=== PATIENT | male | born 1985 | race Caucasian/White ===

== ENCOUNTER 2016-09-13 12:17 | Inpatient (IN) | payer SELFPAY ==
[~2016-09-13] VITALS: Ht 180.3 cm; Wt 179.2 kg
[2016-09-13 05:25] VITALS: BP 148/86
[2016-09-13] MEDS ORDERED: IV NORMAL SALINE 1000ML BAG 1,000 ML IV SCH (14:06)
[2016-09-13] MEDS ORDERED: ONDANSETRON PF 4 MG/2 ML VIAL. IV ONE (14:15)
[2016-09-13] MEDS ORDERED: FENTANYL PF 100 MCG/2 ML VIAL. IV ONE ×2 (14:15→16:30)
[2016-09-13 14:25] LABS: GLUCOSE,URINE NEGATIVE (NEG); PH,URINE 5.5; PROTEIN,URINE 30 mg/dL (NEG-TRACE)
[2016-09-13 14:33] LABS: BASO % 0 % (0-3); EOS % 0 % (0-3); HEMATOCRIT 48.8 % (39.0-53.0); HEMOGLOBIN 16.8 g/dL (13.0-17.5); LYMPH # 1.2 x10^3/uL (1.0-4.8); LYMPH % 5 % (24-48); MEAN CORPUSCULAR HEMOGLOBIN 30 pg (25-35); MEAN CORPUSCULAR HGB CONC 34 g/dL (31-37); MEAN CORPUSCULAR VOLUME 86 fL (79-100); MONO % 4 % (0-9); NEUT % 91 % (31-73); PLATELET COUNT 286 x10^3/uL (140-400); RED BLOOD COUNT 5.68 x10^6/uL (4.30-5.70); RED CELL DISTRIBUTION WIDTH 13.4 % (11.5-14.5); WHITE BLOOD COUNT 23.3 x10^3/uL (4.0-11.0)
[2016-09-13 14:47] LABS: CALCIUM 9.4 mg/dL (8.5-10.1); CREATININE 0.9 mg/dL (0.7-1.3); GFR 97.2; POTASSIUM 3.7 mmol/L (3.5-5.1)
[2016-09-13 14:50] LABS: NITRITE,URINE NEGATIVE (NEG)
[2016-09-13 14:51] LABS: BILIRUBIN,URINE NEGATIVE (NEG); UROBILINOGEN,URINE 0.2 mg/dL (0.2 mg/dL)
[2016-09-13 14:52] LABS: BACTERIA,URINE 0 /HPF (0-FEW); RBC,URINE 0 /HPF (0-2); SQUAMOUS EPITHELIAL CELL,UR OCC /LPF; WBC,URINE 0 /HPF (0-4)
[2016-09-13 14:53] LABS: ALBUMIN 3.6 g/dL (3.4-5.0); ALBUMIN/GLOBULIN RATIO 0.9 (1.0-1.7); TOTAL PROTEIN 7.8 g/dL (6.4-8.2)
--- NOTE | 2016-09-13 14:57 | EKG ---
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 RI6.01 Unconfirmed report No previous ECG available for comparison Electronically Signed On 09-22-2016 10:15:01 LAUNCH MANAGER by Tomasz West
[2016-09-13] MEDS ORDERED: IOHEXOL 300 MG/ML 75 ML VIAL IV ONE (15:00)
[2016-09-13] MEDS ORDERED: CONTRAST GIVEN MC PRN (15:15)
--- NOTE | 2016-09-13 15:35 | PHYS DOC ---
Past Medical History Past Medical History: GERD Past Surgical History: No Surgical History Alcohol Use: Rarely Drug Use: None Adult General Chief Complaint Chief Complaint: ABDOMINAL PAIN HPI HPI This is a 31-year-old male who has had bowel movements for the last 3-4 days and has significant epigastric pain that has worsened over the last several days. He is nauseated but is not vomiting. He was seen at a clinic earlier today and sent here for further evaluation and treatment. He denies any significant health problems. He is morbidly obese. He denies any history of abdominal surgery. Review of Systems Review of Systems Constitutional: Denies fever or chills [] Eyes: Denies change in visual acuity, redness, or eye pain [] HENT: Denies nasal congestion or sore throat [] Respiratory: Denies cough or shortness of breath [] Cardiovascular: No additional information not addressed in HPI [] GI: Has abdominal pain, has nausea, denies vomiting, denies bloody stools or diarrhea [] : Denies dysuria or hematuria [] Musculoskeletal: Denies back pain or joint pain [] Integument: Denies rash or skin lesions [] Neurologic: Denies headache, focal weakness or sensory changes [] Endocrine: Denies polyuria or polydipsia [] Current Medications Current Medications Current Medications Medications (Trade) Dose Ordered Sig/Aleyda Start Time Stop Time Status Last Admin Dose Admin Fentanyl Citrate (Fentanyl 2ml Vial) 50 mcg 1X ONCE 09/13/16 14:15 09/13/16 14:16 DC 09/13/16 14:32 50 MCG Info (Do NOT chart on this entry -- for MONITORING) 1 each PRN DAILY PRN 09/13/16 15:15 09/15/16 15:14 Iohexol (Omnipaque 300 Mg/ml) 75 ml 1X ONCE 09/13/16 15:00 09/13/16 15:01 09/13/16 15:27 75 ML Ondansetron HCl (Zofran) 4 mg 1X ONCE 09/13/16 14:15 09/13/16 14:16 DC 09/13/16 14:32 4 MG Sodium Chloride (Iv Sodium Chloride 0.9% 1000ml Bag) 1,000 ml @ 1,000 mls/hr Q1H 09/13/16 14:06 09/13/16 15:05 09/13/16 14:23 1,000 MLS/HR Allergies Allergies Allergies Coded Allergies Type Severity Reaction Last Updated Verified No Known Drug Allergies 09/13/16 No Physical Exam Physical Exam Constitutional: Well developed, well nourished, no acute distress, non-toxic appearance. [] HENT: Normocephalic, atraumatic, bilateral external ears normal, oropharynx moist, no oral exudates, nose normal. [] Eyes: PERRLA, EOMI, conjunctiva normal, no discharge. [] Neck: Normal range of motion, no tenderness, supple, no stridor. [] Cardiovascular:Heart rate regular rhythm, no murmur [] Lungs & Thorax: Bilateral breath sounds clear to auscultation [] Abdomen: Bowel sounds hypoactive, obese, soft, moderate epigastric and LUQ tenderness, no masses, no pulsatile masses. [] Skin: Warm, dry, no erythema, no rash. [] Back: No tenderness, no CVA tenderness. [] Extremities: No tenderness, no cyanosis, no clubbing, ROM intact, no edema. [] Neurologic: Alert and oriented X 3, normal motor function, normal sensory function, no focal deficits noted. [] Psychologic: Affect normal, judgement normal, mood normal. [] Current Patient Data Vital Signs Vital Signs Date Time Temp Pulse Resp B/P Pulse Ox O2 Delivery O2 Flow Rate FiO2 09/13/16 14:32 16 09/13/16 13:21 99.2 83 152/89 96 Room Air 99.2 Lab Values Laboratory Tests Test 09/13/16 12:50 09/13/16 14:20 Urine Collection Type Void Urine Color [place] Urine Clarity Turbid Urine pH 5.5 Urine Specific [place] 1.025 Urine Protein 30mg/dL (NEG-TRACE) Urine Glucose (UA) Negativemg/dL (NEG) Urine Ketones (Stick) >=80mg/dL (NEG) Urine Blood Negative (NEG) Urine Nitrite Negative (NEG) Urine Bilirubin Negative (NEG) Urine Urobilinogen Dipstick 0.2mg/dL (0.2 mg/dL) Urine Leukocyte Esterase Negative (NEG) Urine RBC 0/HPF (0-2) Urine WBC 0/HPF (0-4) Urine Squamous Epithelial Cells Occ/LPF Urine Amorphous Sediment Present/HPF Urine Bacteria 0/HPF (0-FEW) Urine Mucus Slight/LPF White Blood Count 23.3x10^3/uL (4.0-11.0) H Red Blood Count 5.68x10^6/uL (4.30-5.70) Hemoglobin 16.8g/dL (13.0-17.5) Hematocrit 48.8% (39.0-53.0) Mean Corpuscular Volume 86fL (79-100) Mean Corpuscular Hemoglobin 30pg (25-35) Mean Corpuscular Hemoglobin Concent 34g/dL (31-37) Red Cell Distribution Width 13.4% (11.5-14.5) Platelet Count 286x10^3/uL (140-400) Neutrophils (%) (Auto) 91% (31-73) H Lymphocytes (%) (Auto) 5% (24-48) L Monocytes (%) (Auto) 4% (0-9) Eosinophils (%) (Auto) 0% (0-3) Basophils (%) (Auto) 0% (0-3) Neutrophils # (Auto) 21.2x10^3uL (1.8-7.7) H Lymphocytes # (Auto) 1.2x10^3/uL (1.0-4.8) Monocytes # (Auto) 0.8x10^3/uL (0.0-1.1) Eosinophils # (Auto) 0.0x10^3/uL (0.0-0.7) Basophils # (Auto) 0.0x10^3/uL (0.0-0.2) Segmented Neutrophils % 89% (35-66) H Band Neutrophils % 4% (0-9) Lymphocytes % 6% (24-48) L Monocytes % 1% (0-10) Toxic Granulation Mod Platelet Estimate Adequate (ADEQUATE) Sodium Level 139mmol/L (136-145) Potassium Level 3.7mmol/L (3.5-5.1) Chloride Level 101mmol/L (98-107) Carbon Dioxide Level 25mmol/L (21-32) Anion Gap 13 (6-14) Blood Urea Nitrogen 9mg/dL (8-26) Creatinine 0.9mg/dL (0.7-1.3) Estimated GFR (Cockcroft-Gault) 97.2 BUN/Creatinine Ratio 10 (6-20) Glucose Level 107mg/dL (70-99) H Calcium Level 9.4mg/dL (8.5-10.1) Total Bilirubin 3.0mg/dL (0.2-1.0) H Aspartate Amino Transferase (AST) 60U/L (15-37) H Alanine Aminotransferase (ALT) 261U/L (16-63) H Alkaline Phosphatase 117U/L (46-116) H Total Protein 7.8g/dL (6.4-8.2) Albumin 3.6g/dL (3.4-5.0) Albumin/Globulin Ratio 0.9 (1.0-1.7) L Lipase 1334U/L (73-393) H Laboratory Tests 09/13/16 14:20 Laboratory Tests 09/13/16 14:20 EKG EKG [] Radiology/Procedures Radiology/Procedures CT of the abdomen/pelvis with IV contrast demonstrates the following: Multidetector CT imaging was performed following an IV bolus injection of iodinated contrast material. The liver is unremarkable. There are low density areas in the gallbladder probably related to gallstones. The gallbladder is not dilated. No pericholecystic edema is seen. There is moderate streaky increased density in the peripancreatic fat best seen at the level of the pancreatic body and tail. The appearance suggests inflammation due to pancreatitis. The pancreas does enhance. No pancreatic mass is seen. The inflammatory changes extend into the anterior pararenal spaces bilaterally and the left paracolic gutter. The spleen is of normal size. The kidneys show no evidence of obstruction. There is a 4 cm mass arising from the medial aspect of the upper pole of the right kidney. It demonstrates an internal CT number of 16 Hounsfield units suggesting a solid mass versus a complicated cyst. No abdominal or pelvic adenopathy is seen. The aorta is of normal caliber. The bowel loops are not dilated. A portion of the appendix is visualized and it is unremarkable. No free air is evident in the abdomen or pelvis. There is dilatation of the left inguinal ring. It contains the spermatic cord and fat. No bowel herniation is evident. Course & Med Decision Making Course & Med Decision Making Pertinent Labs and Imaging studies reviewed. (See chart for details) 31-year-old male who has a ongoing episode of pancreatitis as demonstrated on CT scan as well as blood work with a very elevated lipase. His liver functions are also abnormal and his bilirubin is elevated. This is consistent with a gallstone pancreatitis. The need for admission was discussed with the hospitalist, Dr. Gilbert, who agreed with this plan for admission as well as a GI consult. Patient will likely be needing a ERCP study and ultrasound to further delineate the extent of his disease. He will be kept NPO and given fluids and pain control as needed. Dragon Disclaimer Dragon Disclaimer This electronic medical record was generated, in whole or in part, using a voice recognition dictation system. Departure Departure Impression: Primary Impression: Acute pancreatitis Disposition: 09 ADMITTED INPATIENT Admitting Physician: Asif Gilbert Condition: STABLE Referrals: NO PCP (PCP) XIOMARA CASTILLO DO Sep 13, 2016 15:35
[2016-09-13 15:53] LABS: PLT ESTIMATE ADEQUATE (ADEQUATE)
[2016-09-13 15:55] LABS: TOXIC GRANULATION MOD
--- NOTE | 2016-09-13 15:57 | RAD ---
CT of the abdomen and pelvis with contrast, 09/13/2016: History: Abdominal pain and vomiting Multidetector CT imaging was performed following an IV bolus injection of iodinated contrast material. The liver is unremarkable. There are low density areas in the gallbladder probably related to gallstones. The gallbladder is not dilated. No pericholecystic edema is seen. There is moderate streaky increased density in the peripancreatic fat best seen at the level of the pancreatic body and tail. The appearance suggests inflammation due to pancreatitis. The pancreas does enhance. No pancreatic mass is seen. The inflammatory changes extend into the anterior pararenal spaces bilaterally and the left paracolic gutter. The spleen is of normal size. The kidneys show no evidence of obstruction. There is a 4 cm mass arising from the medial aspect of the upper pole of the right kidney. It demonstrates an internal CT number of 16 Hounsfield units suggesting a solid mass versus a complicated cyst. No abdominal or pelvic adenopathy is seen. The aorta is of normal caliber. The bowel loops are not dilated. A portion of the appendix is visualized and it is unremarkable. No free air is evident in the abdomen or pelvis. There is dilatation of the left inguinal ring. It contains the spermatic cord and fat. No bowel herniation is evident. IMPRESSION: 1. Moderate peripancreatic inflammation compatible with acute pancreatitis. 2. Medium density right renal mass suggesting neoplasm versus complicated cyst. Sonographic evaluation is suggested. 3. Cholelithiasis. 4. Left inguinal hernia containing only fat.
--- NOTE | 2016-09-13 16:12 | ACF ---
Admission Forms Criteria PANCREATITIS Clinical Indications for Admission to Inpatient Care (Place 'X' for any and all applicable criteria): Admission is indicated for ANY ONE of the following (1)(2)(3)(4): [X]I. Acute pancreatitis[A] as indicated by 2 or more of the following: [X]a) Abdominal pain (eg, epigastric, left upper quadrant) [X]b) Serum amylase or serum lipase greater than 3 times the upper limit of normal [X]c) Characteristic findings from abdominal imaging (eg, pancreatic inflammation, pancreatic necrosis, peripancreatic fluid collection)[B] [ ]II. Pancreatitis (acute or chronic ) requiring inpatient care as indicated by 1 or more of the following : [ ]a) Inability to maintain oral hydration Hypoxemia [ ]b) Evidence of infection (eg, fever, peripancreatic abscess) [ ]c) Severe pain requiring acute inpatient management [ ]d) Hemodynamic instability [ ]e) Hypoxemia [ ]f) Acute renal failure [ ]g) Severe electrolyte abnormalities Extended stay beyond goal length of stay may be needed for (1)(11) [ ]a) Severe acute pancreatitis (10)(19) [ ]b) Persistent symptoms, ascites, or pleural effusion [ ]c) Abdominal compartment syndrome (10) [ ]d) Late complications [ ]e) Acute renal failure (27) [ ]f) Gallstones in gallbladder The original [employer] content created by [employer] has been revised. The portions of the content which have been revised are identified through the use of italic text or in bold,and [facility] has neither reviewed nor approved the modified material.All other unmodified content is copyright [employer]. Please see references footnoted in the original [employer] edition 2016 Admission Criteria Met?: Yes AARON SIMS Sep 13, 2016 16:12
[2016-09-13] MEDS ORDERED: IV NORMAL SALINE 1000ML BAG 1,000 ML IV ONE (16:30)
[2016-09-13 17:25] VITALS: BP 148/86
[2016-09-13 19:00] VITALS: BP 121/82
[2016-09-13] MEDS ORDERED: IBUP100T8 PO (19:24)
[2016-09-13] MEDS ORDERED: CALC200T3 PO (19:24)
[2016-09-13] MEDS: FENTANYL PF 100 MCG/2 ML VIAL. IV PRN ×2 (19:59→22:00)
[2016-09-13] MEDS ORDERED: FENTANYL PF 100 MCG/2 ML VIAL. IV PRN (20:00)
[2016-09-13] MEDS: DIPHENHYDRAMINE 50 MG/ML VIAL IVP PRN (20:31)
[2016-09-13] MEDS: FAMOTIDINE 20 MG/2 ML VIAL IVP SCH (20:31)
[2016-09-13] MEDS ORDERED: IBUPROFEN 200 MG TABLET PO PRN (21:00)
--- NOTE | 2016-09-13 21:28 | HP ---
ADMIT DATE: 09/13/2016 CHIEF COMPLAINT: Abdominal pain. HISTORY OF PRESENT ILLNESS: The patient is a pleasant middle-aged relatively healthy gentleman, although is quite overweight. Basically presents with abdominal pain, we did imaging, he has got gallstones. He also has pancreatitis. I discussed the case with the ER physician. We are going to admit the patient and consult GI and General Surgery, give him IV narcotics and fluids and p.r.n. antiemetics. PAST MEDICAL HISTORY: Obesity. ALLERGIES: None. FAMILY HISTORY: Diabetes. SOCIAL HISTORY: Does not drink, smoke or take drugs. MEDICATIONS: Reviewed, please refer to the MRAD. REVIEW OF SYSTEMS: GENERAL: No history of weight change, weakness or fevers. SKIN: No bruising, hair changes or rashes. EYES: No blurred, double or loss of vision. NOSE AND THROAT: No history of nosebleeds, hoarseness or sore throat. HEART: No history of palpitations, chest pain or shortness of breath on exertion. LUNGS: Denies cough, hemoptysis, wheezing or shortness of breath. GASTROINTESTINAL: Complaints of abdominal pain. GENITOURINARY: No history of frequency, urgency, hesitancy or nocturia. NEUROLOGIC: Denies history of numbness, tingling, tremor or weakness. PSYCHIATRIC: No history of panic, anxiety or depression. ENDOCRINE: No history of heat or cold intolerance, polyuria or polydipsia. EXTREMITIES: Denies muscle weakness, joint pain, pain on walking or stiffness. PHYSICAL EXAMINATION: VITAL SIGNS: Stable. Temperature is afebrile, pulse 74, respirations 18. GENERAL: He is alert, cooperative. He ____. HEART: Normal S1, S2. LUNGS: Clear. ABDOMEN: Soft, obese. Decreased bowel sounds and tender. EXTREMITIES: 1+ edema. SKIN: No rashes. PSYCHIATRIC: He is a little anxious. VASCULAR: Good capillary refill. ENDOCRINE: No thyromegaly. LYMPHATICS: No cervical nodes. HEMATOPOIETIC: No bruising. LABORATORY DATA: White count 23, hemoglobin 17, platelets 286. Electrolytes are normal. AST and ALT are high at 60 and 261 respectively. Alkaline phosphatase is also high at 117, lipase 1334. ASSESSMENT AND PLAN: Symptomatic gallstones. The patient ____ with pancreatitis. The patient has been admitted. We will start IV fluids, p.r.n. antiemetics, p.r.n. IV fentanyl, consult GI, consult General Surgery. SAMUEL RAND DO DR: DIOR/ángel JOB#: [id number] / [id number]
[2016-09-13] MEDS: CALCIUM CARBONATE 500 MG TAB.CHEW PO PRN (21:50)
[2016-09-13 23:00] VITALS: BP 155/91
[2016-09-14] MEDS: FENTANYL PF 100 MCG/2 ML VIAL. IV PRN ×3 (00:01→09:28)
[2016-09-14] MEDS: IBUPROFEN 400 MG TABLET. PO PRN ×3 (02:00→21:27)
[2016-09-14] MEDS: PIPERACILLIN/TAZOBACTAM 3.375 GM in IV NORMAL SALINE 50ML 50 ML IV SCH ×5 (02:01→23:15)
[2016-09-14 02:17] VITALS: BP 131/81
[2016-09-14 07:00] VITALS: BP_SYST 120; BP_SYST 154; BP_DIAS 81; BP_DIAS 96
[2016-09-14 08:04] LABS: BASO # 0.1 x10^3/uL (0.0-0.2); BASO % 0 % (0-3); EOS % 0 % (0-3); HEMATOCRIT 50.1 % (39.0-53.0); HEMOGLOBIN 16.3 g/dL (13.0-17.5); LYMPH # 1.4 x10^3/uL (1.0-4.8); LYMPH % 5 % (24-48); MEAN CORPUSCULAR HEMOGLOBIN 29 pg (25-35); MEAN CORPUSCULAR HGB CONC 33 g/dL (31-37); MEAN CORPUSCULAR VOLUME 90 fL (79-100); MONO % 6 % (0-9); NEUT % 89 % (31-73); PLATELET COUNT 233 x10^3/uL (140-400); RED BLOOD COUNT 5.56 x10^6/uL (4.30-5.70); RED CELL DISTRIBUTION WIDTH 13.9 % (11.5-14.5)
[2016-09-14 08:30] LABS: ALBUMIN 2.9 g/dL (3.4-5.0); ALBUMIN/GLOBULIN RATIO 0.7 (1.0-1.7); CALCIUM 8.8 mg/dL (8.5-10.1); CREATININE 1.3 mg/dL (0.7-1.3); GFR 63.6; POTASSIUM 3.9 mmol/L (3.5-5.1); TOTAL BILIRUBIN 2.8 mg/dL (0.2-1.0); TOTAL PROTEIN 7.2 g/dL (6.4-8.2)
--- NOTE | 2016-09-14 08:34 | PDOC2 ---
CHRISTINACAROLYN L PHARMACY ACCOUNT DIRECTOR 09/14/16 0834: CONSULT Date of Consult Date of Consult DATE: 09/14/16 TIME: 08:29 Reason for Consult Reason for Consult: pancreatitis Referring Physician Referring Physician: ER Identification/Chief Complaint Chief Complaint abdominal pain Source Source: Chart review, Patient History of Present Illness Reason for Visit: Epigastric pain and lower abdominal cramping since Thursday. Thursday associated nausea and emesis. + constipation. Low appetite. No similar process in past Past Medical History GI: GERD Past Surgical History Past Surgical History: No pertinent history Family History Family History: Coronary Artery Disease, Diabetes Social History No ALCOHOL: rare Drugs: None Lives: with Family Current Problem List Problem List Problems Medical Problems: (1) Acute pancreatitis Status: Acute Current Medications Current Medications Current Medications Sodium Chloride (Iv Sodium Chloride 0.9% 1000ml Bag) 1,000 ml @ 1,000 mls/hr Q1H IV Last administered on 09/13/16 14:23; Start 09/13/16 at 14:06; Stop at 17:10; Status DC Fentanyl Citrate (Fentanyl 2ml Vial) 50 mcg 1X ONCE IV Last administered on 14:32; Start 09/13/16 at 14:15; Stop 09/13/16 at 14:16; Status DC Ondansetron HCl (Zofran) 4 mg 1X ONCE IV Last administered on 09/13/16 14:32 ; Start 09/13/16 at 14:15; Stop 09/13/16 at 14:16; Status DC Iohexol (Omnipaque 300 Mg/ml) 75 ml 1X ONCE IV Last administered on 09/13/16 15:27; Start 09/13/16 at 15:00; Stop 09/13/16 at 17:10; Status DC Info 1 each 1 each PRN DAILY PRN MC SEE COMMENTS; Start 09/13/16 at 15:15; Stop 09/15/16 at 15:14 Sodium Chloride (Iv Sodium Chloride 0.9% 1000ml Bag) 1,000 ml @ 125 mls/hr 1X ONCE IV Last administered on 09/13/16 19:59; Start 09/13/16 at 16:30; Stop at 00:29; Status DC Fentanyl Citrate (Fentanyl 2ml Vial) 50 mcg 1X ONCE IV Last administered on 17:06; Start 09/13/16 at 16:30; Stop 09/13/16 at 17:10; Status DC Fentanyl Citrate (Fentanyl 2ml Vial) 50 mcg PRN Q2HR PRN IV PAIN Last administered on 09/14/16 02:00; Start 09/13/16 at 16:30 Fentanyl Citrate (Fentanyl 2ml Vial) 75 mcg PRN Q2HR PRN IV PAIN Last administered on 09/14/16 00:01; Start 09/13/16 at 20:00 Fentanyl Citrate (Fentanyl 2ml Vial) 100 mcg PRN Q2HR PRN IV PAIN Last administered on 09/14/16 06:27; Start 09/13/16 at 20:00 Famotidine (Pepcid) 20 mg BID IVP Last administered on 09/13/16 20:31; Start 09/13/16 at 21:00 Diphenhydramine HCl (Benadryl) 50 mg PRN Q6HRS PRN IVP ITCHING Last administered on 09/13/16 20:31; Start 09/13/16 at 20:15 Calcium Carbonate/ Glycine (Tums) 200 mg PRN Q4HRS PRN PO INDIGESTION Last administered on 09/13/16 21:50; Start 09/13/16 at 20:30 Ibuprofen 200 mg 200 mg PRN Q6HRS PRN PO PAIN; Start 09/13/16 at 21:00; Stop at 00:17; Status DC Piperacillin Sod/ Tazobactam Sod/ Sodium Chloride (Zosyn/Iv Sodium Chloride 0.9 % 50ml) 50 ml @ 100 mls/hr Q6HRS IV Last administered on 09/14/16 05:35; Start 09/14/16 at 00:30 Ibuprofen (Motrin) 400 mg PRN Q6HRS PRN PO MILD PAIN / TEMP Last administered on 09/14/16 02:00; Start 09/14/16 at 00:30 Active Scripts Active Reported Ibuprofen 100 Mg Tablet 100 Mg PO PRN Q6HRS PRN Tums (Calcium Carbonate) 200 Mg Tab.chew 200 Mg PO PRN Q4HRS PRN Allergies Allergies: Coded Allergies: No Known Drug Allergies (Unverified , 09/13/16) ROS General: YES: Other (fevers), No: Chills PSYCHOLOGICAL ROS: No: Anxiety, Depression Eyes: No Blurry vision, No Double vision HEENT: No: Heacaches, Sore Throat Hematological and Lymphatic: No: Bleeding Problems, Blood Clots Respiratory: No: Cough, Shortness of breath Cardiovascular: No Chest Pain, No Palpitations Gastrointestinal: Yes Other (see hpu) Genitourinary: YES Dysuria, No Hematuria Musculoskeletal: No Joint Pain, No Muscle Pain Neurological: No Impaired Coord/balance, No Numbness/Tingling Skin: No Pruritus, No Rash Physical Exam General: Alert, Oriented X3, Cooperative, No acute distress HEENT: PERRLA, Mucous membr. moist/pink Lungs: Clear to auscultation, Normal air movement Heart: Normal S1, Normal S2, No murmurs, Other (tachy) Abdomen: Soft, Other (tender epigastric, obese abdomen) Extremities: No clubbing, No cyanosis Skin: No rashes, No breakdown Neuro: Normal speech, Sensation intact Psych/Mental Status: Mental status NL, Mood NL MUSCULOSKELETAL: No deformity, No swelling Vitals VITALS Vital Signs Date Time Temp Pulse Resp B/P Pulse Ox O2 Delivery O2 Flow Rate FiO2 09/14/16 06:27 20 93 Room Air 09/14/16 03:00 98.8 98.8 09/14/16 02:17 113 131/81 Labs Labs Laboratory Tests Test 09/13/16 12:50 09/13/16 14:20 09/14/16 06:58 Urine Collection Type Void Urine Color [place] Urine Clarity Turbid Urine pH 5.5 Urine Specific [place] 1.025 Urine Protein 30mg/dL (NEG-TRACE) Urine Glucose (UA) Negativemg/dL (NEG) Urine Ketones (Stick) >=80mg/dL (NEG) Urine Blood Negative (NEG) Urine Nitrite Negative (NEG) Urine Bilirubin Negative (NEG) Urine Urobilinogen Dipstick 0.2mg/dL (0.2 mg/dL) Urine Leukocyte Esterase Negative (NEG) Urine RBC 0/HPF (0-2) Urine WBC 0/HPF (0-4) Urine Squamous Epithelial Cells Occ/LPF Urine Amorphous Sediment Present/HPF Urine Bacteria 0/HPF (0-FEW) Urine Mucus Slight/LPF White Blood Count 23.3x10^3/uL (4.0-11.0) 27.0x10^3/uL (4.0-11.0) Red Blood Count 5.68x10^6/uL (4.30-5.70) 5.56x10^6/uL (4.30-5.70) Hemoglobin 16.8g/dL (13.0-17.5) 16.3g/dL (13.0-17.5) Hematocrit 48.8% (39.0-53.0) 50.1% (39.0-53.0) Mean Corpuscular Volume 86fL (79-100) 90fL (79-100) Mean Corpuscular Hemoglobin 30pg (25-35) 29pg (25-35) Mean Corpuscular Hemoglobin Concent 34g/dL (31-37) 33g/dL (31-37) Red Cell Distribution Width 13.4% (11.5-14.5) 13.9% (11.5-14.5) Platelet Count 286x10^3/uL (140-400) 233x10^3/uL (140-400) Neutrophils (%) (Auto) 91% (31-73) 89% (31-73) Lymphocytes (%) (Auto) 5% (24-48) 5% (24-48) Monocytes (%) (Auto) 4% (0-9) 6% (0-9) Eosinophils (%) (Auto) 0% (0-3) 0% (0-3) Basophils (%) (Auto) 0% (0-3) 0% (0-3) Neutrophils # (Auto) 21.2x10^3uL (1.8-7.7) 24.0x10^3uL (1.8-7.7) Lymphocytes # (Auto) 1.2x10^3/uL (1.0-4.8) 1.4x10^3/uL (1.0-4.8) Monocytes # (Auto) 0.8x10^3/uL (0.0-1.1) 1.5x10^3/uL (0.0-1.1) Eosinophils # (Auto) 0.0x10^3/uL (0.0-0.7) 0.0x10^3/uL (0.0-0.7) Basophils # (Auto) 0.0x10^3/uL (0.0-0.2) 0.1x10^3/uL (0.0-0.2) Segmented Neutrophils % 89% (35-66) Band Neutrophils % 4% (0-9) Lymphocytes % 6% (24-48) Monocytes % 1% (0-10) Toxic Granulation Mod Platelet Estimate Adequate (ADEQUATE) Sodium Level 139mmol/L (136-145) Potassium Level 3.7mmol/L (3.5-5.1) Chloride Level 101mmol/L (98-107) Carbon Dioxide Level 25mmol/L (21-32) Anion Gap 13 (6-14) Blood Urea Nitrogen 9mg/dL (8-26) Creatinine 0.9mg/dL (0.7-1.3) Estimated GFR (Cockcroft-Gault) 97.2 BUN/Creatinine Ratio 10 (6-20) Glucose Level 107mg/dL (70-99) Calcium Level 9.4mg/dL (8.5-10.1) Total Bilirubin 3.0mg/dL (0.2-1.0) Aspartate Amino Transf (AST/SGOT) 60U/L (15-37) Alanine Aminotransferase (ALT/SGPT) 261U/L (16-63) Alkaline Phosphatase 117U/L (46-116) Total Protein 7.8g/dL (6.4-8.2) Albumin 3.6g/dL (3.4-5.0) Albumin/Globulin Ratio 0.9 (1.0-1.7) Lipase 1334U/L (73-393) Laboratory Tests Test 09/13/16 12:50 09/13/16 14:20 09/14/16 06:58 Urine Collection Type Void Urine Color [place] Urine Clarity Turbid Urine pH 5.5 Urine Specific [place] 1.025 Urine Protein 30mg/dL (NEG-TRACE) Urine Glucose (UA) Negativemg/dL (NEG) Urine Ketones (Stick) >=80mg/dL (NEG) Urine Blood Negative (NEG) Urine Nitrite Negative (NEG) Urine Bilirubin Negative (NEG) Urine Urobilinogen Dipstick 0.2mg/dL (0.2 mg/dL) Urine Leukocyte Esterase Negative (NEG) Urine RBC 0/HPF (0-2) Urine WBC 0/HPF (0-4) Urine Squamous Epithelial Cells Occ/LPF Urine Amorphous Sediment Present/HPF Urine Bacteria 0/HPF (0-FEW) Urine Mucus Slight/LPF White Blood Count 23.3x10^3/uL (4.0-11.0) 27.0x10^3/uL (4.0-11.0) Red Blood Count 5.68x10^6/uL (4.30-5.70) 5.56x10^6/uL (4.30-5.70) Hemoglobin 16.8g/dL (13.0-17.5) 16.3g/dL (13.0-17.5) Hematocrit 48.8% (39.0-53.0) 50.1% (39.0-53.0) Mean Corpuscular Volume 86fL (79-100) 90fL (79-100) Mean Corpuscular Hemoglobin 30pg (25-35) 29pg (25-35) Mean Corpuscular Hemoglobin Concent 34g/dL (31-37) 33g/dL (31-37) Red Cell Distribution Width 13.4% (11.5-14.5) 13.9% (11.5-14.5) Platelet Count 286x10^3/uL (140-400) 233x10^3/uL (140-400) Neutrophils (%) (Auto) 91% (31-73) 89% (31-73) Lymphocytes (%) (Auto) 5% (24-48) 5% (24-48) Monocytes (%) (Auto) 4% (0-9) 6% (0-9) Eosinophils (%) (Auto) 0% (0-3) 0% (0-3) Basophils (%) (Auto) 0% (0-3) 0% (0-3) Neutrophils # (Auto) 21.2x10^3uL (1.8-7.7) 24.0x10^3uL (1.8-7.7) Lymphocytes # (Auto) 1.2x10^3/uL (1.0-4.8) 1.4x10^3/uL (1.0-4.8) Monocytes # (Auto) 0.8x10^3/uL (0.0-1.1) 1.5x10^3/uL (0.0-1.1) Eosinophils # (Auto) 0.0x10^3/uL (0.0-0.7) 0.0x10^3/uL (0.0-0.7) Basophils # (Auto) 0.0x10^3/uL (0.0-0.2) 0.1x10^3/uL (0.0-0.2) Segmented Neutrophils % 89% (35-66) Band Neutrophils % 4% (0-9) Lymphocytes % 6% (24-48) Monocytes % 1% (0-10) Toxic Granulation Mod Platelet Estimate Adequate (ADEQUATE) Sodium Level 139mmol/L (136-145) Potassium Level 3.7mmol/L (3.5-5.1) Chloride Level 101mmol/L (98-107) Carbon Dioxide Level 25mmol/L (21-32) Anion Gap 13 (6-14) Blood Urea Nitrogen 9mg/dL (8-26) Creatinine 0.9mg/dL (0.7-1.3) Estimated GFR (Cockcroft-Gault) 97.2 BUN/Creatinine Ratio 10 (6-20) Glucose Level 107mg/dL (70-99) Calcium Level 9.4mg/dL (8.5-10.1) Total Bilirubin 3.0mg/dL (0.2-1.0) Aspartate Amino Transf (AST/SGOT) 60U/L (15-37) Alanine Aminotransferase (ALT/SGPT) 261U/L (16-63) Alkaline Phosphatase 117U/L (46-116) Total Protein 7.8g/dL (6.4-8.2) Albumin 3.6g/dL (3.4-5.0) Albumin/Globulin Ratio 0.9 (1.0-1.7) Lipase 1334U/L (73-393) Assessment/Plan Assessment/Plan gallstone pancreatitis lipase >1300 bili 3 on admission, repeat LFTS pending morbid obesity BMI 55 bowel rest, pain control, hydration lap cary once acute process resolved, however morbid obesity makes greater risks will have dr olea review PHYLLIS OLEA MD 09/14/16 1143: CONSULT Allergies Allergies: Coded Allergies: No Known Drug Allergies (Unverified , 09/13/16) Assessment/Plan Assessment/Plan Pt seen and examined. agree with Ms. Gross's note Pt with multiple mild episodes previously abd TTP epigastric cont supportive care plan lap cary with grams pending improvement pt strongly encouraged on weight loss Thanks for consult! CAROLYN GROSS APRN Sep 14, 2016 08:34 PHYLLIS OLEA MD Sep 14, 2016 11:43
[2016-09-14] MEDS: CALCIUM CARBONATE 500 MG TAB.CHEW PO PRN (09:26)
[2016-09-14] MEDS: FAMOTIDINE 20 MG/2 ML VIAL IVP SCH ×2 (09:27→21:27)
[2016-09-14] MEDS: DIPHENHYDRAMINE 50 MG/ML VIAL IVP PRN (09:27)
[2016-09-14 11:00] VITALS: BP 148/86
[2016-09-14] MEDS: HYDROMORPHONE 2 MG/ML VIAL. IV PRN ×2 (11:43→21:27)
--- NOTE | 2016-09-14 13:30 | PDOC ---
PROGRESS NOTES Chief Complaint Chief Complaint CC: Acute Abdominal Pain 1. Gallstone Pancreatitis 2. Elevated Lipase 3. Morbid Obesity- BMI 55 History of Present Illness History of Present Illness Pt up out of bed this AM. States that abdominal pain still present with the Fentanyl. Standing seems to relieve the abdominal pain but the pain medication wears off quickly. The pt also admits to a decreased appetite with the abdominal pain. DW RN and Pt- Plan to switch pain medications for better pain control; Lap [place] per Surgery once acute process complete Vitals Vitals Vital Signs Date Time Temp Pulse Resp B/P Pulse Ox O2 Delivery O2 Flow Rate FiO2 09/14/16 11:43 Room Air 09/14/16 11:00 99.2 105 16 148/86 89 99.2 Physical Exam General: Alert, Oriented X3, Cooperative, No acute distress Heart: Regular rate, Normal S1, Normal S2, No murmurs Lungs: Clear, Other (no wheezes) Abdomen: Soft, Other (tender epigastrum, obese abdomen) Extremities: No clubbing, No cyanosis Skin: No rashes, No breakdown, No significant lesion Labs LABS Laboratory Tests Test 09/13/16 14:20 09/14/16 06:55 09/14/16 06:58 White Blood Count 23.3x10^3/uL (4.0-11.0) 27.0x10^3/uL (4.0-11.0) Red Blood Count 5.68x10^6/uL (4.30-5.70) 5.56x10^6/uL (4.30-5.70) Hemoglobin 16.8g/dL (13.0-17.5) 16.3g/dL (13.0-17.5) Hematocrit 48.8% (39.0-53.0) 50.1% (39.0-53.0) Mean Corpuscular Volume 86fL (79-100) 90fL (79-100) Mean Corpuscular Hemoglobin 30pg (25-35) 29pg (25-35) Mean Corpuscular Hemoglobin Concent 34g/dL (31-37) 33g/dL (31-37) Red Cell Distribution Width 13.4% (11.5-14.5) 13.9% (11.5-14.5) Platelet Count 286x10^3/uL (140-400) 233x10^3/uL (140-400) Neutrophils (%) (Auto) 91% (31-73) 89% (31-73) Lymphocytes (%) (Auto) 5% (24-48) 5% (24-48) Monocytes (%) (Auto) 4% (0-9) 6% (0-9) Eosinophils (%) (Auto) 0% (0-3) 0% (0-3) Basophils (%) (Auto) 0% (0-3) 0% (0-3) Neutrophils # (Auto) 21.2x10^3uL (1.8-7.7) 24.0x10^3uL (1.8-7.7) Lymphocytes # (Auto) 1.2x10^3/uL (1.0-4.8) 1.4x10^3/uL (1.0-4.8) Monocytes # (Auto) 0.8x10^3/uL (0.0-1.1) 1.5x10^3/uL (0.0-1.1) Eosinophils # (Auto) 0.0x10^3/uL (0.0-0.7) 0.0x10^3/uL (0.0-0.7) Basophils # (Auto) 0.0x10^3/uL (0.0-0.2) 0.1x10^3/uL (0.0-0.2) Segmented Neutrophils % 89% (35-66) Band Neutrophils % 4% (0-9) Lymphocytes % 6% (24-48) Monocytes % 1% (0-10) Toxic Granulation Mod Platelet Estimate Adequate (ADEQUATE) Sodium Level 139mmol/L (136-145) 138mmol/L (136-145) Potassium Level 3.7mmol/L (3.5-5.1) 3.9mmol/L (3.5-5.1) Chloride Level 101mmol/L (98-107) 103mmol/L (98-107) Carbon Dioxide Level 25mmol/L (21-32) 27mmol/L (21-32) Anion Gap 13 (6-14) 8 (6-14) Blood Urea Nitrogen 9mg/dL (8-26) 11mg/dL (8-26) Creatinine 0.9mg/dL (0.7-1.3) 1.3mg/dL (0.7-1.3) Estimated GFR (Cockcroft-Gault) 97.2 63.6 BUN/Creatinine Ratio 10 (6-20) 8 (6-20) Glucose Level 107mg/dL (70-99) 93mg/dL (70-99) Calcium Level 9.4mg/dL (8.5-10.1) 8.8mg/dL (8.5-10.1) Total Bilirubin 3.0mg/dL (0.2-1.0) 2.8mg/dL (0.2-1.0) Aspartate Amino Transf (AST/SGOT) 60U/L (15-37) 34U/L (15-37) Alanine Aminotransferase (ALT/SGPT) 261U/L (16-63) 159U/L (16-63) Alkaline Phosphatase 117U/L (46-116) 102U/L (46-116) Total Protein 7.8g/dL (6.4-8.2) 7.2g/dL (6.4-8.2) Albumin 3.6g/dL (3.4-5.0) 2.9g/dL (3.4-5.0) Albumin/Globulin Ratio 0.9 (1.0-1.7) 0.7 (1.0-1.7) Lipase 1334U/L (73-393) Review of Systems Review of Systems Complaining of decrease appetite Complaining of diffuse abdominal pain all other ROS Negative Assessment and Plan Assessmemt and Plan Problems Medical Problems: (1) Acute pancreatitis Status: Acute 1. Gallstone Pancreatitis 2. Elevated Lipase 3. Morbid Obesity- BMI 55 Plan: - Continue care per regular floor protocol - General Surgery Consulted- appreciate recommendations - NPO at this time for bowel rest - plan for lap cary after improvement of acute process - Continue IVF administration - Fentanyl not working for pain control - Will begin Dilaudid 1 to 2 mg IV Q2H prn for pain - Prn antiemetics in place - Continue Zosyn at this time- WBC to 27 this AM - Repeat Labs including Lipase in AM Problems: Comment Review of Relevant I have reviewed the following items arelis (where applicable) has been applied. Labs Laboratory Tests Test 09/13/16 12:50 09/13/16 14:20 09/14/16 06:55 09/14/16 06:58 Urine Collection Type Void Urine Color [place] Urine Clarity Turbid Urine pH 5.5 Urine Specific [place] 1.025 Urine Protein 30mg/dL (NEG-TRACE) Urine Glucose (UA) Negativemg/dL (NEG) Urine Ketones (Stick) >=80mg/dL (NEG) Urine Blood Negative (NEG) Urine Nitrite Negative (NEG) Urine Bilirubin Negative (NEG) Urine Urobilinogen Dipstick 0.2mg/dL (0.2 mg/dL) Urine Leukocyte Esterase Negative (NEG) Urine RBC 0/HPF (0-2) Urine WBC 0/HPF (0-4) Urine Squamous Epithelial Cells Occ/LPF Urine Amorphous Sediment Present/HPF Urine Bacteria 0/HPF (0-FEW) Urine Mucus Slight/LPF White Blood Count 23.3x10^3/uL (4.0-11.0) 27.0x10^3/uL (4.0-11.0) Red Blood Count 5.68x10^6/uL (4.30-5.70) 5.56x10^6/uL (4.30-5.70) Hemoglobin 16.8g/dL (13.0-17.5) 16.3g/dL (13.0-17.5) Hematocrit 48.8% (39.0-53.0) 50.1% (39.0-53.0) Mean Corpuscular Volume 86fL (79-100) 90fL (79-100) Mean Corpuscular Hemoglobin 30pg (25-35) 29pg (25-35) Mean Corpuscular Hemoglobin Concent 34g/dL (31-37) 33g/dL (31-37) Red Cell Distribution Width 13.4% (11.5-14.5) 13.9% (11.5-14.5) Platelet Count 286x10^3/uL (140-400) 233x10^3/uL (140-400) Neutrophils (%) (Auto) 91% (31-73) 89% (31-73) Lymphocytes (%) (Auto) 5% (24-48) 5% (24-48) Monocytes (%) (Auto) 4% (0-9) 6% (0-9) Eosinophils (%) (Auto) 0% (0-3) 0% (0-3) Basophils (%) (Auto) 0% (0-3) 0% (0-3) Neutrophils # (Auto) 21.2x10^3uL (1.8-7.7) 24.0x10^3uL (1.8-7.7) Lymphocytes # (Auto) 1.2x10^3/uL (1.0-4.8) 1.4x10^3/uL (1.0-4.8) Monocytes # (Auto) 0.8x10^3/uL (0.0-1.1) 1.5x10^3/uL (0.0-1.1) Eosinophils # (Auto) 0.0x10^3/uL (0.0-0.7) 0.0x10^3/uL (0.0-0.7) Basophils # (Auto) 0.0x10^3/uL (0.0-0.2) 0.1x10^3/uL (0.0-0.2) Segmented Neutrophils % 89% (35-66) Band Neutrophils % 4% (0-9) Lymphocytes % 6% (24-48) Monocytes % 1% (0-10) Toxic Granulation Mod Platelet Estimate Adequate (ADEQUATE) Sodium Level 139mmol/L (136-145) 138mmol/L (136-145) Potassium Level 3.7mmol/L (3.5-5.1) 3.9mmol/L (3.5-5.1) Chloride Level 101mmol/L (98-107) 103mmol/L (98-107) Carbon Dioxide Level 25mmol/L (21-32) 27mmol/L (21-32) Anion Gap 13 (6-14) 8 (6-14) Blood Urea Nitrogen 9mg/dL (8-26) 11mg/dL (8-26) Creatinine 0.9mg/dL (0.7-1.3) 1.3mg/dL (0.7-1.3) Estimated GFR (Cockcroft-Gault) 97.2 63.6 BUN/Creatinine Ratio 10 (6-20) 8 (6-20) Glucose Level 107mg/dL (70-99) 93mg/dL (70-99) Calcium Level 9.4mg/dL (8.5-10.1) 8.8mg/dL (8.5-10.1) Total Bilirubin 3.0mg/dL (0.2-1.0) 2.8mg/dL (0.2-1.0) Aspartate Amino Transf (AST/SGOT) 60U/L (15-37) 34U/L (15-37) Alanine Aminotransferase (ALT/SGPT) 261U/L (16-63) 159U/L (16-63) Alkaline Phosphatase 117U/L (46-116) 102U/L (46-116) Total Protein 7.8g/dL (6.4-8.2) 7.2g/dL (6.4-8.2) Albumin 3.6g/dL (3.4-5.0) 2.9g/dL (3.4-5.0) Albumin/Globulin Ratio 0.9 (1.0-1.7) 0.7 (1.0-1.7) Lipase 1334U/L (73-393) Laboratory Tests Test 09/13/16 14:20 09/14/16 06:55 09/14/16 06:58 White Blood Count 23.3x10^3/uL (4.0-11.0) 27.0x10^3/uL (4.0-11.0) Red Blood Count 5.68x10^6/uL (4.30-5.70) 5.56x10^6/uL (4.30-5.70) Hemoglobin 16.8g/dL (13.0-17.5) 16.3g/dL (13.0-17.5) Hematocrit 48.8% (39.0-53.0) 50.1% (39.0-53.0) Mean Corpuscular Volume 86fL (79-100) 90fL (79-100) Mean Corpuscular Hemoglobin 30pg (25-35) 29pg (25-35) Mean Corpuscular Hemoglobin Concent 34g/dL (31-37) 33g/dL (31-37) Red Cell Distribution Width 13.4% (11.5-14.5) 13.9% (11.5-14.5) Platelet Count 286x10^3/uL (140-400) 233x10^3/uL (140-400) Neutrophils (%) (Auto) 91% (31-73) 89% (31-73) Lymphocytes (%) (Auto) 5% (24-48) 5% (24-48) Monocytes (%) (Auto) 4% (0-9) 6% (0-9) Eosinophils (%) (Auto) 0% (0-3) 0% (0-3) Basophils (%) (Auto) 0% (0-3) 0% (0-3) Neutrophils # (Auto) 21.2x10^3uL (1.8-7.7) 24.0x10^3uL (1.8-7.7) Lymphocytes # (Auto) 1.2x10^3/uL (1.0-4.8) 1.4x10^3/uL (1.0-4.8) Monocytes # (Auto) 0.8x10^3/uL (0.0-1.1) 1.5x10^3/uL (0.0-1.1) Eosinophils # (Auto) 0.0x10^3/uL (0.0-0.7) 0.0x10^3/uL (0.0-0.7) Basophils # (Auto) 0.0x10^3/uL (0.0-0.2) 0.1x10^3/uL (0.0-0.2) Segmented Neutrophils % 89% (35-66) Band Neutrophils % 4% (0-9) Lymphocytes % 6% (24-48) Monocytes % 1% (0-10) Toxic Granulation Mod Platelet Estimate Adequate (ADEQUATE) Sodium Level 139mmol/L (136-145) 138mmol/L (136-145) Potassium Level 3.7mmol/L (3.5-5.1) 3.9mmol/L (3.5-5.1) Chloride Level 101mmol/L (98-107) 103mmol/L (98-107) Carbon Dioxide Level 25mmol/L (21-32) 27mmol/L (21-32) Anion Gap 13 (6-14) 8 (6-14) Blood Urea Nitrogen 9mg/dL (8-26) 11mg/dL (8-26) Creatinine 0.9mg/dL (0.7-1.3) 1.3mg/dL (0.7-1.3) Estimated GFR (Cockcroft-Gault) 97.2 63.6 BUN/Creatinine Ratio 10 (6-20) 8 (6-20) Glucose Level 107mg/dL (70-99) 93mg/dL (70-99) Calcium Level 9.4mg/dL (8.5-10.1) 8.8mg/dL (8.5-10.1) Total Bilirubin 3.0mg/dL (0.2-1.0) 2.8mg/dL (0.2-1.0) Aspartate Amino Transf (AST/SGOT) 60U/L (15-37) 34U/L (15-37) Alanine Aminotransferase (ALT/SGPT) 261U/L (16-63) 159U/L (16-63) Alkaline Phosphatase 117U/L (46-116) 102U/L (46-116) Total Protein 7.8g/dL (6.4-8.2) 7.2g/dL (6.4-8.2) Albumin 3.6g/dL (3.4-5.0) 2.9g/dL (3.4-5.0) Albumin/Globulin Ratio 0.9 (1.0-1.7) 0.7 (1.0-1.7) Lipase 1334U/L (73-393) Medications Current Medications Sodium Chloride (Iv Sodium Chloride 0.9% 1000ml Bag) 1,000 ml @ 1,000 mls/hr Q1H IV Last administered on 09/13/16 14:23; Start 09/13/16 at 14:06; Stop at 17:10; Status DC Fentanyl Citrate (Fentanyl 2ml Vial) 50 mcg 1X ONCE IV Last administered on 14:32; Start 09/13/16 at 14:15; Stop 09/14/16 at 11:17; Status DC Ondansetron HCl (Zofran) 4 mg 1X ONCE IV Last administered on 09/13/16 14:32 ; Start 09/13/16 at 14:15; Stop 09/13/16 at 14:16; Status DC Iohexol (Omnipaque 300 Mg/ml) 75 ml 1X ONCE IV Last administered on 09/13/16 15:27; Start 09/13/16 at 15:00; Stop 09/13/16 at 17:10; Status DC Info 1 each 1 each PRN DAILY PRN MC SEE COMMENTS; Start 09/13/16 at 15:15; Stop 09/15/16 at 15:14 Sodium Chloride (Iv Sodium Chloride 0.9% 1000ml Bag) 1,000 ml @ 125 mls/hr 1X ONCE IV Last administered on 09/13/16 19:59; Start 09/13/16 at 16:30; Stop at 00:29; Status DC Fentanyl Citrate (Fentanyl 2ml Vial) 50 mcg 1X ONCE IV Last administered on 17:06; Start 09/13/16 at 16:30; Stop 09/14/16 at 11:17; Status DC Fentanyl Citrate (Fentanyl 2ml Vial) 50 mcg PRN Q2HR PRN IV PAIN Last administered on 09/14/16 09:28; Start 09/13/16 at 16:30; Stop 09/14/16 at 11:17 ; Status DC Fentanyl Citrate (Fentanyl 2ml Vial) 75 mcg PRN Q2HR PRN IV PAIN Last administered on 09/14/16 00:01; Start 09/13/16 at 20:00; Stop 09/14/16 at 11:17 ; Status DC Fentanyl Citrate (Fentanyl 2ml Vial) 100 mcg PRN Q2HR PRN IV PAIN Last administered on 09/14/16 06:27; Start 09/13/16 at 20:00; Stop 09/14/16 at 11:17 ; Status DC Famotidine (Pepcid) 20 mg BID IVP Last administered on 09/14/16 09:27; Start 09/13/16 at 21:00 Diphenhydramine HCl (Benadryl) 50 mg PRN Q6HRS PRN IVP ITCHING Last administered on 09/14/16 09:27; Start 09/13/16 at 20:15 Calcium Carbonate/ Glycine (Tums) 200 mg PRN Q4HRS PRN PO INDIGESTION Last administered on 09/14/16 09:26; Start 09/13/16 at 20:30 Ibuprofen 200 mg 200 mg PRN Q6HRS PRN PO PAIN; Start 09/13/16 at 21:00; Stop at 00:17; Status DC Piperacillin Sod/ Tazobactam Sod/ Sodium Chloride (Zosyn/Iv Sodium Chloride 0.9 % 50ml) 50 ml @ 100 mls/hr Q6HRS IV Last administered on 09/14/16 11:43; Start 09/14/16 at 00:30 Ibuprofen (Motrin) 400 mg PRN Q6HRS PRN PO MILD PAIN / TEMP Last administered on 09/14/16 02:00; Start 09/14/16 at 00:30 Hydromorphone HCl (Dilaudid) 1 mg PRN Q2HR PRN IV PAIN Last administered on 11:43; Start 09/14/16 at 11:15 Hydromorphone HCl (Dilaudid) 2 mg PRN Q2HR PRN IV PAIN; Start 09/14/16 at 11:30 Active Scripts Active Reported Ibuprofen 100 Mg Tablet 100 Mg PO PRN Q6HRS PRN Tums (Calcium Carbonate) 200 Mg Tab.chew 200 Mg PO PRN Q4HRS PRN Vitals/I & O Vital Sign - Last 24 Hours 09/13/16 09/13/16 09/13/16 09/13/16 13:30 14:00 14:30 14:32 Pulse 86 86 72 Resp 16 B/P 161/93 146/99 153/82 Pulse Ox 96 96 92 O2 Delivery Room Air Room Air Room Air 09/13/16 09/13/16 09/13/16 09/13/16 15:00 17:00 17:06 17:25 Temp 100.4 100.4 Pulse 72 89 102 Resp 20 B/P 162/93 165/90 148/86 Pulse Ox 94 94 94 O2 Delivery Room Air Room Air Room Air Room Air 09/13/16 09/13/16 09/13/16 09/13/16 17:25 18:39 19:00 19:51 Temp 100.4 100.7 100.4 100.7 Pulse 102 101 Resp 20 18 B/P 148/86 121/82 Pulse Ox 94 93 O2 Delivery Room Air Room Air Room Air Room Air 09/13/16 09/13/16 09/13/16 09/14/16 19:59 22:00 23:00 00:01 Temp 102.1 102.1 Pulse 118 Resp 20 20 18 20 B/P 155/91 Pulse Ox 94 94 93 94 O2 Delivery Room Air Room Air Room Air Room Air 09/14/16 09/14/16 09/14/16 09/14/16 00:31 02:00 02:17 02:30 Temp 100.2 100.2 Pulse 113 Resp 20 20 20 20 B/P 131/81 Pulse Ox 94 94 93 93 O2 Delivery Room Air Room Air Room Air 09/14/16 09/14/16 09/14/16 09/14/16 03:00 06:27 07:00 08:00 Temp 98.8 99.1 98.8 99.1 Pulse 89 Resp 20 16 B/P 154/96 Pulse Ox 93 94 O2 Delivery Room Air Room Air Room Air 09/14/16 09/14/16 09/14/16 09/14/16 08:55 09:58 11:00 11:43 Temp 99.2 99.2 Pulse 105 Resp 16 B/P 148/86 Pulse Ox 89 O2 Delivery Room Air Room Air Room Air Room Air Intake and Output 09/13/16 09/13/16 09/14/16 15:00 23:00 07:00 Intake Total 1000 ml 1780 ml Balance 1000 ml 1780 ml SAMUEL RAND III DO Sep 14, 2016 13:30
[2016-09-14 15:00] VITALS: BP 145/89
--- NOTE | 2016-09-14 15:05 | PDOC2 ---
GI CONSULT Date Date/Time DATE: 09/14/16 TIME: 14:59 Providers Attending Physician Asif Gilbert III, DO Referring Physician Consulting Physician Dr. Baugh History of Present Illness HPI Onset of upper abd pain, n/v - similar but much milder episodes in past- thought were "gas"- resolved- has not seen physician in 3 years Denies other chronic Gi complaints History Past Medical History None is reported morbid obesity Past Surgical History none Past Surgical History: No pertinent history Social/Personal History rare alcohol- none recently Review of Systems Gastrointestinal: Yes: RUQ pain, abdominal pain, abnormal stool, anorexia, constipation, diarrhea, epigastric pain, hematemesis, hematochezia, hemorrhoids , melena, nausea, no symptom reported, other, vomiting Allergies Allergies Allergies Coded Allergies Type Severity Reaction Last Updated Verified No Known Drug Allergies 09/13/16 No Medications Medications Current Medications Sodium Chloride (Iv Sodium Chloride 0.9% 1000ml Bag) 1,000 ml @ 1,000 mls/hr Q1H IV Last administered on 09/13/16 14:23; Start 09/13/16 at 14:06; Stop at 17:10; Status DC Fentanyl Citrate (Fentanyl 2ml Vial) 50 mcg 1X ONCE IV Last administered on 14:32; Start 09/13/16 at 14:15; Stop 09/14/16 at 11:17; Status DC Ondansetron HCl (Zofran) 4 mg 1X ONCE IV Last administered on 09/13/16 14:32 ; Start 09/13/16 at 14:15; Stop 09/13/16 at 14:16; Status DC Iohexol (Omnipaque 300 Mg/ml) 75 ml 1X ONCE IV Last administered on 09/13/16 15:27; Start 09/13/16 at 15:00; Stop 09/13/16 at 17:10; Status DC Info 1 each 1 each PRN DAILY PRN MC SEE COMMENTS; Start 09/13/16 at 15:15; Stop 09/15/16 at 15:14 Sodium Chloride (Iv Sodium Chloride 0.9% 1000ml Bag) 1,000 ml @ 125 mls/hr 1X ONCE IV Last administered on 09/13/16 19:59; Start 09/13/16 at 16:30; Stop at 00:29; Status DC Fentanyl Citrate (Fentanyl 2ml Vial) 50 mcg 1X ONCE IV Last administered on 17:06; Start 09/13/16 at 16:30; Stop 09/14/16 at 11:17; Status DC Fentanyl Citrate (Fentanyl 2ml Vial) 50 mcg PRN Q2HR PRN IV PAIN Last administered on 09/14/16 09:28; Start 09/13/16 at 16:30; Stop 09/14/16 at 11:17 ; Status DC Fentanyl Citrate (Fentanyl 2ml Vial) 75 mcg PRN Q2HR PRN IV PAIN Last administered on 09/14/16 00:01; Start 09/13/16 at 20:00; Stop 09/14/16 at 11:17 ; Status DC Fentanyl Citrate (Fentanyl 2ml Vial) 100 mcg PRN Q2HR PRN IV PAIN Last administered on 09/14/16 06:27; Start 09/13/16 at 20:00; Stop 09/14/16 at 11:17 ; Status DC Famotidine (Pepcid) 20 mg BID IVP Last administered on 09/14/16 09:27; Start 09/13/16 at 21:00 Diphenhydramine HCl (Benadryl) 50 mg PRN Q6HRS PRN IVP ITCHING Last administered on 09/14/16 09:27; Start 09/13/16 at 20:15 Calcium Carbonate/ Glycine (Tums) 200 mg PRN Q4HRS PRN PO INDIGESTION Last administered on 09/14/16 09:26; Start 09/13/16 at 20:30 Ibuprofen 200 mg 200 mg PRN Q6HRS PRN PO PAIN; Start 09/13/16 at 21:00; Stop at 00:17; Status DC Piperacillin Sod/ Tazobactam Sod/ Sodium Chloride (Zosyn/Iv Sodium Chloride 0.9 % 50ml) 50 ml @ 100 mls/hr Q6HRS IV Last administered on 09/14/16 11:43; Start 09/14/16 at 00:30 Ibuprofen (Motrin) 400 mg PRN Q6HRS PRN PO MILD PAIN / TEMP Last administered on 09/14/16 02:00; Start 09/14/16 at 00:30 Hydromorphone HCl (Dilaudid) 1 mg PRN Q2HR PRN IV PAIN Last administered on t 11:43; Start 09/14/16 at 11:15 Hydromorphone HCl (Dilaudid) 2 mg PRN Q2HR PRN IV PAIN; Start 09/14/16 at 11:30 Active Scripts Active Reported Ibuprofen 100 Mg Tablet 100 Mg PO PRN Q6HRS PRN Tums (Calcium Carbonate) 200 Mg Tab.chew 200 Mg PO PRN Q4HRS PRN Physical Exam Physical Exam VSS obese mild icterus chest- clear cor- RRR abd- obese bowel sounds normal- only mildly tender upper abd without [place]- but given pain meds Labs Labs Laboratory Tests Test 09/14/16 06:55 09/14/16 06:58 Sodium Level 138mmol/L (136-145) Potassium Level 3.9mmol/L (3.5-5.1) Chloride Level 103mmol/L (98-107) Carbon Dioxide Level 27mmol/L (21-32) Anion Gap 8 (6-14) Blood Urea Nitrogen 11mg/dL (8-26) Creatinine 1.3mg/dL (0.7-1.3) Estimated GFR (Cockcroft-Gault) 63.6 BUN/Creatinine Ratio 8 (6-20) Glucose Level 93mg/dL (70-99) Calcium Level 8.8mg/dL (8.5-10.1) Total Bilirubin 2.8mg/dL (0.2-1.0) Aspartate Amino Transf (AST/SGOT) 34U/L (15-37) Alanine Aminotransferase (ALT/SGPT) 159U/L (16-63) Alkaline Phosphatase 102U/L (46-116) Total Protein 7.2g/dL (6.4-8.2) Albumin 2.9g/dL (3.4-5.0) Albumin/Globulin Ratio 0.7 (1.0-1.7) White Blood Count 27.0x10^3/uL (4.0-11.0) Red Blood Count 5.56x10^6/uL (4.30-5.70) Hemoglobin 16.3g/dL (13.0-17.5) Hematocrit 50.1% (39.0-53.0) Mean Corpuscular Volume 90fL (79-100) Mean Corpuscular Hemoglobin 29pg (25-35) Mean Corpuscular Hemoglobin Concent 33g/dL (31-37) Red Cell Distribution Width 13.9% (11.5-14.5) Platelet Count 233x10^3/uL (140-400) Neutrophils (%) (Auto) 89% (31-73) Lymphocytes (%) (Auto) 5% (24-48) Monocytes (%) (Auto) 6% (0-9) Eosinophils (%) (Auto) 0% (0-3) Basophils (%) (Auto) 0% (0-3) Neutrophils # (Auto) 24.0x10^3uL (1.8-7.7) Lymphocytes # (Auto) 1.4x10^3/uL (1.0-4.8) Monocytes # (Auto) 1.5x10^3/uL (0.0-1.1) Eosinophils # (Auto) 0.0x10^3/uL (0.0-0.7) Basophils # (Auto) 0.1x10^3/uL (0.0-0.2) Assessment Assessment Pancreatitis- likely gallstone related- elevated bili and transamines- slightly improved today- no CBD dilation on CT but + for gallstones Abn LFT- suggestive of CBD stone Problems: Plan Plan AGree with surgical consultation monitor labs consider MRCP if technically feasible with his morbid size- if not, may want to wait until after lap acry and IOC to see if evidence for retained CBD before considering ERCP Thank you for allowing us to participate in the care of your patient. We will continue to follow the patient with you and provide an appropriate recommendation as it becomes available. CÉSAR BAUGH MD Sep 14, 2016 15:05
--- NOTE | 2016-09-14 16:21 | PDOC ---
Infectious Disease Note ROS ROS Vital Sign Vital Signs Vital Signs Date Time Temp Pulse Resp B/P Pulse Ox O2 Delivery O2 Flow Rate FiO2 09/14/16 11:43 Room Air 09/14/16 11:00 99.2 105 16 148/86 89 99.2 Labs Lab Laboratory Tests Test 09/14/16 06:55 09/14/16 06:58 Sodium Level 138mmol/L (136-145) Potassium Level 3.9mmol/L (3.5-5.1) Chloride Level 103mmol/L (98-107) Carbon Dioxide Level 27mmol/L (21-32) Anion Gap 8 (6-14) Blood Urea Nitrogen 11mg/dL (8-26) Creatinine 1.3mg/dL (0.7-1.3) Estimated GFR (Cockcroft-Gault) 63.6 BUN/Creatinine Ratio 8 (6-20) Glucose Level 93mg/dL (70-99) Calcium Level 8.8mg/dL (8.5-10.1) Total Bilirubin 2.8mg/dL (0.2-1.0) Aspartate Amino Transf (AST/SGOT) 34U/L (15-37) Alanine Aminotransferase (ALT/SGPT) 159U/L (16-63) Alkaline Phosphatase 102U/L (46-116) Total Protein 7.2g/dL (6.4-8.2) Albumin 2.9g/dL (3.4-5.0) Albumin/Globulin Ratio 0.7 (1.0-1.7) White Blood Count 27.0x10^3/uL (4.0-11.0) Red Blood Count 5.56x10^6/uL (4.30-5.70) Hemoglobin 16.3g/dL (13.0-17.5) Hematocrit 50.1% (39.0-53.0) Mean Corpuscular Volume 90fL (79-100) Mean Corpuscular Hemoglobin 29pg (25-35) Mean Corpuscular Hemoglobin Concent 33g/dL (31-37) Red Cell Distribution Width 13.9% (11.5-14.5) Platelet Count 233x10^3/uL (140-400) Neutrophils (%) (Auto) 89% (31-73) Lymphocytes (%) (Auto) 5% (24-48) Monocytes (%) (Auto) 6% (0-9) Eosinophils (%) (Auto) 0% (0-3) Basophils (%) (Auto) 0% (0-3) Neutrophils # (Auto) 24.0x10^3uL (1.8-7.7) Lymphocytes # (Auto) 1.4x10^3/uL (1.0-4.8) Monocytes # (Auto) 1.5x10^3/uL (0.0-1.1) Eosinophils # (Auto) 0.0x10^3/uL (0.0-0.7) Basophils # (Auto) 0.1x10^3/uL (0.0-0.2) Objective Assessment Acute gallstone pancreatitis Fever Leukocytosis Morbid obesity w/ BMI 55 Plan Plan of Care abx- Zosyn OK Maintain hydration Bowel rest f/u am labs Thank you [id number] Patient seen and examined. Chart reviewed. Case discussed with WATCH PARTS INSPECTOR. Agree with above plan MACHELLE CARVAJAL APRN Sep 14, 2016 16:21 MONIQUE WATTS MD Sep 14, 2016 17:13
[2016-09-14 19:00] VITALS: BP 161/87
[2016-09-14 23:00] VITALS: BP 113/56
[2016-09-15 03:00] VITALS: BP 131/65
[2016-09-15] MEDS: HYDROMORPHONE 2 MG/ML VIAL. IV PRN ×4 (04:47→23:33)
[2016-09-15] MEDS: PIPERACILLIN/TAZOBACTAM 3.375 GM in IV NORMAL SALINE 50ML 50 ML IV SCH ×4 (04:47→23:34)
[2016-09-15 06:37] LABS: BASO # 0.1 x10^3/uL (0.0-0.2); BASO % 0 % (0-3); EOS % 0 % (0-3); HEMATOCRIT 44.3 % (39.0-53.0); HEMOGLOBIN 14.5 g/dL (13.0-17.5); LYMPH # 1.8 x10^3/uL (1.0-4.8); LYMPH % 7 % (24-48); MEAN CORPUSCULAR HEMOGLOBIN 29 pg (25-35); MEAN CORPUSCULAR HGB CONC 33 g/dL (31-37); MEAN CORPUSCULAR VOLUME 89 fL (79-100); MONO % 7 % (0-9); NEUT % 85 % (31-73); PLATELET COUNT 236 x10^3/uL (140-400); RED BLOOD COUNT 4.96 x10^6/uL (4.30-5.70); RED CELL DISTRIBUTION WIDTH 13.9 % (11.5-14.5); WHITE BLOOD COUNT 23.7 x10^3/uL (4.0-11.0)
[2016-09-15 06:48] LABS: CALCIUM 8.6 mg/dL (8.5-10.1); CREATININE 1.5 mg/dL (0.7-1.3); GFR 53.9
[2016-09-15 07:00] VITALS: BP 134/88
[2016-09-15 08:04] LABS: ALBUMIN 2.7 g/dL (3.4-5.0); DIRECT BILIRUBIN 1.1 mg/dL (0.0-0.2); TOTAL BILIRUBIN 1.7 mg/dL (0.2-1.0); TOTAL PROTEIN 6.1 g/dL (6.4-8.2)
--- NOTE | 2016-09-15 08:53 | PDOC ---
Infectious Disease Note Subjective Subjective Pt sitting in chair. Feeling better. Craving food now. Constipated - lat BM -09/09 ROS ROS GEN: Denies fevers, chills, sweats HEENT: Denies blurred vision, sore throat CV: Denies chest pain RESP: Denies shortness of air, cough GI: Denies n/v/d NEURO: Denies confusion, dizziness MSK: Denies weakness, joint pain/swelling Vital Sign Vital Signs Vital Signs Date Time Temp Pulse Resp B/P Pulse Ox O2 Delivery O2 Flow Rate FiO2 09/15/16 05:17 20 92 Room Air 09/15/16 03:00 101.1 120 131/65 101.1 Physical Exam PHYSICAL EXAM GENERAL: NAD, Alert, obese HEENT: PERRL, OC/OP -clear NECK: Supple, no JVD, no LN LUNGS: Clear HEART: S1S2, no gallop, no murmur ABD: Soft, NT, no organomegaly, no rebound, obese EXT: No edema, no cyanosis PEST CONTROL SUPERVISOR: Alert, oriented x 3, no focal neurologic deficit SKIN: No rash IV: ok Labs Lab Laboratory Tests Test 09/15/16 05:30 White Blood Count 23.7x10^3/uL (4.0-11.0) Red Blood Count 4.96x10^6/uL (4.30-5.70) Hemoglobin 14.5g/dL (13.0-17.5) Hematocrit 44.3% (39.0-53.0) Mean Corpuscular Volume 89fL (79-100) Mean Corpuscular Hemoglobin 29pg (25-35) Mean Corpuscular Hemoglobin Concent 33g/dL (31-37) Red Cell Distribution Width 13.9% (11.5-14.5) Platelet Count 236x10^3/uL (140-400) Neutrophils (%) (Auto) 85% (31-73) Lymphocytes (%) (Auto) 7% (24-48) Monocytes (%) (Auto) 7% (0-9) Eosinophils (%) (Auto) 0% (0-3) Basophils (%) (Auto) 0% (0-3) Neutrophils # (Auto) 20.2x10^3uL (1.8-7.7) Lymphocytes # (Auto) 1.8x10^3/uL (1.0-4.8) Monocytes # (Auto) 1.7x10^3/uL (0.0-1.1) Eosinophils # (Auto) 0.0x10^3/uL (0.0-0.7) Basophils # (Auto) 0.1x10^3/uL (0.0-0.2) Sodium Level 145mmol/L (136-145) Potassium Level 4.0mmol/L (3.5-5.1) Chloride Level 105mmol/L (98-107) Carbon Dioxide Level 26mmol/L (21-32) Anion Gap 14 (6-14) Blood Urea Nitrogen 16mg/dL (8-26) Creatinine 1.5mg/dL (0.7-1.3) Estimated GFR (Cockcroft-Gault) 53.9 Glucose Level 89mg/dL (70-99) Calcium Level 8.6mg/dL (8.5-10.1) Total Bilirubin 1.7mg/dL (0.2-1.0) Direct Bilirubin 1.1mg/dL (0.0-0.2) Aspartate Amino Transf (AST/SGOT) 41U/L (15-37) Alanine Aminotransferase (ALT/SGPT) 113U/L (16-63) Alkaline Phosphatase 90U/L (46-116) Total Protein 6.1g/dL (6.4-8.2) Albumin 2.7g/dL (3.4-5.0) Lipase 259U/L (73-393) Objective Assessment Acute gallstone pancreatitis Fever Leukocytosis - improving Morbid obesity w/ BMI 55 Plan Plan of Care Cont Zosyn Maintain hydration Bowel rest f/u am labs Await surgical decision Needs constipation relieved soon VINCENT VALLECILLO MD Sep 15, 2016 08:53
[2016-09-15] MEDS: FAMOTIDINE 20 MG/2 ML VIAL IVP SCH ×2 (09:15→21:00)
[2016-09-15] MEDS ORDERED: IV NORMAL SALINE 1000ML BAG 1,000 ML IV ONE (09:15)
--- NOTE | 2016-09-15 09:15 | PDOC ---
PROGRESS NOTES Chief Complaint Chief Complaint CC: Acute Abdominal Pain 1. Gallstone Pancreatitis 2. Morbid Obesity- BMI 55 3. Fevers Plan Aggressive IV Hydration IV Zosyn follow cx GS following anticipated surgery once acute process improves monitor lipase Pain control with iv Dilaudid, Avoid co2 narcosis Monitor CMP closely History of Present Illness History of Present Illness epigastric pain no fever no chills. Vitals Vitals Vital Signs Date Time Temp Pulse Resp B/P Pulse Ox O2 Delivery O2 Flow Rate FiO2 09/15/16 05:17 20 92 Room Air 09/15/16 03:00 101.1 120 131/65 101.1 Physical Exam General: Alert, Oriented X3, Cooperative, No acute distress Heart: Regular rate, Normal S1, Normal S2, No murmurs Lungs: Clear, Other (no wheezes) Abdomen: Soft, Other (tender epigastrum, obese abdomen) Extremities: No clubbing, No cyanosis Skin: No rashes, No breakdown, No significant lesion Labs LABS Laboratory Tests Test 09/15/16 05:30 White Blood Count 23.7x10^3/uL (4.0-11.0) Red Blood Count 4.96x10^6/uL (4.30-5.70) Hemoglobin 14.5g/dL (13.0-17.5) Hematocrit 44.3% (39.0-53.0) Mean Corpuscular Volume 89fL (79-100) Mean Corpuscular Hemoglobin 29pg (25-35) Mean Corpuscular Hemoglobin Concent 33g/dL (31-37) Red Cell Distribution Width 13.9% (11.5-14.5) Platelet Count 236x10^3/uL (140-400) Neutrophils (%) (Auto) 85% (31-73) Lymphocytes (%) (Auto) 7% (24-48) Monocytes (%) (Auto) 7% (0-9) Eosinophils (%) (Auto) 0% (0-3) Basophils (%) (Auto) 0% (0-3) Neutrophils # (Auto) 20.2x10^3uL (1.8-7.7) Lymphocytes # (Auto) 1.8x10^3/uL (1.0-4.8) Monocytes # (Auto) 1.7x10^3/uL (0.0-1.1) Eosinophils # (Auto) 0.0x10^3/uL (0.0-0.7) Basophils # (Auto) 0.1x10^3/uL (0.0-0.2) Sodium Level 145mmol/L (136-145) Potassium Level 4.0mmol/L (3.5-5.1) Chloride Level 105mmol/L (98-107) Carbon Dioxide Level 26mmol/L (21-32) Anion Gap 14 (6-14) Blood Urea Nitrogen 16mg/dL (8-26) Creatinine 1.5mg/dL (0.7-1.3) Estimated GFR (Cockcroft-Gault) 53.9 Glucose Level 89mg/dL (70-99) Calcium Level 8.6mg/dL (8.5-10.1) Total Bilirubin 1.7mg/dL (0.2-1.0) Direct Bilirubin 1.1mg/dL (0.0-0.2) Aspartate Amino Transf (AST/SGOT) 41U/L (15-37) Alanine Aminotransferase (ALT/SGPT) 113U/L (16-63) Alkaline Phosphatase 90U/L (46-116) Total Protein 6.1g/dL (6.4-8.2) Albumin 2.7g/dL (3.4-5.0) Lipase 259U/L (73-393) Assessment and Plan Assessmemt and Plan Problems Medical Problems: (1) Acute pancreatitis Status: Acute Problems: Comment Review of Relevant I have reviewed the following items arelis (where applicable) has been applied. Labs Laboratory Tests Test 09/13/16 12:50 09/13/16 14:20 09/14/16 06:55 09/14/16 06:58 Urine Collection Type Void Urine Color [place] Urine Clarity Turbid Urine pH 5.5 Urine Specific [place] 1.025 Urine Protein 30mg/dL (NEG-TRACE) Urine Glucose (UA) Negativemg/dL (NEG) Urine Ketones (Stick) >=80mg/dL (NEG) Urine Blood Negative (NEG) Urine Nitrite Negative (NEG) Urine Bilirubin Negative (NEG) Urine Urobilinogen Dipstick 0.2mg/dL (0.2 mg/dL) Urine Leukocyte Esterase Negative (NEG) Urine RBC 0/HPF (0-2) Urine WBC 0/HPF (0-4) Urine Squamous Epithelial Cells Occ/LPF Urine Amorphous Sediment Present/HPF Urine Bacteria 0/HPF (0-FEW) Urine Mucus Slight/LPF White Blood Count 23.3x10^3/uL (4.0-11.0) 27.0x10^3/uL (4.0-11.0) Red Blood Count 5.68x10^6/uL (4.30-5.70) 5.56x10^6/uL (4.30-5.70) Hemoglobin 16.8g/dL (13.0-17.5) 16.3g/dL (13.0-17.5) Hematocrit 48.8% (39.0-53.0) 50.1% (39.0-53.0) Mean Corpuscular Volume 86fL (79-100) 90fL (79-100) Mean Corpuscular Hemoglobin 30pg (25-35) 29pg (25-35) Mean Corpuscular Hemoglobin Concent 34g/dL (31-37) 33g/dL (31-37) Red Cell Distribution Width 13.4% (11.5-14.5) 13.9% (11.5-14.5) Platelet Count 286x10^3/uL (140-400) 233x10^3/uL (140-400) Neutrophils (%) (Auto) 91% (31-73) 89% (31-73) Lymphocytes (%) (Auto) 5% (24-48) 5% (24-48) Monocytes (%) (Auto) 4% (0-9) 6% (0-9) Eosinophils (%) (Auto) 0% (0-3) 0% (0-3) Basophils (%) (Auto) 0% (0-3) 0% (0-3) Neutrophils # (Auto) 21.2x10^3uL (1.8-7.7) 24.0x10^3uL (1.8-7.7) Lymphocytes # (Auto) 1.2x10^3/uL (1.0-4.8) 1.4x10^3/uL (1.0-4.8) Monocytes # (Auto) 0.8x10^3/uL (0.0-1.1) 1.5x10^3/uL (0.0-1.1) Eosinophils # (Auto) 0.0x10^3/uL (0.0-0.7) 0.0x10^3/uL (0.0-0.7) Basophils # (Auto) 0.0x10^3/uL (0.0-0.2) 0.1x10^3/uL (0.0-0.2) Segmented Neutrophils % 89% (35-66) Band Neutrophils % 4% (0-9) Lymphocytes % 6% (24-48) Monocytes % 1% (0-10) Toxic Granulation Mod Platelet Estimate Adequate (ADEQUATE) Sodium Level 139mmol/L (136-145) 138mmol/L (136-145) Potassium Level 3.7mmol/L (3.5-5.1) 3.9mmol/L (3.5-5.1) Chloride Level 101mmol/L (98-107) 103mmol/L (98-107) Carbon Dioxide Level 25mmol/L (21-32) 27mmol/L (21-32) Anion Gap 13 (6-14) 8 (6-14) Blood Urea Nitrogen 9mg/dL (8-26) 11mg/dL (8-26) Creatinine 0.9mg/dL (0.7-1.3) 1.3mg/dL (0.7-1.3) Estimated GFR (Cockcroft-Gault) 97.2 63.6 BUN/Creatinine Ratio 10 (6-20) 8 (6-20) Glucose Level 107mg/dL (70-99) 93mg/dL (70-99) Calcium Level 9.4mg/dL (8.5-10.1) 8.8mg/dL (8.5-10.1) Total Bilirubin 3.0mg/dL (0.2-1.0) 2.8mg/dL (0.2-1.0) Aspartate Amino Transf (AST/SGOT) 60U/L (15-37) 34U/L (15-37) Alanine Aminotransferase (ALT/SGPT) 261U/L (16-63) 159U/L (16-63) Alkaline Phosphatase 117U/L (46-116) 102U/L (46-116) Total Protein 7.8g/dL (6.4-8.2) 7.2g/dL (6.4-8.2) Albumin 3.6g/dL (3.4-5.0) 2.9g/dL (3.4-5.0) Albumin/Globulin Ratio 0.9 (1.0-1.7) 0.7 (1.0-1.7) Lipase 1334U/L (73-393) Test 09/15/16 05:30 White Blood Count 23.7x10^3/uL (4.0-11.0) Red Blood Count 4.96x10^6/uL (4.30-5.70) Hemoglobin 14.5g/dL (13.0-17.5) Hematocrit 44.3% (39.0-53.0) Mean Corpuscular Volume 89fL (79-100) Mean Corpuscular Hemoglobin 29pg (25-35) Mean Corpuscular Hemoglobin Concent 33g/dL (31-37) Red Cell Distribution Width 13.9% (11.5-14.5) Platelet Count 236x10^3/uL (140-400) Neutrophils (%) (Auto) 85% (31-73) Lymphocytes (%) (Auto) 7% (24-48) Monocytes (%) (Auto) 7% (0-9) Eosinophils (%) (Auto) 0% (0-3) Basophils (%) (Auto) 0% (0-3) Neutrophils # (Auto) 20.2x10^3uL (1.8-7.7) Lymphocytes # (Auto) 1.8x10^3/uL (1.0-4.8) Monocytes # (Auto) 1.7x10^3/uL (0.0-1.1) Eosinophils # (Auto) 0.0x10^3/uL (0.0-0.7) Basophils # (Auto) 0.1x10^3/uL (0.0-0.2) Sodium Level 145mmol/L (136-145) Potassium Level 4.0mmol/L (3.5-5.1) Chloride Level 105mmol/L (98-107) Carbon Dioxide Level 26mmol/L (21-32) Anion Gap 14 (6-14) Blood Urea Nitrogen 16mg/dL (8-26) Creatinine 1.5mg/dL (0.7-1.3) Estimated GFR (Cockcroft-Gault) 53.9 Glucose Level 89mg/dL (70-99) Calcium Level 8.6mg/dL (8.5-10.1) Total Bilirubin 1.7mg/dL (0.2-1.0) Direct Bilirubin 1.1mg/dL (0.0-0.2) Aspartate Amino Transf (AST/SGOT) 41U/L (15-37) Alanine Aminotransferase (ALT/SGPT) 113U/L (16-63) Alkaline Phosphatase 90U/L (46-116) Total Protein 6.1g/dL (6.4-8.2) Albumin 2.7g/dL (3.4-5.0) Lipase 259U/L (73-393) Laboratory Tests Test 09/15/16 05:30 White Blood Count 23.7x10^3/uL (4.0-11.0) Red Blood Count 4.96x10^6/uL (4.30-5.70) Hemoglobin 14.5g/dL (13.0-17.5) Hematocrit 44.3% (39.0-53.0) Mean Corpuscular Volume 89fL (79-100) Mean Corpuscular Hemoglobin 29pg (25-35) Mean Corpuscular Hemoglobin Concent 33g/dL (31-37) Red Cell Distribution Width 13.9% (11.5-14.5) Platelet Count 236x10^3/uL (140-400) Neutrophils (%) (Auto) 85% (31-73) Lymphocytes (%) (Auto) 7% (24-48) Monocytes (%) (Auto) 7% (0-9) Eosinophils (%) (Auto) 0% (0-3) Basophils (%) (Auto) 0% (0-3) Neutrophils # (Auto) 20.2x10^3uL (1.8-7.7) Lymphocytes # (Auto) 1.8x10^3/uL (1.0-4.8) Monocytes # (Auto) 1.7x10^3/uL (0.0-1.1) Eosinophils # (Auto) 0.0x10^3/uL (0.0-0.7) Basophils # (Auto) 0.1x10^3/uL (0.0-0.2) Sodium Level 145mmol/L (136-145) Potassium Level 4.0mmol/L (3.5-5.1) Chloride Level 105mmol/L (98-107) Carbon Dioxide Level 26mmol/L (21-32) Anion Gap 14 (6-14) Blood Urea Nitrogen 16mg/dL (8-26) Creatinine 1.5mg/dL (0.7-1.3) Estimated GFR (Cockcroft-Gault) 53.9 Glucose Level 89mg/dL (70-99) Calcium Level 8.6mg/dL (8.5-10.1) Total Bilirubin 1.7mg/dL (0.2-1.0) Direct Bilirubin 1.1mg/dL (0.0-0.2) Aspartate Amino Transf (AST/SGOT) 41U/L (15-37) Alanine Aminotransferase (ALT/SGPT) 113U/L (16-63) Alkaline Phosphatase 90U/L (46-116) Total Protein 6.1g/dL (6.4-8.2) Albumin 2.7g/dL (3.4-5.0) Lipase 259U/L (73-393) Medications Current Medications Sodium Chloride (Iv Sodium Chloride 0.9% 1000ml Bag) 1,000 ml @ 1,000 mls/hr Q1H IV Last administered on 09/13/16 14:23; Start 09/13/16 at 14:06; Stop at 17:10; Status DC Fentanyl Citrate (Fentanyl 2ml Vial) 50 mcg 1X ONCE IV Last administered on 14:32; Start 09/13/16 at 14:15; Stop 09/14/16 at 11:17; Status DC Ondansetron HCl (Zofran) 4 mg 1X ONCE IV Last administered on 09/13/16 14:32 ; Start 09/13/16 at 14:15; Stop 09/13/16 at 14:16; Status DC Iohexol (Omnipaque 300 Mg/ml) 75 ml 1X ONCE IV Last administered on 09/13/16 15:27; Start 09/13/16 at 15:00; Stop 09/13/16 at 17:10; Status DC Info 1 each 1 each PRN DAILY PRN MC SEE COMMENTS; Start 09/13/16 at 15:15; Stop 09/15/16 at 15:14 Sodium Chloride (Iv Sodium Chloride 0.9% 1000ml Bag) 1,000 ml @ 125 mls/hr 1X ONCE IV Last administered on 09/13/16 19:59; Start 09/13/16 at 16:30; Stop at 00:29; Status DC Fentanyl Citrate (Fentanyl 2ml Vial) 50 mcg 1X ONCE IV Last administered on 17:06; Start 09/13/16 at 16:30; Stop 09/14/16 at 11:17; Status DC Fentanyl Citrate (Fentanyl 2ml Vial) 50 mcg PRN Q2HR PRN IV PAIN Last administered on 09/14/16 09:28; Start 09/13/16 at 16:30; Stop 09/14/16 at 11:17 ; Status DC Fentanyl Citrate (Fentanyl 2ml Vial) 75 mcg PRN Q2HR PRN IV PAIN Last administered on 09/14/16 00:01; Start 09/13/16 at 20:00; Stop 09/14/16 at 11:17 ; Status DC Fentanyl Citrate (Fentanyl 2ml Vial) 100 mcg PRN Q2HR PRN IV PAIN Last administered on 09/14/16 06:27; Start 09/13/16 at 20:00; Stop 09/14/16 at 11:17 ; Status DC Famotidine (Pepcid) 20 mg BID IVP Last administered on 09/14/16 21:27; Start 09/13/16 at 21:00 Diphenhydramine HCl (Benadryl) 50 mg PRN Q6HRS PRN IVP ITCHING Last administered on 09/14/16 09:27; Start 09/13/16 at 20:15 Calcium Carbonate/ Glycine (Tums) 200 mg PRN Q4HRS PRN PO INDIGESTION Last administered on 09/14/16 09:26; Start 09/13/16 at 20:30 Ibuprofen 200 mg 200 mg PRN Q6HRS PRN PO PAIN; Start 09/13/16 at 21:00; Stop at 00:17; Status DC Piperacillin Sod/ Tazobactam Sod/ Sodium Chloride (Zosyn/Iv Sodium Chloride 0.9 % 50ml) 50 ml @ 100 mls/hr Q6HRS IV Last administered on 09/15/16 04:47; Start 09/14/16 at 00:30 Ibuprofen (Motrin) 400 mg PRN Q6HRS PRN PO MILD PAIN / TEMP Last administered on 09/14/16 15:04; Start 09/14/16 at 00:30; Stop 09/14/16 at 20:33; Status DC Hydromorphone HCl (Dilaudid) 1 mg PRN Q2HR PRN IV PAIN Last administered on 04:47; Start 09/14/16 at 11:15 Hydromorphone HCl (Dilaudid) 2 mg PRN Q2HR PRN IV PAIN; Start 09/14/16 at 11:30 Ibuprofen (Motrin) 400 mg PRN Q4HRS PRN PO MILD PAIN / TEMP; Start 09/14/16 at 20:30 Active Scripts Active Reported Ibuprofen 100 Mg Tablet 100 Mg PO PRN Q6HRS PRN Tums (Calcium Carbonate) 200 Mg Tab.chew 200 Mg PO PRN Q4HRS PRN Vitals/I & O Vital Sign - Last 24 Hours 09/14/16 09/14/16 09/14/16 09/14/16 09:58 11:00 11:43 15:00 Temp 99.2 99.7 99.2 99.7 Pulse 105 109 Resp 16 16 B/P 148/86 145/89 Pulse Ox 89 90 O2 Delivery Room Air Room Air Room Air Room Air 09/14/16 09/14/16 09/14/16 09/14/16 19:00 20:00 21:27 23:00 Temp 99.8 101.8 99.8 101.8 Pulse 94 120 Resp 18 20 18 B/P 161/87 113/56 Pulse Ox 94 92 O2 Delivery Room Air Room Air Room Air Room Air 09/15/16 09/15/16 09/15/16 03:00 04:47 05:17 Temp 101.1 101.1 Pulse 120 Resp 18 20 20 B/P 131/65 Pulse Ox 92 92 92 O2 Delivery Room Air Room Air Room Air Intake and Output 09/14/16 09/14/16 09/15/16 15:00 23:00 07:00 Intake Total 0 ml Output Total 300 ml 480 ml Balance -300 ml -480 ml CAMERON GIBBS MD Sep 15, 2016 09:15
--- NOTE | 2016-09-15 09:20 | PDOC ---
CAROLYN VASQUEZ TRAY DRIER OPERATOR 09/15/16 0920: SURGICAL PROGRESS NOTE Subjective pain improved, meal grinder tender to epigastric area, fullness to lower abdomen no nausea or emesis Vital Signs Vital Signs Date Time Temp Pulse Resp B/P Pulse Ox O2 Delivery O2 Flow Rate FiO2 09/15/16 05:17 20 92 Room Air 09/15/16 03:00 101.1 120 131/65 101.1 I&O Intake and Output 09/15/16 07:00 Intake Total 0 ml Output Total 780 ml Balance -780 ml Intake Oral 0 ml Output Urine Total 780 ml # Voids 1 General: Alert, Oriented X3, Cooperative, No acute distress Abdomen: Soft, Other (mild epigastric ttp) Labs Laboratory Tests Test 09/13/16 12:50 09/13/16 14:20 09/14/16 06:55 09/14/16 06:58 Urine Collection Type Void Urine Color [place] Urine Clarity Turbid Urine pH 5.5 Urine Specific [place] 1.025 Urine Protein 30mg/dL (NEG-TRACE) Urine Glucose (UA) Negativemg/dL (NEG) Urine Ketones (Stick) >=80mg/dL (NEG) Urine Blood Negative (NEG) Urine Nitrite Negative (NEG) Urine Bilirubin Negative (NEG) Urine Urobilinogen Dipstick 0.2mg/dL (0.2 mg/dL) Urine Leukocyte Esterase Negative (NEG) Urine RBC 0/HPF (0-2) Urine WBC 0/HPF (0-4) Urine Squamous Epithelial Cells Occ/LPF Urine Amorphous Sediment Present/HPF Urine Bacteria 0/HPF (0-FEW) Urine Mucus Slight/LPF White Blood Count 23.3x10^3/uL (4.0-11.0) 27.0x10^3/uL (4.0-11.0) Red Blood Count 5.68x10^6/uL (4.30-5.70) 5.56x10^6/uL (4.30-5.70) Hemoglobin 16.8g/dL (13.0-17.5) 16.3g/dL (13.0-17.5) Hematocrit 48.8% (39.0-53.0) 50.1% (39.0-53.0) Mean Corpuscular Volume 86fL (79-100) 90fL (79-100) Mean Corpuscular Hemoglobin 30pg (25-35) 29pg (25-35) Mean Corpuscular Hemoglobin Concent 34g/dL (31-37) 33g/dL (31-37) Red Cell Distribution Width 13.4% (11.5-14.5) 13.9% (11.5-14.5) Platelet Count 286x10^3/uL (140-400) 233x10^3/uL (140-400) Neutrophils (%) (Auto) 91% (31-73) 89% (31-73) Lymphocytes (%) (Auto) 5% (24-48) 5% (24-48) Monocytes (%) (Auto) 4% (0-9) 6% (0-9) Eosinophils (%) (Auto) 0% (0-3) 0% (0-3) Basophils (%) (Auto) 0% (0-3) 0% (0-3) Neutrophils # (Auto) 21.2x10^3uL (1.8-7.7) 24.0x10^3uL (1.8-7.7) Lymphocytes # (Auto) 1.2x10^3/uL (1.0-4.8) 1.4x10^3/uL (1.0-4.8) Monocytes # (Auto) 0.8x10^3/uL (0.0-1.1) 1.5x10^3/uL (0.0-1.1) Eosinophils # (Auto) 0.0x10^3/uL (0.0-0.7) 0.0x10^3/uL (0.0-0.7) Basophils # (Auto) 0.0x10^3/uL (0.0-0.2) 0.1x10^3/uL (0.0-0.2) Segmented Neutrophils % 89% (35-66) Band Neutrophils % 4% (0-9) Lymphocytes % 6% (24-48) Monocytes % 1% (0-10) Toxic Granulation Mod Platelet Estimate Adequate (ADEQUATE) Sodium Level 139mmol/L (136-145) 138mmol/L (136-145) Potassium Level 3.7mmol/L (3.5-5.1) 3.9mmol/L (3.5-5.1) Chloride Level 101mmol/L (98-107) 103mmol/L (98-107) Carbon Dioxide Level 25mmol/L (21-32) 27mmol/L (21-32) Anion Gap 13 (6-14) 8 (6-14) Blood Urea Nitrogen 9mg/dL (8-26) 11mg/dL (8-26) Creatinine 0.9mg/dL (0.7-1.3) 1.3mg/dL (0.7-1.3) Estimated GFR (Cockcroft-Gault) 97.2 63.6 BUN/Creatinine Ratio 10 (6-20) 8 (6-20) Glucose Level 107mg/dL (70-99) 93mg/dL (70-99) Calcium Level 9.4mg/dL (8.5-10.1) 8.8mg/dL (8.5-10.1) Total Bilirubin 3.0mg/dL (0.2-1.0) 2.8mg/dL (0.2-1.0) Aspartate Amino Transf (AST/SGOT) 60U/L (15-37) 34U/L (15-37) Alanine Aminotransferase (ALT/SGPT) 261U/L (16-63) 159U/L (16-63) Alkaline Phosphatase 117U/L (46-116) 102U/L (46-116) Total Protein 7.8g/dL (6.4-8.2) 7.2g/dL (6.4-8.2) Albumin 3.6g/dL (3.4-5.0) 2.9g/dL (3.4-5.0) Albumin/Globulin Ratio 0.9 (1.0-1.7) 0.7 (1.0-1.7) Lipase 1334U/L (73-393) Test 09/15/16 05:30 White Blood Count 23.7x10^3/uL (4.0-11.0) Red Blood Count 4.96x10^6/uL (4.30-5.70) Hemoglobin 14.5g/dL (13.0-17.5) Hematocrit 44.3% (39.0-53.0) Mean Corpuscular Volume 89fL (79-100) Mean Corpuscular Hemoglobin 29pg (25-35) Mean Corpuscular Hemoglobin Concent 33g/dL (31-37) Red Cell Distribution Width 13.9% (11.5-14.5) Platelet Count 236x10^3/uL (140-400) Neutrophils (%) (Auto) 85% (31-73) Lymphocytes (%) (Auto) 7% (24-48) Monocytes (%) (Auto) 7% (0-9) Eosinophils (%) (Auto) 0% (0-3) Basophils (%) (Auto) 0% (0-3) Neutrophils # (Auto) 20.2x10^3uL (1.8-7.7) Lymphocytes # (Auto) 1.8x10^3/uL (1.0-4.8) Monocytes # (Auto) 1.7x10^3/uL (0.0-1.1) Eosinophils # (Auto) 0.0x10^3/uL (0.0-0.7) Basophils # (Auto) 0.1x10^3/uL (0.0-0.2) Sodium Level 145mmol/L (136-145) Potassium Level 4.0mmol/L (3.5-5.1) Chloride Level 105mmol/L (98-107) Carbon Dioxide Level 26mmol/L (21-32) Anion Gap 14 (6-14) Blood Urea Nitrogen 16mg/dL (8-26) Creatinine 1.5mg/dL (0.7-1.3) Estimated GFR (Cockcroft-Gault) 53.9 Glucose Level 89mg/dL (70-99) Calcium Level 8.6mg/dL (8.5-10.1) Total Bilirubin 1.7mg/dL (0.2-1.0) Direct Bilirubin 1.1mg/dL (0.0-0.2) Aspartate Amino Transf (AST/SGOT) 41U/L (15-37) Alanine Aminotransferase (ALT/SGPT) 113U/L (16-63) Alkaline Phosphatase 90U/L (46-116) Total Protein 6.1g/dL (6.4-8.2) Albumin 2.7g/dL (3.4-5.0) Lipase 259U/L (73-393) Laboratory Tests Test 09/15/16 05:30 White Blood Count 23.7x10^3/uL (4.0-11.0) Red Blood Count 4.96x10^6/uL (4.30-5.70) Hemoglobin 14.5g/dL (13.0-17.5) Hematocrit 44.3% (39.0-53.0) Mean Corpuscular Volume 89fL (79-100) Mean Corpuscular Hemoglobin 29pg (25-35) Mean Corpuscular Hemoglobin Concent 33g/dL (31-37) Red Cell Distribution Width 13.9% (11.5-14.5) Platelet Count 236x10^3/uL (140-400) Neutrophils (%) (Auto) 85% (31-73) Lymphocytes (%) (Auto) 7% (24-48) Monocytes (%) (Auto) 7% (0-9) Eosinophils (%) (Auto) 0% (0-3) Basophils (%) (Auto) 0% (0-3) Neutrophils # (Auto) 20.2x10^3uL (1.8-7.7) Lymphocytes # (Auto) 1.8x10^3/uL (1.0-4.8) Monocytes # (Auto) 1.7x10^3/uL (0.0-1.1) Eosinophils # (Auto) 0.0x10^3/uL (0.0-0.7) Basophils # (Auto) 0.1x10^3/uL (0.0-0.2) Sodium Level 145mmol/L (136-145) Potassium Level 4.0mmol/L (3.5-5.1) Chloride Level 105mmol/L (98-107) Carbon Dioxide Level 26mmol/L (21-32) Anion Gap 14 (6-14) Blood Urea Nitrogen 16mg/dL (8-26) Creatinine 1.5mg/dL (0.7-1.3) Estimated GFR (Cockcroft-Gault) 53.9 Glucose Level 89mg/dL (70-99) Calcium Level 8.6mg/dL (8.5-10.1) Total Bilirubin 1.7mg/dL (0.2-1.0) Direct Bilirubin 1.1mg/dL (0.0-0.2) Aspartate Amino Transf (AST/SGOT) 41U/L (15-37) Alanine Aminotransferase (ALT/SGPT) 113U/L (16-63) Alkaline Phosphatase 90U/L (46-116) Total Protein 6.1g/dL (6.4-8.2) Albumin 2.7g/dL (3.4-5.0) Lipase 259U/L (73-393) Problem List Problems Medical Problems: (1) Acute pancreatitis Status: Acute Assessment/Plan fevers 101.8 belinda, cr 1.5, noted fluid bolus lfts improved, bili down continue supportive care for pancreatitis lap cary once acute process resolved morbid obesity, rec weight loss Problems: PHYLLIS BRUMFIELD MD 09/15/16 1409: SURGICAL PROGRESS NOTE Assessment/Plan Pt seen and examined. Agree with Ms. Vasquez's note Pt with persistent epigastric pain abd TTP epigastric cont supportive care plan elective lap cary with grams Problems: CAROLYN VASQUEZ APRN Sep 15, 2016 09:20 PHYLLIS BRUMFIELD MD Sep 15, 2016 14:09
[2016-09-15] MEDS: IV NORMAL SALINE 1000ML BAG 1,000 ML IV SCH ×3 (10:48→23:36)
[2016-09-15 11:00] VITALS: BP 154/101
--- NOTE | 2016-09-15 12:03 | PDOC ---
Subjective: Subjective: Epigastric discomfort and lower abd "heaviness" improved w/ Dilaudid. Says cleared for "sips and chips" earlier by primary. No n/v. Last BM 09/09, last ate 09/10. Objective: Objective: Tmax 101.8 Vital Signs: Vital Signs Date Time Temp Pulse Resp B/P Pulse Ox O2 Delivery O2 Flow Rate FiO2 09/15/16 10:00 92 Room Air 09/15/16 07:00 99.1 103 16 134/88 99.1 Labs: Laboratory Tests Test 09/15/16 05:30 White Blood Count 23.7x10^3/uL Red Blood Count 4.96x10^6/uL Hemoglobin 14.5g/dL Hematocrit 44.3% Mean Corpuscular Volume 89fL Mean Corpuscular Hemoglobin 29pg Mean Corpuscular Hemoglobin Concent 33g/dL Red Cell Distribution Width 13.9% Platelet Count 236x10^3/uL Neutrophils (%) (Auto) 85% Lymphocytes (%) (Auto) 7% Monocytes (%) (Auto) 7% Eosinophils (%) (Auto) 0% Basophils (%) (Auto) 0% Neutrophils # (Auto) 20.2x10^3uL Lymphocytes # (Auto) 1.8x10^3/uL Monocytes # (Auto) 1.7x10^3/uL Eosinophils # (Auto) 0.0x10^3/uL Basophils # (Auto) 0.1x10^3/uL Sodium Level 145mmol/L Potassium Level 4.0mmol/L Chloride Level 105mmol/L Carbon Dioxide Level 26mmol/L Anion Gap 14 Blood Urea Nitrogen 16mg/dL Creatinine 1.5mg/dL Estimated GFR (Cockcroft-Gault) 53.9 Glucose Level 89mg/dL Calcium Level 8.6mg/dL Total Bilirubin 1.7mg/dL Direct Bilirubin 1.1mg/dL Aspartate Amino Transf (AST/SGOT) 41U/L Alanine Aminotransferase (ALT/SGPT) 113U/L Alkaline Phosphatase 90U/L Total Protein 6.1g/dL Albumin 2.7g/dL Lipase 259U/L PE: GEN: NAD LUNGS: CTAB HEART: RRR ABD: epigastric tenderness, obese NEURO/PSYCH: A & O 3 A/P: Pancreatitis -lipase now WNL, LFTs improving (bili 1.7) -CT w/ moderate peripancreatic inflammation compatible with acute pancreatitis, cholelithiasis -surgery following, cholecystectomy recommended eventually Constipation -relates h/o loose stools normally but has felt constipated since last week ( last BM 09/09) Leukocytosis, fever -ID following, on atbx -- Will review w/ Dr. Buckner. Basically NPO except for sips of water - seems should wait to advance to clears w/ ongoing pain, fever, elevated WBC. Will add suppository for constipation - consider enema or Relistor if needed. FATOU PALACIOS Sep 15, 2016 12:03
[2016-09-15] MEDS ORDERED: BISACODYL 10 MG SUPP.RECT PR PRN (12:15)
[2016-09-15 15:00] VITALS: BP 141/96
--- NOTE | 2016-09-15 16:32 | CONS ---
DATE OF CONSULTATION: 09/14/2016 REFERRING PHYSICIAN: Dr. Gilbert. REASON FOR CONSULTATION: Fever, leukocytosis, and pancreatitis. HISTORY OF PRESENT ILLNESS: This patient is a 31-year-old morbidly obese male with a BMI of 55 with no significant past medical history, who a few days ago developed a gradual onset of epigastric pain described as cramping that progressively worsened and started to radiate downward associated with nausea and vomiting. He had similar symptoms in the past for which he attributes to gas, which were self limiting. On arrival to the ER, he had elevated white blood cell count of 23,300 with a lipase greater than 1300. Abdominal/pelvic CT with contrast revealed cholelithiasis and moderate peripancreatic inflammation compatible with acute pancreatitis. He had elevated liver function tests. He was evaluated by general surgery who is considering a laparoscopic cholecystectomy once symptoms improve. He was also evaluated by a library specialist with possible MRCP versus ERCP. The patient is now on bowel rest, pain control and hydration. Since admission, he has been running fevers between 100.2 and 102.1 with persistent leukocytosis. He was started on Zosyn per primary. ID has been asked to consult for further evaluation and antibiotic management. PAST MEDICAL HISTORY: Morbid obesity with a BMI of 55. Gastroesophageal reflux disease. PAST SURGICAL HISTORY: No significant past surgical history. FAMILY HISTORY: His mother had myocardial infarction around the age of 60. ALLERGIES: No known drug allergies. MEDICATIONS: Zosyn. Other medications are available and they have been reviewed on the MAR. SOCIAL HISTORY: The patient is single. He lives at home. 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 He is a nonsmoker. REVIEW OF SYSTEMS: The patient is feeling better since the medication was changed to Dilaudid. He was having back pain earlier, that is much better. Denies headache, nasal/sinus congestion or sore throat. Denies cough, shortness of air or wheezing. Denies chest pain, palpitations or swelling. Denies dysuria, frequency or urgency. Denies muscle aches or joint pains. Denies chills or sweats. PHYSICAL EXAMINATION: GENERAL: Overweight male, propped up in bed, in no apparent distress. VITAL SIGNS: Temperature is 99.2, T-max 102.1. Weight is 395 pounds. HEENT: Pupils equally round, reactive. Normal conjunctivae. Oral mucosa is pink and moist. NECK: Supple. LUNGS: Clear to auscultation. HEART: Normal S1, S2. ABDOMEN: Obese, bowel sounds are present, soft, mildly tender in the epigastric area. No rebound. EXTREMITIES: No gross edema or cyanosis. SKIN: Without rash. Warm to touch. NEUROLOGIC: Alert and oriented x 3. Moves all extremities. LABORATORY DATA: Today's WBC 27,000 from 23,300 on admission, hemoglobin 16.3, platelet count 233,000, segs. 89%, bands 4%. Electrolytes unremarkable. Creatinine 1.3, BUN of 11. Total bilirubin 2.8, AST 34, ALT 159, albumin 2.9. Lipase is 1334. Urinalysis unremarkable for infection. Abdomen/pelvis CT with contrast per HPI. Of note, a medium density right renal mass suggesting neoplasm versus complicated cyst was also noted along with left inguinal hernia containing only fat. IMPRESSION: 1. Acute gallstone pancreatitis. 2. Fever. 3. Leukocytosis. 4. Morbid obesity with a body mass index of 55. PLAN: Continue the antibiotics. We will follow up on laboratory values in the morning. We will maintain hydration. Bowel rest. Thank you, Dr. Gilbert for asking me to participate in this patient's care. Should you have further questions or concerns, please call. MONIQUE WATTS MD DR: MELINDA/ángel JOB#: [id number] / [id number]
[2016-09-15 19:15] VITALS: BP 145/81
[2016-09-15 23:00] VITALS: BP 148/85
[2016-09-15] MEDS: IBUPROFEN 400 MG TABLET. PO PRN (23:32)
[2016-09-15] MEDS: CALCIUM CARBONATE 500 MG TAB.CHEW PO PRN (23:34)
[2016-09-15] MEDS ORDERED: ONDANSETRON PF 4 MG/2 ML VIAL. IV PRN (23:45)
[2016-09-16 03:08] VITALS: BP 143/106
[2016-09-16 05:10] LABS: BASO % 0 % (0-3); EOS % 0 % (0-3); HEMATOCRIT 40.3 % (39.0-53.0); HEMOGLOBIN 13.1 g/dL (13.0-17.5); LYMPH % 11 % (24-48); MEAN CORPUSCULAR HEMOGLOBIN 29 pg (25-35); MEAN CORPUSCULAR HGB CONC 32 g/dL (31-37); MEAN CORPUSCULAR VOLUME 90 fL (79-100); MONO % 7 % (0-9); NEUT % 82 % (31-73); PLATELET COUNT 257 x10^3/uL (140-400); RED BLOOD COUNT 4.46 x10^6/uL (4.30-5.70); RED CELL DISTRIBUTION WIDTH 13.8 % (11.5-14.5); WHITE BLOOD COUNT 18.9 x10^3/uL (4.0-11.0)
[2016-09-16 05:43] LABS: CALCIUM 8.9 mg/dL (8.5-10.1); CREATININE 1.2 mg/dL (0.7-1.3); GFR 69.7; POTASSIUM 3.6 mmol/L (3.5-5.1)
[2016-09-16] MEDS: PIPERACILLIN/TAZOBACTAM 3.375 GM in IV NORMAL SALINE 50ML 50 ML IV SCH ×4 (06:13→23:57)
[2016-09-16] MEDS: IV NORMAL SALINE 1000ML BAG 1,000 ML IV SCH ×2 (06:13→15:04)
[2016-09-16 07:00] VITALS: BP 151/93
--- NOTE | 2016-09-16 08:53 | PDOC ---
Infectious Disease Note Subjective Subjective No acute distress this morning. Tmax at 101.9 last night, resolved with ibuprofen. Otherwise feeling better with increasing appetite. Reports gassy abd pain. Small BM last night and this morning. 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: Alert, oriented x 3, no focal neurologic deficit SKIN: No rash IV: ok Labs Lab Laboratory Tests Test 09/16/16 04:25 White Blood Count 18.9x10^3/uL (4.0-11.0) Red Blood Count 4.46x10^6/uL (4.30-5.70) Hemoglobin 13.1g/dL (13.0-17.5) Hematocrit 40.3% (39.0-53.0) Mean Corpuscular Volume 90fL (79-100) Mean Corpuscular Hemoglobin 29pg (25-35) Mean Corpuscular Hemoglobin Concent 32g/dL (31-37) Red Cell Distribution Width 13.8% (11.5-14.5) Platelet Count 257x10^3/uL (140-400) Neutrophils (%) (Auto) 82% (31-73) Lymphocytes (%) (Auto) 11% (24-48) Monocytes (%) (Auto) 7% (0-9) Eosinophils (%) (Auto) 0% (0-3) Basophils (%) (Auto) 0% (0-3) Neutrophils # (Auto) 15.5x10^3uL (1.8-7.7) Lymphocytes # (Auto) 2.0x10^3/uL (1.0-4.8) Monocytes # (Auto) 1.3x10^3/uL (0.0-1.1) Eosinophils # (Auto) 0.0x10^3/uL (0.0-0.7) Basophils # (Auto) 0.0x10^3/uL (0.0-0.2) Sodium Level 144mmol/L (136-145) Potassium Level 3.6mmol/L (3.5-5.1) Chloride Level 106mmol/L (98-107) Carbon Dioxide Level 25mmol/L (21-32) Anion Gap 13 (6-14) Blood Urea Nitrogen 14mg/dL (8-26) Creatinine 1.2mg/dL (0.7-1.3) Estimated GFR (Cockcroft-Gault) 69.7 Glucose Level 91mg/dL (70-99) Calcium Level 8.9mg/dL (8.5-10.1) Objective Assessment Acute gallstone pancreatitis Fever Leukocytosis - improving Morbid obesity w/ BMI 55 Plan Plan of Care Cont Zosyn Maintain hydration Bowel rest f/u am labs Await surgical decision Needs constipation relieved soon - improving VINCENT VALLECILLO MD Sep 16, 2016 08:53
--- NOTE | 2016-09-16 08:59 | PDOC ---
CAROLYN VASQUEZ LANGUAGE AND LITERATURE DIVISION CHAIR 09/16/16 0859: SURGICAL PROGRESS NOTE Subjective feeling better not much epigastric pain now + gas pains and flatus Vital Signs Vital Signs Date Time Temp Pulse Resp B/P Pulse Ox O2 Delivery O2 Flow Rate FiO2 09/16/16 07:00 98.1 81 18 151/93 96 Room Air 98.1 I&O Intake and Output 09/16/16 07:00 Intake Total 2740 ml Output Total 850 ml Balance 1890 ml Intake Oral 240 ml IV Total 2500 ml Output Urine Total 850 ml # Voids 1 General: Alert, Oriented X3, Cooperative, No acute distress Abdomen: Soft, No tenderness Labs Laboratory Tests Test 09/15/16 05:30 09/16/16 04:25 White Blood Count 23.7x10^3/uL (4.0-11.0) 18.9x10^3/uL (4.0-11.0) Red Blood Count 4.96x10^6/uL (4.30-5.70) 4.46x10^6/uL (4.30-5.70) Hemoglobin 14.5g/dL (13.0-17.5) 13.1g/dL (13.0-17.5) Hematocrit 44.3% (39.0-53.0) 40.3% (39.0-53.0) Mean Corpuscular Volume 89fL (79-100) 90fL (79-100) Mean Corpuscular Hemoglobin 29pg (25-35) 29pg (25-35) Mean Corpuscular Hemoglobin Concent 33g/dL (31-37) 32g/dL (31-37) Red Cell Distribution Width 13.9% (11.5-14.5) 13.8% (11.5-14.5) Platelet Count 236x10^3/uL (140-400) 257x10^3/uL (140-400) Neutrophils (%) (Auto) 85% (31-73) 82% (31-73) Lymphocytes (%) (Auto) 7% (24-48) 11% (24-48) Monocytes (%) (Auto) 7% (0-9) 7% (0-9) Eosinophils (%) (Auto) 0% (0-3) 0% (0-3) Basophils (%) (Auto) 0% (0-3) 0% (0-3) Neutrophils # (Auto) 20.2x10^3uL (1.8-7.7) 15.5x10^3uL (1.8-7.7) Lymphocytes # (Auto) 1.8x10^3/uL (1.0-4.8) 2.0x10^3/uL (1.0-4.8) Monocytes # (Auto) 1.7x10^3/uL (0.0-1.1) 1.3x10^3/uL (0.0-1.1) Eosinophils # (Auto) 0.0x10^3/uL (0.0-0.7) 0.0x10^3/uL (0.0-0.7) Basophils # (Auto) 0.1x10^3/uL (0.0-0.2) 0.0x10^3/uL (0.0-0.2) Sodium Level 145mmol/L (136-145) 144mmol/L (136-145) Potassium Level 4.0mmol/L (3.5-5.1) 3.6mmol/L (3.5-5.1) Chloride Level 105mmol/L (98-107) 106mmol/L (98-107) Carbon Dioxide Level 26mmol/L (21-32) 25mmol/L (21-32) Anion Gap 14 (6-14) 13 (6-14) Blood Urea Nitrogen 16mg/dL (8-26) 14mg/dL (8-26) Creatinine 1.5mg/dL (0.7-1.3) 1.2mg/dL (0.7-1.3) Estimated GFR (Cockcroft-Gault) 53.9 69.7 Glucose Level 89mg/dL (70-99) 91mg/dL (70-99) Calcium Level 8.6mg/dL (8.5-10.1) 8.9mg/dL (8.5-10.1) Total Bilirubin 1.7mg/dL (0.2-1.0) Direct Bilirubin 1.1mg/dL (0.0-0.2) Aspartate Amino Transf (AST/SGOT) 41U/L (15-37) Alanine Aminotransferase (ALT/SGPT) 113U/L (16-63) Alkaline Phosphatase 90U/L (46-116) Total Protein 6.1g/dL (6.4-8.2) Albumin 2.7g/dL (3.4-5.0) Lipase 259U/L (73-393) Laboratory Tests Test 09/16/16 04:25 White Blood Count 18.9x10^3/uL (4.0-11.0) Red Blood Count 4.46x10^6/uL (4.30-5.70) Hemoglobin 13.1g/dL (13.0-17.5) Hematocrit 40.3% (39.0-53.0) Mean Corpuscular Volume 90fL (79-100) Mean Corpuscular Hemoglobin 29pg (25-35) Mean Corpuscular Hemoglobin Concent 32g/dL (31-37) Red Cell Distribution Width 13.8% (11.5-14.5) Platelet Count 257x10^3/uL (140-400) Neutrophils (%) (Auto) 82% (31-73) Lymphocytes (%) (Auto) 11% (24-48) Monocytes (%) (Auto) 7% (0-9) Eosinophils (%) (Auto) 0% (0-3) Basophils (%) (Auto) 0% (0-3) Neutrophils # (Auto) 15.5x10^3uL (1.8-7.7) Lymphocytes # (Auto) 2.0x10^3/uL (1.0-4.8) Monocytes # (Auto) 1.3x10^3/uL (0.0-1.1) Eosinophils # (Auto) 0.0x10^3/uL (0.0-0.7) Basophils # (Auto) 0.0x10^3/uL (0.0-0.2) Sodium Level 144mmol/L (136-145) Potassium Level 3.6mmol/L (3.5-5.1) Chloride Level 106mmol/L (98-107) Carbon Dioxide Level 25mmol/L (21-32) Anion Gap 13 (6-14) Blood Urea Nitrogen 14mg/dL (8-26) Creatinine 1.2mg/dL (0.7-1.3) Estimated GFR (Cockcroft-Gault) 69.7 Glucose Level 91mg/dL (70-99) Calcium Level 8.9mg/dL (8.5-10.1) Problem List Problems Medical Problems: (1) Acute pancreatitis Status: Acute Assessment/Plan tmax 101.9 supportive care for pancreatitis--bowel rest, hydration ID managing abx lap cary once acute process resolved Problems: PHYLLIS BRUMFIELD MD 09/16/16 1353: SURGICAL PROGRESS NOTE Assessment/Plan Pt seen and examined. Agree with Ms. Vasquez's note Pt with persistent pain, somewhat better mild ttp cont supportive care Problems: CAROLYN VASQUEZ APRN Sep 16, 2016 08:59 PHYLLIS BRUMFIELD MD Sep 16, 2016 13:53
[2016-09-16] MEDS: FAMOTIDINE 20 MG/2 ML VIAL IVP SCH ×2 (09:03→21:10)
[2016-09-16] MEDS: IBUPROFEN 400 MG TABLET. PO PRN ×2 (09:03→15:04)
--- NOTE | 2016-09-16 09:07 | PDOC ---
SUBJECTIVE Subjective pt. with right renal lesion on CT OBJECTIVE Objective no prior urologic history Vital Signs Vital Signs Date Time Temp Pulse Resp B/P Pulse Ox O2 Delivery O2 Flow Rate FiO2 09/16/16 07:00 98.1 81 18 151/93 96 Room Air 98.1 09/16/16 03:08 98.5 92 18 143/106 94 Room Air 98.5 09/16/16 00:03 Room Air 09/15/16 23:33 Room Air 09/15/16 23:00 101.9 102 18 148/85 95 Room Air 101.9 09/15/16 20:00 Room Air 09/15/16 19:15 99.6 92 18 145/81 96 Room Air 99.6 09/15/16 15:58 92 09/15/16 15:13 92 Room Air 09/15/16 15:00 99.4 111 16 141/96 94 Room Air 99.4 09/15/16 11:00 99.1 107 16 154/101 92 Room Air 99.1 09/15/16 09:24 92 Room Air I & O Intake and Output 09/16/16 07:00 Intake Total 2740 ml Output Total 850 ml Balance 1890 ml Intake Oral 240 ml IV Total 2500 ml Output Urine Total 850 ml # Voids 1 PHYSICAL EXAM Physical Exam 4 cm right renal lesion on CT ASSESSMENT/PLAN Assessment/Plan renal sono to further characterize right renal lesion Problems: COMMENT Lab Laboratory Tests Test 09/16/16 04:25 White Blood Count 18.9x10^3/uL (4.0-11.0) Red Blood Count 4.46x10^6/uL (4.30-5.70) Hemoglobin 13.1g/dL (13.0-17.5) Hematocrit 40.3% (39.0-53.0) Mean Corpuscular Volume 90fL (79-100) Mean Corpuscular Hemoglobin 29pg (25-35) Mean Corpuscular Hemoglobin Concent 32g/dL (31-37) Red Cell Distribution Width 13.8% (11.5-14.5) Platelet Count 257x10^3/uL (140-400) Neutrophils (%) (Auto) 82% (31-73) Lymphocytes (%) (Auto) 11% (24-48) Monocytes (%) (Auto) 7% (0-9) Eosinophils (%) (Auto) 0% (0-3) Basophils (%) (Auto) 0% (0-3) Neutrophils # (Auto) 15.5x10^3uL (1.8-7.7) Lymphocytes # (Auto) 2.0x10^3/uL (1.0-4.8) Monocytes # (Auto) 1.3x10^3/uL (0.0-1.1) Eosinophils # (Auto) 0.0x10^3/uL (0.0-0.7) Basophils # (Auto) 0.0x10^3/uL (0.0-0.2) Sodium Level 144mmol/L (136-145) Potassium Level 3.6mmol/L (3.5-5.1) Chloride Level 106mmol/L (98-107) Carbon Dioxide Level 25mmol/L (21-32) Anion Gap 13 (6-14) Blood Urea Nitrogen 14mg/dL (8-26) Creatinine 1.2mg/dL (0.7-1.3) Estimated GFR (Cockcroft-Gault) 69.7 Glucose Level 91mg/dL (70-99) Calcium Level 8.9mg/dL (8.5-10.1) NELY VARGAS MD Sep 16, 2016 09:07
--- NOTE | 2016-09-16 09:31 | PDOC ---
PROGRESS NOTES Chief Complaint Chief Complaint CC: Acute Abdominal Pain 1. Gallstone Pancreatitis 2. Morbid Obesity- BMI 55 3. Fevers 4. 4.1 x 3.0 x 4.3 cm hypoechoic mass of right kidney Plan IV Hydration IV Zosyn follow cx GS following anticipated surgery once acute process improves Urology following, appreciate recommendations. diet per GI Pain control with iv Dilaudid, Avoid co2 narcosis Monitor CMP closely History of Present Illness History of Present Illness epigastric pain no fever no chills. Vitals Vitals Vital Signs Date Time Temp Pulse Resp B/P Pulse Ox O2 Delivery O2 Flow Rate FiO2 09/16/16 07:00 98.1 81 18 151/93 96 Room Air 98.1 Physical Exam General: Alert, Oriented X3, Cooperative, No acute distress Heart: Regular rate, Normal S1, Normal S2, No murmurs Lungs: Clear, Other Abdomen: Soft, No tenderness Extremities: No clubbing, No cyanosis Skin: No rashes, No breakdown, No significant lesion Labs LABS Laboratory Tests Test 09/16/16 04:25 White Blood Count 18.9x10^3/uL (4.0-11.0) Red Blood Count 4.46x10^6/uL (4.30-5.70) Hemoglobin 13.1g/dL (13.0-17.5) Hematocrit 40.3% (39.0-53.0) Mean Corpuscular Volume 90fL (79-100) Mean Corpuscular Hemoglobin 29pg (25-35) Mean Corpuscular Hemoglobin Concent 32g/dL (31-37) Red Cell Distribution Width 13.8% (11.5-14.5) Platelet Count 257x10^3/uL (140-400) Neutrophils (%) (Auto) 82% (31-73) Lymphocytes (%) (Auto) 11% (24-48) Monocytes (%) (Auto) 7% (0-9) Eosinophils (%) (Auto) 0% (0-3) Basophils (%) (Auto) 0% (0-3) Neutrophils # (Auto) 15.5x10^3uL (1.8-7.7) Lymphocytes # (Auto) 2.0x10^3/uL (1.0-4.8) Monocytes # (Auto) 1.3x10^3/uL (0.0-1.1) Eosinophils # (Auto) 0.0x10^3/uL (0.0-0.7) Basophils # (Auto) 0.0x10^3/uL (0.0-0.2) Sodium Level 144mmol/L (136-145) Potassium Level 3.6mmol/L (3.5-5.1) Chloride Level 106mmol/L (98-107) Carbon Dioxide Level 25mmol/L (21-32) Anion Gap 13 (6-14) Blood Urea Nitrogen 14mg/dL (8-26) Creatinine 1.2mg/dL (0.7-1.3) Estimated GFR (Cockcroft-Gault) 69.7 Glucose Level 91mg/dL (70-99) Calcium Level 8.9mg/dL (8.5-10.1) Assessment and Plan Assessmemt and Plan Problems Medical Problems: (1) Acute pancreatitis Status: Acute Problems: Comment Review of Relevant I have reviewed the following items arelis (where applicable) has been applied. Labs Laboratory Tests Test 09/15/16 05:30 09/16/16 04:25 White Blood Count 23.7x10^3/uL (4.0-11.0) 18.9x10^3/uL (4.0-11.0) Red Blood Count 4.96x10^6/uL (4.30-5.70) 4.46x10^6/uL (4.30-5.70) Hemoglobin 14.5g/dL (13.0-17.5) 13.1g/dL (13.0-17.5) Hematocrit 44.3% (39.0-53.0) 40.3% (39.0-53.0) Mean Corpuscular Volume 89fL (79-100) 90fL (79-100) Mean Corpuscular Hemoglobin 29pg (25-35) 29pg (25-35) Mean Corpuscular Hemoglobin Concent 33g/dL (31-37) 32g/dL (31-37) Red Cell Distribution Width 13.9% (11.5-14.5) 13.8% (11.5-14.5) Platelet Count 236x10^3/uL (140-400) 257x10^3/uL (140-400) Neutrophils (%) (Auto) 85% (31-73) 82% (31-73) Lymphocytes (%) (Auto) 7% (24-48) 11% (24-48) Monocytes (%) (Auto) 7% (0-9) 7% (0-9) Eosinophils (%) (Auto) 0% (0-3) 0% (0-3) Basophils (%) (Auto) 0% (0-3) 0% (0-3) Neutrophils # (Auto) 20.2x10^3uL (1.8-7.7) 15.5x10^3uL (1.8-7.7) Lymphocytes # (Auto) 1.8x10^3/uL (1.0-4.8) 2.0x10^3/uL (1.0-4.8) Monocytes # (Auto) 1.7x10^3/uL (0.0-1.1) 1.3x10^3/uL (0.0-1.1) Eosinophils # (Auto) 0.0x10^3/uL (0.0-0.7) 0.0x10^3/uL (0.0-0.7) Basophils # (Auto) 0.1x10^3/uL (0.0-0.2) 0.0x10^3/uL (0.0-0.2) Sodium Level 145mmol/L (136-145) 144mmol/L (136-145) Potassium Level 4.0mmol/L (3.5-5.1) 3.6mmol/L (3.5-5.1) Chloride Level 105mmol/L (98-107) 106mmol/L (98-107) Carbon Dioxide Level 26mmol/L (21-32) 25mmol/L (21-32) Anion Gap 14 (6-14) 13 (6-14) Blood Urea Nitrogen 16mg/dL (8-26) 14mg/dL (8-26) Creatinine 1.5mg/dL (0.7-1.3) 1.2mg/dL (0.7-1.3) Estimated GFR (Cockcroft-Gault) 53.9 69.7 Glucose Level 89mg/dL (70-99) 91mg/dL (70-99) Calcium Level 8.6mg/dL (8.5-10.1) 8.9mg/dL (8.5-10.1) Total Bilirubin 1.7mg/dL (0.2-1.0) Direct Bilirubin 1.1mg/dL (0.0-0.2) Aspartate Amino Transf (AST/SGOT) 41U/L (15-37) Alanine Aminotransferase (ALT/SGPT) 113U/L (16-63) Alkaline Phosphatase 90U/L (46-116) Total Protein 6.1g/dL (6.4-8.2) Albumin 2.7g/dL (3.4-5.0) Lipase 259U/L (73-393) Laboratory Tests Test 09/16/16 04:25 White Blood Count 18.9x10^3/uL (4.0-11.0) Red Blood Count 4.46x10^6/uL (4.30-5.70) Hemoglobin 13.1g/dL (13.0-17.5) Hematocrit 40.3% (39.0-53.0) Mean Corpuscular Volume 90fL (79-100) Mean Corpuscular Hemoglobin 29pg (25-35) Mean Corpuscular Hemoglobin Concent 32g/dL (31-37) Red Cell Distribution Width 13.8% (11.5-14.5) Platelet Count 257x10^3/uL (140-400) Neutrophils (%) (Auto) 82% (31-73) Lymphocytes (%) (Auto) 11% (24-48) Monocytes (%) (Auto) 7% (0-9) Eosinophils (%) (Auto) 0% (0-3) Basophils (%) (Auto) 0% (0-3) Neutrophils # (Auto) 15.5x10^3uL (1.8-7.7) Lymphocytes # (Auto) 2.0x10^3/uL (1.0-4.8) Monocytes # (Auto) 1.3x10^3/uL (0.0-1.1) Eosinophils # (Auto) 0.0x10^3/uL (0.0-0.7) Basophils # (Auto) 0.0x10^3/uL (0.0-0.2) Sodium Level 144mmol/L (136-145) Potassium Level 3.6mmol/L (3.5-5.1) Chloride Level 106mmol/L (98-107) Carbon Dioxide Level 25mmol/L (21-32) Anion Gap 13 (6-14) Blood Urea Nitrogen 14mg/dL (8-26) Creatinine 1.2mg/dL (0.7-1.3) Estimated GFR (Cockcroft-Gault) 69.7 Glucose Level 91mg/dL (70-99) Calcium Level 8.9mg/dL (8.5-10.1) Medications Current Medications Sodium Chloride (Iv Sodium Chloride 0.9% 1000ml Bag) 1,000 ml @ 1,000 mls/hr Q1H IV Last administered on 09/13/16 14:23; Start 09/13/16 at 14:06; Stop at 17:10; Status DC Fentanyl Citrate (Fentanyl 2ml Vial) 50 mcg 1X ONCE IV Last administered on 14:32; Start 09/13/16 at 14:15; Stop 09/14/16 at 11:17; Status DC Ondansetron HCl (Zofran) 4 mg 1X ONCE IV Last administered on 09/13/16 14:32 ; Start 09/13/16 at 14:15; Stop 09/13/16 at 14:16; Status DC Iohexol (Omnipaque 300 Mg/ml) 75 ml 1X ONCE IV Last administered on 09/13/16 15:27; Start 09/13/16 at 15:00; Stop 09/13/16 at 17:10; Status DC Info 1 each 1 each PRN DAILY PRN MC SEE COMMENTS; Start 09/13/16 at 15:15; Stop 09/15/16 at 15:14; Status DC Sodium Chloride (Iv Sodium Chloride 0.9% 1000ml Bag) 1,000 ml @ 125 mls/hr 1X ONCE IV Last administered on 09/13/16 19:59; Start 09/13/16 at 16:30; Stop at 00:29; Status DC Fentanyl Citrate (Fentanyl 2ml Vial) 50 mcg 1X ONCE IV Last administered on 17:06; Start 09/13/16 at 16:30; Stop 09/14/16 at 11:17; Status DC Fentanyl Citrate (Fentanyl 2ml Vial) 50 mcg PRN Q2HR PRN IV PAIN Last administered on 09/14/16 09:28; Start 09/13/16 at 16:30; Stop 09/14/16 at 11:17 ; Status DC Fentanyl Citrate (Fentanyl 2ml Vial) 75 mcg PRN Q2HR PRN IV PAIN Last administered on 09/14/16 00:01; Start 09/13/16 at 20:00; Stop 09/14/16 at 11:17 ; Status DC Fentanyl Citrate (Fentanyl 2ml Vial) 100 mcg PRN Q2HR PRN IV PAIN Last administered on 09/14/16 06:27; Start 09/13/16 at 20:00; Stop 09/14/16 at 11:17 ; Status DC Famotidine (Pepcid) 20 mg BID IVP Last administered on 09/16/16 09:03; Start 09/13/16 at 21:00 Diphenhydramine HCl (Benadryl) 50 mg PRN Q6HRS PRN IVP ITCHING Last administered on 09/14/16 09:27; Start 09/13/16 at 20:15 Calcium Carbonate/ Glycine (Tums) 200 mg PRN Q4HRS PRN PO INDIGESTION Last administered on 09/15/16 23:34; Start 09/13/16 at 20:30 Ibuprofen 200 mg 200 mg PRN Q6HRS PRN PO PAIN; Start 09/13/16 at 21:00; Stop at 00:17; Status DC Piperacillin Sod/ Tazobactam Sod/ Sodium Chloride (Zosyn/Iv Sodium Chloride 0.9 % 50ml) 50 ml @ 100 mls/hr Q6HRS IV Last administered on 09/16/16 06:13; Start 09/14/16 at 00:30 Ibuprofen (Motrin) 400 mg PRN Q6HRS PRN PO MILD PAIN / TEMP Last administered on 09/14/16 15:04; Start 09/14/16 at 00:30; Stop 09/14/16 at 20:33; Status DC Hydromorphone HCl (Dilaudid) 1 mg PRN Q2HR PRN IV PAIN Last administered on 23:33; Start 09/14/16 at 11:15 Hydromorphone HCl (Dilaudid) 2 mg PRN Q2HR PRN IV PAIN; Start 09/14/16 at 11:30 Ibuprofen 400 mg 400 mg PRN Q4HRS PRN PO MILD PAIN / TEMP Last administered on 09/16/16 09:03; Start 09/14/16 at 20:30 Sodium Chloride 1,000 ml @ 1,000 mls/hr 1X ONCE IV Last administered on 09:31; Start 09/15/16 at 09:15; Stop 09/15/16 at 10:14; Status DC Sodium Chloride (Iv Sodium Chloride 0.9% 1000ml Bag) 1,000 ml @ 125 mls/hr Q8H IV Last administered on 09/16/16 06:13; Start 09/15/16 at 09:15 Bisacodyl (Dulcolax Supp) 10 mg PRN DAILY PRN [place] CONSTIPATION Last administered on 09/15/16 15:09; Start 09/15/16 at 12:15 Ondansetron HCl (Zofran) 4 mg PRN Q6HRS PRN IV NAUSEA/VOMITING; Start 09/15/16 at 23:45 Active Scripts Active Reported Ibuprofen 100 Mg Tablet 100 Mg PO PRN Q6HRS PRN Tums (Calcium Carbonate) 200 Mg Tab.chew 200 Mg PO PRN Q4HRS PRN Vitals/I & O Vital Sign - Last 24 Hours 09/15/16 09/15/16 09/15/16 09/15/16 11:00 15:00 15:13 15:58 Temp 99.1 99.4 99.1 99.4 Pulse 107 111 Resp 16 16 B/P 154/101 141/96 Pulse Ox 92 94 92 92 O2 Delivery Room Air Room Air Room Air 09/15/16 09/15/16 09/15/16 09/15/16 19:15 20:00 23:00 23:33 Temp 99.6 101.9 99.6 101.9 Pulse 92 102 Resp 18 18 B/P 145/81 148/85 Pulse Ox 96 95 O2 Delivery Room Air Room Air Room Air Room Air 09/16/16 09/16/16 09/16/16 00:03 03:08 07:00 Temp 98.5 98.1 98.5 98.1 Pulse 92 81 Resp 18 18 B/P 143/106 151/93 Pulse Ox 94 96 O2 Delivery Room Air Room Air Room Air Intake and Output 09/15/16 09/15/16 09/16/16 15:00 23:00 07:00 Intake Total 2740 ml 0 ml Output Total 550 ml 300 ml Balance 2190 ml -300 ml CAMERON GIBBS MD Sep 16, 2016 09:31
--- NOTE | 2016-09-16 10:34 | RAD ---
Exam performed: Renal sonogram. History: Right renal mass seen on a CT scan. Date of service: 09/16/16. Comparison: CT abdomen pelvis performed on 09/13/16. Technique: Real-time grayscale imaging of the kidneys is performed and images are obtained. Findings: The right kidney measures 12.1 x 6.8 x 5.2 cm. There is a hypo to anechoic mass measuring 4.1 x 3.0 x 4.3 cm superior pole of the right kidney. The left kidney measures 12.7 x 7.3 x 5.6 cm. No solid or cystic mass lesions are seen. Urinary bladder appears normal. Impression: 4.1 x 3.0 x 4.3 cm hypoechoic mass versus anechoic mass with internal echoes in the superior pole of the right kidney. Cyst with debris is possible, however a solid mass cannot be excluded with certainty. CT abdomen using a renal protocol may be of additional benefit.
--- NOTE | 2016-09-16 10:53 | PDOC ---
Infectious Disease Note Subjective Subjective No acute distress this morning. Tmax at 101.9 last night, resolved with ibuprofen. Otherwise feeling better with increasing appetite. Reports gassy abd pain. Small BM last night and this morning. ROS ROS GEN: Denies fevers, chills, sweats HEENT: Denies blurred vision, sore throat CV: Denies chest pain RESP: Denies shortness of air, cough GI: Denies n/v/d NEURO: Denies confusion, dizziness MSK: Denies weakness, joint pain/swelling Vital Sign Vital Signs Vital Signs Date Time Temp Pulse Resp B/P Pulse Ox O2 Delivery O2 Flow Rate FiO2 09/16/16 07:00 98.1 81 18 151/93 96 Room Air 98.1 Physical Exam PHYSICAL EXAM GENERAL: NAD, Alert, coop HEENT: PERRL, OC/OP- clear NECK: Supple, no JVD, no LN LUNGS: Clear HEART: S1S2, no gallop, no murmur ABD: Soft, NT, no organomegaly, no rebound. Some BS but decreased EXT: No edema, no cyanosis SUPPLY COORDINATOR: Alert, oriented x 3, no focal neurologic deficit SKIN: No rash IV: ok Labs Lab Laboratory Tests Test 09/16/16 04:25 White Blood Count 18.9x10^3/uL (4.0-11.0) Red Blood Count 4.46x10^6/uL (4.30-5.70) Hemoglobin 13.1g/dL (13.0-17.5) Hematocrit 40.3% (39.0-53.0) Mean Corpuscular Volume 90fL (79-100) Mean Corpuscular Hemoglobin 29pg (25-35) Mean Corpuscular Hemoglobin Concent 32g/dL (31-37) Red Cell Distribution Width 13.8% (11.5-14.5) Platelet Count 257x10^3/uL (140-400) Neutrophils (%) (Auto) 82% (31-73) Lymphocytes (%) (Auto) 11% (24-48) Monocytes (%) (Auto) 7% (0-9) Eosinophils (%) (Auto) 0% (0-3) Basophils (%) (Auto) 0% (0-3) Neutrophils # (Auto) 15.5x10^3uL (1.8-7.7) Lymphocytes # (Auto) 2.0x10^3/uL (1.0-4.8) Monocytes # (Auto) 1.3x10^3/uL (0.0-1.1) Eosinophils # (Auto) 0.0x10^3/uL (0.0-0.7) Basophils # (Auto) 0.0x10^3/uL (0.0-0.2) Sodium Level 144mmol/L (136-145) Potassium Level 3.6mmol/L (3.5-5.1) Chloride Level 106mmol/L (98-107) Carbon Dioxide Level 25mmol/L (21-32) Anion Gap 13 (6-14) Blood Urea Nitrogen 14mg/dL (8-26) Creatinine 1.2mg/dL (0.7-1.3) Estimated GFR (Cockcroft-Gault) 69.7 Glucose Level 91mg/dL (70-99) Calcium Level 8.9mg/dL (8.5-10.1) Objective Assessment Acute gallstone pancreatitis Fever - Pancreatitis vs stone Renal mass Leukocytosis - improving Morbid obesity w/ BMI 55 Constipation per GI Plan Plan of Care Consulted Dr. Milner for renal mass. U/S performed Cont Zosyn Maintain hydration Bowel rest f/u am labs Await surgical decision Needs constipation relieved soon - improving VINCENT VALLECILLO MD Sep 16, 2016 10:53
[2016-09-16 11:00] VITALS: BP 149/84
--- NOTE | 2016-09-16 13:21 | PDOC ---
SUBJECTIVE Subjective Pt. feeling ok OBJECTIVE Objective right renal lesion Vital Signs Vital Signs Date Time Temp Pulse Resp B/P Pulse Ox O2 Delivery O2 Flow Rate FiO2 09/16/16 11:00 98.7 84 18 149/84 95 Room Air 98.7 09/16/16 07:00 98.1 81 18 151/93 96 Room Air 98.1 09/16/16 03:08 98.5 92 18 143/106 94 Room Air 98.5 09/16/16 00:03 Room Air 09/15/16 23:33 Room Air 09/15/16 23:00 101.9 102 18 148/85 95 Room Air 101.9 09/15/16 20:00 Room Air 09/15/16 19:15 99.6 92 18 145/81 96 Room Air 99.6 09/15/16 15:58 92 09/15/16 15:13 92 Room Air 09/15/16 15:00 99.4 111 16 141/96 94 Room Air 99.4 I & O Intake and Output 09/16/16 07:00 Intake Total 2740 ml Output Total 850 ml Balance 1890 ml Intake Oral 240 ml IV Total 2500 ml Output Urine Total 850 ml # Voids 1 PHYSICAL EXAM Physical Exam sono-right renal lesion difficult to determine cystic vs. solid ASSESSMENT/PLAN Assessment/Plan CT kidneys with renal mass protocol when Cr. gets back to baseline Problems: COMMENT Lab Laboratory Tests Test 09/16/16 04:25 White Blood Count 18.9x10^3/uL (4.0-11.0) Red Blood Count 4.46x10^6/uL (4.30-5.70) Hemoglobin 13.1g/dL (13.0-17.5) Hematocrit 40.3% (39.0-53.0) Mean Corpuscular Volume 90fL (79-100) Mean Corpuscular Hemoglobin 29pg (25-35) Mean Corpuscular Hemoglobin Concent 32g/dL (31-37) Red Cell Distribution Width 13.8% (11.5-14.5) Platelet Count 257x10^3/uL (140-400) Neutrophils (%) (Auto) 82% (31-73) Lymphocytes (%) (Auto) 11% (24-48) Monocytes (%) (Auto) 7% (0-9) Eosinophils (%) (Auto) 0% (0-3) Basophils (%) (Auto) 0% (0-3) Neutrophils # (Auto) 15.5x10^3uL (1.8-7.7) Lymphocytes # (Auto) 2.0x10^3/uL (1.0-4.8) Monocytes # (Auto) 1.3x10^3/uL (0.0-1.1) Eosinophils # (Auto) 0.0x10^3/uL (0.0-0.7) Basophils # (Auto) 0.0x10^3/uL (0.0-0.2) Sodium Level 144mmol/L (136-145) Potassium Level 3.6mmol/L (3.5-5.1) Chloride Level 106mmol/L (98-107) Carbon Dioxide Level 25mmol/L (21-32) Anion Gap 13 (6-14) Blood Urea Nitrogen 14mg/dL (8-26) Creatinine 1.2mg/dL (0.7-1.3) Estimated GFR (Cockcroft-Gault) 69.7 Glucose Level 91mg/dL (70-99) Calcium Level 8.9mg/dL (8.5-10.1) NELY VARGAS MD Sep 16, 2016 13:21
--- NOTE | 2016-09-16 13:22 | PDOC ---
Subjective: Subjective: Feeling okay. Less abd pain. Objective: Objective: Per RN - tried suppository but didn't pass much stool. Tmax 101.9 Vital Signs: Vital Signs Date Time Temp Pulse Resp B/P Pulse Ox O2 Delivery O2 Flow Rate FiO2 09/16/16 11:00 98.7 84 18 149/84 95 Room Air 98.7 Labs: Laboratory Tests Test 09/16/16 04:25 White Blood Count 18.9x10^3/uL Red Blood Count 4.46x10^6/uL Hemoglobin 13.1g/dL Hematocrit 40.3% Mean Corpuscular Volume 90fL Mean Corpuscular Hemoglobin 29pg Mean Corpuscular Hemoglobin Concent 32g/dL Red Cell Distribution Width 13.8% Platelet Count 257x10^3/uL Neutrophils (%) (Auto) 82% Lymphocytes (%) (Auto) 11% Monocytes (%) (Auto) 7% Eosinophils (%) (Auto) 0% Basophils (%) (Auto) 0% Neutrophils # (Auto) 15.5x10^3uL Lymphocytes # (Auto) 2.0x10^3/uL Monocytes # (Auto) 1.3x10^3/uL Eosinophils # (Auto) 0.0x10^3/uL Basophils # (Auto) 0.0x10^3/uL Sodium Level 144mmol/L Potassium Level 3.6mmol/L Chloride Level 106mmol/L Carbon Dioxide Level 25mmol/L Anion Gap 13 Blood Urea Nitrogen 14mg/dL Creatinine 1.2mg/dL Estimated GFR (Cockcroft-Gault) 69.7 Glucose Level 91mg/dL Calcium Level 8.9mg/dL Imaging: Bilateral Renal US 09/16/16 Impression: 4.1 x 3.0 x 4.3 cm hypoechoic mass versus anechoic mass with internal echoes in the superior pole of the right kidney. Cyst with debris is possible, however a solid mass cannot be excluded with certainty. CT abdomen using a renal protocol may be of additional benefit. PE: GEN: NAD LUNGS: CTAB HEART: RRR ABD: BS+, LLQ discomfort, obese NEURO/PSYCH: A & O 3 A/P: Pancreatitis -lipase WNL 09/15, LFTs improving (bili 1.7 on 09/15) -CT 09/13 w/ moderate peripancreatic inflammation compatible with acute pancreatitis, cholelithiasis -surgery following, cholecystectomy recommended eventually Constipation -not much relief w/ suppository Leukocytosis, fever -ID following, on atbx, WBC improving, fever last night Renal lesion -urology following -- Continue sips and chips - ?clear tomorrow Will add Amitiza for constipation. FATOU PALACIOS Sep 16, 2016 13:22
[2016-09-16 15:00] VITALS: BP 149/90
[2016-09-16] MEDS: LUBIPROSTONE 8 MCG CAPSULE PO SCH ×2 (15:04→17:00)
[2016-09-16 19:15] VITALS: BP 141/82
[2016-09-16] MEDS: HYDROMORPHONE 2 MG/ML VIAL. IV PRN ×2 (21:11→23:35)
[2016-09-16 23:00] VITALS: BP 116/63
[2016-09-17 03:07] VITALS: BP 151/96
[2016-09-17] MEDS: IV NORMAL SALINE 1000ML BAG 1,000 ML IV SCH ×3 (03:16→17:20)
[2016-09-17 05:49] LABS: BASO % 0 % (0-3); EOS % 0 % (0-3); HEMATOCRIT 39.3 % (39.0-53.0); HEMOGLOBIN 12.8 g/dL (13.0-17.5); LYMPH # 1.3 x10^3/uL (1.0-4.8); LYMPH % 8 % (24-48); MEAN CORPUSCULAR HEMOGLOBIN 30 pg (25-35); MEAN CORPUSCULAR HGB CONC 33 g/dL (31-37); MEAN CORPUSCULAR VOLUME 90 fL (79-100); MONO % 7 % (0-9); NEUT % 84 % (31-73); PLATELET COUNT 250 x10^3/uL (140-400); RED BLOOD COUNT 4.36 x10^6/uL (4.30-5.70); RED CELL DISTRIBUTION WIDTH 13.6 % (11.5-14.5); WHITE BLOOD COUNT 16.6 x10^3/uL (4.0-11.0)
[2016-09-17 05:58] LABS: CALCIUM 8.8 mg/dL (8.5-10.1); CREATININE 1.1 mg/dL (0.7-1.3); GFR 77.1; POTASSIUM 3.4 mmol/L (3.5-5.1)
[2016-09-17] MEDS: PIPERACILLIN/TAZOBACTAM 3.375 GM in IV NORMAL SALINE 50ML 50 ML IV SCH ×4 (06:10→23:43)
--- NOTE | 2016-09-17 06:13 | CONS ---
DATE OF CONSULTATION: 09/16/2016 LOCATION: The patient is in room 416. HISTORY OF PRESENT ILLNESS: The patient is a very pleasant 31-year-old white male, who presented with abdominal pain and was found to have pancreatitis. The patient had imaging with CT abdomen with contrast, which shows him to have 4 cm mass arising from the medial aspect of the upper pole of the right kidney. It may be because of ____ possibly there are solid mass versus complicated cyst. The patient with no prior urologic history. His urine showed 0 red cells, ____ white cells and 0 bacteria. His creatinine is 1.2. PAST MEDICAL HISTORY: Obesity. ALLERGIES: No known drug allergies. No previous urologic history. No prior urologic operations. PHYSICAL EXAMINATION: GENITOURINARY: Testes are descended bilaterally. No inguinal hernias. Phallus within normal limits. RECTAL: Good sphincter tone. Prostate smooth, nontender, without nodules, overall size 15 grams. PLAN: I talked with the patient concerning the right renal lesion. We will go ahead and get a renal ultrasound as recommended by the radiologist to further characterize this right renal lesion and then proceed accordingly and make further recommendations. I certainly appreciate being allowed to participate in this patient's care. NELY VARGAS MD DR: QUINCY/ángel JOB#: [id number] / [id number]
[2016-09-17] MEDS: HYDROMORPHONE 2 MG/ML VIAL. IV PRN ×2 (06:20→23:45)
[2016-09-17 07:00] VITALS: BP 146/76
[2016-09-17] MEDS: LUBIPROSTONE 8 MCG CAPSULE PO SCH ×2 (08:00→17:00)
[2016-09-17] MEDS: FAMOTIDINE 20 MG/2 ML VIAL IVP SCH ×2 (08:49→21:49)
[2016-09-17] MEDS: IBUPROFEN 400 MG TABLET. PO PRN ×2 (08:51→21:49)
--- NOTE | 2016-09-17 09:37 | PDOC ---
Infectious Disease Note Subjective Subjective No acute distress this morning. Did have fever this am Otherwise feeling better with increasing appetite. Taking sips + BM ROS ROS GEN: Denies fevers, chills, sweats HEENT: Denies blurred vision, sore throat CV: Denies chest pain RESP: Denies shortness of air, cough GI: Denies n/v/d NEURO: Denies confusion, dizziness MSK: Denies weakness, joint pain/swelling Vital Sign Vital Signs Vital Signs Date Time Temp Pulse Resp B/P Pulse Ox O2 Delivery O2 Flow Rate FiO2 09/17/16 08:52 99.5 99.5 09/17/16 07:22 20 91 Room Air 09/17/16 07:00 109 146/76 Physical Exam PHYSICAL EXAM GENERAL: NAD, Alert, in chair and looks well HEENT: PERRL, OC/OP- clear NECK: Supple, no JVD, no LN LUNGS: Clear HEART: S1S2, no gallop, no murmur ABD: Soft, NT, no organomegaly, no rebound, obese EXT: No edema, no cyanosis CANVAS REPAIRER: Alert, oriented x 3, no focal neurologic deficit SKIN: No rash IV: ok Labs Lab Laboratory Tests Test 09/17/16 05:00 White Blood Count 16.6x10^3/uL (4.0-11.0) Red Blood Count 4.36x10^6/uL (4.30-5.70) Hemoglobin 12.8g/dL (13.0-17.5) Hematocrit 39.3% (39.0-53.0) Mean Corpuscular Volume 90fL (79-100) Mean Corpuscular Hemoglobin 30pg (25-35) Mean Corpuscular Hemoglobin Concent 33g/dL (31-37) Red Cell Distribution Width 13.6% (11.5-14.5) Platelet Count 250x10^3/uL (140-400) Neutrophils (%) (Auto) 84% (31-73) Lymphocytes (%) (Auto) 8% (24-48) Monocytes (%) (Auto) 7% (0-9) Eosinophils (%) (Auto) 0% (0-3) Basophils (%) (Auto) 0% (0-3) Neutrophils # (Auto) 13.9x10^3uL (1.8-7.7) Lymphocytes # (Auto) 1.3x10^3/uL (1.0-4.8) Monocytes # (Auto) 1.2x10^3/uL (0.0-1.1) Eosinophils # (Auto) 0.1x10^3/uL (0.0-0.7) Basophils # (Auto) 0.0x10^3/uL (0.0-0.2) Sodium Level 144mmol/L (136-145) Potassium Level 3.4mmol/L (3.5-5.1) Chloride Level 104mmol/L (98-107) Carbon Dioxide Level 27mmol/L (21-32) Anion Gap 13 (6-14) Blood Urea Nitrogen 11mg/dL (8-26) Creatinine 1.1mg/dL (0.7-1.3) Estimated GFR (Cockcroft-Gault) 77.1 Glucose Level 80mg/dL (70-99) Calcium Level 8.8mg/dL (8.5-10.1) Objective Assessment Acute gallstone pancreatitis Fever - Pancreatitis vs stone -clinically better and WBC cont to improve Renal mass - appreciate Dr. Milner's input Leukocytosis - improving Morbid obesity w/ BMI 55 Constipation per GI Plan Plan of Care LFTS/lipase/procalcitonin this am Cont Zosyn Maintain hydration Bowel rest f/u am labs Await surgical decision VINCENT VALLECILLO MD Sep 17, 2016 09:37
[2016-09-17] MEDS ORDERED: CONTRAST GIVEN MC PRN (09:45)
[2016-09-17] MEDS ORDERED: IOHEXOL 300 MG/ML 75 ML VIAL IV ONE (09:45)
[2016-09-17 10:23] LABS: ALBUMIN 2.5 g/dL (3.4-5.0); DIRECT BILIRUBIN 0.8 mg/dL (0.0-0.2); TOTAL BILIRUBIN 1.2 mg/dL (0.2-1.0); TOTAL PROTEIN 7.2 g/dL (6.4-8.2)
[2016-09-17 10:54] LABS: PROCALCITONIN 0.7 ng/mL (0.00-0.10)
[2016-09-17 11:00] VITALS: BP 147/87
--- NOTE | 2016-09-17 11:31 | PDOC ---
Subjective: Subjective: Feeling better. No abd pain, tolerating clears so far. Had three significant stools. Objective: Objective: Per RN - trying clears. D/w ID earlier this morning. Tmax 101. Vital Signs: Vital Signs Date Time Temp Pulse Resp B/P Pulse Ox O2 Delivery O2 Flow Rate FiO2 09/17/16 11:00 99.9 100 18 147/87 94 Room Air 99.9 Labs: Laboratory Tests Test 09/17/16 05:00 White Blood Count 16.6x10^3/uL Red Blood Count 4.36x10^6/uL Hemoglobin 12.8g/dL Hematocrit 39.3% Mean Corpuscular Volume 90fL Mean Corpuscular Hemoglobin 30pg Mean Corpuscular Hemoglobin Concent 33g/dL Red Cell Distribution Width 13.6% Platelet Count 250x10^3/uL Neutrophils (%) (Auto) 84% Lymphocytes (%) (Auto) 8% Monocytes (%) (Auto) 7% Eosinophils (%) (Auto) 0% Basophils (%) (Auto) 0% Neutrophils # (Auto) 13.9x10^3uL Lymphocytes # (Auto) 1.3x10^3/uL Monocytes # (Auto) 1.2x10^3/uL Eosinophils # (Auto) 0.1x10^3/uL Basophils # (Auto) 0.0x10^3/uL Sodium Level 144mmol/L Potassium Level 3.4mmol/L Chloride Level 104mmol/L Carbon Dioxide Level 27mmol/L Anion Gap 13 Blood Urea Nitrogen 11mg/dL Creatinine 1.1mg/dL Estimated GFR (Cockcroft-Gault) 77.1 Glucose Level 80mg/dL Calcium Level 8.8mg/dL Total Bilirubin 1.2mg/dL Direct Bilirubin 0.8mg/dL Aspartate Amino Transf (AST/SGOT) 46U/L Alanine Aminotransferase (ALT/SGPT) 72U/L Alkaline Phosphatase 80U/L Total Protein 7.2g/dL Albumin 2.5g/dL Lipase 290U/L Procalcitonin 0.70ng/mL Imaging: Abdomen CT 09/17/16 PENDING PE: GEN: NAD, up to chair w/ laptop and clear tray LUNGS: clear anteriorly HEART: RRR ABD: S/ND/NT, obese NEURO/PSYCH: A & O 3 A/P: Pancreatitis -lipase now normal, LFTs improving -CT 09/13 w/ moderate peripancreatic inflammation compatible with acute pancreatitis, cholelithiasis - surgery following for cholecystectomy eventually Constipation - resolved Leukocytosis, fever -ID following, on IV atbx -WBC better, still w/ intermittent fever Renal lesion -per urology -abd CT pending -- Trying clears. Okay to ADAT. Await CT abd (as ordered by urology). Will review w/ Dr. Buckner. FATOU PALACIOS Sep 17, 2016 11:31
--- NOTE | 2016-09-17 11:40 | PDOC ---
SUBJECTIVE Subjective Pt. feeling better OBJECTIVE Objective ct kidneys today Vital Signs Vital Signs Date Time Temp Pulse Resp B/P Pulse Ox O2 Delivery O2 Flow Rate FiO2 09/17/16 11:00 99.9 100 18 147/87 94 Room Air 99.9 09/17/16 08:52 99.5 99.5 09/17/16 07:22 20 91 Room Air 09/17/16 07:00 101.0 109 18 146/76 91 Room Air 101.0 09/17/16 06:20 20 91 Room Air 09/17/16 03:07 99.3 102 18 151/96 91 Room Air 99.3 09/16/16 23:35 20 95 Room Air 09/16/16 23:00 98.8 84 18 116/63 95 Room Air 98.8 09/16/16 21:45 20 97 Room Air 09/16/16 21:11 20 97 Room Air 09/16/16 19:45 Room Air 09/16/16 19:15 97.6 89 18 141/82 97 Room Air 97.6 09/16/16 15:00 97.5 84 18 149/90 98 Room Air 97.5 I & O Intake and Output 09/17/16 07:00 Intake Total 1575 ml Balance 1575 ml Intake Oral 25 ml IV Total 1550 ml # Voids 8 # Bowel Movements 1 PHYSICAL EXAM Physical Exam some decrease in stream. CT-,no enhancement of right renal lesion ASSESSMENT/PLAN Assessment/Plan right renal lesion probable complex right renal cyst. Will plan to f/u with sono in 6 months flomax if ok with primary service f/u urology [employer] Rita Diez in 1 month Problems: COMMENT Lab Laboratory Tests Test 09/17/16 05:00 White Blood Count 16.6x10^3/uL (4.0-11.0) Red Blood Count 4.36x10^6/uL (4.30-5.70) Hemoglobin 12.8g/dL (13.0-17.5) Hematocrit 39.3% (39.0-53.0) Mean Corpuscular Volume 90fL (79-100) Mean Corpuscular Hemoglobin 30pg (25-35) Mean Corpuscular Hemoglobin Concent 33g/dL (31-37) Red Cell Distribution Width 13.6% (11.5-14.5) Platelet Count 250x10^3/uL (140-400) Neutrophils (%) (Auto) 84% (31-73) Lymphocytes (%) (Auto) 8% (24-48) Monocytes (%) (Auto) 7% (0-9) Eosinophils (%) (Auto) 0% (0-3) Basophils (%) (Auto) 0% (0-3) Neutrophils # (Auto) 13.9x10^3uL (1.8-7.7) Lymphocytes # (Auto) 1.3x10^3/uL (1.0-4.8) Monocytes # (Auto) 1.2x10^3/uL (0.0-1.1) Eosinophils # (Auto) 0.1x10^3/uL (0.0-0.7) Basophils # (Auto) 0.0x10^3/uL (0.0-0.2) Sodium Level 144mmol/L (136-145) Potassium Level 3.4mmol/L (3.5-5.1) Chloride Level 104mmol/L (98-107) Carbon Dioxide Level 27mmol/L (21-32) Anion Gap 13 (6-14) Blood Urea Nitrogen 11mg/dL (8-26) Creatinine 1.1mg/dL (0.7-1.3) Estimated GFR (Cockcroft-Gault) 77.1 Glucose Level 80mg/dL (70-99) Calcium Level 8.8mg/dL (8.5-10.1) Total Bilirubin 1.2mg/dL (0.2-1.0) Direct Bilirubin 0.8mg/dL (0.0-0.2) Aspartate Amino Transf (AST/SGOT) 46U/L (15-37) Alanine Aminotransferase (ALT/SGPT) 72U/L (16-63) Alkaline Phosphatase 80U/L (46-116) Total Protein 7.2g/dL (6.4-8.2) Albumin 2.5g/dL (3.4-5.0) Lipase 290U/L (73-393) Procalcitonin 0.70ng/mL (0.00-0.10) NELY VARGAS MD Sep 17, 2016 11:40
--- NOTE | 2016-09-17 11:47 | RAD ---
Indication renal mass. Multiphase imaging targeted to a right renal mass was performed. Note is made of the examination 09/13/2016. Initially noncontrast images through the kidneys were obtained. This was followed by portal venous phase imaging through the kidneys and delayed images through the abdomen. The pelvis was not imaged on today's exam Images were obtained following the administration of 75 cc Omnipaque 300. No oral contrast was administered. Multiple images were reformatted in the coronal and sagittal planes. MIP images were also generated and reviewed. On the initial images the known right renal mass, measuring approximately 4 cm in greatest dimension, is reproduced. The mass, on the initial noncontrast images has Hounsfield unit numbers of approximately 64. On the portal venous images the mass is unchanged. Hounsfield unit numbers on the portal venous phase images are 62. The mass, on the delayed images, has Hounsfield unit numbers of approximately 65. The lack of significant contrast enhancement is strongly indicative of a benign etiology. Findings likely represent a hyperdense cyst. No additional finding is seen involving either kidney. There is a small left pleural effusion on today's exam. The liver and spleen are unremarkable. Inflammatory changes compatible with pancreatitis are noted in the retroperitoneum, slightly worse than on the previous exam. Cholelithiasis is noted. IMPRESSION: Mass, in the right kidney, most compatible with a hyperdense cyst. A follow-up ultrasound examination in approximately 6 months is suggested to confirm stability Inflammatory changes in the retroperitoneum, compatible with pancreatitis, slightly worse than on the previous study Cholelithiasis Minute left pleural effusion PQRS Compliance Statement: One or more of the following individualized dose reduction techniques were utilized for this examination: 1. Automated exposure control 2. Adjustment of the mA and/or kV according to patient size 3. Use of iterative reconstruction technique
--- NOTE | 2016-09-17 12:43 | PDOC ---
SURGICAL PROGRESS NOTE Subjective Pt feels better, no nv, pain improved Vital Signs Vital Signs Date Time Temp Pulse Resp B/P Pulse Ox O2 Delivery O2 Flow Rate FiO2 09/17/16 11:00 99.9 100 18 147/87 94 Room Air 99.9 I&O Intake and Output 09/17/16 07:00 Intake Total 1575 ml Balance 1575 ml Intake Oral 25 ml IV Total 1550 ml # Voids 8 # Bowel Movements 1 General: Alert, Oriented X3, Cooperative, No acute distress Abdomen: Soft, Other (mild TTP) Labs Laboratory Tests Test 09/16/16 04:25 09/17/16 05:00 White Blood Count 18.9x10^3/uL (4.0-11.0) 16.6x10^3/uL (4.0-11.0) Red Blood Count 4.46x10^6/uL (4.30-5.70) 4.36x10^6/uL (4.30-5.70) Hemoglobin 13.1g/dL (13.0-17.5) 12.8g/dL (13.0-17.5) Hematocrit 40.3% (39.0-53.0) 39.3% (39.0-53.0) Mean Corpuscular Volume 90fL (79-100) 90fL (79-100) Mean Corpuscular Hemoglobin 29pg (25-35) 30pg (25-35) Mean Corpuscular Hemoglobin Concent 32g/dL (31-37) 33g/dL (31-37) Red Cell Distribution Width 13.8% (11.5-14.5) 13.6% (11.5-14.5) Platelet Count 257x10^3/uL (140-400) 250x10^3/uL (140-400) Neutrophils (%) (Auto) 82% (31-73) 84% (31-73) Lymphocytes (%) (Auto) 11% (24-48) 8% (24-48) Monocytes (%) (Auto) 7% (0-9) 7% (0-9) Eosinophils (%) (Auto) 0% (0-3) 0% (0-3) Basophils (%) (Auto) 0% (0-3) 0% (0-3) Neutrophils # (Auto) 15.5x10^3uL (1.8-7.7) 13.9x10^3uL (1.8-7.7) Lymphocytes # (Auto) 2.0x10^3/uL (1.0-4.8) 1.3x10^3/uL (1.0-4.8) Monocytes # (Auto) 1.3x10^3/uL (0.0-1.1) 1.2x10^3/uL (0.0-1.1) Eosinophils # (Auto) 0.0x10^3/uL (0.0-0.7) 0.1x10^3/uL (0.0-0.7) Basophils # (Auto) 0.0x10^3/uL (0.0-0.2) 0.0x10^3/uL (0.0-0.2) Sodium Level 144mmol/L (136-145) 144mmol/L (136-145) Potassium Level 3.6mmol/L (3.5-5.1) 3.4mmol/L (3.5-5.1) Chloride Level 106mmol/L (98-107) 104mmol/L (98-107) Carbon Dioxide Level 25mmol/L (21-32) 27mmol/L (21-32) Anion Gap 13 (6-14) 13 (6-14) Blood Urea Nitrogen 14mg/dL (8-26) 11mg/dL (8-26) Creatinine 1.2mg/dL (0.7-1.3) 1.1mg/dL (0.7-1.3) Estimated GFR (Cockcroft-Gault) 69.7 77.1 Glucose Level 91mg/dL (70-99) 80mg/dL (70-99) Calcium Level 8.9mg/dL (8.5-10.1) 8.8mg/dL (8.5-10.1) Total Bilirubin 1.2mg/dL (0.2-1.0) Direct Bilirubin 0.8mg/dL (0.0-0.2) Aspartate Amino Transf (AST/SGOT) 46U/L (15-37) Alanine Aminotransferase (ALT/SGPT) 72U/L (16-63) Alkaline Phosphatase 80U/L (46-116) Total Protein 7.2g/dL (6.4-8.2) Albumin 2.5g/dL (3.4-5.0) Lipase 290U/L (73-393) Procalcitonin 0.70ng/mL (0.00-0.10) Laboratory Tests Test 09/17/16 05:00 White Blood Count 16.6x10^3/uL (4.0-11.0) Red Blood Count 4.36x10^6/uL (4.30-5.70) Hemoglobin 12.8g/dL (13.0-17.5) Hematocrit 39.3% (39.0-53.0) Mean Corpuscular Volume 90fL (79-100) Mean Corpuscular Hemoglobin 30pg (25-35) Mean Corpuscular Hemoglobin Concent 33g/dL (31-37) Red Cell Distribution Width 13.6% (11.5-14.5) Platelet Count 250x10^3/uL (140-400) Neutrophils (%) (Auto) 84% (31-73) Lymphocytes (%) (Auto) 8% (24-48) Monocytes (%) (Auto) 7% (0-9) Eosinophils (%) (Auto) 0% (0-3) Basophils (%) (Auto) 0% (0-3) Neutrophils # (Auto) 13.9x10^3uL (1.8-7.7) Lymphocytes # (Auto) 1.3x10^3/uL (1.0-4.8) Monocytes # (Auto) 1.2x10^3/uL (0.0-1.1) Eosinophils # (Auto) 0.1x10^3/uL (0.0-0.7) Basophils # (Auto) 0.0x10^3/uL (0.0-0.2) Sodium Level 144mmol/L (136-145) Potassium Level 3.4mmol/L (3.5-5.1) Chloride Level 104mmol/L (98-107) Carbon Dioxide Level 27mmol/L (21-32) Anion Gap 13 (6-14) Blood Urea Nitrogen 11mg/dL (8-26) Creatinine 1.1mg/dL (0.7-1.3) Estimated GFR (Cockcroft-Gault) 77.1 Glucose Level 80mg/dL (70-99) Calcium Level 8.8mg/dL (8.5-10.1) Total Bilirubin 1.2mg/dL (0.2-1.0) Direct Bilirubin 0.8mg/dL (0.0-0.2) Aspartate Amino Transf (AST/SGOT) 46U/L (15-37) Alanine Aminotransferase (ALT/SGPT) 72U/L (16-63) Alkaline Phosphatase 80U/L (46-116) Total Protein 7.2g/dL (6.4-8.2) Albumin 2.5g/dL (3.4-5.0) Lipase 290U/L (73-393) Procalcitonin 0.70ng/mL (0.00-0.10) Problem List Problems Medical Problems: (1) Acute pancreatitis Status: Acute Assessment/Plan gallstone pancreatitis persistent elevated WBC and pancreatitis on CT would favor maintaining clears plan lap cary with grams pending pancreatitis improvement Problems: PHYLLIS BRUMFIELD MD Sep 17, 2016 12:43
[2016-09-17] MEDS: TAMSULOSIN 0.4 MG CAP.ER.24H. PO SCH (12:57)
--- NOTE | 2016-09-17 14:49 | PDOC ---
PROGRESS NOTES Chief Complaint Chief Complaint CC: Acute Abdominal Pain 1. Gallstone Pancreatitis 2. Morbid Obesity- BMI 55 3. Fevers 4. 4.1 x 3.0 x 4.3 cm hypoechoic mass of right kidney History of Present Illness History of Present Illness Patient had fevers early this AM; recorded as 101. Pt now denying fevers/ chills. Pt still complaining of some abdominal pain, but reports feeling relatively well. Pt had been taken off NPO as the surgery will not be today. WBC has improved from 18.9 to 16.6. Lipase has been WNL. Case discussed with general surgery. Vitals Vitals Vital Signs Date Time Temp Pulse Resp B/P Pulse Ox O2 Delivery O2 Flow Rate FiO2 09/17/16 11:00 99.9 100 18 147/87 94 Room Air 99.9 Physical Exam General: Alert, Oriented X3, Cooperative, No acute distress Heart: Regular rate, Normal S1, Normal S2, No murmurs Lungs: Clear, Other Abdomen: Soft, Other (mild TTP) Extremities: No clubbing, No cyanosis Skin: No rashes, No breakdown, No significant lesion Labs LABS Laboratory Tests Test 09/17/16 05:00 White Blood Count 16.6x10^3/uL (4.0-11.0) Red Blood Count 4.36x10^6/uL (4.30-5.70) Hemoglobin 12.8g/dL (13.0-17.5) Hematocrit 39.3% (39.0-53.0) Mean Corpuscular Volume 90fL (79-100) Mean Corpuscular Hemoglobin 30pg (25-35) Mean Corpuscular Hemoglobin Concent 33g/dL (31-37) Red Cell Distribution Width 13.6% (11.5-14.5) Platelet Count 250x10^3/uL (140-400) Neutrophils (%) (Auto) 84% (31-73) Lymphocytes (%) (Auto) 8% (24-48) Monocytes (%) (Auto) 7% (0-9) Eosinophils (%) (Auto) 0% (0-3) Basophils (%) (Auto) 0% (0-3) Neutrophils # (Auto) 13.9x10^3uL (1.8-7.7) Lymphocytes # (Auto) 1.3x10^3/uL (1.0-4.8) Monocytes # (Auto) 1.2x10^3/uL (0.0-1.1) Eosinophils # (Auto) 0.1x10^3/uL (0.0-0.7) Basophils # (Auto) 0.0x10^3/uL (0.0-0.2) Sodium Level 144mmol/L (136-145) Potassium Level 3.4mmol/L (3.5-5.1) Chloride Level 104mmol/L (98-107) Carbon Dioxide Level 27mmol/L (21-32) Anion Gap 13 (6-14) Blood Urea Nitrogen 11mg/dL (8-26) Creatinine 1.1mg/dL (0.7-1.3) Estimated GFR (Cockcroft-Gault) 77.1 Glucose Level 80mg/dL (70-99) Calcium Level 8.8mg/dL (8.5-10.1) Total Bilirubin 1.2mg/dL (0.2-1.0) Direct Bilirubin 0.8mg/dL (0.0-0.2) Aspartate Amino Transf (AST/SGOT) 46U/L (15-37) Alanine Aminotransferase (ALT/SGPT) 72U/L (16-63) Alkaline Phosphatase 80U/L (46-116) Total Protein 7.2g/dL (6.4-8.2) Albumin 2.5g/dL (3.4-5.0) Lipase 290U/L (73-393) Procalcitonin 0.70ng/mL (0.00-0.10) Review of Systems Review of Systems denies fevers since early this AM intermittent epigastric pain denies chest pain, SOB Assessment and Plan Assessmemt and Plan ASSESSMENT: - Acute Abdominal Pain - Gallstone Pancreatitis - Morbid Obesity- BMI 55 - Fevers, resolved - mass of right kidney, 4.1 x 3.0 x 4.3 cm hypoechoic PLAN: - cont IV hydration - cont IV Dilaudid PRN pain - cont IV Zosyn - cont to follow cx; no growth - General Surgery following; anticipated surgery once acute process improves - repeat labs Problems: Comment Review of Relevant I have reviewed the following items arelis (where applicable) has been applied. Labs Laboratory Tests Test 2/28/17 04:25 09/17/16 05:00 White Blood Count 18.9x10^3/uL (4.0-11.0) 16.6x10^3/uL (4.0-11.0) Red Blood Count 4.46x10^6/uL (4.30-5.70) 4.36x10^6/uL (4.30-5.70) Hemoglobin 13.1g/dL (13.0-17.5) 12.8g/dL (13.0-17.5) Hematocrit 40.3% (39.0-53.0) 39.3% (39.0-53.0) Mean Corpuscular Volume 90fL (79-100) 90fL (79-100) Mean Corpuscular Hemoglobin 29pg (25-35) 30pg (25-35) Mean Corpuscular Hemoglobin Concent 32g/dL (31-37) 33g/dL (31-37) Red Cell Distribution Width 13.8% (11.5-14.5) 13.6% (11.5-14.5) Platelet Count 257x10^3/uL (140-400) 250x10^3/uL (140-400) Neutrophils (%) (Auto) 82% (31-73) 84% (31-73) Lymphocytes (%) (Auto) 11% (24-48) 8% (24-48) Monocytes (%) (Auto) 7% (0-9) 7% (0-9) Eosinophils (%) (Auto) 0% (0-3) 0% (0-3) Basophils (%) (Auto) 0% (0-3) 0% (0-3) Neutrophils # (Auto) 15.5x10^3uL (1.8-7.7) 13.9x10^3uL (1.8-7.7) Lymphocytes # (Auto) 2.0x10^3/uL (1.0-4.8) 1.3x10^3/uL (1.0-4.8) Monocytes # (Auto) 1.3x10^3/uL (0.0-1.1) 1.2x10^3/uL (0.0-1.1) Eosinophils # (Auto) 0.0x10^3/uL (0.0-0.7) 0.1x10^3/uL (0.0-0.7) Basophils # (Auto) 0.0x10^3/uL (0.0-0.2) 0.0x10^3/uL (0.0-0.2) Sodium Level 144mmol/L (136-145) 144mmol/L (136-145) Potassium Level 3.6mmol/L (3.5-5.1) 3.4mmol/L (3.5-5.1) Chloride Level 106mmol/L (98-107) 104mmol/L (98-107) Carbon Dioxide Level 25mmol/L (21-32) 27mmol/L (21-32) Anion Gap 13 (6-14) 13 (6-14) Blood Urea Nitrogen 14mg/dL (8-26) 11mg/dL (8-26) Creatinine 1.2mg/dL (0.7-1.3) 1.1mg/dL (0.7-1.3) Estimated GFR (Cockcroft-Gault) 69.7 77.1 Glucose Level 91mg/dL (70-99) 80mg/dL (70-99) Calcium Level 8.9mg/dL (8.5-10.1) 8.8mg/dL (8.5-10.1) Total Bilirubin 1.2mg/dL (0.2-1.0) Direct Bilirubin 0.8mg/dL (0.0-0.2) Aspartate Amino Transf (AST/SGOT) 46U/L (15-37) Alanine Aminotransferase (ALT/SGPT) 72U/L (16-63) Alkaline Phosphatase 80U/L (46-116) Total Protein 7.2g/dL (6.4-8.2) Albumin 2.5g/dL (3.4-5.0) Lipase 290U/L (73-393) Procalcitonin 0.70ng/mL (0.00-0.10) Laboratory Tests Test 09/17/16 05:00 White Blood Count 16.6x10^3/uL (4.0-11.0) Red Blood Count 4.36x10^6/uL (4.30-5.70) Hemoglobin 12.8g/dL (13.0-17.5) Hematocrit 39.3% (39.0-53.0) Mean Corpuscular Volume 90fL (79-100) Mean Corpuscular Hemoglobin 30pg (25-35) Mean Corpuscular Hemoglobin Concent 33g/dL (31-37) Red Cell Distribution Width 13.6% (11.5-14.5) Platelet Count 250x10^3/uL (140-400) Neutrophils (%) (Auto) 84% (31-73) Lymphocytes (%) (Auto) 8% (24-48) Monocytes (%) (Auto) 7% (0-9) Eosinophils (%) (Auto) 0% (0-3) Basophils (%) (Auto) 0% (0-3) Neutrophils # (Auto) 13.9x10^3uL (1.8-7.7) Lymphocytes # (Auto) 1.3x10^3/uL (1.0-4.8) Monocytes # (Auto) 1.2x10^3/uL (0.0-1.1) Eosinophils # (Auto) 0.1x10^3/uL (0.0-0.7) Basophils # (Auto) 0.0x10^3/uL (0.0-0.2) Sodium Level 144mmol/L (136-145) Potassium Level 3.4mmol/L (3.5-5.1) Chloride Level 104mmol/L (98-107) Carbon Dioxide Level 27mmol/L (21-32) Anion Gap 13 (6-14) Blood Urea Nitrogen 11mg/dL (8-26) Creatinine 1.1mg/dL (0.7-1.3) Estimated GFR (Cockcroft-Gault) 77.1 Glucose Level 80mg/dL (70-99) Calcium Level 8.8mg/dL (8.5-10.1) Total Bilirubin 1.2mg/dL (0.2-1.0) Direct Bilirubin 0.8mg/dL (0.0-0.2) Aspartate Amino Transf (AST/SGOT) 46U/L (15-37) Alanine Aminotransferase (ALT/SGPT) 72U/L (16-63) Alkaline Phosphatase 80U/L (46-116) Total Protein 7.2g/dL (6.4-8.2) Albumin 2.5g/dL (3.4-5.0) Lipase 290U/L (73-393) Procalcitonin 0.70ng/mL (0.00-0.10) Medications Current Medications Sodium Chloride (Iv Sodium Chloride 0.9% 1000ml Bag) 1,000 ml @ 1,000 mls/hr Q1H IV Last administered on 09/13/16 14:23; Start 09/13/16 at 14:06; Stop at 17:10; Status DC Fentanyl Citrate (Fentanyl 2ml Vial) 50 mcg 1X ONCE IV Last administered on 14:32; Start 09/13/16 at 14:15; Stop 09/14/16 at 11:17; Status DC Ondansetron HCl (Zofran) 4 mg 1X ONCE IV Last administered on 09/13/16 14:32 ; Start 09/13/16 at 14:15; Stop 09/13/16 at 14:16; Status DC Iohexol (Omnipaque 300 Mg/ml) 75 ml 1X ONCE IV Last administered on 09/13/16 15:27; Start 09/13/16 at 15:00; Stop 09/13/16 at 17:10; Status DC Info 1 each 1 each PRN DAILY PRN MC SEE COMMENTS; Start 09/13/16 at 15:15; Stop 09/15/16 at 15:14; Status DC Sodium Chloride (Iv Sodium Chloride 0.9% 1000ml Bag) 1,000 ml @ 125 mls/hr 1X ONCE IV Last administered on 09/13/16 19:59; Start 09/13/16 at 16:30; Stop at 00:29; Status DC Fentanyl Citrate (Fentanyl 2ml Vial) 50 mcg 1X ONCE IV Last administered on 17:06; Start 09/13/16 at 16:30; Stop 09/14/16 at 11:17; Status DC Fentanyl Citrate (Fentanyl 2ml Vial) 50 mcg PRN Q2HR PRN IV PAIN Last administered on 09/14/16 09:28; Start 09/13/16 at 16:30; Stop 09/14/16 at 11:17 ; Status DC Fentanyl Citrate (Fentanyl 2ml Vial) 75 mcg PRN Q2HR PRN IV PAIN Last administered on 09/14/16 00:01; Start 09/13/16 at 20:00; Stop 09/14/16 at 11:17 ; Status DC Fentanyl Citrate (Fentanyl 2ml Vial) 100 mcg PRN Q2HR PRN IV PAIN Last administered on 09/14/16 06:27; Start 09/13/16 at 20:00; Stop 09/14/16 at 11:17 ; Status DC Famotidine (Pepcid) 20 mg BID IVP Last administered on 09/17/16 08:49; Start at 21:00 Diphenhydramine HCl (Benadryl) 50 mg PRN Q6HRS PRN IVP ITCHING Last administered on 09/14/16 09:27; Start 09/13/16 at 20:15 Calcium Carbonate/ Glycine (Tums) 200 mg PRN Q4HRS PRN PO INDIGESTION Last administered on 09/15/16 23:34; Start 09/13/16 at 20:30 Ibuprofen 200 mg 200 mg PRN Q6HRS PRN PO PAIN; Start 09/13/16 at 21:00; Stop at 00:17; Status DC Piperacillin Sod/ Tazobactam Sod/ Sodium Chloride (Zosyn/Iv Sodium Chloride 0.9 % 50ml) 50 ml @ 100 mls/hr Q6HRS IV Last administered on 09/17/16 12:56; Start 09/14/16 at 00:30 Ibuprofen (Motrin) 400 mg PRN Q6HRS PRN PO MILD PAIN / TEMP Last administered on 09/14/16 15:04; Start 09/14/16 at 00:30; Stop 09/14/16 at 20:33; Status DC Hydromorphone HCl (Dilaudid) 1 mg PRN Q2HR PRN IV PAIN Last administered on 21:11; Start 09/14/16 at 11:15 Hydromorphone HCl (Dilaudid) 2 mg PRN Q2HR PRN IV PAIN Last administered on 09/17 06:20; Start 09/14/16 at 11:30 Ibuprofen 400 mg 400 mg PRN Q4HRS PRN PO MILD PAIN / TEMP Last administered on 09/17/16 08:51; Start 09/14/16 at 20:30 Sodium Chloride 1,000 ml @ 1,000 mls/hr 1X ONCE IV Last administered on 09:31; Start 09/15/16 at 09:15; Stop 09/15/16 at 10:14; Status DC Sodium Chloride (Iv Sodium Chloride 0.9% 1000ml Bag) 1,000 ml @ 125 mls/hr Q8H IV Last administered on 09/17/16 08:48; Start 09/15/16 at 09:15 Bisacodyl (Dulcolax Supp) 10 mg PRN DAILY PRN NE CONSTIPATION Last administered on 09/15/16 15:09; Start 09/15/16 at 12:15 Ondansetron HCl (Zofran) 4 mg PRN Q6HRS PRN IV NAUSEA/VOMITING; Start 09/15/16 at 23:45 Lubiprostone (Amitiza) 8 mcg BIDWMEALS PO Last administered on 09/16/16 15:04 ; Start 09/16/16 at 14:00 Iohexol (Omnipaque 300 Mg/ml) 75 ml 1X ONCE IV Last administered on 09/17/16 10:27; Start 09/17/16 at 09:45; Stop 09/17/16 at 09:46; Status DC Info (Do NOT chart on this entry -- for MONITORING) 1 each PRN DAILY PRN MC SEE COMMENTS; Start 09/17/16 at 09:45; Stop 09/19/16 at 09:44 Tamsulosin HCl (Flomax) 0.4 mg DAILY PO Last administered on 09/17/16 12:57; Start 09/17/16 at 12:00 Active Scripts Active Reported Ibuprofen 100 Mg Tablet 100 Mg PO PRN Q6HRS PRN Tums (Calcium Carbonate) 200 Mg Tab.chew 200 Mg PO PRN Q4HRS PRN Vitals/I & O Vital Sign - Last 24 Hours 09/16/16 09/16/16 09/16/16 09/16/16 15:00 19:15 19:45 21:11 Temp 97.5 97.6 97.5 97.6 Pulse 84 89 Resp 18 18 20 B/P 149/90 141/82 Pulse Ox 98 97 97 O2 Delivery Room Air Room Air Room Air Room Air 09/16/16 09/16/16 09/16/16 09/17/16 21:45 23:00 23:35 03:07 Temp 98.8 99.3 98.8 99.3 Pulse 84 102 Resp 20 18 20 18 B/P 116/63 151/96 Pulse Ox 97 95 95 91 O2 Delivery Room Air Room Air Room Air Room Air 09/17/16 09/17/16 09/17/16 09/17/16 06:20 07:00 07:22 08:52 Temp 101.0 99.5 101.0 99.5 Pulse 109 Resp 18 20 B/P 146/76 Pulse Ox 91 91 91 O2 Delivery Room Air Room Air Room Air 09/17/16 11:00 Temp 99.9 99.9 Pulse 100 Resp 18 B/P 147/87 Pulse Ox 94 O2 Delivery Room Air Intake and Output 09/16/16 09/16/16 09/17/16 15:00 23:00 07:00 Intake Total 1575 ml Balance 1575 ml SAMUEL RAND III DO Sep 17, 2016 14:49
[2016-09-17 14:51] VITALS: BP 144/83
[2016-09-17 19:15] VITALS: BP 144/92
[2016-09-17 23:15] VITALS: BP 125/87
[2016-09-18] MEDS: IV NORMAL SALINE 1000ML BAG 1,000 ML IV SCH ×4 (01:36→23:57)
[2016-09-18 03:21] VITALS: BP 104/58
[2016-09-18 04:09] LABS: BASO % 0 % (0-3); EOS % 1 % (0-3); HEMATOCRIT 36.4 % (39.0-53.0); HEMOGLOBIN 11.7 g/dL (13.0-17.5); LYMPH # 1.5 x10^3/uL (1.0-4.8); LYMPH % 10 % (24-48); MEAN CORPUSCULAR HEMOGLOBIN 29 pg (25-35); MEAN CORPUSCULAR HGB CONC 32 g/dL (31-37); MEAN CORPUSCULAR VOLUME 89 fL (79-100); MONO % 7 % (0-9); NEUT % 82 % (31-73); PLATELET COUNT 231 x10^3/uL (140-400); RED BLOOD COUNT 4.09 x10^6/uL (4.30-5.70); RED CELL DISTRIBUTION WIDTH 13.7 % (11.5-14.5); WHITE BLOOD COUNT 15.2 x10^3/uL (4.0-11.0)
[2016-09-18 04:37] LABS: CALCIUM 8.6 mg/dL (8.5-10.1); GFR 86.1; POTASSIUM 3.2 mmol/L (3.5-5.1)
[2016-09-18] MEDS: PIPERACILLIN/TAZOBACTAM 3.375 GM in IV NORMAL SALINE 50ML 50 ML IV SCH ×4 (05:56→23:50)
[2016-09-18 07:00] VITALS: BP 132/78
[2016-09-18] MEDS: LUBIPROSTONE 8 MCG CAPSULE PO SCH (08:00)
--- NOTE | 2016-09-18 08:46 | PDOC ---
CAROLYN VASQUEZ EDUCATION SITE MANAGER 09/18/16 0846: SURGICAL PROGRESS NOTE Subjective pain improving taking a few clears Vital Signs Vital Signs Date Time Temp Pulse Resp B/P Pulse Ox O2 Delivery O2 Flow Rate FiO2 09/18/16 07:30 Room Air 09/18/16 07:00 100.1 88 18 132/78 98 100.1 I&O Intake and Output 09/18/16 07:00 Intake Total 3923 ml Output Total 325 ml Balance 3598 ml Intake Oral 1345 ml IV Total 2578 ml Output Urine Total 325 ml # Voids 3 General: Alert, Oriented X3, Cooperative, No acute distress Abdomen: Soft, Other (mild ttp epigastric) Labs Laboratory Tests Test 09/17/16 05:00 09/18/16 02:50 White Blood Count 16.6x10^3/uL (4.0-11.0) 15.2x10^3/uL (4.0-11.0) Red Blood Count 4.36x10^6/uL (4.30-5.70) 4.09x10^6/uL (4.30-5.70) Hemoglobin 12.8g/dL (13.0-17.5) 11.7g/dL (13.0-17.5) Hematocrit 39.3% (39.0-53.0) 36.4% (39.0-53.0) Mean Corpuscular Volume 90fL (79-100) 89fL (79-100) Mean Corpuscular Hemoglobin 30pg (25-35) 29pg (25-35) Mean Corpuscular Hemoglobin Concent 33g/dL (31-37) 32g/dL (31-37) Red Cell Distribution Width 13.6% (11.5-14.5) 13.7% (11.5-14.5) Platelet Count 250x10^3/uL (140-400) 231x10^3/uL (140-400) Neutrophils (%) (Auto) 84% (31-73) 82% (31-73) Lymphocytes (%) (Auto) 8% (24-48) 10% (24-48) Monocytes (%) (Auto) 7% (0-9) 7% (0-9) Eosinophils (%) (Auto) 0% (0-3) 1% (0-3) Basophils (%) (Auto) 0% (0-3) 0% (0-3) Neutrophils # (Auto) 13.9x10^3uL (1.8-7.7) 12.5x10^3uL (1.8-7.7) Lymphocytes # (Auto) 1.3x10^3/uL (1.0-4.8) 1.5x10^3/uL (1.0-4.8) Monocytes # (Auto) 1.2x10^3/uL (0.0-1.1) 1.1x10^3/uL (0.0-1.1) Eosinophils # (Auto) 0.1x10^3/uL (0.0-0.7) 0.1x10^3/uL (0.0-0.7) Basophils # (Auto) 0.0x10^3/uL (0.0-0.2) 0.0x10^3/uL (0.0-0.2) Sodium Level 144mmol/L (136-145) 144mmol/L (136-145) Potassium Level 3.4mmol/L (3.5-5.1) 3.2mmol/L (3.5-5.1) Chloride Level 104mmol/L (98-107) 106mmol/L (98-107) Carbon Dioxide Level 27mmol/L (21-32) 28mmol/L (21-32) Anion Gap 13 (6-14) 10 (6-14) Blood Urea Nitrogen 11mg/dL (8-26) 9mg/dL (8-26) Creatinine 1.1mg/dL (0.7-1.3) 1.0mg/dL (0.7-1.3) Estimated GFR (Cockcroft-Gault) 77.1 86.1 Glucose Level 80mg/dL (70-99) 96mg/dL (70-99) Calcium Level 8.8mg/dL (8.5-10.1) 8.6mg/dL (8.5-10.1) Total Bilirubin 1.2mg/dL (0.2-1.0) Direct Bilirubin 0.8mg/dL (0.0-0.2) Aspartate Amino Transf (AST/SGOT) 46U/L (15-37) Alanine Aminotransferase (ALT/SGPT) 72U/L (16-63) Alkaline Phosphatase 80U/L (46-116) Total Protein 7.2g/dL (6.4-8.2) Albumin 2.5g/dL (3.4-5.0) Lipase 290U/L (73-393) Procalcitonin 0.70ng/mL (0.00-0.10) Laboratory Tests Test 09/18/16 02:50 White Blood Count 15.2x10^3/uL (4.0-11.0) Red Blood Count 4.09x10^6/uL (4.30-5.70) Hemoglobin 11.7g/dL (13.0-17.5) Hematocrit 36.4% (39.0-53.0) Mean Corpuscular Volume 89fL (79-100) Mean Corpuscular Hemoglobin 29pg (25-35) Mean Corpuscular Hemoglobin Concent 32g/dL (31-37) Red Cell Distribution Width 13.7% (11.5-14.5) Platelet Count 231x10^3/uL (140-400) Neutrophils (%) (Auto) 82% (31-73) Lymphocytes (%) (Auto) 10% (24-48) Monocytes (%) (Auto) 7% (0-9) Eosinophils (%) (Auto) 1% (0-3) Basophils (%) (Auto) 0% (0-3) Neutrophils # (Auto) 12.5x10^3uL (1.8-7.7) Lymphocytes # (Auto) 1.5x10^3/uL (1.0-4.8) Monocytes # (Auto) 1.1x10^3/uL (0.0-1.1) Eosinophils # (Auto) 0.1x10^3/uL (0.0-0.7) Basophils # (Auto) 0.0x10^3/uL (0.0-0.2) Sodium Level 144mmol/L (136-145) Potassium Level 3.2mmol/L (3.5-5.1) Chloride Level 106mmol/L (98-107) Carbon Dioxide Level 28mmol/L (21-32) Anion Gap 10 (6-14) Blood Urea Nitrogen 9mg/dL (8-26) Creatinine 1.0mg/dL (0.7-1.3) Estimated GFR (Cockcroft-Gault) 86.1 Glucose Level 96mg/dL (70-99) Calcium Level 8.6mg/dL (8.5-10.1) Problem List Problems Medical Problems: (1) Acute pancreatitis Status: Acute Assessment/Plan supportive care tmax 101 lap cary once pancreatitis resolved Problems: PHYLLIS BRUMFIELD MD 09/18/16 1028: SURGICAL PROGRESS NOTE Assessment/Plan Pt seen and examined. Agree with Ms. Vasquez's note Pt feels better but still with fevers suspect secondary to severe, but improving pancreatitis cont supportive care Problems: CAROLYN VASQUEZ APRN Sep 18, 2016 08:46 PHYLLIS BRUMFIELD MD Sep 18, 2016 10:28
[2016-09-18] MEDS: TAMSULOSIN 0.4 MG CAP.ER.24H. PO SCH (08:59)
[2016-09-18] MEDS: FAMOTIDINE 20 MG/2 ML VIAL IVP SCH ×2 (08:59→20:55)
[2016-09-18] MEDS: IBUPROFEN 400 MG TABLET. PO PRN (09:05)
--- NOTE | 2016-09-18 09:50 | PDOC ---
Subjective: Subjective: Has some mid-low back pain which he feels is from sleeping. No abd pain. Doing okay w/ clears but not really hungry. No further stools but has passed gas w/ discharge. Doesn't feel Amitiza was effective - note did have three stools after taking this. Objective: Objective: Per RN - refusing Amitiza. Tmax 100.1. Reviewed surg notes - note preference to keep to clears. Vital Signs: Vital Signs Date Time Temp Pulse Resp B/P Pulse Ox O2 Delivery O2 Flow Rate FiO2 09/18/16 07:30 Room Air 09/18/16 07:00 100.1 88 18 132/78 98 100.1 Labs: Laboratory Tests Test 09/18/16 02:50 White Blood Count 15.2x10^3/uL Red Blood Count 4.09x10^6/uL Hemoglobin 11.7g/dL Hematocrit 36.4% Mean Corpuscular Volume 89fL Mean Corpuscular Hemoglobin 29pg Mean Corpuscular Hemoglobin Concent 32g/dL Red Cell Distribution Width 13.7% Platelet Count 231x10^3/uL Neutrophils (%) (Auto) 82% Lymphocytes (%) (Auto) 10% Monocytes (%) (Auto) 7% Eosinophils (%) (Auto) 1% Basophils (%) (Auto) 0% Neutrophils # (Auto) 12.5x10^3uL Lymphocytes # (Auto) 1.5x10^3/uL Monocytes # (Auto) 1.1x10^3/uL Eosinophils # (Auto) 0.1x10^3/uL Basophils # (Auto) 0.0x10^3/uL Sodium Level 144mmol/L Potassium Level 3.2mmol/L Chloride Level 106mmol/L Carbon Dioxide Level 28mmol/L Anion Gap 10 Blood Urea Nitrogen 9mg/dL Creatinine 1.0mg/dL Estimated GFR (Cockcroft-Gault) 86.1 Glucose Level 96mg/dL Calcium Level 8.6mg/dL Imaging: CT abd 09/17/16 IMPRESSION: Mass, in the right kidney, most compatible with a hyperdense cyst. A follow-up ultrasound examination in approximately 6 months is suggested to confirm stability Inflammatory changes in the retroperitoneum, compatible with pancreatitis, slightly worse than on the previous study Cholelithiasis. Minute left pleural effusion. PE: GEN: NAD LUNGS: clear anteriorly HEART: RRR ABD: S/ND/NT, obese NEURO/PSYCH: A & O 3 A/P: Pancreatitis, cholelithiasis -lipase now normal, LFTs improving (last checked 09/17) -interval CT w/ worsening inflammation Leukocytosis - better -ID following, on IV atbx Fever -- Will stop Amitiza, otherwise continue same per GI. FATOU PALACIOS Sep 18, 2016 09:50
[2016-09-18 11:00] VITALS: BP 140/83
--- NOTE | 2016-09-18 11:10 | PDOC ---
Infectious Disease Note Subjective Subjective No acute distress this morning. Did have fever this am but not as high Has now lost his appetite + BM ROS ROS GEN: Denies fevers, chills, sweats HEENT: Denies blurred vision, sore throat CV: Denies chest pain RESP: Denies shortness of air, cough GI: Denies n/v/d NEURO: Denies confusion, dizziness MSK: Denies weakness, joint pain/swelling Vital Sign Vital Signs Vital Signs Date Time Temp Pulse Resp B/P Pulse Ox O2 Delivery O2 Flow Rate FiO2 09/18/16 07:30 Room Air 09/18/16 07:00 100.1 88 18 132/78 98 100.1 Physical Exam PHYSICAL EXAM GENERAL: NAD, Alert, in chair HEENT: PERRL, OC/OP NECK: Supple, no JVD, no LN LUNGS: Clear HEART: S1S2, no gallop, no murmur ABD: Soft, NT, no organomegaly, no rebound, obese EXT: No edema, no cyanosis PALEOLOGY TEACHER: Alert, oriented x 3, no focal neurologic deficit SKIN: No rash IV: ok Labs Lab Laboratory Tests Test 09/18/16 02:50 White Blood Count 15.2x10^3/uL (4.0-11.0) Red Blood Count 4.09x10^6/uL (4.30-5.70) Hemoglobin 11.7g/dL (13.0-17.5) Hematocrit 36.4% (39.0-53.0) Mean Corpuscular Volume 89fL (79-100) Mean Corpuscular Hemoglobin 29pg (25-35) Mean Corpuscular Hemoglobin Concent 32g/dL (31-37) Red Cell Distribution Width 13.7% (11.5-14.5) Platelet Count 231x10^3/uL (140-400) Neutrophils (%) (Auto) 82% (31-73) Lymphocytes (%) (Auto) 10% (24-48) Monocytes (%) (Auto) 7% (0-9) Eosinophils (%) (Auto) 1% (0-3) Basophils (%) (Auto) 0% (0-3) Neutrophils # (Auto) 12.5x10^3uL (1.8-7.7) Lymphocytes # (Auto) 1.5x10^3/uL (1.0-4.8) Monocytes # (Auto) 1.1x10^3/uL (0.0-1.1) Eosinophils # (Auto) 0.1x10^3/uL (0.0-0.7) Basophils # (Auto) 0.0x10^3/uL (0.0-0.2) Sodium Level 144mmol/L (136-145) Potassium Level 3.2mmol/L (3.5-5.1) Chloride Level 106mmol/L (98-107) Carbon Dioxide Level 28mmol/L (21-32) Anion Gap 10 (6-14) Blood Urea Nitrogen 9mg/dL (8-26) Creatinine 1.0mg/dL (0.7-1.3) Estimated GFR (Cockcroft-Gault) 86.1 Glucose Level 96mg/dL (70-99) Calcium Level 8.6mg/dL (8.5-10.1) Objective Assessment Acute gallstone pancreatitis - Repeat CT performed for renal mass shows some worsening of Pancreatitis Fever - Pancreatitis vs stone -clinically better and WBC cont to improve Renal mass - Ct reviewed Leukocytosis - improving Morbid obesity w/ BMI 55 Constipation - resolved Plan Plan of Care Cont Zosyn Maintain hydration Bowel rest f/u am labs Await surgical decision ? 09/22 VINCENT VALLECILLO MD Sep 18, 2016 11:10
[2016-09-18] MEDS ORDERED: POTASSIUM CHLORIDE 20 MEQ TABLET.ER. PO ONE (12:00)
--- NOTE | 2016-09-18 12:12 | PDOC ---
PROGRESS NOTES Chief Complaint Chief Complaint CC: Acute Abdominal Pain 1. Gallstone Pancreatitis 2. Morbid Obesity- BMI 55 3. Fevers 4. 4.1 x 3.0 x 4.3 cm hypoechoic mass of right kidney History of Present Illness History of Present Illness Patient sitting up in chair when evaluated this AM. Reports continued improvement in symptoms. Recorded low grade fever this AM; Tmax 100.2. Pt informed that surgery is pending for now, as acute process resolves. Case discussed with RN. Vitals Vitals Vital Signs Date Time Temp Pulse Resp B/P Pulse Ox O2 Delivery O2 Flow Rate FiO2 09/18/16 11:00 100.2 81 18 140/83 93 Room Air 100.2 Physical Exam General: Alert, Oriented X3, Cooperative, No acute distress Heart: Regular rate, Normal S1, Normal S2, No murmurs Lungs: Clear, Other Abdomen: Soft, Other (mild ttp epigastric) Extremities: No clubbing, No cyanosis Skin: No rashes, No breakdown, No significant lesion Labs LABS Laboratory Tests Test 09/18/16 02:50 White Blood Count 15.2x10^3/uL (4.0-11.0) Red Blood Count 4.09x10^6/uL (4.30-5.70) Hemoglobin 11.7g/dL (13.0-17.5) Hematocrit 36.4% (39.0-53.0) Mean Corpuscular Volume 89fL (79-100) Mean Corpuscular Hemoglobin 29pg (25-35) Mean Corpuscular Hemoglobin Concent 32g/dL (31-37) Red Cell Distribution Width 13.7% (11.5-14.5) Platelet Count 231x10^3/uL (140-400) Neutrophils (%) (Auto) 82% (31-73) Lymphocytes (%) (Auto) 10% (24-48) Monocytes (%) (Auto) 7% (0-9) Eosinophils (%) (Auto) 1% (0-3) Basophils (%) (Auto) 0% (0-3) Neutrophils # (Auto) 12.5x10^3uL (1.8-7.7) Lymphocytes # (Auto) 1.5x10^3/uL (1.0-4.8) Monocytes # (Auto) 1.1x10^3/uL (0.0-1.1) Eosinophils # (Auto) 0.1x10^3/uL (0.0-0.7) Basophils # (Auto) 0.0x10^3/uL (0.0-0.2) Sodium Level 144mmol/L (136-145) Potassium Level 3.2mmol/L (3.5-5.1) Chloride Level 106mmol/L (98-107) Carbon Dioxide Level 28mmol/L (21-32) Anion Gap 10 (6-14) Blood Urea Nitrogen 9mg/dL (8-26) Creatinine 1.0mg/dL (0.7-1.3) Estimated GFR (Cockcroft-Gault) 86.1 Glucose Level 96mg/dL (70-99) Calcium Level 8.6mg/dL (8.5-10.1) Review of Systems Review of Systems afebrile at this time; Tmax 100.2 this AM improved epigastric pain denies chest pain, SOB Assessment and Plan Assessmemt and Plan ASSESSMENT: - Acute Abdominal Pain - Gallstone Pancreatitis - Morbid Obesity- BMI 55 - Fevers, improving/resolved? - mass of right kidney, 4.1 x 3.0 x 4.3 cm hypoechoic PLAN: - awaiting surgery decision; to operate once acute process improves. - K+ replacement- 3.2; KCl 40 mEq po - cont IV hydration - cont IV Dilaudid PRN pain - cont IV Zosyn - cont to follow cx; no growth - repeat labs; Lipase WNL, LFTs improving, WBC improving - appreciate subspecialty input Problems: Comment Review of Relevant I have reviewed the following items arelis (where applicable) has been applied. Labs Laboratory Tests Test 09/17/16 05:00 09/18/16 02:50 White Blood Count 16.6x10^3/uL (4.0-11.0) 15.2x10^3/uL (4.0-11.0) Red Blood Count 4.36x10^6/uL (4.30-5.70) 4.09x10^6/uL (4.30-5.70) Hemoglobin 12.8g/dL (13.0-17.5) 11.7g/dL (13.0-17.5) Hematocrit 39.3% (39.0-53.0) 36.4% (39.0-53.0) Mean Corpuscular Volume 90fL (79-100) 89fL (79-100) Mean Corpuscular Hemoglobin 30pg (25-35) 29pg (25-35) Mean Corpuscular Hemoglobin Concent 33g/dL (31-37) 32g/dL (31-37) Red Cell Distribution Width 13.6% (11.5-14.5) 13.7% (11.5-14.5) Platelet Count 250x10^3/uL (140-400) 231x10^3/uL (140-400) Neutrophils (%) (Auto) 84% (31-73) 82% (31-73) Lymphocytes (%) (Auto) 8% (24-48) 10% (24-48) Monocytes (%) (Auto) 7% (0-9) 7% (0-9) Eosinophils (%) (Auto) 0% (0-3) 1% (0-3) Basophils (%) (Auto) 0% (0-3) 0% (0-3) Neutrophils # (Auto) 13.9x10^3uL (1.8-7.7) 12.5x10^3uL (1.8-7.7) Lymphocytes # (Auto) 1.3x10^3/uL (1.0-4.8) 1.5x10^3/uL (1.0-4.8) Monocytes # (Auto) 1.2x10^3/uL (0.0-1.1) 1.1x10^3/uL (0.0-1.1) Eosinophils # (Auto) 0.1x10^3/uL (0.0-0.7) 0.1x10^3/uL (0.0-0.7) Basophils # (Auto) 0.0x10^3/uL (0.0-0.2) 0.0x10^3/uL (0.0-0.2) Sodium Level 144mmol/L (136-145) 144mmol/L (136-145) Potassium Level 3.4mmol/L (3.5-5.1) 3.2mmol/L (3.5-5.1) Chloride Level 104mmol/L (98-107) 106mmol/L (98-107) Carbon Dioxide Level 27mmol/L (21-32) 28mmol/L (21-32) Anion Gap 13 (6-14) 10 (6-14) Blood Urea Nitrogen 11mg/dL (8-26) 9mg/dL (8-26) Creatinine 1.1mg/dL (0.7-1.3) 1.0mg/dL (0.7-1.3) Estimated GFR (Cockcroft-Gault) 77.1 86.1 Glucose Level 80mg/dL (70-99) 96mg/dL (70-99) Calcium Level 8.8mg/dL (8.5-10.1) 8.6mg/dL (8.5-10.1) Total Bilirubin 1.2mg/dL (0.2-1.0) Direct Bilirubin 0.8mg/dL (0.0-0.2) Aspartate Amino Transf (AST/SGOT) 46U/L (15-37) Alanine Aminotransferase (ALT/SGPT) 72U/L (16-63) Alkaline Phosphatase 80U/L (46-116) Total Protein 7.2g/dL (6.4-8.2) Albumin 2.5g/dL (3.4-5.0) Lipase 290U/L (73-393) Procalcitonin 0.70ng/mL (0.00-0.10) Laboratory Tests Test 09/18/16 02:50 White Blood Count 15.2x10^3/uL (4.0-11.0) Red Blood Count 4.09x10^6/uL (4.30-5.70) Hemoglobin 11.7g/dL (13.0-17.5) Hematocrit 36.4% (39.0-53.0) Mean Corpuscular Volume 89fL (79-100) Mean Corpuscular Hemoglobin 29pg (25-35) Mean Corpuscular Hemoglobin Concent 32g/dL (31-37) Red Cell Distribution Width 13.7% (11.5-14.5) Platelet Count 231x10^3/uL (140-400) Neutrophils (%) (Auto) 82% (31-73) Lymphocytes (%) (Auto) 10% (24-48) Monocytes (%) (Auto) 7% (0-9) Eosinophils (%) (Auto) 1% (0-3) Basophils (%) (Auto) 0% (0-3) Neutrophils # (Auto) 12.5x10^3uL (1.8-7.7) Lymphocytes # (Auto) 1.5x10^3/uL (1.0-4.8) Monocytes # (Auto) 1.1x10^3/uL (0.0-1.1) Eosinophils # (Auto) 0.1x10^3/uL (0.0-0.7) Basophils # (Auto) 0.0x10^3/uL (0.0-0.2) Sodium Level 144mmol/L (136-145) Potassium Level 3.2mmol/L (3.5-5.1) Chloride Level 106mmol/L (98-107) Carbon Dioxide Level 28mmol/L (21-32) Anion Gap 10 (6-14) Blood Urea Nitrogen 9mg/dL (8-26) Creatinine 1.0mg/dL (0.7-1.3) Estimated GFR (Cockcroft-Gault) 86.1 Glucose Level 96mg/dL (70-99) Calcium Level 8.6mg/dL (8.5-10.1) Medications Current Medications Sodium Chloride (Iv Sodium Chloride 0.9% 1000ml Bag) 1,000 ml @ 1,000 mls/hr Q1H IV Last administered on 09/13/16 14:23; Start 09/13/16 at 14:06; Stop at 17:10; Status DC Fentanyl Citrate (Fentanyl 2ml Vial) 50 mcg 1X ONCE IV Last administered on 14:32; Start 09/13/16 at 14:15; Stop 09/14/16 at 11:17; Status DC Ondansetron HCl (Zofran) 4 mg 1X ONCE IV Last administered on 09/13/16 14:32 ; Start 09/13/16 at 14:15; Stop 09/13/16 at 14:16; Status DC Iohexol (Omnipaque 300 Mg/ml) 75 ml 1X ONCE IV Last administered on 09/13/16 15:27; Start 09/13/16 at 15:00; Stop 09/13/16 at 17:10; Status DC Info 1 each 1 each PRN DAILY PRN MC SEE COMMENTS; Start 09/13/16 at 15:15; Stop 09/15/16 at 15:14; Status DC Sodium Chloride (Iv Sodium Chloride 0.9% 1000ml Bag) 1,000 ml @ 125 mls/hr 1X ONCE IV Last administered on 09/13/16 19:59; Start 09/13/16 at 16:30; Stop at 00:29; Status DC Fentanyl Citrate (Fentanyl 2ml Vial) 50 mcg 1X ONCE IV Last administered on 17:06; Start 09/13/16 at 16:30; Stop 09/14/16 at 11:17; Status DC Fentanyl Citrate (Fentanyl 2ml Vial) 50 mcg PRN Q2HR PRN IV PAIN Last administered on 09/14/16 09:28; Start 09/13/16 at 16:30; Stop 09/14/16 at 11:17 ; Status DC Fentanyl Citrate (Fentanyl 2ml Vial) 75 mcg PRN Q2HR PRN IV PAIN Last administered on 09/14/16 00:01; Start 09/13/16 at 20:00; Stop 09/14/16 at 11:17 ; Status DC Fentanyl Citrate (Fentanyl 2ml Vial) 100 mcg PRN Q2HR PRN IV PAIN Last administered on 09/14/16 06:27; Start 09/13/16 at 20:00; Stop 09/14/16 at 11:17 ; Status DC Famotidine (Pepcid) 20 mg BID IVP Last administered on 09/18/16 08:59; Start at 21:00 Diphenhydramine HCl (Benadryl) 50 mg PRN Q6HRS PRN IVP ITCHING Last administered on 09/14/16 09:27; Start 09/13/16 at 20:15 Calcium Carbonate/ Glycine (Tums) 200 mg PRN Q4HRS PRN PO INDIGESTION Last administered on 09/15/16 23:34; Start 09/13/16 at 20:30 Ibuprofen 200 mg 200 mg PRN Q6HRS PRN PO PAIN; Start 09/13/16 at 21:00; Stop at 00:17; Status DC Piperacillin Sod/ Tazobactam Sod/ Sodium Chloride (Zosyn/Iv Sodium Chloride 0.9 % 50ml) 50 ml @ 100 mls/hr Q6HRS IV Last administered on 09/18/16 11:38; Start 09/14/16 at 00:30 Ibuprofen (Motrin) 400 mg PRN Q6HRS PRN PO MILD PAIN / TEMP Last administered on 09/14/16 15:04; Start 09/14/16 at 00:30; Stop 09/14/16 at 20:33; Status DC Hydromorphone HCl (Dilaudid) 1 mg PRN Q2HR PRN IV PAIN Last administered on 21:11; Start 09/14/16 at 11:15 Hydromorphone HCl (Dilaudid) 2 mg PRN Q2HR PRN IV PAIN Last administered on 09/17 23:45; Start 09/14/16 at 11:30 Ibuprofen 400 mg 400 mg PRN Q4HRS PRN PO MILD PAIN / TEMP Last administered on 09/18/16 09:05; Start 09/14/16 at 20:30 Sodium Chloride 1,000 ml @ 1,000 mls/hr 1X ONCE IV Last administered on 09:31; Start 09/15/16 at 09:15; Stop 09/15/16 at 10:14; Status DC Sodium Chloride (Iv Sodium Chloride 0.9% 1000ml Bag) 1,000 ml @ 125 mls/hr Q8H IV Last administered on 09/18/16 05:56; Start 09/15/16 at 09:15 Bisacodyl (Dulcolax Supp) 10 mg PRN DAILY PRN [place] CONSTIPATION Last administered on 09/15/16 15:09; Start 09/15/16 at 12:15 Ondansetron HCl (Zofran) 4 mg PRN Q6HRS PRN IV NAUSEA/VOMITING; Start 09/15/16 at 23:45 Lubiprostone (Amitiza) 8 mcg BIDWMEALS PO Last administered on 09/16/16 15:04 ; Start 09/16/16 at 14:00; Stop 09/18/16 at 09:49; Status DC Iohexol (Omnipaque 300 Mg/ml) 75 ml 1X ONCE IV Last administered on 09/17/16 10:27; Start 09/17/16 at 09:45; Stop 09/17/16 at 09:46; Status DC Info (Do NOT chart on this entry -- for MONITORING) 1 each PRN DAILY PRN MC SEE COMMENTS; Start 09/17/16 at 09:45; Stop 09/19/16 at 09:44 Tamsulosin HCl (Flomax) 0.4 mg DAILY PO Last administered on 09/18/16 08:59; Start 09/17/16 at 12:00 Polyethylene Glycol (miraLAX PACKET) 17 gm PRN DAILY PRN PO CONSTIPATION; Start 09/18/16 at 10:00 Active Scripts Active Reported Ibuprofen 100 Mg Tablet 100 Mg PO PRN Q6HRS PRN Tums (Calcium Carbonate) 200 Mg Tab.chew 200 Mg PO PRN Q4HRS PRN Vitals/I & O Vital Sign - Last 24 Hours 09/17/16 09/17/16 09/17/16 09/17/16 14:51 19:15 20:45 23:15 Temp 99.7 99.6 99.6 99.7 99.6 99.6 Pulse 101 88 81 Resp 18 18 18 B/P 144/83 144/92 125/87 Pulse Ox 93 99 92 O2 Delivery Room Air Room Air Room Air Room Air 09/17/16 09/18/16 09/18/16 09/18/16 23:45 00:15 03:21 07:00 Temp 98.3 100.1 98.3 100.1 Pulse 70 88 Resp 20 20 18 18 B/P 104/58 132/78 Pulse Ox 99 99 95 98 O2 Delivery Room Air Room Air Room Air Room Air 09/18/16 09/18/16 07:30 11:00 Temp 100.2 100.2 Pulse 81 Resp 18 B/P 140/83 Pulse Ox 93 O2 Delivery Room Air Room Air Intake and Output 09/17/16 09/17/16 09/18/16 15:00 23:00 07:00 Intake Total 300 ml 565 ml 3058 ml Output Total 325 ml Balance 300 ml 565 ml 2733 ml GIORGINIAL K III DO Sep 18, 2016 12:12
[2016-09-18 15:00] VITALS: BP 141/91
[2016-09-18 19:00] VITALS: BP 146/89
[2016-09-18] MEDS: HYDROMORPHONE 2 MG/ML VIAL. IV PRN ×2 (20:03→23:51)
[2016-09-18 23:00] VITALS: BP 134/78
[2016-09-18] MEDS: DIPHENHYDRAMINE 50 MG/ML VIAL IVP PRN (23:50)
[2016-09-18] MEDS: CALCIUM CARBONATE 500 MG TAB.CHEW PO PRN (23:56)
[2016-09-19 03:00] VITALS: BP 148/71
[2016-09-19] MEDS: PIPERACILLIN/TAZOBACTAM 3.375 GM in IV NORMAL SALINE 50ML 50 ML IV SCH (06:10)
[2016-09-19 06:42] LABS: BASO # 0.1 x10^3/uL (0.0-0.2); BASO % 1 % (0-3); EOS % 1 % (0-3); HEMOGLOBIN 12.1 g/dL (13.0-17.5); LYMPH # 1.4 x10^3/uL (1.0-4.8); LYMPH % 8 % (24-48); MEAN CORPUSCULAR HEMOGLOBIN 29 pg (25-35); MEAN CORPUSCULAR HGB CONC 33 g/dL (31-37); MEAN CORPUSCULAR VOLUME 90 fL (79-100); MONO % 8 % (0-9); NEUT % 82 % (31-73); PLATELET COUNT 263 x10^3/uL (140-400); RED BLOOD COUNT 4.13 x10^6/uL (4.30-5.70); RED CELL DISTRIBUTION WIDTH 13.5 % (11.5-14.5); WHITE BLOOD COUNT 16.9 x10^3/uL (4.0-11.0)
[2016-09-19 06:54] LABS: CALCIUM 8.6 mg/dL (8.5-10.1); GFR 86.1; POTASSIUM 3.6 mmol/L (3.5-5.1)
[2016-09-19 07:00] VITALS: BP 131/78
[2016-09-19] MEDS: TAMSULOSIN 0.4 MG CAP.ER.24H. PO SCH (08:29)
[2016-09-19] MEDS: POLYETHYLENE GLYCOL 3350 17 GM PACKET. PO PRN (08:29)
[2016-09-19] MEDS: IBUPROFEN 400 MG TABLET. PO PRN ×2 (08:29→19:30)
[2016-09-19] MEDS: FAMOTIDINE 20 MG/2 ML VIAL IVP SCH ×2 (08:30→21:00)
--- NOTE | 2016-09-19 09:07 | PDOC ---
CAROLYN VASQUEZ STEAMFITTER SUPERVISOR 09/19/16 0907: SURGICAL PROGRESS NOTE Subjective some pain taking some clears Vital Signs Vital Signs Date Time Temp Pulse Resp B/P Pulse Ox O2 Delivery O2 Flow Rate FiO2 09/19/16 07:05 Room Air 09/19/16 07:00 101.7 93 20 131/78 94 101.7 I&O Intake and Output 09/19/16 07:00 Intake Total 5640 ml Output Total 350 ml Balance 5290 ml Intake Oral 2640 ml IV Total 1500 ml Other 1500 ml Output Urine Total 350 ml # Voids 6 General: Alert, Oriented X3, Cooperative, No acute distress Abdomen: Soft, Other (obese abdomen, nontender on exam) Labs Laboratory Tests Test 09/18/16 02:50 09/19/16 06:30 White Blood Count 15.2x10^3/uL (4.0-11.0) 16.9x10^3/uL (4.0-11.0) Red Blood Count 4.09x10^6/uL (4.30-5.70) 4.13x10^6/uL (4.30-5.70) Hemoglobin 11.7g/dL (13.0-17.5) 12.1g/dL (13.0-17.5) Hematocrit 36.4% (39.0-53.0) 37.0% (39.0-53.0) Mean Corpuscular Volume 89fL (79-100) 90fL (79-100) Mean Corpuscular Hemoglobin 29pg (25-35) 29pg (25-35) Mean Corpuscular Hemoglobin Concent 32g/dL (31-37) 33g/dL (31-37) Red Cell Distribution Width 13.7% (11.5-14.5) 13.5% (11.5-14.5) Platelet Count 231x10^3/uL (140-400) 263x10^3/uL (140-400) Neutrophils (%) (Auto) 82% (31-73) 82% (31-73) Lymphocytes (%) (Auto) 10% (24-48) 8% (24-48) Monocytes (%) (Auto) 7% (0-9) 8% (0-9) Eosinophils (%) (Auto) 1% (0-3) 1% (0-3) Basophils (%) (Auto) 0% (0-3) 1% (0-3) Neutrophils # (Auto) 12.5x10^3uL (1.8-7.7) 13.9x10^3uL (1.8-7.7) Lymphocytes # (Auto) 1.5x10^3/uL (1.0-4.8) 1.4x10^3/uL (1.0-4.8) Monocytes # (Auto) 1.1x10^3/uL (0.0-1.1) 1.4x10^3/uL (0.0-1.1) Eosinophils # (Auto) 0.1x10^3/uL (0.0-0.7) 0.1x10^3/uL (0.0-0.7) Basophils # (Auto) 0.0x10^3/uL (0.0-0.2) 0.1x10^3/uL (0.0-0.2) Sodium Level 144mmol/L (136-145) 144mmol/L (136-145) Potassium Level 3.2mmol/L (3.5-5.1) 3.6mmol/L (3.5-5.1) Chloride Level 106mmol/L (98-107) 106mmol/L (98-107) Carbon Dioxide Level 28mmol/L (21-32) 27mmol/L (21-32) Anion Gap 10 (6-14) 11 (6-14) Blood Urea Nitrogen 9mg/dL (8-26) 6mg/dL (8-26) Creatinine 1.0mg/dL (0.7-1.3) 1.0mg/dL (0.7-1.3) Estimated GFR (Cockcroft-Gault) 86.1 86.1 Glucose Level 96mg/dL (70-99) 99mg/dL (70-99) Calcium Level 8.6mg/dL (8.5-10.1) 8.6mg/dL (8.5-10.1) Laboratory Tests Test 09/19/16 06:30 White Blood Count 16.9x10^3/uL (4.0-11.0) Red Blood Count 4.13x10^6/uL (4.30-5.70) Hemoglobin 12.1g/dL (13.0-17.5) Hematocrit 37.0% (39.0-53.0) Mean Corpuscular Volume 90fL (79-100) Mean Corpuscular Hemoglobin 29pg (25-35) Mean Corpuscular Hemoglobin Concent 33g/dL (31-37) Red Cell Distribution Width 13.5% (11.5-14.5) Platelet Count 263x10^3/uL (140-400) Neutrophils (%) (Auto) 82% (31-73) Lymphocytes (%) (Auto) 8% (24-48) Monocytes (%) (Auto) 8% (0-9) Eosinophils (%) (Auto) 1% (0-3) Basophils (%) (Auto) 1% (0-3) Neutrophils # (Auto) 13.9x10^3uL (1.8-7.7) Lymphocytes # (Auto) 1.4x10^3/uL (1.0-4.8) Monocytes # (Auto) 1.4x10^3/uL (0.0-1.1) Eosinophils # (Auto) 0.1x10^3/uL (0.0-0.7) Basophils # (Auto) 0.1x10^3/uL (0.0-0.2) Sodium Level 144mmol/L (136-145) Potassium Level 3.6mmol/L (3.5-5.1) Chloride Level 106mmol/L (98-107) Carbon Dioxide Level 27mmol/L (21-32) Anion Gap 11 (6-14) Blood Urea Nitrogen 6mg/dL (8-26) Creatinine 1.0mg/dL (0.7-1.3) Estimated GFR (Cockcroft-Gault) 86.1 Glucose Level 99mg/dL (70-99) Calcium Level 8.6mg/dL (8.5-10.1) Problem List Problems Medical Problems: (1) Acute pancreatitis Status: Acute Assessment/Plan fevers 101.7, wbc 16.9 ongoing pancreatitis on clears, may need to consider adding nutritional support with ongoing pancreatitis, prolonged bowel rest Problems: PHYLLIS BRUMFIELD MD 09/19/16 0929: SURGICAL PROGRESS NOTE Assessment/Plan Pt seen and examined. Agree with Ms. Vasquez's note Pt feels somewhat better, but still some persistent pain TTP epigastric tentatively plan lap cary with grams, 3/6 agree with consider TPN Problems: CAROLYN VASQUEZ APRN Sep 19, 2016 09:07 PHYLLIS BRUMFIELD MD Sep 19, 2016 09:11
[2016-09-19] MEDS: IV NORMAL SALINE 1000ML BAG 1,000 ML IV SCH ×3 (09:15→19:49)
--- NOTE | 2016-09-19 10:19 | PDOC ---
Infectious Disease Note Subjective Subjective Doesnt like jello No acute distress this morning. Did have fever Has now lost his appetite + BM - loose. Wants to start Metamucil ROS ROS GEN: Denies fevers, chills, sweats HEENT: Denies blurred vision, sore throat CV: Denies chest pain RESP: Denies shortness of air, cough GI: Denies n/v/d NEURO: Denies confusion, dizziness MSK: Denies weakness, joint pain/swelling Vital Sign Vital Signs Vital Signs Date Time Temp Pulse Resp B/P Pulse Ox O2 Delivery O2 Flow Rate FiO2 09/19/16 07:05 Room Air 09/19/16 07:00 101.7 93 20 131/78 94 101.7 Physical Exam PHYSICAL EXAM GENERAL: NAD, Alert, coop, pleasant HEENT: PERRL, OC/OP -dry NECK: Supple, no JVD, no LN LUNGS: Clear HEART: S1S2, no gallop, no murmur ABD: Soft, NT, no organomegaly, no rebound, obese EXT: No edema, no cyanosis HEAT READER: Alert, oriented x 3, no focal neurologic deficit SKIN: No rash IV: ok Labs Lab Laboratory Tests Test 09/19/16 06:30 White Blood Count 16.9x10^3/uL (4.0-11.0) Red Blood Count 4.13x10^6/uL (4.30-5.70) Hemoglobin 12.1g/dL (13.0-17.5) Hematocrit 37.0% (39.0-53.0) Mean Corpuscular Volume 90fL (79-100) Mean Corpuscular Hemoglobin 29pg (25-35) Mean Corpuscular Hemoglobin Concent 33g/dL (31-37) Red Cell Distribution Width 13.5% (11.5-14.5) Platelet Count 263x10^3/uL (140-400) Neutrophils (%) (Auto) 82% (31-73) Lymphocytes (%) (Auto) 8% (24-48) Monocytes (%) (Auto) 8% (0-9) Eosinophils (%) (Auto) 1% (0-3) Basophils (%) (Auto) 1% (0-3) Neutrophils # (Auto) 13.9x10^3uL (1.8-7.7) Lymphocytes # (Auto) 1.4x10^3/uL (1.0-4.8) Monocytes # (Auto) 1.4x10^3/uL (0.0-1.1) Eosinophils # (Auto) 0.1x10^3/uL (0.0-0.7) Basophils # (Auto) 0.1x10^3/uL (0.0-0.2) Sodium Level 144mmol/L (136-145) Potassium Level 3.6mmol/L (3.5-5.1) Chloride Level 106mmol/L (98-107) Carbon Dioxide Level 27mmol/L (21-32) Anion Gap 11 (6-14) Blood Urea Nitrogen 6mg/dL (8-26) Creatinine 1.0mg/dL (0.7-1.3) Estimated GFR (Cockcroft-Gault) 86.1 Glucose Level 99mg/dL (70-99) Calcium Level 8.6mg/dL (8.5-10.1) Objective Assessment Acute gallstone pancreatitis - Repeat CT performed for renal mass shows some worsening of Pancreatitis Fever - Pancreatitis vs stone -clinically better and WBC mildly increased today Renal mass - Ct reviewed Leukocytosis - improving Morbid obesity w/ BMI 55 Constipation - resolved Plan Plan of Care Discont Zosyn Begin Meropenem Maintain hydration Bowel rest f/u am labs Await surgical decision ? 09/22 VINCENT VALLECILLO MD Sep 19, 2016 10:19
[2016-09-19 10:40] VITALS: BP 125/73
--- NOTE | 2016-09-19 11:23 | PDOC ---
Subjective: Subjective: Doing okay. About the same. Tolerating clears. Had some fecal discharge today. No real pain. Objective: Objective: Tmax 101.7 Vital Signs: Vital Signs Date Time Temp Pulse Resp B/P Pulse Ox O2 Delivery O2 Flow Rate FiO2 09/19/16 10:40 98.7 80 16 125/73 94 Room Air 98.7 Labs: Laboratory Tests Test 09/19/16 06:30 White Blood Count 16.9x10^3/uL Red Blood Count 4.13x10^6/uL Hemoglobin 12.1g/dL Hematocrit 37.0% Mean Corpuscular Volume 90fL Mean Corpuscular Hemoglobin 29pg Mean Corpuscular Hemoglobin Concent 33g/dL Red Cell Distribution Width 13.5% Platelet Count 263x10^3/uL Neutrophils (%) (Auto) 82% Lymphocytes (%) (Auto) 8% Monocytes (%) (Auto) 8% Eosinophils (%) (Auto) 1% Basophils (%) (Auto) 1% Neutrophils # (Auto) 13.9x10^3uL Lymphocytes # (Auto) 1.4x10^3/uL Monocytes # (Auto) 1.4x10^3/uL Eosinophils # (Auto) 0.1x10^3/uL Basophils # (Auto) 0.1x10^3/uL Sodium Level 144mmol/L Potassium Level 3.6mmol/L Chloride Level 106mmol/L Carbon Dioxide Level 27mmol/L Anion Gap 11 Blood Urea Nitrogen 6mg/dL Creatinine 1.0mg/dL Estimated GFR (Cockcroft-Gault) 86.1 Glucose Level 99mg/dL Calcium Level 8.6mg/dL PE: GEN: NAD, up to chair LUNGS: CTAB HEART: RRR ABD: soft, non-tender, obese NEURO/PSYCH: A & O 3 A/P: Pancreatitis, cholelithiasis -lipase now normal, LFTs improving (last checked 09/17) -interval CT w/ worsening inflammation Leukocytosis - a little worse today -ID following, on IV atbx Fever -- Tentative cholecystectomy on 09/22. Continue same per GI. FATOU PALACIOS Sep 19, 2016 11:23 XIOMARA PACHECO MD Sep 19, 2016 11:28
--- NOTE | 2016-09-19 11:59 | PDOC ---
PROGRESS NOTES Chief Complaint Chief Complaint CC: Acute Abdominal Pain 1. Gallstone Pancreatitis 2. Morbid Obesity- BMI 55 3. Fevers 4. 4.1 x 3.0 x 4.3 cm hypoechoic mass of right kidney History of Present Illness History of Present Illness Patient sitting up in chair when evaluated this AM. Continues to complain of abdominal pain. Again having fevers this AM; 101.7 @ 0700. Not feeling feverish or chilled at this time. Pt aware that surgery is likely to occur on Thursday. Complaining of some constipation and gas. Vitals Vitals Vital Signs Date Time Temp Pulse Resp B/P Pulse Ox O2 Delivery O2 Flow Rate FiO2 09/19/16 10:40 98.7 80 16 125/73 94 Room Air 98.7 Physical Exam General: Alert, Oriented X3, Cooperative, No acute distress Heart: Regular rate, Normal S1, Normal S2, No murmurs Lungs: Clear, Other Abdomen: Soft, Other (obese abdomen, nontender on exam) Extremities: No clubbing, No cyanosis Skin: No rashes, No breakdown, No significant lesion Labs LABS Laboratory Tests Test 09/19/16 06:30 White Blood Count 16.9x10^3/uL (4.0-11.0) Red Blood Count 4.13x10^6/uL (4.30-5.70) Hemoglobin 12.1g/dL (13.0-17.5) Hematocrit 37.0% (39.0-53.0) Mean Corpuscular Volume 90fL (79-100) Mean Corpuscular Hemoglobin 29pg (25-35) Mean Corpuscular Hemoglobin Concent 33g/dL (31-37) Red Cell Distribution Width 13.5% (11.5-14.5) Platelet Count 263x10^3/uL (140-400) Neutrophils (%) (Auto) 82% (31-73) Lymphocytes (%) (Auto) 8% (24-48) Monocytes (%) (Auto) 8% (0-9) Eosinophils (%) (Auto) 1% (0-3) Basophils (%) (Auto) 1% (0-3) Neutrophils # (Auto) 13.9x10^3uL (1.8-7.7) Lymphocytes # (Auto) 1.4x10^3/uL (1.0-4.8) Monocytes # (Auto) 1.4x10^3/uL (0.0-1.1) Eosinophils # (Auto) 0.1x10^3/uL (0.0-0.7) Basophils # (Auto) 0.1x10^3/uL (0.0-0.2) Sodium Level 144mmol/L (136-145) Potassium Level 3.6mmol/L (3.5-5.1) Chloride Level 106mmol/L (98-107) Carbon Dioxide Level 27mmol/L (21-32) Anion Gap 11 (6-14) Blood Urea Nitrogen 6mg/dL (8-26) Creatinine 1.0mg/dL (0.7-1.3) Estimated GFR (Cockcroft-Gault) 86.1 Glucose Level 99mg/dL (70-99) Calcium Level 8.6mg/dL (8.5-10.1) Review of Systems Review of Systems afebrile at this time; Tmax 101.7 this AM epigastric pain persists complains of gas and some constipation Assessment and Plan Assessmemt and Plan ASSESSMENT: - Acute Abdominal Pain - Gallstone Pancreatitis - Morbid Obesity- BMI 55 - Fevers, improving/resolved? - mass of right kidney, 4.1 x 3.0 x 4.3 cm hypoechoic PLAN: - awaiting surgery (likely Thursday; continues to have intermittent low grade fevers; WBC 16.9 from 15.2 yesterday . - Simethicone PRN for complaint of gas - cont IV hydration - cont IV Dilaudid PRN pain - cont antibiotic - cont to follow cx; no growth - repeat labs - appreciate subspecialty input Problems: Comment Review of Relevant I have reviewed the following items arelis (where applicable) has been applied. Labs Laboratory Tests Test 09/18/16 02:50 09/19/16 06:30 White Blood Count 15.2x10^3/uL (4.0-11.0) 16.9x10^3/uL (4.0-11.0) Red Blood Count 4.09x10^6/uL (4.30-5.70) 4.13x10^6/uL (4.30-5.70) Hemoglobin 11.7g/dL (13.0-17.5) 12.1g/dL (13.0-17.5) Hematocrit 36.4% (39.0-53.0) 37.0% (39.0-53.0) Mean Corpuscular Volume 89fL (79-100) 90fL (79-100) Mean Corpuscular Hemoglobin 29pg (25-35) 29pg (25-35) Mean Corpuscular Hemoglobin Concent 32g/dL (31-37) 33g/dL (31-37) Red Cell Distribution Width 13.7% (11.5-14.5) 13.5% (11.5-14.5) Platelet Count 231x10^3/uL (140-400) 263x10^3/uL (140-400) Neutrophils (%) (Auto) 82% (31-73) 82% (31-73) Lymphocytes (%) (Auto) 10% (24-48) 8% (24-48) Monocytes (%) (Auto) 7% (0-9) 8% (0-9) Eosinophils (%) (Auto) 1% (0-3) 1% (0-3) Basophils (%) (Auto) 0% (0-3) 1% (0-3) Neutrophils # (Auto) 12.5x10^3uL (1.8-7.7) 13.9x10^3uL (1.8-7.7) Lymphocytes # (Auto) 1.5x10^3/uL (1.0-4.8) 1.4x10^3/uL (1.0-4.8) Monocytes # (Auto) 1.1x10^3/uL (0.0-1.1) 1.4x10^3/uL (0.0-1.1) Eosinophils # (Auto) 0.1x10^3/uL (0.0-0.7) 0.1x10^3/uL (0.0-0.7) Basophils # (Auto) 0.0x10^3/uL (0.0-0.2) 0.1x10^3/uL (0.0-0.2) Sodium Level 144mmol/L (136-145) 144mmol/L (136-145) Potassium Level 3.2mmol/L (3.5-5.1) 3.6mmol/L (3.5-5.1) Chloride Level 106mmol/L (98-107) 106mmol/L (98-107) Carbon Dioxide Level 28mmol/L (21-32) 27mmol/L (21-32) Anion Gap 10 (6-14) 11 (6-14) Blood Urea Nitrogen 9mg/dL (8-26) 6mg/dL (8-26) Creatinine 1.0mg/dL (0.7-1.3) 1.0mg/dL (0.7-1.3) Estimated GFR (Cockcroft-Gault) 86.1 86.1 Glucose Level 96mg/dL (70-99) 99mg/dL (70-99) Calcium Level 8.6mg/dL (8.5-10.1) 8.6mg/dL (8.5-10.1) Laboratory Tests Test 09/19/16 06:30 White Blood Count 16.9x10^3/uL (4.0-11.0) Red Blood Count 4.13x10^6/uL (4.30-5.70) Hemoglobin 12.1g/dL (13.0-17.5) Hematocrit 37.0% (39.0-53.0) Mean Corpuscular Volume 90fL (79-100) Mean Corpuscular Hemoglobin 29pg (25-35) Mean Corpuscular Hemoglobin Concent 33g/dL (31-37) Red Cell Distribution Width 13.5% (11.5-14.5) Platelet Count 263x10^3/uL (140-400) Neutrophils (%) (Auto) 82% (31-73) Lymphocytes (%) (Auto) 8% (24-48) Monocytes (%) (Auto) 8% (0-9) Eosinophils (%) (Auto) 1% (0-3) Basophils (%) (Auto) 1% (0-3) Neutrophils # (Auto) 13.9x10^3uL (1.8-7.7) Lymphocytes # (Auto) 1.4x10^3/uL (1.0-4.8) Monocytes # (Auto) 1.4x10^3/uL (0.0-1.1) Eosinophils # (Auto) 0.1x10^3/uL (0.0-0.7) Basophils # (Auto) 0.1x10^3/uL (0.0-0.2) Sodium Level 144mmol/L (136-145) Potassium Level 3.6mmol/L (3.5-5.1) Chloride Level 106mmol/L (98-107) Carbon Dioxide Level 27mmol/L (21-32) Anion Gap 11 (6-14) Blood Urea Nitrogen 6mg/dL (8-26) Creatinine 1.0mg/dL (0.7-1.3) Estimated GFR (Cockcroft-Gault) 86.1 Glucose Level 99mg/dL (70-99) Calcium Level 8.6mg/dL (8.5-10.1) Medications Current Medications Sodium Chloride (Iv Sodium Chloride 0.9% 1000ml Bag) 1,000 ml @ 1,000 mls/hr Q1H IV Last administered on 09/13/16 14:23; Start 09/13/16 at 14:06; Stop at 17:10; Status DC Fentanyl Citrate (Fentanyl 2ml Vial) 50 mcg 1X ONCE IV Last administered on 14:32; Start 09/13/16 at 14:15; Stop 09/14/16 at 11:17; Status DC Ondansetron HCl (Zofran) 4 mg 1X ONCE IV Last administered on 09/13/16 14:32 ; Start 09/13/16 at 14:15; Stop 09/13/16 at 14:16; Status DC Iohexol (Omnipaque 300 Mg/ml) 75 ml 1X ONCE IV Last administered on 09/13/16 15:27; Start 09/13/16 at 15:00; Stop 09/13/16 at 17:10; Status DC Info 1 each 1 each PRN DAILY PRN [place] SEE COMMENTS; Start 09/13/16 at 15:15; Stop 09/15/16 at 15:14; Status DC Sodium Chloride (Iv Sodium Chloride 0.9% 1000ml Bag) 1,000 ml @ 125 mls/hr 1X ONCE IV Last administered on 09/13/16 19:59; Start 09/13/16 at 16:30; Stop at 00:29; Status DC Fentanyl Citrate (Fentanyl 2ml Vial) 50 mcg 1X ONCE IV Last administered on 17:06; Start 09/13/16 at 16:30; Stop 09/14/16 at 11:17; Status DC Fentanyl Citrate (Fentanyl 2ml Vial) 50 mcg PRN Q2HR PRN IV PAIN Last administered on 09/14/16 09:28; Start 09/13/16 at 16:30; Stop 09/14/16 at 11:17 ; Status DC Fentanyl Citrate (Fentanyl 2ml Vial) 75 mcg PRN Q2HR PRN IV PAIN Last administered on 09/14/16 00:01; Start 09/13/16 at 20:00; Stop 09/14/16 at 11:17 ; Status DC Fentanyl Citrate (Fentanyl 2ml Vial) 100 mcg PRN Q2HR PRN IV PAIN Last administered on 09/14/16 06:27; Start 09/13/16 at 20:00; Stop 09/14/16 at 11:17 ; Status DC Famotidine (Pepcid) 20 mg BID IVP Last administered on 09/19/16 08:30; Start at 21:00 Diphenhydramine HCl (Benadryl) 50 mg PRN Q6HRS PRN IVP ITCHING Last administered on 09/18/16 23:50; Start 09/13/16 at 20:15 Calcium Carbonate/ Glycine (Tums) 200 mg PRN Q4HRS PRN PO INDIGESTION Last administered on 09/18/16 23:56; Start 09/13/16 at 20:30 Ibuprofen 200 mg 200 mg PRN Q6HRS PRN PO PAIN; Start 09/13/16 at 21:00; Stop at 00:17; Status DC Piperacillin Sod/ Tazobactam Sod/ Sodium Chloride (Zosyn/Iv Sodium Chloride 0.9 % 50ml) 50 ml @ 100 mls/hr Q6HRS IV Last administered on 09/19/16 06:10; Start 09/14/16 at 00:30; Stop 09/19/16 at 10:19; Status DC Ibuprofen (Motrin) 400 mg PRN Q6HRS PRN PO MILD PAIN / TEMP Last administered on 09/14/16 15:04; Start 09/14/16 at 00:30; Stop 09/14/16 at 20:33; Status DC Hydromorphone HCl (Dilaudid) 1 mg PRN Q2HR PRN IV PAIN Last administered on 21:11; Start 09/14/16 at 11:15 Hydromorphone HCl (Dilaudid) 2 mg PRN Q2HR PRN IV PAIN Last administered on 09/18 23:51; Start 09/14/16 at 11:30 Ibuprofen 400 mg 400 mg PRN Q4HRS PRN PO MILD PAIN / TEMP Last administered on 09/19/16 08:29; Start 09/14/16 at 20:30 Sodium Chloride 1,000 ml @ 1,000 mls/hr 1X ONCE IV Last administered on 09:31; Start 09/15/16 at 09:15; Stop 09/15/16 at 10:14; Status DC Sodium Chloride (Iv Sodium Chloride 0.9% 1000ml Bag) 1,000 ml @ 125 mls/hr Q8H IV Last administered on 09/19/16 11:13; Start 09/15/16 at 09:15 Bisacodyl (Dulcolax Supp) 10 mg PRN DAILY PRN [place] CONSTIPATION Last administered on 09/15/16 15:09; Start 09/15/16 at 12:15 Ondansetron HCl (Zofran) 4 mg PRN Q6HRS PRN IV NAUSEA/VOMITING; Start 09/15/16 at 23:45 Lubiprostone (Amitiza) 8 mcg BIDWMEALS PO Last administered on 09/16/16 15:04 ; Start 09/16/16 at 14:00; Stop 09/18/16 at 09:49; Status DC Iohexol (Omnipaque 300 Mg/ml) 75 ml 1X ONCE IV Last administered on 09/17/16 10:27; Start 09/17/16 at 09:45; Stop 09/17/16 at 09:46; Status DC Info (Do NOT chart on this entry -- for MONITORING) 1 each PRN DAILY PRN MC SEE COMMENTS; Start 09/17/16 at 09:45; Stop 09/19/16 at 09:44; Status DC Tamsulosin HCl (Flomax) 0.4 mg DAILY PO Last administered on 09/19/16 08:29; Start 09/17/16 at 12:00 Polyethylene Glycol (miraLAX PACKET) 17 gm PRN DAILY PRN PO CONSTIPATION Last administered on 09/19/16 08:29; Start 09/18/16 at 10:00 Potassium Chloride 40 meq 40 meq 1X ONCE PO Last administered on 09/18/16 12: 00; Start 09/18/16 at 12:00; Stop 09/18/16 at 12:02; Status DC Meropenem/Sodium Chloride (Merrem/Iv Sodium Chloride 0.9% 100ml) 100 ml @ 200 mls/hr Q8HRS IV ; Start 09/19/16 at 14:00 Active Scripts Active Reported Ibuprofen 100 Mg Tablet 100 Mg PO PRN Q6HRS PRN Tums (Calcium Carbonate) 200 Mg Tab.chew 200 Mg PO PRN Q4HRS PRN Vitals/I & O Vital Sign - Last 24 Hours 09/18/16 09/18/16 09/18/16 09/18/16 15:00 19:00 20:00 20:03 Temp 97.9 98.6 97.9 98.6 Pulse 80 81 Resp 18 18 18 B/P 141/91 146/89 Pulse Ox 96 99 O2 Delivery Room Air Room Air Room Air 09/18/16 09/18/16 09/19/16 09/19/16 23:00 23:51 00:21 03:00 Temp 99.4 99.6 99.4 99.6 Pulse 86 105 Resp 18 18 18 18 B/P 134/78 148/71 Pulse Ox 97 94 O2 Delivery Room Air Room Air Room Air Room Air 09/19/16 09/19/16 09/19/16 07:00 07:05 10:40 Temp 101.7 98.7 101.7 98.7 Pulse 93 80 Resp 20 16 B/P 131/78 125/73 Pulse Ox 94 94 O2 Delivery Room Air Room Air Room Air Intake and Output 09/18/16 09/18/16 09/19/16 15:00 23:00 07:00 Intake Total 120 ml 900 ml 4620 ml Output Total 350 ml Balance 120 ml 900 ml 4270 ml SAMUEL RAND III DO Sep 19, 2016 11:59
[2016-09-19 15:28] VITALS: BP 145/76
[2016-09-19] MEDS: MEROPENEM 1 GM in IV NORMAL SALINE 100ML 100 ML IV SCH ×2 (16:02→22:00)
[2016-09-19] MEDS ORDERED: ZOLPIDEM 5 MG TABLET. PO PRN (16:45)
[2016-09-19] MEDS ORDERED: MAGNESIUM CITRATE 296 ML SOLUTION. PO PRN (19:00)
[2016-09-19 19:23] VITALS: BP 181/95
[2016-09-19 23:27] VITALS: BP 128/75
[2016-09-20 03:40] VITALS: BP 151/82
[2016-09-20] MEDS: HYDROMORPHONE 2 MG/ML VIAL. IV PRN (04:59)
[2016-09-20 05:08] LABS: BASO # 0.1 x10^3/uL (0.0-0.2); BASO % 0 % (0-3); EOS % 2 % (0-3); HEMATOCRIT 35.9 % (39.0-53.0); HEMOGLOBIN 11.6 g/dL (13.0-17.5); LYMPH # 1.7 x10^3/uL (1.0-4.8); LYMPH % 14 % (24-48); MEAN CORPUSCULAR HEMOGLOBIN 29 pg (25-35); MEAN CORPUSCULAR HGB CONC 32 g/dL (31-37); MEAN CORPUSCULAR VOLUME 90 fL (79-100); MONO % 9 % (0-9); NEUT % 75 % (31-73); PLATELET COUNT 245 x10^3/uL (140-400); RED BLOOD COUNT 3.98 x10^6/uL (4.30-5.70); RED CELL DISTRIBUTION WIDTH 13.4 % (11.5-14.5)
[2016-09-20 05:29] LABS: CREATININE 0.9 mg/dL (0.7-1.3); GFR 97.2; POTASSIUM 3.9 mmol/L (3.5-5.1)
[2016-09-20] MEDS: MEROPENEM 1 GM in IV NORMAL SALINE 100ML 100 ML IV SCH ×2 (06:21→14:17)
[2016-09-20] MEDS: IV NORMAL SALINE 1000ML BAG 1,000 ML IV SCH ×2 (06:25→14:21)
[2016-09-20 07:00] VITALS: BP 157/94
[2016-09-20] MEDS: TAMSULOSIN 0.4 MG CAP.ER.24H. PO SCH (08:37)
[2016-09-20] MEDS: IBUPROFEN 400 MG TABLET. PO PRN ×2 (08:37→18:22)
[2016-09-20] MEDS: FAMOTIDINE 20 MG/2 ML VIAL IVP SCH ×2 (08:38→21:00)
[2016-09-20 11:00] VITALS: BP 130/81
--- NOTE | 2016-09-20 11:25 | PDOC ---
PROGRESS NOTES Chief Complaint Chief Complaint CC: Acute Abdominal Pain 1. Gallstone Pancreatitis 2. Morbid Obesity- BMI 55 3. Fevers 4. 4.1 x 3.0 x 4.3 cm hypoechoic mass of right kidney History of Present Illness History of Present Illness Patient sitting up in chair when evaluated this AM. Describes feeling relatively well. Afebrile since yesterday morning. Epigastric pain persists, but adequately managed. Continues to complain of pressure of LLQ, though the Magnesium Citrate was successful at treating the constipation. Still agreeable to surgery on Thursday. WBC approaching normal limits- 12.0. Vitals Vitals Vital Signs Date Time Temp Pulse Resp B/P Pulse Ox O2 Delivery O2 Flow Rate FiO2 09/20/16 08:00 Room Air 09/20/16 07:00 98.8 87 22 157/94 95 98.8 Physical Exam General: Alert, Oriented X3, Cooperative, No acute distress Heart: Regular rate, Normal S1, Normal S2, No murmurs Lungs: Clear, Other Abdomen: Soft, Other (obese abdomen, nontender on exam) Extremities: No clubbing, No cyanosis Skin: No rashes, No breakdown, No significant lesion Labs LABS Laboratory Tests Test 09/20/16 04:20 White Blood Count 12.0x10^3/uL (4.0-11.0) Red Blood Count 3.98x10^6/uL (4.30-5.70) Hemoglobin 11.6g/dL (13.0-17.5) Hematocrit 35.9% (39.0-53.0) Mean Corpuscular Volume 90fL (79-100) Mean Corpuscular Hemoglobin 29pg (25-35) Mean Corpuscular Hemoglobin Concent 32g/dL (31-37) Red Cell Distribution Width 13.4% (11.5-14.5) Platelet Count 245x10^3/uL (140-400) Neutrophils (%) (Auto) 75% (31-73) Lymphocytes (%) (Auto) 14% (24-48) Monocytes (%) (Auto) 9% (0-9) Eosinophils (%) (Auto) 2% (0-3) Basophils (%) (Auto) 0% (0-3) Neutrophils # (Auto) 9.0x10^3uL (1.8-7.7) Lymphocytes # (Auto) 1.7x10^3/uL (1.0-4.8) Monocytes # (Auto) 1.1x10^3/uL (0.0-1.1) Eosinophils # (Auto) 0.2x10^3/uL (0.0-0.7) Basophils # (Auto) 0.1x10^3/uL (0.0-0.2) Sodium Level 144mmol/L (136-145) Potassium Level 3.9mmol/L (3.5-5.1) Chloride Level 108mmol/L (98-107) Carbon Dioxide Level 29mmol/L (21-32) Anion Gap 7 (6-14) Blood Urea Nitrogen 6mg/dL (8-26) Creatinine 0.9mg/dL (0.7-1.3) Estimated GFR (Cockcroft-Gault) 97.2 Glucose Level 88mg/dL (70-99) Calcium Level 9.0mg/dL (8.5-10.1) Review of Systems Review of Systems afebrile since yesterday morning. epigastric pain persists continues to complain of pressure of LLQ improvement in complaints of gas constipation resolved with BM Assessment and Plan Assessmemt and Plan ASSESSMENT: - Acute Abdominal Pain - Gallstone Pancreatitis - Morbid Obesity- BMI 55 - Fevers, improving/resolved? - mass of right kidney, 4.1 x 3.0 x 4.3 cm hypoechoic PLAN: - awaiting surgery (likely Thursday) - Fevers have ceased; WBC continues to improve 12.0 from 16.9 yesterday- Cont to monitor. - Magnesium Citrate has resolved the constipation issue - may cont Simethicone PRN for complaint of gas - cont IV hydration - cont IV Dilaudid PRN pain - cont Meropenem - repeat labs - appreciate subspecialty input Problems: Comment Review of Relevant I have reviewed the following items arelis (where applicable) has been applied. Labs Laboratory Tests Test 09/19/16 06:30 09/20/16 04:20 White Blood Count 16.9x10^3/uL (4.0-11.0) 12.0x10^3/uL (4.0-11.0) Red Blood Count 4.13x10^6/uL (4.30-5.70) 3.98x10^6/uL (4.30-5.70) Hemoglobin 12.1g/dL (13.0-17.5) 11.6g/dL (13.0-17.5) Hematocrit 37.0% (39.0-53.0) 35.9% (39.0-53.0) Mean Corpuscular Volume 90fL (79-100) 90fL (79-100) Mean Corpuscular Hemoglobin 29pg (25-35) 29pg (25-35) Mean Corpuscular Hemoglobin Concent 33g/dL (31-37) 32g/dL (31-37) Red Cell Distribution Width 13.5% (11.5-14.5) 13.4% (11.5-14.5) Platelet Count 263x10^3/uL (140-400) 245x10^3/uL (140-400) Neutrophils (%) (Auto) 82% (31-73) 75% (31-73) Lymphocytes (%) (Auto) 8% (24-48) 14% (24-48) Monocytes (%) (Auto) 8% (0-9) 9% (0-9) Eosinophils (%) (Auto) 1% (0-3) 2% (0-3) Basophils (%) (Auto) 1% (0-3) 0% (0-3) Neutrophils # (Auto) 13.9x10^3uL (1.8-7.7) 9.0x10^3uL (1.8-7.7) Lymphocytes # (Auto) 1.4x10^3/uL (1.0-4.8) 1.7x10^3/uL (1.0-4.8) Monocytes # (Auto) 1.4x10^3/uL (0.0-1.1) 1.1x10^3/uL (0.0-1.1) Eosinophils # (Auto) 0.1x10^3/uL (0.0-0.7) 0.2x10^3/uL (0.0-0.7) Basophils # (Auto) 0.1x10^3/uL (0.0-0.2) 0.1x10^3/uL (0.0-0.2) Sodium Level 144mmol/L (136-145) 144mmol/L (136-145) Potassium Level 3.6mmol/L (3.5-5.1) 3.9mmol/L (3.5-5.1) Chloride Level 106mmol/L (98-107) 108mmol/L (98-107) Carbon Dioxide Level 27mmol/L (21-32) 29mmol/L (21-32) Anion Gap 11 (6-14) 7 (6-14) Blood Urea Nitrogen 6mg/dL (8-26) 6mg/dL (8-26) Creatinine 1.0mg/dL (0.7-1.3) 0.9mg/dL (0.7-1.3) Estimated GFR (Cockcroft-Gault) 86.1 97.2 Glucose Level 99mg/dL (70-99) 88mg/dL (70-99) Calcium Level 8.6mg/dL (8.5-10.1) 9.0mg/dL (8.5-10.1) Laboratory Tests Test 09/20/16 04:20 White Blood Count 12.0x10^3/uL (4.0-11.0) Red Blood Count 3.98x10^6/uL (4.30-5.70) Hemoglobin 11.6g/dL (13.0-17.5) Hematocrit 35.9% (39.0-53.0) Mean Corpuscular Volume 90fL (79-100) Mean Corpuscular Hemoglobin 29pg (25-35) Mean Corpuscular Hemoglobin Concent 32g/dL (31-37) Red Cell Distribution Width 13.4% (11.5-14.5) Platelet Count 245x10^3/uL (140-400) Neutrophils (%) (Auto) 75% (31-73) Lymphocytes (%) (Auto) 14% (24-48) Monocytes (%) (Auto) 9% (0-9) Eosinophils (%) (Auto) 2% (0-3) Basophils (%) (Auto) 0% (0-3) Neutrophils # (Auto) 9.0x10^3uL (1.8-7.7) Lymphocytes # (Auto) 1.7x10^3/uL (1.0-4.8) Monocytes # (Auto) 1.1x10^3/uL (0.0-1.1) Eosinophils # (Auto) 0.2x10^3/uL (0.0-0.7) Basophils # (Auto) 0.1x10^3/uL (0.0-0.2) Sodium Level 144mmol/L (136-145) Potassium Level 3.9mmol/L (3.5-5.1) Chloride Level 108mmol/L (98-107) Carbon Dioxide Level 29mmol/L (21-32) Anion Gap 7 (6-14) Blood Urea Nitrogen 6mg/dL (8-26) Creatinine 0.9mg/dL (0.7-1.3) Estimated GFR (Cockcroft-Gault) 97.2 Glucose Level 88mg/dL (70-99) Calcium Level 9.0mg/dL (8.5-10.1) Medications Current Medications Sodium Chloride (Iv Sodium Chloride 0.9% 1000ml Bag) 1,000 ml @ 1,000 mls/hr Q1H IV Last administered on 09/13/16 14:23; Start 09/13/16 at 14:06; Stop at 17:10; Status DC Fentanyl Citrate (Fentanyl 2ml Vial) 50 mcg 1X ONCE IV Last administered on 14:32; Start 09/13/16 at 14:15; Stop 09/14/16 at 11:17; Status DC Ondansetron HCl (Zofran) 4 mg 1X ONCE IV Last administered on 09/13/16 14:32 ; Start 09/13/16 at 14:15; Stop 09/13/16 at 14:16; Status DC Iohexol (Omnipaque 300 Mg/ml) 75 ml 1X ONCE IV Last administered on 09/13/16 15:27; Start 09/13/16 at 15:00; Stop 09/13/16 at 17:10; Status DC Info 1 each 1 each PRN DAILY PRN MC SEE COMMENTS; Start 09/13/16 at 15:15; Stop 09/15/16 at 15:14; Status DC Sodium Chloride (Iv Sodium Chloride 0.9% 1000ml Bag) 1,000 ml @ 125 mls/hr 1X ONCE IV Last administered on 09/13/16 19:59; Start 09/13/16 at 16:30; Stop at 00:29; Status DC Fentanyl Citrate (Fentanyl 2ml Vial) 50 mcg 1X ONCE IV Last administered on 17:06; Start 09/13/16 at 16:30; Stop 09/14/16 at 11:17; Status DC Fentanyl Citrate (Fentanyl 2ml Vial) 50 mcg PRN Q2HR PRN IV PAIN Last administered on 09/14/16 09:28; Start 09/13/16 at 16:30; Stop 09/14/16 at 11:17 ; Status DC Fentanyl Citrate (Fentanyl 2ml Vial) 75 mcg PRN Q2HR PRN IV PAIN Last administered on 09/14/16 00:01; Start 09/13/16 at 20:00; Stop 09/14/16 at 11:17 ; Status DC Fentanyl Citrate (Fentanyl 2ml Vial) 100 mcg PRN Q2HR PRN IV PAIN Last administered on 09/14/16 06:27; Start 09/13/16 at 20:00; Stop 09/14/16 at 11:17 ; Status DC Famotidine (Pepcid) 20 mg BID IVP Last administered on 09/20/16 08:38; Start at 21:00 Diphenhydramine HCl (Benadryl) 50 mg PRN Q6HRS PRN IVP ITCHING Last administered on 09/18/16 23:50; Start 09/13/16 at 20:15 Calcium Carbonate/ Glycine (Tums) 200 mg PRN Q4HRS PRN PO INDIGESTION Last administered on 09/18/16 23:56; Start 09/13/16 at 20:30 Ibuprofen 200 mg 200 mg PRN Q6HRS PRN PO PAIN; Start 09/13/16 at 21:00; Stop at 00:17; Status DC Piperacillin Sod/ Tazobactam Sod/ Sodium Chloride (Zosyn/Iv Sodium Chloride 0.9 % 50ml) 50 ml @ 100 mls/hr Q6HRS IV Last administered on 09/19/16 06:10; Start 09/14/16 at 00:30; Stop 09/19/16 at 10:19; Status DC Ibuprofen (Motrin) 400 mg PRN Q6HRS PRN PO MILD PAIN / TEMP Last administered on 09/14/16 15:04; Start 09/14/16 at 00:30; Stop 09/14/16 at 20:33; Status DC Hydromorphone HCl (Dilaudid) 1 mg PRN Q2HR PRN IV PAIN Last administered on 09/20 04:59; Start 09/14/16 at 11:15 Hydromorphone HCl (Dilaudid) 2 mg PRN Q2HR PRN IV PAIN Last administered on 09/18 23:51; Start 09/14/16 at 11:30 Ibuprofen 400 mg 400 mg PRN Q4HRS PRN PO MILD PAIN / TEMP Last administered on 09/20/16 08:37; Start 09/14/16 at 20:30 Sodium Chloride 1,000 ml @ 1,000 mls/hr 1X ONCE IV Last administered on 09:31; Start 09/15/16 at 09:15; Stop 09/15/16 at 10:14; Status DC Sodium Chloride (Iv Sodium Chloride 0.9% 1000ml Bag) 1,000 ml @ 125 mls/hr Q8H IV Last administered on 09/20/16 06:25; Start 09/15/16 at 09:15 Bisacodyl (Dulcolax Supp) 10 mg PRN DAILY PRN [place] CONSTIPATION Last administered on 09/15/16 15:09; Start 09/15/16 at 12:15 Ondansetron HCl (Zofran) 4 mg PRN Q6HRS PRN IV NAUSEA/VOMITING; Start 09/15/16 at 23:45 Lubiprostone (Amitiza) 8 mcg BIDWMEALS PO Last administered on 09/16/16 15:04 ; Start 09/16/16 at 14:00; Stop 09/18/16 at 09:49; Status DC Iohexol (Omnipaque 300 Mg/ml) 75 ml 1X ONCE IV Last administered on 09/17/16 10:27; Start 09/17/16 at 09:45; Stop 09/17/16 at 09:46; Status DC Info (Do NOT chart on this entry -- for MONITORING) 1 each PRN DAILY PRN MC SEE COMMENTS; Start 09/17/16 at 09:45; Stop 09/19/16 at 09:44; Status DC Tamsulosin HCl (Flomax) 0.4 mg DAILY PO Last administered on 09/20/16 08:37; Start 09/17/16 at 12:00 Polyethylene Glycol (miraLAX PACKET) 17 gm PRN DAILY PRN PO CONSTIPATION Last administered on 09/19/16 08:29; Start 09/18/16 at 10:00 Potassium Chloride 40 meq 40 meq 1X ONCE PO Last administered on 09/18/16 12: 00; Start 09/18/16 at 12:00; Stop 09/18/16 at 12:02; Status DC Meropenem/Sodium Chloride (Merrem/Iv Sodium Chloride 0.9% 100ml) 100 ml @ 200 mls/hr Q8HRS IV Last administered on 09/20/16 06:21; Start 09/19/16 at 14:00 Simethicone (Gas-X) 80 mg PRN AFTMEALHC PRN PO GAS / BLOATING; Start 09/19/16 at 12:00 Ondansetron HCl (Zofran) 4 mg PRN Q6HRS PRN IV Nausea; Start 09/22/16 at 07:00; Stop 09/23/16 at 06:59 Fentanyl Citrate (Fentanyl 2ml Vial) 25 mcg PRN Q5MIN PRN IV MILD PAIN; Start 09/22/16 at 07:00; Stop 09/23/16 at 06:59 Fentanyl Citrate (Fentanyl 2ml Vial) 50 mcg PRN Q5MIN PRN IV MODERATE PAIN; Start 09/22/16 at 07:00; Stop 09/23/16 at 06:59 Morphine Sulfate 1 mg 1 mg PRN Q10MIN PRN IV SEVERE PAIN; Start 09/22/16 at 07: 00; Stop 09/23/16 at 06:59 Lactated Ringer's (Iv Lactated Ringers) 1,000 ml @ 30 mls/hr Q24H IV ; Start at 07:00; Stop 09/22/16 at 18:59 Lidocaine HCl 2 ml 1X PRN PRN ID IV START; Start 09/22/16 at 07:00; Stop at 06:59 Hydromorphone HCl (Dilaudid) 0.5 mg PRN Q10MIN PRN IV SEVERE PAIN, Second choice; Start 09/22/16 at 07:00; Stop 09/23/16 at 06:59 Prochlorperazine Edisylate (Compazine) 5 mg PACU PRN PRN IV NAUSEA; Start at 07:00; Stop 09/23/16 at 06:59 Zolpidem Tartrate (Ambien) 5 mg PRN QHS PRN PO INSOMNIA, MAY REPEAT X1; Start 09/19/16 at 16:45 Magnesium Citrate (Citroma) 296 ml PRN 1X PRN PO CONSTIPATION Last administered on 09/19/16t 19:46; Start 09/19/16 at 19:00 Active Scripts Active Reported Ibuprofen 100 Mg Tablet 100 Mg PO PRN Q6HRS PRN Tums (Calcium Carbonate) 200 Mg Tab.chew 200 Mg PO PRN Q4HRS PRN Vitals/I & O Vital Sign - Last 24 Hours 09/19/16 09/19/16 09/19/16 09/19/16 15:28 19:23 19:30 23:27 Temp 98.2 98.8 98.5 98.2 98.8 98.5 Pulse 66 84 73 Resp 20 22 22 B/P 145/76 181/95 128/75 Pulse Ox 98 99 95 O2 Delivery Room Air Room Air Room Air Room Air 09/20/16 09/20/16 09/20/16 09/20/16 03:40 04:59 07:00 08:00 Temp 98.3 98.8 98.3 98.8 Pulse 72 87 Resp 22 22 B/P 151/82 157/94 Pulse Ox 94 95 O2 Delivery Room Air Room Air Room Air Room Air Intake and Output 09/19/16 09/19/16 09/20/16 15:00 23:00 07:00 Intake Total 120 ml 1052 ml 200 ml Output Total 400 ml Balance 120 ml 652 ml 200 ml SAMUEL RAND III DO Sep 20, 2016 11:25
--- NOTE | 2016-09-20 11:36 | PDOC ---
Infectious Disease Note Subjective Subjective No fever last 24 hours No BM Pain controlled, ibuprofen ROS ROS GEN: Denies fevers, chills, sweats CV: Denies chest pain RESP: Denies shortness of air, cough GI: Denies n/v/d Vital Sign Vital Signs Vital Signs Date Time Temp Pulse Resp B/P Pulse Ox O2 Delivery O2 Flow Rate FiO2 09/20/16 08:00 Room Air 09/20/16 07:00 98.8 87 22 157/94 95 98.8 Physical Exam PHYSICAL EXAM GENERAL: Alert, up in chair, relaxed appearance HEENT: PERRL, OC/OP pink and dry, overgrowth bacteria on tongue NECK: Supple, LUNGS: Clear HEART: S1S2, no gallop, no murmur ABD: Obese, BS present, soft, NT EXT: BLE trace edema. 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, no focal neurologic deficit SKIN: No rash IV: ok Labs Lab Laboratory Tests Test 09/20/16 04:20 White Blood Count 12.0x10^3/uL (4.0-11.0) Red Blood Count 3.98x10^6/uL (4.30-5.70) Hemoglobin 11.6g/dL (13.0-17.5) Hematocrit 35.9% (39.0-53.0) Mean Corpuscular Volume 90fL (79-100) Mean Corpuscular Hemoglobin 29pg (25-35) Mean Corpuscular Hemoglobin Concent 32g/dL (31-37) Red Cell Distribution Width 13.4% (11.5-14.5) Platelet Count 245x10^3/uL (140-400) Neutrophils (%) (Auto) 75% (31-73) Lymphocytes (%) (Auto) 14% (24-48) Monocytes (%) (Auto) 9% (0-9) Eosinophils (%) (Auto) 2% (0-3) Basophils (%) (Auto) 0% (0-3) Neutrophils # (Auto) 9.0x10^3uL (1.8-7.7) Lymphocytes # (Auto) 1.7x10^3/uL (1.0-4.8) Monocytes # (Auto) 1.1x10^3/uL (0.0-1.1) Eosinophils # (Auto) 0.2x10^3/uL (0.0-0.7) Basophils # (Auto) 0.1x10^3/uL (0.0-0.2) Sodium Level 144mmol/L (136-145) Potassium Level 3.9mmol/L (3.5-5.1) Chloride Level 108mmol/L (98-107) Carbon Dioxide Level 29mmol/L (21-32) Anion Gap 7 (6-14) Blood Urea Nitrogen 6mg/dL (8-26) Creatinine 0.9mg/dL (0.7-1.3) Estimated GFR (Cockcroft-Gault) 97.2 Glucose Level 88mg/dL (70-99) Calcium Level 9.0mg/dL (8.5-10.1) CT IMPRESSION: Mass, in the right kidney, most compatible with a hyperdense cyst. A follow-up ultrasound examination in approximately 6 months is suggested to confirm stability Inflammatory changes in the retroperitoneum, compatible with pancreatitis, slightly worse than on the previous study Cholelithiasis Minute left pleural effusion Objective Assessment Acute gallstone pancreatitis - Repeat CT performed for renal mass shows some worsening of Pancreatitis Fever - Pancreatitis vs stone -clinically better and WBC mildly increased today Renal mass - Ct reviewed Leukocytosis - improving Morbid obesity w/ BMI 55 Constipation - resolved Plan Plan of Care Meropenem Maintain hydration Bowel rest f/u am labs lap chol possible on 09/22 Attending Co-Sign The patient was seen and interviewed as well as examined at the bedside. The chart was reviewed. The case was discussed. Agree with the plan of care. MACHELLE CARVAJAL APRN Sep 20, 2016 11:36 KENYON SHELTON MD Sep 20, 2016 14:53
--- NOTE | 2016-09-20 12:43 | PDOC ---
Provider Note Provider Note no abd pain today. no n/v afeb vss abd soft nd nt morbidly obese a/p gallstone pancreatitis morbid obesity with bmi 55 to OR thursday per dr. olea for lap cary, ioc, poss open. EMILY CABRAL MD Sep 20, 2016 12:43
[2016-09-20 15:00] VITALS: BP 127/73
[2016-09-20] MEDS: CALCIUM CARBONATE 500 MG TAB.CHEW PO PRN (18:52)
[2016-09-20 19:30] VITALS: BP 132/73
[2016-09-20 23:49] VITALS: BP 138/84
[2016-09-21] MEDS: HYDROMORPHONE 2 MG/ML VIAL. IV PRN ×3 (00:18→22:55)
[2016-09-21] MEDS: MEROPENEM 1 GM in IV NORMAL SALINE 100ML 100 ML IV SCH ×4 (00:20→22:08)
[2016-09-21] MEDS: IV NORMAL SALINE 1000ML BAG 1,000 ML IV SCH ×2 (01:15→06:15)
[2016-09-21 03:15] VITALS: BP 144/89
[2016-09-21 06:12] LABS: BASO # 0.1 x10^3/uL (0.0-0.2); BASO % 1 % (0-3); EOS % 2 % (0-3); HEMATOCRIT 37.9 % (39.0-53.0); HEMOGLOBIN 11.9 g/dL (13.0-17.5); LYMPH # 1.8 x10^3/uL (1.0-4.8); LYMPH % 15 % (24-48); MEAN CORPUSCULAR HEMOGLOBIN 29 pg (25-35); MEAN CORPUSCULAR HGB CONC 32 g/dL (31-37); MEAN CORPUSCULAR VOLUME 91 fL (79-100); MONO % 8 % (0-9); NEUT % 75 % (31-73); PLATELET COUNT 258 x10^3/uL (140-400); RED BLOOD COUNT 4.15 x10^6/uL (4.30-5.70); RED CELL DISTRIBUTION WIDTH 13.5 % (11.5-14.5); WHITE BLOOD COUNT 11.5 x10^3/uL (4.0-11.0)
[2016-09-21 06:42] LABS: CALCIUM 8.6 mg/dL (8.5-10.1); GFR 86.1; POTASSIUM 3.4 mmol/L (3.5-5.1)
[2016-09-21 07:00] VITALS: BP 143/79
[2016-09-21] MEDS: TAMSULOSIN 0.4 MG CAP.ER.24H. PO SCH (08:41)
[2016-09-21] MEDS: FAMOTIDINE 20 MG/2 ML VIAL IVP SCH ×2 (08:41→20:39)
--- NOTE | 2016-09-21 10:33 | PDOC ---
Infectious Disease Note Subjective Subjective Pain controlled Walking in [place] earlier ROS ROS GEN: Denies fevers, chills, sweats CV: Denies chest pain RESP: Denies shortness of air, cough GI: Denies n/v/d Vital Sign Vital Signs Vital Signs Date Time Temp Pulse Resp B/P Pulse Ox O2 Delivery O2 Flow Rate FiO2 09/21/16 08:41 Room Air 09/21/16 07:00 98.0 86 18 143/79 98 98.0 Physical Exam PHYSICAL EXAM GENERAL: Alert, up in chair, relaxed appearance LUNGS: Clear HEART: S1S2, no gallop, no murmur ABD: Obese, BS present, soft, NT EXT: BLE trace edema. 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, no focal neurologic deficit SKIN: No rash IV: leaking, Labs Lab Laboratory Tests Test 09/21/16 05:20 White Blood Count 11.5x10^3/uL (4.0-11.0) Red Blood Count 4.15x10^6/uL (4.30-5.70) Hemoglobin 11.9g/dL (13.0-17.5) Hematocrit 37.9% (39.0-53.0) Mean Corpuscular Volume 91fL (79-100) Mean Corpuscular Hemoglobin 29pg (25-35) Mean Corpuscular Hemoglobin Concent 32g/dL (31-37) Red Cell Distribution Width 13.5% (11.5-14.5) Platelet Count 258x10^3/uL (140-400) Neutrophils (%) (Auto) 75% (31-73) Lymphocytes (%) (Auto) 15% (24-48) Monocytes (%) (Auto) 8% (0-9) Eosinophils (%) (Auto) 2% (0-3) Basophils (%) (Auto) 1% (0-3) Neutrophils # (Auto) 8.6x10^3uL (1.8-7.7) Lymphocytes # (Auto) 1.8x10^3/uL (1.0-4.8) Monocytes # (Auto) 0.9x10^3/uL (0.0-1.1) Eosinophils # (Auto) 0.2x10^3/uL (0.0-0.7) Basophils # (Auto) 0.1x10^3/uL (0.0-0.2) Sodium Level 144mmol/L (136-145) Potassium Level 3.4mmol/L (3.5-5.1) Chloride Level 106mmol/L (98-107) Carbon Dioxide Level 31mmol/L (21-32) Anion Gap 7 (6-14) Blood Urea Nitrogen 6mg/dL (8-26) Creatinine 1.0mg/dL (0.7-1.3) Estimated GFR (Cockcroft-Gault) 86.1 Glucose Level 138mg/dL (70-99) Calcium Level 8.6mg/dL (8.5-10.1) Objective Assessment Acute gallstone pancreatitis - Repeat CT performed for renal mass shows some worsening of Pancreatitis Fever - Pancreatitis vs stone -clinically better and WBC mildly increased today Renal mass - Ct reviewed Leukocytosis - improved Morbid obesity w/ BMI 55 Constipation - resolved Plan Plan of Care Meropenem Maintain hydration Bowel rest lap chol planned for on 09/22 Attending Co-Sign The patient was seen and interviewed as well as examined at the bedside. The chart was reviewed. The case was discussed. Agree with the plan of care. MACHELLE CARVAJAL APRN Sep 21, 2016 10:33 KENYON SHELTON MD Sep 21, 2016 13:49
[2016-09-21 11:00] VITALS: BP 141/86
[2016-09-21] MEDS: ENOXAPARIN ** NOTE DOSE ** SYRINGE SQ SCH ×2 (11:21→20:39)
--- NOTE | 2016-09-21 12:42 | PDOC ---
PROGRESS NOTES Chief Complaint Chief Complaint CC: Acute Abdominal Pain 1. Gallstone Pancreatitis 2. Morbid Obesity- BMI 55 3. Fevers, resolved 4. 4.1 x 3.0 x 4.3 cm hypoechoic mass of right kidney History of Present Illness History of Present Illness Patient sitting up in bed with feet elevated when evaluated this AM. Describes feeling relatively well, except for increased swelling of both lower extremities. Discussed with RN, will try cutting back on IVF. Pt still planning on likely surgery tomorrow. Afebrile since yesterday morning. WBC approaching normal limits- now 11.5. Vitals Vitals Vital Signs Date Time Temp Pulse Resp B/P Pulse Ox O2 Delivery O2 Flow Rate FiO2 09/21/16 11:00 98.8 101 20 141/86 96 Room Air 98.8 Physical Exam General: Alert, Oriented X3, Cooperative, No acute distress Heart: Regular rate, Normal S1, Normal S2, No murmurs Lungs: Clear, Other Abdomen: Soft, Other (obese abdomen, nontender on exam) Extremities: No cyanosis, Other (b/l LE swelling) Skin: No rashes, No breakdown, No significant lesion Labs LABS Laboratory Tests Test 09/21/16 05:20 White Blood Count 11.5x10^3/uL (4.0-11.0) Red Blood Count 4.15x10^6/uL (4.30-5.70) Hemoglobin 11.9g/dL (13.0-17.5) Hematocrit 37.9% (39.0-53.0) Mean Corpuscular Volume 91fL (79-100) Mean Corpuscular Hemoglobin 29pg (25-35) Mean Corpuscular Hemoglobin Concent 32g/dL (31-37) Red Cell Distribution Width 13.5% (11.5-14.5) Platelet Count 258x10^3/uL (140-400) Neutrophils (%) (Auto) 75% (31-73) Lymphocytes (%) (Auto) 15% (24-48) Monocytes (%) (Auto) 8% (0-9) Eosinophils (%) (Auto) 2% (0-3) Basophils (%) (Auto) 1% (0-3) Neutrophils # (Auto) 8.6x10^3uL (1.8-7.7) Lymphocytes # (Auto) 1.8x10^3/uL (1.0-4.8) Monocytes # (Auto) 0.9x10^3/uL (0.0-1.1) Eosinophils # (Auto) 0.2x10^3/uL (0.0-0.7) Basophils # (Auto) 0.1x10^3/uL (0.0-0.2) Sodium Level 144mmol/L (136-145) Potassium Level 3.4mmol/L (3.5-5.1) Chloride Level 106mmol/L (98-107) Carbon Dioxide Level 31mmol/L (21-32) Anion Gap 7 (6-14) Blood Urea Nitrogen 6mg/dL (8-26) Creatinine 1.0mg/dL (0.7-1.3) Estimated GFR (Cockcroft-Gault) 86.1 Glucose Level 138mg/dL (70-99) Calcium Level 8.6mg/dL (8.5-10.1) Review of Systems Review of Systems afebrile +b/l LE swelling epigastric pain improved continued complaint of pressure of LLQ Assessment and Plan Assessmemt and Plan ASSESSMENT: - Acute Abdominal Pain - Gallstone Pancreatitis - Morbid Obesity- BMI 55 - Fevers, resolved - mass of right kidney, 4.1 x 3.0 x 4.3 cm hypoechoic PLAN: - awaiting Lap Viki, ioc, poss open (likely Thursday) - K+ replaced; 40 mg po - IVF TKO; decreased for LE swelling - Fevers have ceased; WBC continues to improve 11.5 from 12.0 yesterday- Cont to monitor. - cont bowel rest - cont IV pain control - cont Meropenem per ID - repeat labs - appreciate subspecialty input Problems: Comment Review of Relevant I have reviewed the following items arelis (where applicable) has been applied. Labs Laboratory Tests Test 09/20/16 04:20 09/21/16 05:20 White Blood Count 12.0x10^3/uL (4.0-11.0) 11.5x10^3/uL (4.0-11.0) Red Blood Count 3.98x10^6/uL (4.30-5.70) 4.15x10^6/uL (4.30-5.70) Hemoglobin 11.6g/dL (13.0-17.5) 11.9g/dL (13.0-17.5) Hematocrit 35.9% (39.0-53.0) 37.9% (39.0-53.0) Mean Corpuscular Volume 90fL (79-100) 91fL (79-100) Mean Corpuscular Hemoglobin 29pg (25-35) 29pg (25-35) Mean Corpuscular Hemoglobin Concent 32g/dL (31-37) 32g/dL (31-37) Red Cell Distribution Width 13.4% (11.5-14.5) 13.5% (11.5-14.5) Platelet Count 245x10^3/uL (140-400) 258x10^3/uL (140-400) Neutrophils (%) (Auto) 75% (31-73) 75% (31-73) Lymphocytes (%) (Auto) 14% (24-48) 15% (24-48) Monocytes (%) (Auto) 9% (0-9) 8% (0-9) Eosinophils (%) (Auto) 2% (0-3) 2% (0-3) Basophils (%) (Auto) 0% (0-3) 1% (0-3) Neutrophils # (Auto) 9.0x10^3uL (1.8-7.7) 8.6x10^3uL (1.8-7.7) Lymphocytes # (Auto) 1.7x10^3/uL (1.0-4.8) 1.8x10^3/uL (1.0-4.8) Monocytes # (Auto) 1.1x10^3/uL (0.0-1.1) 0.9x10^3/uL (0.0-1.1) Eosinophils # (Auto) 0.2x10^3/uL (0.0-0.7) 0.2x10^3/uL (0.0-0.7) Basophils # (Auto) 0.1x10^3/uL (0.0-0.2) 0.1x10^3/uL (0.0-0.2) Sodium Level 144mmol/L (136-145) 144mmol/L (136-145) Potassium Level 3.9mmol/L (3.5-5.1) 3.4mmol/L (3.5-5.1) Chloride Level 108mmol/L (98-107) 106mmol/L (98-107) Carbon Dioxide Level 29mmol/L (21-32) 31mmol/L (21-32) Anion Gap 7 (6-14) 7 (6-14) Blood Urea Nitrogen 6mg/dL (8-26) 6mg/dL (8-26) Creatinine 0.9mg/dL (0.7-1.3) 1.0mg/dL (0.7-1.3) Estimated GFR (Cockcroft-Gault) 97.2 86.1 Glucose Level 88mg/dL (70-99) 138mg/dL (70-99) Calcium Level 9.0mg/dL (8.5-10.1) 8.6mg/dL (8.5-10.1) Laboratory Tests Test 09/21/16 05:20 White Blood Count 11.5x10^3/uL (4.0-11.0) Red Blood Count 4.15x10^6/uL (4.30-5.70) Hemoglobin 11.9g/dL (13.0-17.5) Hematocrit 37.9% (39.0-53.0) Mean Corpuscular Volume 91fL (79-100) Mean Corpuscular Hemoglobin 29pg (25-35) Mean Corpuscular Hemoglobin Concent 32g/dL (31-37) Red Cell Distribution Width 13.5% (11.5-14.5) Platelet Count 258x10^3/uL (140-400) Neutrophils (%) (Auto) 75% (31-73) Lymphocytes (%) (Auto) 15% (24-48) Monocytes (%) (Auto) 8% (0-9) Eosinophils (%) (Auto) 2% (0-3) Basophils (%) (Auto) 1% (0-3) Neutrophils # (Auto) 8.6x10^3uL (1.8-7.7) Lymphocytes # (Auto) 1.8x10^3/uL (1.0-4.8) Monocytes # (Auto) 0.9x10^3/uL (0.0-1.1) Eosinophils # (Auto) 0.2x10^3/uL (0.0-0.7) Basophils # (Auto) 0.1x10^3/uL (0.0-0.2) Sodium Level 144mmol/L (136-145) Potassium Level 3.4mmol/L (3.5-5.1) Chloride Level 106mmol/L (98-107) Carbon Dioxide Level 31mmol/L (21-32) Anion Gap 7 (6-14) Blood Urea Nitrogen 6mg/dL (8-26) Creatinine 1.0mg/dL (0.7-1.3) Estimated GFR (Cockcroft-Gault) 86.1 Glucose Level 138mg/dL (70-99) Calcium Level 8.6mg/dL (8.5-10.1) Medications Current Medications Sodium Chloride (Iv Sodium Chloride 0.9% 1000ml Bag) 1,000 ml @ 1,000 mls/hr Q1H IV Last administered on 09/13/16 14:23; Start 09/13/16 at 14:06; Stop at 17:10; Status DC Fentanyl Citrate (Fentanyl 2ml Vial) 50 mcg 1X ONCE IV Last administered on 14:32; Start 09/13/16 at 14:15; Stop 09/14/16 at 11:17; Status DC Ondansetron HCl (Zofran) 4 mg 1X ONCE IV Last administered on 09/13/16 14:32 ; Start 09/13/16 at 14:15; Stop 09/13/16 at 14:16; Status DC Iohexol (Omnipaque 300 Mg/ml) 75 ml 1X ONCE IV Last administered on 09/13/16 15:27; Start 09/13/16 at 15:00; Stop 09/13/16 at 17:10; Status DC Info 1 each 1 each PRN DAILY PRN MC SEE COMMENTS; Start 09/13/16 at 15:15; Stop 09/15/16 at 15:14; Status DC Sodium Chloride (Iv Sodium Chloride 0.9% 1000ml Bag) 1,000 ml @ 125 mls/hr 1X ONCE IV Last administered on 09/13/16 19:59; Start 09/13/16 at 16:30; Stop at 00:29; Status DC Fentanyl Citrate (Fentanyl 2ml Vial) 50 mcg 1X ONCE IV Last administered on 17:06; Start 09/13/16 at 16:30; Stop 09/14/16 at 11:17; Status DC Fentanyl Citrate (Fentanyl 2ml Vial) 50 mcg PRN Q2HR PRN IV PAIN Last administered on 09/14/16 09:28; Start 09/13/16 at 16:30; Stop 09/14/16 at 11:17 ; Status DC Fentanyl Citrate (Fentanyl 2ml Vial) 75 mcg PRN Q2HR PRN IV PAIN Last administered on 09/14/16 00:01; Start 09/13/16 at 20:00; Stop 09/14/16 at 11:17 ; Status DC Fentanyl Citrate (Fentanyl 2ml Vial) 100 mcg PRN Q2HR PRN IV PAIN Last administered on 09/14/16 06:27; Start 09/13/16 at 20:00; Stop 09/14/16 at 11:17 ; Status DC Famotidine (Pepcid) 20 mg BID IVP Last administered on 09/21/16 08:41; Start at 21:00 Diphenhydramine HCl (Benadryl) 50 mg PRN Q6HRS PRN IVP ITCHING Last administered on 09/18/16 23:50; Start 09/13/16 at 20:15 Calcium Carbonate/ Glycine (Tums) 200 mg PRN Q4HRS PRN PO INDIGESTION Last administered on 09/18/16 23:56; Start 09/13/16 at 20:30; Stop 09/20/16 at 18:50; Status DC Ibuprofen 200 mg 200 mg PRN Q6HRS PRN PO PAIN; Start 09/13/16 at 21:00; Stop at 00:17; Status DC Piperacillin Sod/ Tazobactam Sod/ Sodium Chloride (Zosyn/Iv Sodium Chloride 0.9 % 50ml) 50 ml @ 100 mls/hr Q6HRS IV Last administered on 09/19/16 06:10; Start 09/14/16 at 00:30; Stop 09/19/16 at 10:19; Status DC Ibuprofen (Motrin) 400 mg PRN Q6HRS PRN PO MILD PAIN / TEMP Last administered on 09/14/16 15:04; Start 09/14/16 at 00:30; Stop 09/14/16 at 20:33; Status DC Hydromorphone HCl (Dilaudid) 1 mg PRN Q2HR PRN IV PAIN Last administered on 09/20 04:59; Start 09/14/16 at 11:15 Hydromorphone HCl (Dilaudid) 2 mg PRN Q2HR PRN IV PAIN Last administered on 09/21 07:45; Start 09/14/16 at 11:30 Ibuprofen 400 mg 400 mg PRN Q4HRS PRN PO MILD PAIN / TEMP Last administered on 09/20/16 18:22; Start 09/14/16 at 20:30 Sodium Chloride 1,000 ml @ 1,000 mls/hr 1X ONCE IV Last administered on 09:31; Start 09/15/16 at 09:15; Stop 09/15/16 at 10:14; Status DC Sodium Chloride (Iv Sodium Chloride 0.9% 1000ml Bag) 1,000 ml @ 0 mls/hr Q8H IV Last administered on 09/21/16 06:15; Start 09/15/16 at 09:15 Bisacodyl (Dulcolax Supp) 10 mg PRN DAILY PRN SD CONSTIPATION Last administered on 09/15/16 15:09; Start 09/15/16 at 12:15 Ondansetron HCl (Zofran) 4 mg PRN Q6HRS PRN IV NAUSEA/VOMITING; Start 09/15/16 at 23:45 Lubiprostone (Amitiza) 8 mcg BIDWMEALS PO Last administered on 09/16/16 15:04 ; Start 09/16/16 at 14:00; Stop 09/18/16 at 09:49; Status DC Iohexol (Omnipaque 300 Mg/ml) 75 ml 1X ONCE IV Last administered on 09/17/16 10:27; Start 09/17/16 at 09:45; Stop 09/17/16 at 09:46; Status DC Info (Do NOT chart on this entry -- for MONITORING) 1 each PRN DAILY PRN MC SEE COMMENTS; Start 09/17/16 at 09:45; Stop 09/19/16 at 09:44; Status DC Tamsulosin HCl (Flomax) 0.4 mg DAILY PO Last administered on 09/21/16 08:41; Start 09/17/16 at 12:00 Polyethylene Glycol (miraLAX PACKET) 17 gm PRN DAILY PRN PO CONSTIPATION Last administered on 09/19/16 08:29; Start 09/18/16 at 10:00 Potassium Chloride 40 meq 40 meq 1X ONCE PO Last administered on 09/18/16 12: 00; Start 09/18/16 at 12:00; Stop 09/18/16 at 12:02; Status DC Meropenem/Sodium Chloride (Merrem/Iv Sodium Chloride 0.9% 100ml) 100 ml @ 200 mls/hr Q8HRS IV Last administered on 09/21/16 06:13; Start 09/19/16 at 14:00 Simethicone (Gas-X) 80 mg PRN AFTMEALHC PRN PO GAS / BLOATING; Start 09/19/16 at 12:00 Ondansetron HCl (Zofran) 4 mg PRN Q6HRS PRN IV Nausea; Start 09/22/16 at 07:00; Stop 09/22/16 at 23:00 Fentanyl Citrate (Fentanyl 2ml Vial) 25 mcg PRN Q5MIN PRN IV MILD PAIN; Start 09/22/16 at 07:00; Stop 09/22/16 at 23:00 Fentanyl Citrate (Fentanyl 2ml Vial) 50 mcg PRN Q5MIN PRN IV MODERATE PAIN; Start 09/22/16 at 07:00; Stop 09/22/16 at 23:00 Morphine Sulfate 1 mg 1 mg PRN Q10MIN PRN IV SEVERE PAIN; Start 09/22/16 at 07: 00; Stop 09/22/16 at 23:00 Lactated Ringer's (Iv Lactated Ringers) 1,000 ml @ 30 mls/hr Q24H IV ; Start at 07:00; Stop 09/22/16 at 18:59 Lidocaine HCl 2 ml 1X PRN PRN ID IV START; Start 09/22/16 at 07:00; Stop at 23:00 Hydromorphone HCl (Dilaudid) 0.5 mg PRN Q10MIN PRN IV SEVERE PAIN, Second choice; Start 09/22/16 at 07:00; Stop 09/22/16 at 23:00 Prochlorperazine Edisylate (Compazine) 5 mg PACU PRN PRN IV NAUSEA; Start at 07:00; Stop 09/22/16 at 23:00 Zolpidem Tartrate (Ambien) 5 mg PRN QHS PRN PO INSOMNIA, MAY REPEAT X1; Start 09/19/16 at 16:45 Magnesium Citrate (Citroma) 296 ml PRN 1X PRN PO CONSTIPATION Last administered on 09/19/16 19:46; Start 09/19/16 at 19:00 Calcium Carbonate/ Glycine (Tums) 500 mg PRN Q4HRS PRN PO INDIGESTION Last administered on 09/20/16 18:52; Start 09/20/16 at 19:00 Enoxaparin Sodium 60 mg 60 mg Q12HR SQ Last administered on 09/21/16 11:21; Start 09/21/16 at 10:00 Heparin Sodium (Porcine)/Sodium Chloride (Iv Sodium Chloride 0.9% 1000ml Bag) 1, 001 ml @ 1,001 mls/hr 1X PERIOP ONCE IRR ; Start 09/22/16 at 06:00; Stop at 06:59 Active Scripts Active Reported Ibuprofen 100 Mg Tablet 100 Mg PO PRN Q6HRS PRN Tums (Calcium Carbonate) 200 Mg Tab.chew 200 Mg PO PRN Q4HRS PRN Vitals/I & O Vital Sign - Last 24 Hours 09/20/16 09/20/16 09/20/16 09/21/16 15:00 19:30 23:49 03:15 Temp 98.8 97.9 98.7 98.2 98.8 97.9 98.7 98.2 Pulse 76 80 84 75 Resp 20 16 16 16 B/P 127/73 132/73 138/84 144/89 Pulse Ox 97 94 95 97 O2 Delivery Room Air Room Air Room Air Room Air 09/21/16 09/21/16 09/21/16 09/21/16 07:00 07:20 07:45 08:41 Temp 98.0 98.0 Pulse 86 Resp 18 B/P 143/79 Pulse Ox 98 O2 Delivery Room Air Room Air Room Air Room Air 09/21/16 11:00 Temp 98.8 98.8 Pulse 101 Resp 20 B/P 141/86 Pulse Ox 96 O2 Delivery Room Air Intake and Output 09/20/16 09/20/16 09/21/16 15:00 23:00 07:00 Intake Total 1500 ml Balance 1500 ml SAMUEL RAND III DO Sep 21, 2016 12:42
[2016-09-21] MEDS ORDERED: POTASSIUM CHLORIDE 20 MEQ TABLET.ER. PO ONE (13:00)
[2016-09-21] MEDS: IBUPROFEN 400 MG TABLET. PO PRN (14:06)
[2016-09-21 15:00] VITALS: BP 147/86
--- NOTE | 2016-09-21 16:10 | PDOC ---
Provider Note Provider Note minimal abd pain. hungry and thirsty afeb vss appears well abd soft nd nt morbidly obese a/p gallstone pancreatitis. to OR tomorrow per dr. olea. EMILY CABRAL MD Sep 21, 2016 16:10
[2016-09-21 19:00] VITALS: BP 150/87
[2016-09-21] MEDS ORDERED: CEFAZOLIN 2GM PREMIX 50 ML IV SCH (20:00)
[2016-09-21 22:56] VITALS: BP 147/92
[2016-09-22] VITALS (8 sets, daily range): BP systolic 119–169; BP diastolic 60–91
[2016-09-22] MEDS: HYDROMORPHONE 2 MG/ML VIAL. IV PRN ×5 (02:45→21:48)
[2016-09-22 04:09] LABS: BASO # 0.1 x10^3/uL (0.0-0.2); BASO % 1 % (0-3); EOS % 1 % (0-3); LYMPH % 18 % (24-48); MEAN CORPUSCULAR HEMOGLOBIN 29 pg (25-35); MEAN CORPUSCULAR HGB CONC 33 g/dL (31-37); MEAN CORPUSCULAR VOLUME 89 fL (79-100); MONO % 8 % (0-9); NEUT % 72 % (31-73); PLATELET COUNT 255 x10^3/uL (140-400); RED BLOOD COUNT 4.18 x10^6/uL (4.30-5.70); RED CELL DISTRIBUTION WIDTH 13.1 % (11.5-14.5); WHITE BLOOD COUNT 11.1 x10^3/uL (4.0-11.0)
[2016-09-22 04:28] LABS: CALCIUM 8.6 mg/dL (8.5-10.1); CREATININE 0.8 mg/dL (0.7-1.3); GFR 111.3; POTASSIUM 3.3 mmol/L (3.5-5.1)
[2016-09-22] MEDS ORDERED: HEPARIN 1,000 UNIT in IV NORMAL SALINE 1,000 ML for SURG PERIOP IRR ONE ×2 (06:00→09:11)
[2016-09-22] MEDS ORDERED: CEFAZOLIN 2GM PREMIX 50 ML IV PRN (06:00)
[2016-09-22] MEDS: MEROPENEM 1 GM in IV NORMAL SALINE 100ML 100 ML IV SCH ×3 (06:03→21:45)
[2016-09-22] MEDS ORDERED: PROPOFOL 40 ML IV ONE ×2 (06:39→06:44)
[2016-09-22] MEDS ORDERED: MIDAZOLAM HCL 2 MG/2 ML VIAL. ONE (06:44)
[2016-09-22] MEDS ORDERED: FENTANYL PF 250 MCG/5 ML VIAL. ONE (06:45)
[2016-09-22] MEDS ORDERED: SUCCINYLCHOLINE 200 MG/10 ML VIAL. ONE (06:46)
[2016-09-22] MEDS ORDERED: GLYCOPYRROLATE 1 MG/5 ML VIAL. ONE (06:46)
[2016-09-22] MEDS ORDERED: NEOSTIGMINE METHYLSULFATE 5 MG/5 ML SYRINGE. ONE (06:47)
[2016-09-22] MEDS ORDERED: ROCURONIUM 50 MG/5 ML VIAL. ONE ×2 (06:48→08:39)
[2016-09-22] MEDS ORDERED: CEFAZOLIN 2GM PREMIX 0 ML IV ONE ×2 (06:48→07:54)
[2016-09-22] MEDS ORDERED: IV RINGERS,LACTATED 1000ML 1,000 ML IV SCH (07:00)
[2016-09-22] MEDS ORDERED: PROCHLORPERAZINE 10 MG/2 ML VIAL. IV PRN (07:00)
[2016-09-22] MEDS ORDERED: LIDOCAINE 1% 1 ML SYRINGE. ID PRN (07:00)
[2016-09-22] MEDS ORDERED: ONDANSETRON PF 4 MG/2 ML VIAL. IV PRN ×2 (07:00→09:30)
[2016-09-22] MEDS ORDERED: MORPHINE SULFATE 2 MG/ML DISP.SYRIN. IV PRN (07:00)
[2016-09-22] MEDS ORDERED: HYDROMORPHONE 2 MG/ML VIAL. IV PRN (07:00)
[2016-09-22] MEDS ORDERED: IOHEXOL 300 MG/ML 50 ML VIAL. ONE (07:41)
[2016-09-22] MEDS ORDERED: BUPIVAC MPF-EPI 0.5%-1:200000 30 ML VIAL. ONE (07:41)
[2016-09-22] MEDS ORDERED: BISACODYL 10 MG SUPP.RECT ONE (07:41)
[2016-09-22] MEDS ORDERED: SURGICEL HEMOSTAT 2X3 EACH. ONE (07:41)
[2016-09-22] MEDS ORDERED: CEFAZOLIN PREMIX 2 GM/50 ML BAG. IV ONE (07:52)
--- NOTE | 2016-09-22 07:55 | PDOC ---
SURGICAL PROGRESS NOTE Subjective 31 yo M with gallstone pancreatitis TO OR for lap cary with grams R/b/a d/w pt and pt's parents pt reports min epigastric pain labs and other issues improved Vital Signs Vital Signs Date Time Temp Pulse Resp B/P Pulse Ox O2 Delivery O2 Flow Rate FiO2 09/22/16 07:29 97.7 101 15 147/85 93 Room Air 97.7 I&O Intake and Output 09/22/16 07:00 Intake Total 2163 ml Balance 2163 ml Intake Oral 1300 ml IV Total 863 ml # Voids 5 Labs Laboratory Tests Test 09/21/16 05:20 09/22/16 03:15 White Blood Count 11.5x10^3/uL (4.0-11.0) 11.1x10^3/uL (4.0-11.0) Red Blood Count 4.15x10^6/uL (4.30-5.70) 4.18x10^6/uL (4.30-5.70) Hemoglobin 11.9g/dL (13.0-17.5) 12.0g/dL (13.0-17.5) Hematocrit 37.9% (39.0-53.0) 37.0% (39.0-53.0) Mean Corpuscular Volume 91fL (79-100) 89fL (79-100) Mean Corpuscular Hemoglobin 29pg (25-35) 29pg (25-35) Mean Corpuscular Hemoglobin Concent 32g/dL (31-37) 33g/dL (31-37) Red Cell Distribution Width 13.5% (11.5-14.5) 13.1% (11.5-14.5) Platelet Count 258x10^3/uL (140-400) 255x10^3/uL (140-400) Neutrophils (%) (Auto) 75% (31-73) 72% (31-73) Lymphocytes (%) (Auto) 15% (24-48) 18% (24-48) Monocytes (%) (Auto) 8% (0-9) 8% (0-9) Eosinophils (%) (Auto) 2% (0-3) 1% (0-3) Basophils (%) (Auto) 1% (0-3) 1% (0-3) Neutrophils # (Auto) 8.6x10^3uL (1.8-7.7) 8.0x10^3uL (1.8-7.7) Lymphocytes # (Auto) 1.8x10^3/uL (1.0-4.8) 2.0x10^3/uL (1.0-4.8) Monocytes # (Auto) 0.9x10^3/uL (0.0-1.1) 0.9x10^3/uL (0.0-1.1) Eosinophils # (Auto) 0.2x10^3/uL (0.0-0.7) 0.2x10^3/uL (0.0-0.7) Basophils # (Auto) 0.1x10^3/uL (0.0-0.2) 0.1x10^3/uL (0.0-0.2) Sodium Level 144mmol/L (136-145) 144mmol/L (136-145) Potassium Level 3.4mmol/L (3.5-5.1) 3.3mmol/L (3.5-5.1) Chloride Level 106mmol/L (98-107) 105mmol/L (98-107) Carbon Dioxide Level 31mmol/L (21-32) 30mmol/L (21-32) Anion Gap 7 (6-14) 9 (6-14) Blood Urea Nitrogen 6mg/dL (8-26) 6mg/dL (8-26) Creatinine 1.0mg/dL (0.7-1.3) 0.8mg/dL (0.7-1.3) Estimated GFR (Cockcroft-Gault) 86.1 111.3 Glucose Level 138mg/dL (70-99) 92mg/dL (70-99) Calcium Level 8.6mg/dL (8.5-10.1) 8.6mg/dL (8.5-10.1) Laboratory Tests Test 09/22/16 03:15 White Blood Count 11.1x10^3/uL (4.0-11.0) Red Blood Count 4.18x10^6/uL (4.30-5.70) Hemoglobin 12.0g/dL (13.0-17.5) Hematocrit 37.0% (39.0-53.0) Mean Corpuscular Volume 89fL (79-100) Mean Corpuscular Hemoglobin 29pg (25-35) Mean Corpuscular Hemoglobin Concent 33g/dL (31-37) Red Cell Distribution Width 13.1% (11.5-14.5) Platelet Count 255x10^3/uL (140-400) Neutrophils (%) (Auto) 72% (31-73) Lymphocytes (%) (Auto) 18% (24-48) Monocytes (%) (Auto) 8% (0-9) Eosinophils (%) (Auto) 1% (0-3) Basophils (%) (Auto) 1% (0-3) Neutrophils # (Auto) 8.0x10^3uL (1.8-7.7) Lymphocytes # (Auto) 2.0x10^3/uL (1.0-4.8) Monocytes # (Auto) 0.9x10^3/uL (0.0-1.1) Eosinophils # (Auto) 0.2x10^3/uL (0.0-0.7) Basophils # (Auto) 0.1x10^3/uL (0.0-0.2) Sodium Level 144mmol/L (136-145) Potassium Level 3.3mmol/L (3.5-5.1) Chloride Level 105mmol/L (98-107) Carbon Dioxide Level 30mmol/L (21-32) Anion Gap 9 (6-14) Blood Urea Nitrogen 6mg/dL (8-26) Creatinine 0.8mg/dL (0.7-1.3) Estimated GFR (Cockcroft-Gault) 111.3 Glucose Level 92mg/dL (70-99) Calcium Level 8.6mg/dL (8.5-10.1) Problem List Problems Medical Problems: (1) Acute pancreatitis Status: Acute Problems: PHYLLIS BRUMFIELD MD Sep 22, 2016 07:55
[2016-09-22] MEDS: TAMSULOSIN 0.4 MG CAP.ER.24H. PO SCH (08:20)
[2016-09-22] MEDS: ENOXAPARIN ** NOTE DOSE ** SYRINGE SQ SCH ×2 (08:20→20:35)
[2016-09-22] MEDS ORDERED: BUPIVAC MPF-EPI 0.5%-1:200000 30 ML VIAL. INJ ONE (08:30)
[2016-09-22] MEDS: FAMOTIDINE 20 MG/2 ML VIAL IVP SCH ×2 (09:00→20:30)
[2016-09-22] MEDS ORDERED: IOHEXOL 300 MG/ML 50 ML VIAL. IV ONE (09:00)
--- NOTE | 2016-09-22 09:02 | RAD ---
EXAM: Intraoperative cholangiogram. HISTORY: Intraoperative cholangiogram. COMPARISON: None. FINDINGS: 2 fluoroscopic images are obtained intraoperatively during injection of the cystic duct remnant after cholecystectomy. There are no filling defects to suggest retained stones. The common duct is not dilated. Fluoroscopy time 16 seconds. IMPRESSION: No evidence of retained stones.
[2016-09-22] MEDS: IV RINGERS,LACTATED 1000ML 1,000 ML IV SCH ×2 (09:24→16:29)
[2016-09-22] MEDS ORDERED: BISACODYL 10 MG SUPP.RECT PR ONE (09:24)
[2016-09-22] MEDS ORDERED: DEXTROSE 50% 25 GM / 50ML DISP.SYRIN. IV PRN (09:30)
[2016-09-22] MEDS ORDERED: ENOXAPARIN 40 MG/0.4 ML DISP.SYRIN. SQ SCH (09:30)
[2016-09-22] MEDS ORDERED: 0.9 % SODIUM CHLORIDE 10 ML DISP.SYRIN. IV PRN (09:30)
[2016-09-22] MEDS ORDERED: METOPROLOL TARTRATE 5 MG/5 ML VIAL. ONE (10:12)
[2016-09-22] MEDS ORDERED: FENTANYL PF 100 MCG/2 ML VIAL. ONE ×2 (10:21→11:11)
[2016-09-22] MEDS: FENTANYL PF 100 MCG/2 ML VIAL. IV PRN ×4 (10:22→11:48)
[2016-09-22] MEDS ORDERED: METOPROLOL TARTRATE 5 MG/5 ML VIAL. IVP ONE (10:30)
[2016-09-22] MEDS ORDERED: PROCHLORPERAZINE 10 MG/2 ML VIAL. ONE (10:49)
--- NOTE | 2016-09-22 11:22 | PDOC ---
Subjective: Subjective: Out of room. Objective: Vital Signs: Vital Signs Date Time Temp Pulse Resp B/P Pulse Ox O2 Delivery O2 Flow Rate FiO2 09/22/16 11:13 24 100 Simple Mask 10.0 09/22/16 11:03 90 126/50 09/22/16 09:48 97.9 97.9 Labs: Laboratory Tests Test 09/22/16 03:15 09/22/16 09:56 White Blood Count 11.1x10^3/uL Red Blood Count 4.18x10^6/uL Hemoglobin 12.0g/dL Hematocrit 37.0% Mean Corpuscular Volume 89fL Mean Corpuscular Hemoglobin 29pg Mean Corpuscular Hemoglobin Concent 33g/dL Red Cell Distribution Width 13.1% Platelet Count 255x10^3/uL Neutrophils (%) (Auto) 72% Lymphocytes (%) (Auto) 18% Monocytes (%) (Auto) 8% Eosinophils (%) (Auto) 1% Basophils (%) (Auto) 1% Neutrophils # (Auto) 8.0x10^3uL Lymphocytes # (Auto) 2.0x10^3/uL Monocytes # (Auto) 0.9x10^3/uL Eosinophils # (Auto) 0.2x10^3/uL Basophils # (Auto) 0.1x10^3/uL Sodium Level 144mmol/L Potassium Level 3.3mmol/L Chloride Level 105mmol/L Carbon Dioxide Level 30mmol/L Anion Gap 9 Blood Urea Nitrogen 6mg/dL Creatinine 0.8mg/dL Estimated GFR (Cockcroft-Gault) 111.3 Glucose Level 92mg/dL Calcium Level 8.6mg/dL Glucose (Fingerstick) 152mg/dL Imaging: IOC 09/22/16 IMPRESSION: No evidence of retained stones. PE: no exam A/P: Pancreatitis, cholelithiasis, leukocytosis, fever -- Cholecystectomy today. Will follow. FATOU PALACIOS Sep 22, 2016 11:22
--- NOTE | 2016-09-22 14:52 | PDOC ---
PROGRESS NOTES Chief Complaint Chief Complaint CC: Acute Abdominal Pain 1. Gallstone Pancreatitis 2. Morbid Obesity- BMI 55 3. Fevers, resolved 4. 4.1 x 3.0 x 4.3 cm hypoechoic mass of right kidney History of Present Illness History of Present Illness pt out for surg today had felt improved Vitals Vitals Vital Signs Date Time Temp Pulse Resp B/P Pulse Ox O2 Delivery O2 Flow Rate FiO2 09/22/16 14:50 Nasal Cannula 2.0 09/22/16 13:03 86 21 122/54 97 09/22/16 09:48 97.9 97.9 Physical Exam General: Oriented X3, Cooperative, No acute distress Abdomen: Other (obese) Labs LABS Laboratory Tests Test 09/22/16 03:15 09/22/16 09:56 White Blood Count 11.1x10^3/uL (4.0-11.0) Red Blood Count 4.18x10^6/uL (4.30-5.70) Hemoglobin 12.0g/dL (13.0-17.5) Hematocrit 37.0% (39.0-53.0) Mean Corpuscular Volume 89fL (79-100) Mean Corpuscular Hemoglobin 29pg (25-35) Mean Corpuscular Hemoglobin Concent 33g/dL (31-37) Red Cell Distribution Width 13.1% (11.5-14.5) Platelet Count 255x10^3/uL (140-400) Neutrophils (%) (Auto) 72% (31-73) Lymphocytes (%) (Auto) 18% (24-48) Monocytes (%) (Auto) 8% (0-9) Eosinophils (%) (Auto) 1% (0-3) Basophils (%) (Auto) 1% (0-3) Neutrophils # (Auto) 8.0x10^3uL (1.8-7.7) Lymphocytes # (Auto) 2.0x10^3/uL (1.0-4.8) Monocytes # (Auto) 0.9x10^3/uL (0.0-1.1) Eosinophils # (Auto) 0.2x10^3/uL (0.0-0.7) Basophils # (Auto) 0.1x10^3/uL (0.0-0.2) Sodium Level 144mmol/L (136-145) Potassium Level 3.3mmol/L (3.5-5.1) Chloride Level 105mmol/L (98-107) Carbon Dioxide Level 30mmol/L (21-32) Anion Gap 9 (6-14) Blood Urea Nitrogen 6mg/dL (8-26) Creatinine 0.8mg/dL (0.7-1.3) Estimated GFR (Cockcroft-Gault) 111.3 Glucose Level 92mg/dL (70-99) Calcium Level 8.6mg/dL (8.5-10.1) Glucose (Fingerstick) 152mg/dL (70-99) Assessment and Plan Assessmemt and Plan cary today Problems Medical Problems: (1) Acute pancreatitis Status: Acute (2) Gallstone pancreatitis Status: Acute Problems: Comment Review of Relevant I have reviewed the following items arelis (where applicable) has been applied. Labs Laboratory Tests Test 09/21/16 05:20 09/22/16 03:15 09/22/16 09:56 White Blood Count 11.5x10^3/uL (4.0-11.0) 11.1x10^3/uL (4.0-11.0) Red Blood Count 4.15x10^6/uL (4.30-5.70) 4.18x10^6/uL (4.30-5.70) Hemoglobin 11.9g/dL (13.0-17.5) 12.0g/dL (13.0-17.5) Hematocrit 37.9% (39.0-53.0) 37.0% (39.0-53.0) Mean Corpuscular Volume 91fL (79-100) 89fL (79-100) Mean Corpuscular Hemoglobin 29pg (25-35) 29pg (25-35) Mean Corpuscular Hemoglobin Concent 32g/dL (31-37) 33g/dL (31-37) Red Cell Distribution Width 13.5% (11.5-14.5) 13.1% (11.5-14.5) Platelet Count 258x10^3/uL (140-400) 255x10^3/uL (140-400) Neutrophils (%) (Auto) 75% (31-73) 72% (31-73) Lymphocytes (%) (Auto) 15% (24-48) 18% (24-48) Monocytes (%) (Auto) 8% (0-9) 8% (0-9) Eosinophils (%) (Auto) 2% (0-3) 1% (0-3) Basophils (%) (Auto) 1% (0-3) 1% (0-3) Neutrophils # (Auto) 8.6x10^3uL (1.8-7.7) 8.0x10^3uL (1.8-7.7) Lymphocytes # (Auto) 1.8x10^3/uL (1.0-4.8) 2.0x10^3/uL (1.0-4.8) Monocytes # (Auto) 0.9x10^3/uL (0.0-1.1) 0.9x10^3/uL (0.0-1.1) Eosinophils # (Auto) 0.2x10^3/uL (0.0-0.7) 0.2x10^3/uL (0.0-0.7) Basophils # (Auto) 0.1x10^3/uL (0.0-0.2) 0.1x10^3/uL (0.0-0.2) Sodium Level 144mmol/L (136-145) 144mmol/L (136-145) Potassium Level 3.4mmol/L (3.5-5.1) 3.3mmol/L (3.5-5.1) Chloride Level 106mmol/L (98-107) 105mmol/L (98-107) Carbon Dioxide Level 31mmol/L (21-32) 30mmol/L (21-32) Anion Gap 7 (6-14) 9 (6-14) Blood Urea Nitrogen 6mg/dL (8-26) 6mg/dL (8-26) Creatinine 1.0mg/dL (0.7-1.3) 0.8mg/dL (0.7-1.3) Estimated GFR (Cockcroft-Gault) 86.1 111.3 Glucose Level 138mg/dL (70-99) 92mg/dL (70-99) Calcium Level 8.6mg/dL (8.5-10.1) 8.6mg/dL (8.5-10.1) Glucose (Fingerstick) 152mg/dL (70-99) Laboratory Tests Test 09/22/16 03:15 09/22/16 09:56 White Blood Count 11.1x10^3/uL (4.0-11.0) Red Blood Count 4.18x10^6/uL (4.30-5.70) Hemoglobin 12.0g/dL (13.0-17.5) Hematocrit 37.0% (39.0-53.0) Mean Corpuscular Volume 89fL (79-100) Mean Corpuscular Hemoglobin 29pg (25-35) Mean Corpuscular Hemoglobin Concent 33g/dL (31-37) Red Cell Distribution Width 13.1% (11.5-14.5) Platelet Count 255x10^3/uL (140-400) Neutrophils (%) (Auto) 72% (31-73) Lymphocytes (%) (Auto) 18% (24-48) Monocytes (%) (Auto) 8% (0-9) Eosinophils (%) (Auto) 1% (0-3) Basophils (%) (Auto) 1% (0-3) Neutrophils # (Auto) 8.0x10^3uL (1.8-7.7) Lymphocytes # (Auto) 2.0x10^3/uL (1.0-4.8) Monocytes # (Auto) 0.9x10^3/uL (0.0-1.1) Eosinophils # (Auto) 0.2x10^3/uL (0.0-0.7) Basophils # (Auto) 0.1x10^3/uL (0.0-0.2) Sodium Level 144mmol/L (136-145) Potassium Level 3.3mmol/L (3.5-5.1) Chloride Level 105mmol/L (98-107) Carbon Dioxide Level 30mmol/L (21-32) Anion Gap 9 (6-14) Blood Urea Nitrogen 6mg/dL (8-26) Creatinine 0.8mg/dL (0.7-1.3) Estimated GFR (Cockcroft-Gault) 111.3 Glucose Level 92mg/dL (70-99) Calcium Level 8.6mg/dL (8.5-10.1) Glucose (Fingerstick) 152mg/dL (70-99) Medications Current Medications Sodium Chloride (Iv Sodium Chloride 0.9% 1000ml Bag) 1,000 ml @ 1,000 mls/hr Q1H IV Last administered on 09/13/16 14:23; Start 09/13/16 at 14:06; Stop at 17:10; Status DC Fentanyl Citrate (Fentanyl 2ml Vial) 50 mcg 1X ONCE IV Last administered on 14:32; Start 09/13/16 at 14:15; Stop 09/14/16 at 11:17; Status DC Ondansetron HCl (Zofran) 4 mg 1X ONCE IV Last administered on 09/13/16 14:32 ; Start 09/13/16 at 14:15; Stop 09/13/16 at 14:16; Status DC Iohexol (Omnipaque 300 Mg/ml) 75 ml 1X ONCE IV Last administered on 09/13/16 15:27; Start 09/13/16 at 15:00; Stop 09/13/16 at 17:10; Status DC Info 1 each 1 each PRN DAILY PRN MC SEE COMMENTS; Start 09/13/16 at 15:15; Stop 09/15/16 at 15:14; Status DC Sodium Chloride (Iv Sodium Chloride 0.9% 1000ml Bag) 1,000 ml @ 125 mls/hr 1X ONCE IV Last administered on 09/13/16 19:59; Start 09/13/16 at 16:30; Stop at 00:29; Status DC Fentanyl Citrate (Fentanyl 2ml Vial) 50 mcg 1X ONCE IV Last administered on 17:06; Start 09/13/16 at 16:30; Stop 09/14/16 at 11:17; Status DC Fentanyl Citrate (Fentanyl 2ml Vial) 50 mcg PRN Q2HR PRN IV PAIN Last administered on 09/14/16 09:28; Start 09/13/16 at 16:30; Stop 09/14/16 at 11:17 ; Status DC Fentanyl Citrate (Fentanyl 2ml Vial) 75 mcg PRN Q2HR PRN IV PAIN Last administered on 09/14/16 00:01; Start 09/13/16 at 20:00; Stop 09/14/16 at 11:17 ; Status DC Fentanyl Citrate (Fentanyl 2ml Vial) 100 mcg PRN Q2HR PRN IV PAIN Last administered on 09/14/16 06:27; Start 09/13/16 at 20:00; Stop 09/14/16 at 11:17 ; Status DC Famotidine (Pepcid) 20 mg BID IVP Last administered on 09/21/16 20:39; Start at 21:00 Diphenhydramine HCl (Benadryl) 50 mg PRN Q6HRS PRN IVP ITCHING Last administered on 09/18/16 23:50; Start 09/13/16 at 20:15 Calcium Carbonate/ Glycine (Tums) 200 mg PRN Q4HRS PRN PO INDIGESTION Last administered on 09/18/16 23:56; Start 09/13/16 at 20:30; Stop 09/20/16 at 18:50; Status DC Ibuprofen 200 mg 200 mg PRN Q6HRS PRN PO PAIN; Start 09/13/16 at 21:00; Stop at 00:17; Status DC Piperacillin Sod/ Tazobactam Sod/ Sodium Chloride (Zosyn/Iv Sodium Chloride 0.9 % 50ml) 50 ml @ 100 mls/hr Q6HRS IV Last administered on 09/19/16 06:10; Start 09/14/16 at 00:30; Stop 09/19/16 at 10:19; Status DC Ibuprofen (Motrin) 400 mg PRN Q6HRS PRN PO MILD PAIN / TEMP Last administered on 09/14/16 15:04; Start 09/14/16 at 00:30; Stop 09/14/16 at 20:33; Status DC Hydromorphone HCl (Dilaudid) 1 mg PRN Q2HR PRN IV PAIN Last administered on 09/22 13:46; Start 09/14/16 at 11:15 Hydromorphone HCl (Dilaudid) 2 mg PRN Q2HR PRN IV PAIN Last administered on 09/21 07:45; Start 09/14/16 at 11:30 Ibuprofen 400 mg 400 mg PRN Q4HRS PRN PO MILD PAIN / TEMP Last administered on 09/21/16 14:06; Start 09/14/16 at 20:30 Sodium Chloride 1,000 ml @ 1,000 mls/hr 1X ONCE IV Last administered on 09:31; Start 09/15/16 at 09:15; Stop 09/15/16 at 10:14; Status DC Sodium Chloride (Iv Sodium Chloride 0.9% 1000ml Bag) 1,000 ml @ 0 mls/hr Q8H IV Last administered on 09/21/16 06:15; Start 09/15/16 at 09:15 Bisacodyl (Dulcolax Supp) 10 mg PRN DAILY PRN PA CONSTIPATION Last administered on 09/15/16 15:09; Start 09/15/16 at 12:15 Ondansetron HCl (Zofran) 4 mg PRN Q6HRS PRN IV NAUSEA/VOMITING; Start 09/15/16 at 23:45; Stop 09/22/16 at 13:47; Status DC Lubiprostone (Amitiza) 8 mcg BIDWMEALS PO Last administered on 09/16/16 15:04 ; Start 09/16/16 at 14:00; Stop 09/18/16 at 09:49; Status DC Iohexol (Omnipaque 300 Mg/ml) 75 ml 1X ONCE IV Last administered on 09/17/16 10:27; Start 09/17/16 at 09:45; Stop 09/17/16 at 09:46; Status DC Info (Do NOT chart on this entry -- for MONITORING) 1 each PRN DAILY PRN MC SEE COMMENTS; Start 09/17/16 at 09:45; Stop 09/19/16 at 09:44; Status DC Tamsulosin HCl (Flomax) 0.4 mg DAILY PO Last administered on 09/21/16 08:41; Start 09/17/16 at 12:00 Polyethylene Glycol (miraLAX PACKET) 17 gm PRN DAILY PRN PO CONSTIPATION Last administered on 09/19/16 08:29; Start 09/18/16 at 10:00 Potassium Chloride 40 meq 40 meq 1X ONCE PO Last administered on 09/18/16 12: 00; Start 09/18/16 at 12:00; Stop 09/18/16 at 12:02; Status DC Meropenem/Sodium Chloride (Merrem/Iv Sodium Chloride 0.9% 100ml) 100 ml @ 200 mls/hr Q8HRS IV Last administered on 09/22/16 13:45; Start 09/19/16 at 14:00 Simethicone (Gas-X) 80 mg PRN AFTMEALHC PRN PO GAS / BLOATING; Start 09/19/16 at 12:00 Ondansetron HCl (Zofran) 4 mg PRN Q6HRS PRN IV Nausea; Start 09/22/16 at 07:00; Stop 09/22/16 at 13:47; Status DC Fentanyl Citrate (Fentanyl 2ml Vial) 25 mcg PRN Q5MIN PRN IV MILD PAIN Last administered on 09/22/16 11:48; Start 09/22/16 at 07:00; Stop 09/22/16 at 13:48; Status DC Fentanyl Citrate (Fentanyl 2ml Vial) 50 mcg PRN Q5MIN PRN IV MODERATE PAIN Last administered on 09/22/16 10:36; Start 09/22/16 at 07:00; Stop 09/22/16 at 13: 48; Status DC Morphine Sulfate 1 mg 1 mg PRN Q10MIN PRN IV SEVERE PAIN; Start 09/22/16 at 07: 00; Stop 09/22/16 at 13:48; Status DC Lactated Ringer's (Iv Lactated Ringers) 1,000 ml @ 30 mls/hr Q24H IV Last administered on 09/22/16 07:30; Start 09/22/16 at 07:00; Stop 09/22/16 at 13:48; Status DC Lidocaine HCl 2 ml 1X PRN PRN ID IV START; Start 09/22/16 at 07:00; Stop at 13:48; Status DC Hydromorphone HCl (Dilaudid) 0.5 mg PRN Q10MIN PRN IV SEVERE PAIN, Second choice; Start 09/22/16 at 07:00; Stop 09/22/16 at 13:48; Status DC Prochlorperazine Edisylate (Compazine) 5 mg PACU PRN PRN IV NAUSEA; Start at 07:00; Stop 09/22/16 at 13:48; Status DC Zolpidem Tartrate (Ambien) 5 mg PRN QHS PRN PO INSOMNIA, MAY REPEAT X1; Start 09/19/16 at 16:45 Magnesium Citrate (Citroma) 296 ml PRN 1X PRN PO CONSTIPATION Last administered on 09/19/16 19:46; Start 09/19/16 at 19:00 Calcium Carbonate/ Glycine (Tums) 500 mg PRN Q4HRS PRN PO INDIGESTION Last administered on 09/20/16 18:52; Start 09/20/16 at 19:00 Enoxaparin Sodium 60 mg 60 mg Q12HR SQ Last administered on 09/21/16 20:39; Start 09/21/16 at 10:00 Heparin Sodium (Porcine)/Sodium Chloride (Iv Sodium Chloride 0.9% 1000ml Bag) 1, 001 ml @ 1,001 mls/hr 1X PERIOP ONCE IRR Last administered on 09/22/16 10:04 ; Start 09/22/16 at 06:00; Stop 09/22/16 at 06:59; Status DC Potassium Chloride 40 meq 40 meq 1X ONCE PO Last administered on 09/21/16 14: 03; Start 09/21/16 at 13:00; Stop 09/21/16 at 13:01; Status DC Cefazolin Sodium/ Dextrose 50 ml @ 100 mls/hr 1X PREOP IV ; Start 09/21/16 at 20:00; Stop 09/21/16 at 23:00; Status DC Cefazolin Sodium/ Dextrose 50 ml @ 100 mls/hr 1X PREOP PRN IV Pre Op; Start at 06:00; Stop 09/22/16 at 06:54; Status DC Propofol 40 ml @ As Directed STK-MED ONCE IV ; Start 09/22/16 at 06:39; Stop 09/22 at 07:28; Status DC Propofol (Diprivan) 40 ml @ As Directed STK-MED ONCE IV ; Start 09/22/16 at 06:44 ; Stop 09/22/16 at 07:28; Status DC Midazolam HCl (Versed) 2 mg STK-MED ONCE .ROUTE ; Start 09/22/16 at 06:44; Stop 09/22/16 at 07:28; Status DC Fentanyl Citrate (Fentanyl 5ml Vial) 250 mcg STK-MED ONCE .ROUTE ; Start at 06:45; Stop 09/22/16 at 07:28; Status DC Succinylcholine Chloride (Anectine) 200 mg STK-MED ONCE .ROUTE ; Start 09/22/16 at 06:46; Stop 09/22/16 at 07:28; Status DC Glycopyrrolate (Robinul) 1 mg STK-MED ONCE .ROUTE ; Start 09/22/16 at 06:46; Stop 09/22/16 at 07:28; Status DC Neostigmine Methylsulfate 5 mg STK-MED ONCE .ROUTE ; Start 09/22/16 at 06:47; Stop 09/22/16 at 07:28; Status DC Rocuronium [place] 50 mg 50 mg STK-MED ONCE .ROUTE ; Start 09/22/16 at 06:48; Stop 09/22/16 at 07:28; Status DC Cefazolin Sodium/ Dextrose 0 ml @ As Directed STK-MED ONCE IV ; Start 09/22/16 at 06:48; Stop 09/22/16 at 07:28; Status DC Cefazolin Sodium/ Dextrose 50 ml @ 100 mls/hr 1X PREOP PRN IV Pre Op; Start at 06:00; Stop 09/23/16 at 06:00; Status DC Heparin Sodium (Porcine)/Sodium Chloride (Iv Sodium Chloride 0.9% 1000ml Bag) 1, 001 ml @ 1,001 mls/hr 1X PERIOP ONCE IRR ; Start 09/22/16 at 09:11; Stop at 10:14; Status DC Enoxaparin Sodium (Lovenox 40mg Syringe) 40 mg Q24H SQ ; Start 09/22/16 at 09:30 ; Status UNV Sodium Chloride 3 ml 3 ml QSHIFT PRN IV AFTER MEDS AND BLOOD DRAWS; Start at 09:30 Lactated Ringer's (Iv Lactated Ringers) 1,000 ml @ 100 mls/hr Q10H IV ; Start 09/22/16 at 09:24 Dextrose 12.5 gm PRN Q15MIN PRN IV SEE COMMENTS; Start 09/22/16 at 09:30 Acetaminophen/ Hydrocodone Bitart (Lortab 5/325) 1 tab PRN Q4HRS PRN PO MILD PAIN; Start 09/22/16 at 09:30 Docusate Sodium (Colace) 100 mg BID PO ; Start 09/22/16 at 21:00 Ondansetron HCl (Zofran) 4 mg PRN Q6HRS PRN IV NAUESA, 1ST CHOICE; Start at 09:30 Bupivacaine HCl/ Epinephrine Bitart (Sensorcain-Mpf Epi 0.5%-1:[id number]) 30 ml STK -MED ONCE INJ Last administered on 09/22/16 08:30; Start 09/22/16 at 08:30; Stop 09/22/16 at 10:13; Status DC Iohexol (Omnipaque 300 Mg/ml) 50 ml STK-MED ONCE IV Last administered on 09:00; Start 09/22/16 at 09:00; Stop 09/22/16 at 10:13; Status DC Bisacodyl (Dulcolax Supp) 10 mg STK-MED ONCE PA Last administered on 09/22/16 09:24; Start 09/22/16 at 09:24; Stop 09/22/16 at 10:14; Status DC Metoprolol Tartrate (Lopressor) 5 mg 1X ONCE IVP Last administered on 10:14; Start 09/22/16 at 10:30; Stop 09/22/16 at 10:31; Status DC Active Scripts Active Reported Ibuprofen 100 Mg Tablet 100 Mg PO PRN Q6HRS PRN Tums (Calcium Carbonate) 200 Mg Tab.chew 200 Mg PO PRN Q4HRS PRN Vitals/I & O Vital Sign - Last 24 Hours 09/21/16 09/21/16 09/21/16 09/21/16 15:00 19:00 20:00 22:55 Temp 98.2 98.8 98.2 98.8 Pulse 78 69 Resp 20 20 18 B/P 147/86 150/87 Pulse Ox 96 98 98 O2 Delivery Room Air Room Air Room Air Room Air 09/21/16 09/22/16 09/22/16 09/22/16 22:56 02:45 02:49 03:15 Temp 98.1 98.8 98.1 98.8 Pulse 75 83 Resp 20 20 20 20 B/P 147/92 151/91 Pulse Ox 98 98 98 98 O2 Delivery Room Air Room Air Room Air 09/22/16 09/22/16 09/22/16 09/22/16 07:29 09:40 09:48 09:48 Temp 97.7 97.9 97.7 97.9 Pulse 101 133 Resp 15 18 B/P 147/85 149/130 Pulse Ox 93 98 93 O2 Delivery Room Air Ventilator Ambu-Bag Bag Valve Mask T-Tube O2 Flow Rate 10 10 09/22/16 09/22/16 09/22/16 09/22/16 10:03 10:03 10:14 10:18 Pulse 142 142 104 Resp 5 10 B/P 176/102 176/102 146/76 Pulse Ox 97 96 O2 Delivery Ventilator Mechanical Ventilator Ventilator 09/22/16 09/22/16 09/22/16 09/22/16 10:22 10:33 10:36 10:42 Pulse 102 Resp 15 B/P 124/109 Pulse Ox 100 95 100 O2 Delivery Ventilator Ventilator Ventilator Nasal Cannula O2 Flow Rate 3 09/22/16 09/22/16 09/22/16 09/22/16 10:48 10:57 11:03 11:13 Pulse 112 90 Resp 24 24 24 B/P 126/47 126/50 Pulse Ox 99 99 100 O2 Delivery Ventilator Mask Simple Mask Simple Mask O2 Flow Rate 10 10 10.0 09/22/16 09/22/16 09/22/16 09/22/16 11:18 11:23 11:48 11:48 Pulse 76 96 Resp 24 22 21 B/P 118/46 118/51 Pulse Ox 99 96 96 O2 Delivery Simple Mask Nasal Cannula Nasal Cannula Nasal Cannula O2 Flow Rate 10 2 2.0 3 09/22/16 09/22/16 09/22/16 09/22/16 12:03 12:18 12:33 12:48 Pulse 72 88 76 78 Resp 21 21 21 21 B/P 128/54 124/61 124/55 108/61 Pulse Ox 96 98 98 78 O2 Delivery Nasal Cannula Nasal Cannula Nasal Cannula Nasal Cannula O2 Flow Rate 3 2 2 2 09/22/16 09/22/16 09/22/16 13:03 13:46 14:50 Pulse 86 Resp 21 B/P 122/54 Pulse Ox 97 O2 Delivery Nasal Cannula Nasal Cannula Nasal Cannula O2 Flow Rate 2 2.0 2.0 Intake and Output 09/21/16 09/21/16 09/22/16 15:00 23:00 07:00 Intake Total 1453 ml 710 ml Balance 1453 ml 710 ml JAGDISH CHU MD Sep 22, 2016 14:52
--- NOTE | 2016-09-22 16:17 | OP ---
DATE OF SURGERY: 09/22/2016 PREOPERATIVE DIAGNOSES: Gallstone pancreatitis. POSTOPERATIVE DIAGNOSES: Gallstone pancreatitis, calculous cholecystitis. PROCEDURES: Laparoscopic cholecystectomy with intraoperative cholangiogram. SURGEON: Obdulio Brumfield MD ESTIMATED BLOOD LOSS: 100 mL. FLUIDS: 900 mL. COMPLICATIONS: None. FINDINGS: Super obesity, large amount of intra-abdominal visceral fat. Extensive adhesions in the gallbladder with full of gallstones, normal appearing intraoperative cholangiogram. INDICATIONS: This is a 31-year-old male who presents with epigastric abdominal pain. He was diagnosed with gallstone pancreatitis. Subsequently, it was felt patient best be served by laparoscopic cholecystectomy with intraoperative cholangiogram to prevent recurrence in symptoms. The patient has super obesity with a weight of 395 pounds. The patient and patient's parents are extensively informed of the risks, benefits, alternatives to procedure, risks including but not limited to bleeding, infection, damage to surrounding structures, risk of anesthesia, risk of an open procedure, and the patient and patient's parents appeared to understand and their insightful questions were answered and they agreed to proceed. DESCRIPTION OF PROCEDURE: After obtaining informed consent, the patient was taken to the operating room, induced under general endotracheal anesthetic. The patient was prepped and draped in usual fashion in the anterior abdominal wall. A 0.5% Marcaine with epinephrine was injected in the supraumbilical area and incision was made using 15 blade scalpel. A 5 mm nonbladed trocar was introduced in the abdominal cavity under direct vision of laparoscope. Pneumoperitoneum was established. Additional 12 port was placed in the epigastrium, another 5 mm port was placed in the right upper quadrant, all under direct vision of the laparoscope. The abdominal cavity was explored. The patient is morbidly obese, making the procedure very difficult throughout. The visualized portion of viscera has normal in appearance. There was no evidence of additional pathology. The gallbladder was identified and found to be packed with stones and had scarring to it. The adhesions were taken down using electrocautery and sharp dissection. Circumferential dissection was performed of the cystic duct at cystic duct infundibulum junction. Cystic artery was noted to be fairly adherent to the cystic duct. A clip was placed on the cystic duct infundibulum junction. Incision was made in the cystic duct using EndoShears. Cholangiogram catheter was introduced and cholangiogram was obtained. Cholangiogram demonstrated normal appearing hepatic ducts, normal appearing common bile, free extravasation into the duodenum. Cholangiogram catheter was removed. Multiple clips were placed on the cystic duct stump including [id number] and the cystic duct was divided. Gallbladder was taken off the gallbladder fossa sharply using electrocautery. Gallbladder was placed in EndoCatch bag and brought out through the epigastric port, passed off the field and sent to pathology for evaluation. Did require extensive dilatation of the epigastric port secondary to multiple gallstones. This was where the majority of the bleeding was coming from the abdominal wall. The abdominal wall bleeding was controlled using continuous 0 Vicryl fascial stitch. The abdominal cavity was copiously irrigated with normal saline solution. There was no evidence of obvious bleeding at the time of closure. All ports were removed under direct vision of laparoscope. There was no evidence of port site bleeding. The remaining skin incisions were approximated using multiple interrupted 4-0 Monocryl in subcuticular fashion. Sterile dressing was placed over all wounds. The patient tolerated procedure well and was discharged to recovery room in stable condition. All counts were correct. There were no immediate complications. Of note, it was somewhat difficult to ventilate and oxygenate patient until my procedure secondary to his morbid obesity. OBDULIO BRUMFIELD MD DR: HOLLAND/ángel JOB#: [id number] / [id number]
[2016-09-22] MEDS: HYDROCODONE/APAP 5/325MG TABLET. PO PRN (20:30)
[2016-09-22] MEDS: DOCUSATE SODIUM 100 MG CAPSULE PO SCH (20:36)
[2016-09-23] VITALS (7 sets, daily range): BP systolic 113–138; BP diastolic 68–85
[2016-09-23] MEDS: HYDROCODONE/APAP 5/325MG TABLET. PO PRN ×3 (00:27→20:50)
[2016-09-23] MEDS: HYDROMORPHONE 2 MG/ML VIAL. IV PRN ×2 (00:49→13:20)
[2016-09-23] MEDS: IV RINGERS,LACTATED 1000ML 1,000 ML IV SCH ×2 (03:07→16:52)
[2016-09-23] MEDS: IBUPROFEN 400 MG TABLET. PO PRN ×4 (03:14→23:39)
[2016-09-23] MEDS: SIMETHICONE 80 MG TAB.CHEW PO PRN ×2 (03:14→08:27)
[2016-09-23 04:03] LABS: BASO # 0.1 x10^3/uL (0.0-0.2); BASO % 0 % (0-3); EOS % 0 % (0-3); HEMATOCRIT 31.5 % (39.0-53.0); HEMOGLOBIN 10.2 g/dL (13.0-17.5); LYMPH # 1.4 x10^3/uL (1.0-4.8); LYMPH % 5 % (24-48); MEAN CORPUSCULAR HEMOGLOBIN 29 pg (25-35); MEAN CORPUSCULAR HGB CONC 32 g/dL (31-37); MEAN CORPUSCULAR VOLUME 88 fL (79-100); MONO % 4 % (0-9); NEUT % 90 % (31-73); PLATELET COUNT 406 x10^3/uL (140-400); RED BLOOD COUNT 3.58 x10^6/uL (4.30-5.70); RED CELL DISTRIBUTION WIDTH 13.5 % (11.5-14.5); WHITE BLOOD COUNT 28.5 x10^3/uL (4.0-11.0)
[2016-09-23 04:25] LABS: CALCIUM 9.1 mg/dL (8.5-10.1); CREATININE 1.2 mg/dL (0.7-1.3); GFR 69.7; POTASSIUM 4.3 mmol/L (3.5-5.1)
[2016-09-23 05:09] LABS: PLT ESTIMATE ADEQUATE (ADEQUATE); TOXIC GRANULATION MOD
[2016-09-23] MEDS: MEROPENEM 1 GM in IV NORMAL SALINE 100ML 100 ML IV SCH (05:52)
[2016-09-23] MEDS ORDERED: CEFAZOLIN 2GM PREMIX 50 ML IV PRN (06:00)
[2016-09-23] MEDS: FAMOTIDINE 20 MG/2 ML VIAL IVP SCH ×2 (08:27→20:50)
[2016-09-23] MEDS: DOCUSATE SODIUM 100 MG CAPSULE PO SCH ×2 (08:28→20:50)
[2016-09-23] MEDS: TAMSULOSIN 0.4 MG CAP.ER.24H. PO SCH (08:28)
[2016-09-23] MEDS: ENOXAPARIN ** NOTE DOSE ** SYRINGE SQ SCH ×2 (08:29→20:50)
--- NOTE | 2016-09-23 08:53 | PDOC ---
Infectious Disease Note Subjective Subjective feeling better, had surgery yesterday ROS ROS GEN: Denies fevers, chills, sweats HEENT: Denies blurred vision, sore throat CV: Denies chest pain RESP: Denies shortness of air, cough GI: Denies n/v/d NEURO: Denies confusion, dizziness MSK: Denies weakness, joint pain/swelling Vital Sign Vital Signs Vital Signs Date Time Temp Pulse Resp B/P Pulse Ox O2 Delivery O2 Flow Rate FiO2 09/23/16 08:28 Nasal Cannula 2.0 09/23/16 07:00 98.3 97 18 132/72 95 98.3 Physical Exam PHYSICAL EXAM GENERAL: NAD, Alert HEENT: PERRL, OC/OP NECK: Supple, no JVD, no LN LUNGS: Clear HEART: S1S2, no gallop, no murmur ABD: Soft, NT, no organomegaly, no rebound EXT: No edema, no cyanosis RUBBER HEEL AND SOLE PRESS TENDER: Alert, oriented x 3, no focal neurologic deficit SKIN: No rash IV: ok Labs Lab Laboratory Tests Test 09/22/16 09:56 09/23/16 03:40 Glucose (Fingerstick) 152mg/dL (70-99) White Blood Count 28.5x10^3/uL (4.0-11.0) Red Blood Count 3.58x10^6/uL (4.30-5.70) Hemoglobin 10.2g/dL (13.0-17.5) Hematocrit 31.5% (39.0-53.0) Mean Corpuscular Volume 88fL (79-100) Mean Corpuscular Hemoglobin 29pg (25-35) Mean Corpuscular Hemoglobin Concent 32g/dL (31-37) Red Cell Distribution Width 13.5% (11.5-14.5) Platelet Count 406x10^3/uL (140-400) Neutrophils (%) (Auto) 90% (31-73) Lymphocytes (%) (Auto) 5% (24-48) Monocytes (%) (Auto) 4% (0-9) Eosinophils (%) (Auto) 0% (0-3) Basophils (%) (Auto) 0% (0-3) Neutrophils # (Auto) 25.8x10^3uL (1.8-7.7) Lymphocytes # (Auto) 1.4x10^3/uL (1.0-4.8) Monocytes # (Auto) 1.2x10^3/uL (0.0-1.1) Eosinophils # (Auto) 0.0x10^3/uL (0.0-0.7) Basophils # (Auto) 0.1x10^3/uL (0.0-0.2) Segmented Neutrophils % 84% (35-66) Band Neutrophils % 6% (0-9) Lymphocytes % 7% (24-48) Monocytes % 2% (0-10) Myelocytes % 1% (0-0) Toxic Granulation Mod Platelet Estimate Adequate (ADEQUATE) Sodium Level 144mmol/L (136-145) Potassium Level 4.3mmol/L (3.5-5.1) Chloride Level 106mmol/L (98-107) Carbon Dioxide Level 27mmol/L (21-32) Anion Gap 11 (6-14) Blood Urea Nitrogen 12mg/dL (8-26) Creatinine 1.2mg/dL (0.7-1.3) Estimated GFR (Cockcroft-Gault) 69.7 Glucose Level 129mg/dL (70-99) Calcium Level 9.1mg/dL (8.5-10.1) Objective Assessment Acute gallstone pancreatitis - Repeat CT performed for renal mass shows some worsening of Pancreatitis Fever - Pancreatitis vs stone -clinically better and WBC mildly increased today Renal mass - Ct reviewed Leukocytosis - improved Morbid obesity w/ BMI 55 Constipation - resolved Plan Plan of Care change Meropenem to augmentin wbc reactive, should improve KENYON SHELTON MD Sep 23, 2016 08:53
[2016-09-23] MEDS: CALCIUM CARBONATE 500 MG TAB.CHEW PO PRN (09:54)
--- NOTE | 2016-09-23 10:09 | PDOC ---
Subjective: Subjective: Some RUQ pain worse w/ movement and deep breaths. Ate some oatmeal this morning. Says no flatus. Objective: Vital Signs: Vital Signs Date Time Temp Pulse Resp B/P Pulse Ox O2 Delivery O2 Flow Rate FiO2 09/23/16 09:33 Nasal Cannula 2.0 09/23/16 07:00 98.3 97 18 132/72 95 98.3 Labs: Laboratory Tests Test 09/23/16 03:40 White Blood Count 28.5x10^3/uL Red Blood Count 3.58x10^6/uL Hemoglobin 10.2g/dL Hematocrit 31.5% Mean Corpuscular Volume 88fL Mean Corpuscular Hemoglobin 29pg Mean Corpuscular Hemoglobin Concent 32g/dL Red Cell Distribution Width 13.5% Platelet Count 406x10^3/uL Neutrophils (%) (Auto) 90% Lymphocytes (%) (Auto) 5% Monocytes (%) (Auto) 4% Eosinophils (%) (Auto) 0% Basophils (%) (Auto) 0% Neutrophils # (Auto) 25.8x10^3uL Lymphocytes # (Auto) 1.4x10^3/uL Monocytes # (Auto) 1.2x10^3/uL Eosinophils # (Auto) 0.0x10^3/uL Basophils # (Auto) 0.1x10^3/uL Segmented Neutrophils % 84% Band Neutrophils % 6% Lymphocytes % 7% Monocytes % 2% Myelocytes % 1% Toxic Granulation Mod Platelet Estimate Adequate Sodium Level 144mmol/L Potassium Level 4.3mmol/L Chloride Level 106mmol/L Carbon Dioxide Level 27mmol/L Anion Gap 11 Blood Urea Nitrogen 12mg/dL Creatinine 1.2mg/dL Estimated GFR (Cockcroft-Gault) 69.7 Glucose Level 129mg/dL Calcium Level 9.1mg/dL Current Medications PE: GEN: NAD, sitting up in bed LUNGS: clear bilaterally HEART: RRR ABD: RUQ tenderness, obese NEURO/PSYCH: A & O 3 A/P: Gallstones pancreatitis s/p cholecystectomy 09/22/16 Leukocytosis -reviewed ID note, suspect reactive, changed to PO atbx -- Diet per surgery. FATOU PALACIOS Sep 23, 2016 10:09
--- NOTE | 2016-09-23 10:29 | PDOC ---
SURGICAL PROGRESS NOTE Subjective Pt with c/o incisional pain, otherwise doing well, dorota some PO Vital Signs Vital Signs Date Time Temp Pulse Resp B/P Pulse Ox O2 Delivery O2 Flow Rate FiO2 09/23/16 09:33 Nasal Cannula 2.0 09/23/16 07:00 98.3 97 18 132/72 95 98.3 I&O Intake and Output 09/23/16 07:00 Intake Total 4266 ml Output Total 525 ml Balance 3741 ml IV Total 4266 ml Output Urine Total 425 ml Estimated Blood Loss 100 ml # Voids 3 General: Alert, Oriented X3, Cooperative, No acute distress Abdomen: Soft, Other (dressing c/d/i, appropriate TTP) Labs Laboratory Tests Test 09/22/16 03:15 09/22/16 09:56 09/23/16 03:40 White Blood Count 11.1x10^3/uL (4.0-11.0) 28.5x10^3/uL (4.0-11.0) Red Blood Count 4.18x10^6/uL (4.30-5.70) 3.58x10^6/uL (4.30-5.70) Hemoglobin 12.0g/dL (13.0-17.5) 10.2g/dL (13.0-17.5) Hematocrit 37.0% (39.0-53.0) 31.5% (39.0-53.0) Mean Corpuscular Volume 89fL (79-100) 88fL (79-100) Mean Corpuscular Hemoglobin 29pg (25-35) 29pg (25-35) Mean Corpuscular Hemoglobin Concent 33g/dL (31-37) 32g/dL (31-37) Red Cell Distribution Width 13.1% (11.5-14.5) 13.5% (11.5-14.5) Platelet Count 255x10^3/uL (140-400) 406x10^3/uL (140-400) Neutrophils (%) (Auto) 72% (31-73) 90% (31-73) Lymphocytes (%) (Auto) 18% (24-48) 5% (24-48) Monocytes (%) (Auto) 8% (0-9) 4% (0-9) Eosinophils (%) (Auto) 1% (0-3) 0% (0-3) Basophils (%) (Auto) 1% (0-3) 0% (0-3) Neutrophils # (Auto) 8.0x10^3uL (1.8-7.7) 25.8x10^3uL (1.8-7.7) Lymphocytes # (Auto) 2.0x10^3/uL (1.0-4.8) 1.4x10^3/uL (1.0-4.8) Monocytes # (Auto) 0.9x10^3/uL (0.0-1.1) 1.2x10^3/uL (0.0-1.1) Eosinophils # (Auto) 0.2x10^3/uL (0.0-0.7) 0.0x10^3/uL (0.0-0.7) Basophils # (Auto) 0.1x10^3/uL (0.0-0.2) 0.1x10^3/uL (0.0-0.2) Sodium Level 144mmol/L (136-145) 144mmol/L (136-145) Potassium Level 3.3mmol/L (3.5-5.1) 4.3mmol/L (3.5-5.1) Chloride Level 105mmol/L (98-107) 106mmol/L (98-107) Carbon Dioxide Level 30mmol/L (21-32) 27mmol/L (21-32) Anion Gap 9 (6-14) 11 (6-14) Blood Urea Nitrogen 6mg/dL (8-26) 12mg/dL (8-26) Creatinine 0.8mg/dL (0.7-1.3) 1.2mg/dL (0.7-1.3) Estimated GFR (Cockcroft-Gault) 111.3 69.7 Glucose Level 92mg/dL (70-99) 129mg/dL (70-99) Calcium Level 8.6mg/dL (8.5-10.1) 9.1mg/dL (8.5-10.1) Glucose (Fingerstick) 152mg/dL (70-99) Segmented Neutrophils % 84% (35-66) Band Neutrophils % 6% (0-9) Lymphocytes % 7% (24-48) Monocytes % 2% (0-10) Myelocytes % 1% (0-0) Toxic Granulation Mod Platelet Estimate Adequate (ADEQUATE) Laboratory Tests Test 09/23/16 03:40 White Blood Count 28.5x10^3/uL (4.0-11.0) Red Blood Count 3.58x10^6/uL (4.30-5.70) Hemoglobin 10.2g/dL (13.0-17.5) Hematocrit 31.5% (39.0-53.0) Mean Corpuscular Volume 88fL (79-100) Mean Corpuscular Hemoglobin 29pg (25-35) Mean Corpuscular Hemoglobin Concent 32g/dL (31-37) Red Cell Distribution Width 13.5% (11.5-14.5) Platelet Count 406x10^3/uL (140-400) Neutrophils (%) (Auto) 90% (31-73) Lymphocytes (%) (Auto) 5% (24-48) Monocytes (%) (Auto) 4% (0-9) Eosinophils (%) (Auto) 0% (0-3) Basophils (%) (Auto) 0% (0-3) Neutrophils # (Auto) 25.8x10^3uL (1.8-7.7) Lymphocytes # (Auto) 1.4x10^3/uL (1.0-4.8) Monocytes # (Auto) 1.2x10^3/uL (0.0-1.1) Eosinophils # (Auto) 0.0x10^3/uL (0.0-0.7) Basophils # (Auto) 0.1x10^3/uL (0.0-0.2) Segmented Neutrophils % 84% (35-66) Band Neutrophils % 6% (0-9) Lymphocytes % 7% (24-48) Monocytes % 2% (0-10) Myelocytes % 1% (0-0) Toxic Granulation Mod Platelet Estimate Adequate (ADEQUATE) Sodium Level 144mmol/L (136-145) Potassium Level 4.3mmol/L (3.5-5.1) Chloride Level 106mmol/L (98-107) Carbon Dioxide Level 27mmol/L (21-32) Anion Gap 11 (6-14) Blood Urea Nitrogen 12mg/dL (8-26) Creatinine 1.2mg/dL (0.7-1.3) Estimated GFR (Cockcroft-Gault) 69.7 Glucose Level 129mg/dL (70-99) Calcium Level 9.1mg/dL (8.5-10.1) Problem List Problems Medical Problems: (1) Acute pancreatitis Status: Acute (2) Gallstone pancreatitis Status: Acute Assessment/Plan s/p lap cary with grams ADAT, will ask nutrition to help educate pt on low fat diet and weight loss diet Problems: PHYLLIS BRUMFIELD MD Sep 23, 2016 10:29
[2016-09-23] MEDS: AMOXICILLIN/K CLAV 875/125MG TABLET. PO SCH ×2 (13:16→20:50)
--- NOTE | 2016-09-23 15:58 | PDOC ---
PROGRESS NOTES Chief Complaint Chief Complaint CC: Acute Abdominal Pain 1. Gallstone Pancreatitis 2. Morbid Obesity- BMI 55 3. Fevers, resolved 4 mass of right kidney, poss renal cyst History of Present Illness History of Present Illness felt improved mostly soreness long discussion on diet and weight loss, he is gathering a decent plant plan to DC soon, likely tomorrow ith PO pain meds needs OOB, some assist Vitals Vitals Vital Signs Date Time Temp Pulse Resp B/P Pulse Ox O2 Delivery O2 Flow Rate FiO2 09/23/16 14:14 Nasal Cannula 1.0 09/23/16 11:00 98.4 97 18 138/82 95 98.4 Physical Exam Physical Exam pain 4 or 5/10 General: Alert, Oriented X3, Cooperative, mild distress Heart: Regular rate, No murmurs Lungs: Clear Abdomen: Soft, Other (dressing c/d/i, appropriate TTP) Extremities: No clubbing Skin: No rashes, No breakdown Labs LABS Laboratory Tests Test 09/23/16 03:40 White Blood Count 28.5x10^3/uL (4.0-11.0) Red Blood Count 3.58x10^6/uL (4.30-5.70) Hemoglobin 10.2g/dL (13.0-17.5) Hematocrit 31.5% (39.0-53.0) Mean Corpuscular Volume 88fL (79-100) Mean Corpuscular Hemoglobin 29pg (25-35) Mean Corpuscular Hemoglobin Concent 32g/dL (31-37) Red Cell Distribution Width 13.5% (11.5-14.5) Platelet Count 406x10^3/uL (140-400) Neutrophils (%) (Auto) 90% (31-73) Lymphocytes (%) (Auto) 5% (24-48) Monocytes (%) (Auto) 4% (0-9) Eosinophils (%) (Auto) 0% (0-3) Basophils (%) (Auto) 0% (0-3) Neutrophils # (Auto) 25.8x10^3uL (1.8-7.7) Lymphocytes # (Auto) 1.4x10^3/uL (1.0-4.8) Monocytes # (Auto) 1.2x10^3/uL (0.0-1.1) Eosinophils # (Auto) 0.0x10^3/uL (0.0-0.7) Basophils # (Auto) 0.1x10^3/uL (0.0-0.2) Segmented Neutrophils % 84% (35-66) Band Neutrophils % 6% (0-9) Lymphocytes % 7% (24-48) Monocytes % 2% (0-10) Myelocytes % 1% (0-0) Toxic Granulation Mod Platelet Estimate Adequate (ADEQUATE) Sodium Level 144mmol/L (136-145) Potassium Level 4.3mmol/L (3.5-5.1) Chloride Level 106mmol/L (98-107) Carbon Dioxide Level 27mmol/L (21-32) Anion Gap 11 (6-14) Blood Urea Nitrogen 12mg/dL (8-26) Creatinine 1.2mg/dL (0.7-1.3) Estimated GFR (Cockcroft-Gault) 69.7 Glucose Level 129mg/dL (70-99) Calcium Level 9.1mg/dL (8.5-10.1) Review of Systems Review of Systems pain no nausea eating OK Assessment and Plan Assessmemt and Plan Problems Medical Problems: (1) Acute pancreatitis Status: Acute (2) Gallstone pancreatitis Status: Acute Problems: Comment Review of Relevant I have reviewed the following items arelis (where applicable) has been applied. Labs Laboratory Tests Test 09/22/16 03:15 09/22/16 09:56 09/23/16 03:40 White Blood Count 11.1x10^3/uL (4.0-11.0) 28.5x10^3/uL (4.0-11.0) Red Blood Count 4.18x10^6/uL (4.30-5.70) 3.58x10^6/uL (4.30-5.70) Hemoglobin 12.0g/dL (13.0-17.5) 10.2g/dL (13.0-17.5) Hematocrit 37.0% (39.0-53.0) 31.5% (39.0-53.0) Mean Corpuscular Volume 89fL (79-100) 88fL (79-100) Mean Corpuscular Hemoglobin 29pg (25-35) 29pg (25-35) Mean Corpuscular Hemoglobin Concent 33g/dL (31-37) 32g/dL (31-37) Red Cell Distribution Width 13.1% (11.5-14.5) 13.5% (11.5-14.5) Platelet Count 255x10^3/uL (140-400) 406x10^3/uL (140-400) Neutrophils (%) (Auto) 72% (31-73) 90% (31-73) Lymphocytes (%) (Auto) 18% (24-48) 5% (24-48) Monocytes (%) (Auto) 8% (0-9) 4% (0-9) Eosinophils (%) (Auto) 1% (0-3) 0% (0-3) Basophils (%) (Auto) 1% (0-3) 0% (0-3) Neutrophils # (Auto) 8.0x10^3uL (1.8-7.7) 25.8x10^3uL (1.8-7.7) Lymphocytes # (Auto) 2.0x10^3/uL (1.0-4.8) 1.4x10^3/uL (1.0-4.8) Monocytes # (Auto) 0.9x10^3/uL (0.0-1.1) 1.2x10^3/uL (0.0-1.1) Eosinophils # (Auto) 0.2x10^3/uL (0.0-0.7) 0.0x10^3/uL (0.0-0.7) Basophils # (Auto) 0.1x10^3/uL (0.0-0.2) 0.1x10^3/uL (0.0-0.2) Sodium Level 144mmol/L (136-145) 144mmol/L (136-145) Potassium Level 3.3mmol/L (3.5-5.1) 4.3mmol/L (3.5-5.1) Chloride Level 105mmol/L (98-107) 106mmol/L (98-107) Carbon Dioxide Level 30mmol/L (21-32) 27mmol/L (21-32) Anion Gap 9 (6-14) 11 (6-14) Blood Urea Nitrogen 6mg/dL (8-26) 12mg/dL (8-26) Creatinine 0.8mg/dL (0.7-1.3) 1.2mg/dL (0.7-1.3) Estimated GFR (Cockcroft-Gault) 111.3 69.7 Glucose Level 92mg/dL (70-99) 129mg/dL (70-99) Calcium Level 8.6mg/dL (8.5-10.1) 9.1mg/dL (8.5-10.1) Glucose (Fingerstick) 152mg/dL (70-99) Segmented Neutrophils % 84% (35-66) Band Neutrophils % 6% (0-9) Lymphocytes % 7% (24-48) Monocytes % 2% (0-10) Myelocytes % 1% (0-0) Toxic Granulation Mod Platelet Estimate Adequate (ADEQUATE) Laboratory Tests Test 09/23/16 03:40 White Blood Count 28.5x10^3/uL (4.0-11.0) Red Blood Count 3.58x10^6/uL (4.30-5.70) Hemoglobin 10.2g/dL (13.0-17.5) Hematocrit 31.5% (39.0-53.0) Mean Corpuscular Volume 88fL (79-100) Mean Corpuscular Hemoglobin 29pg (25-35) Mean Corpuscular Hemoglobin Concent 32g/dL (31-37) Red Cell Distribution Width 13.5% (11.5-14.5) Platelet Count 406x10^3/uL (140-400) Neutrophils (%) (Auto) 90% (31-73) Lymphocytes (%) (Auto) 5% (24-48) Monocytes (%) (Auto) 4% (0-9) Eosinophils (%) (Auto) 0% (0-3) Basophils (%) (Auto) 0% (0-3) Neutrophils # (Auto) 25.8x10^3uL (1.8-7.7) Lymphocytes # (Auto) 1.4x10^3/uL (1.0-4.8) Monocytes # (Auto) 1.2x10^3/uL (0.0-1.1) Eosinophils # (Auto) 0.0x10^3/uL (0.0-0.7) Basophils # (Auto) 0.1x10^3/uL (0.0-0.2) Segmented Neutrophils % 84% (35-66) Band Neutrophils % 6% (0-9) Lymphocytes % 7% (24-48) Monocytes % 2% (0-10) Myelocytes % 1% (0-0) Toxic Granulation Mod Platelet Estimate Adequate (ADEQUATE) Sodium Level 144mmol/L (136-145) Potassium Level 4.3mmol/L (3.5-5.1) Chloride Level 106mmol/L (98-107) Carbon Dioxide Level 27mmol/L (21-32) Anion Gap 11 (6-14) Blood Urea Nitrogen 12mg/dL (8-26) Creatinine 1.2mg/dL (0.7-1.3) Estimated GFR (Cockcroft-Gault) 69.7 Glucose Level 129mg/dL (70-99) Calcium Level 9.1mg/dL (8.5-10.1) Medications Current Medications Sodium Chloride (Iv Sodium Chloride 0.9% 1000ml Bag) 1,000 ml @ 1,000 mls/hr Q1H IV Last administered on 09/13/16 14:23; Start 09/13/16 at 14:06; Stop at 17:10; Status DC Fentanyl Citrate (Fentanyl 2ml Vial) 50 mcg 1X ONCE IV Last administered on 14:32; Start 09/13/16 at 14:15; Stop 09/14/16 at 11:17; Status DC Ondansetron HCl (Zofran) 4 mg 1X ONCE IV Last administered on 09/13/16 14:32 ; Start 09/13/16 at 14:15; Stop 09/13/16 at 14:16; Status DC Iohexol (Omnipaque 300 Mg/ml) 75 ml 1X ONCE IV Last administered on 09/13/16 15:27; Start 09/13/16 at 15:00; Stop 09/13/16 at 17:10; Status DC Info 1 each 1 each PRN DAILY PRN MC SEE COMMENTS; Start 09/13/16 at 15:15; Stop 09/15/16 at 15:14; Status DC Sodium Chloride (Iv Sodium Chloride 0.9% 1000ml Bag) 1,000 ml @ 125 mls/hr 1X ONCE IV Last administered on 09/13/16 19:59; Start 09/13/16 at 16:30; Stop at 00:29; Status DC Fentanyl Citrate (Fentanyl 2ml Vial) 50 mcg 1X ONCE IV Last administered on 17:06; Start 09/13/16 at 16:30; Stop 09/14/16 at 11:17; Status DC Fentanyl Citrate (Fentanyl 2ml Vial) 50 mcg PRN Q2HR PRN IV PAIN Last administered on 09/14/16 09:28; Start 09/13/16 at 16:30; Stop 09/14/16 at 11:17 ; Status DC Fentanyl Citrate (Fentanyl 2ml Vial) 75 mcg PRN Q2HR PRN IV PAIN Last administered on 09/14/16 00:01; Start 09/13/16 at 20:00; Stop 09/14/16 at 11:17 ; Status DC Fentanyl Citrate (Fentanyl 2ml Vial) 100 mcg PRN Q2HR PRN IV PAIN Last administered on 09/14/16 06:27; Start 09/13/16 at 20:00; Stop 09/14/16 at 11:17 ; Status DC Famotidine (Pepcid) 20 mg BID IVP Last administered on 09/23/16 08:27; Start at 21:00 Diphenhydramine HCl (Benadryl) 50 mg PRN Q6HRS PRN IVP ITCHING Last administered on 09/18/16 23:50; Start 09/13/16 at 20:15 Calcium Carbonate/ Glycine (Tums) 200 mg PRN Q4HRS PRN PO INDIGESTION Last administered on 09/18/16 23:56; Start 09/13/16 at 20:30; Stop 09/20/16 at 18:50; Status DC Ibuprofen 200 mg 200 mg PRN Q6HRS PRN PO PAIN; Start 09/13/16 at 21:00; Stop at 00:17; Status DC Piperacillin Sod/ Tazobactam Sod/ Sodium Chloride (Zosyn/Iv Sodium Chloride 0.9 % 50ml) 50 ml @ 100 mls/hr Q6HRS IV Last administered on 09/19/16 06:10; Start 09/14/16 at 00:30; Stop 09/19/16 at 10:19; Status DC Ibuprofen (Motrin) 400 mg PRN Q6HRS PRN PO MILD PAIN / TEMP Last administered on 09/14/16 15:04; Start 09/14/16 at 00:30; Stop 09/14/16 at 20:33; Status DC Hydromorphone HCl (Dilaudid) 1 mg PRN Q2HR PRN IV PAIN Last administered on 09/23 13:20; Start 09/14/16 at 11:15 Hydromorphone HCl (Dilaudid) 2 mg PRN Q2HR PRN IV PAIN Last administered on 09/22 21:48; Start 09/14/16 at 11:30 Ibuprofen 400 mg 400 mg PRN Q4HRS PRN PO MILD PAIN / TEMP Last administered on 09/23/16 08:28; Start 09/14/16 at 20:30 Sodium Chloride 1,000 ml @ 1,000 mls/hr 1X ONCE IV Last administered on 09:31; Start 09/15/16 at 09:15; Stop 09/15/16 at 10:14; Status DC Sodium Chloride (Iv Sodium Chloride 0.9% 1000ml Bag) 1,000 ml @ 0 mls/hr Q8H IV Last administered on 09/21/16 06:15; Start 09/15/16 at 09:15 Bisacodyl (Dulcolax Supp) 10 mg PRN DAILY PRN SC CONSTIPATION Last administered on 09/15/16 15:09; Start 09/15/16 at 12:15 Ondansetron HCl (Zofran) 4 mg PRN Q6HRS PRN IV NAUSEA/VOMITING; Start 09/15/16 at 23:45; Stop 09/22/16 at 13:47; Status DC Lubiprostone (Amitiza) 8 mcg BIDWMEALS PO Last administered on 09/16/16 15:04 ; Start 09/16/16 at 14:00; Stop 09/18/16 at 09:49; Status DC Iohexol (Omnipaque 300 Mg/ml) 75 ml 1X ONCE IV Last administered on 09/17/16 10:27; Start 09/17/16 at 09:45; Stop 09/17/16 at 09:46; Status DC Info (Do NOT chart on this entry -- for MONITORING) 1 each PRN DAILY PRN MC SEE COMMENTS; Start 09/17/16 at 09:45; Stop 09/19/16 at 09:44; Status DC Tamsulosin HCl (Flomax) 0.4 mg DAILY PO Last administered on 09/23/16 08:28; Start 09/17/16 at 12:00 Polyethylene Glycol (miraLAX PACKET) 17 gm PRN DAILY PRN PO CONSTIPATION Last administered on 09/19/16 08:29; Start 09/18/16 at 10:00 Potassium Chloride 40 meq 40 meq 1X ONCE PO Last administered on 09/18/16 12: 00; Start 09/18/16 at 12:00; Stop 09/18/16 at 12:02; Status DC Meropenem/Sodium Chloride (Merrem/Iv Sodium Chloride 0.9% 100ml) 100 ml @ 200 mls/hr Q8HRS IV Last administered on 09/23/16 05:52; Start 09/19/16 at 14:00; Stop 09/23/16 at 08:54; Status DC Simethicone (Gas-X) 80 mg PRN AFTMEALHC PRN PO GAS / BLOATING Last administered on 09/23/16 08:27; Start 09/19/16 at 12:00 Ondansetron HCl (Zofran) 4 mg PRN Q6HRS PRN IV Nausea; Start 09/22/16 at 07:00; Stop 09/22/16 at 13:47; Status DC Fentanyl Citrate (Fentanyl 2ml Vial) 25 mcg PRN Q5MIN PRN IV MILD PAIN Last administered on 09/22/16 11:48; Start 09/22/16 at 07:00; Stop 09/22/16 at 13:48; Status DC Fentanyl Citrate (Fentanyl 2ml Vial) 50 mcg PRN Q5MIN PRN IV MODERATE PAIN Last administered on 09/22/16 10:36; Start 09/22/16 at 07:00; Stop 09/22/16 at 13: 48; Status DC Morphine Sulfate 1 mg 1 mg PRN Q10MIN PRN IV SEVERE PAIN; Start 09/22/16 at 07: 00; Stop 09/22/16 at 13:48; Status DC Lactated Ringer's (Iv Lactated Ringers) 1,000 ml @ 30 mls/hr Q24H IV Last administered on 09/22/16 07:30; Start 09/22/16 at 07:00; Stop 09/22/16 at 13:48; Status DC Lidocaine HCl 2 ml 1X PRN PRN ID IV START; Start 09/22/16 at 07:00; Stop at 13:48; Status DC Hydromorphone HCl (Dilaudid) 0.5 mg PRN Q10MIN PRN IV SEVERE PAIN, Second choice; Start 09/22/16 at 07:00; Stop 09/22/16 at 13:48; Status DC Prochlorperazine Edisylate (Compazine) 5 mg PACU PRN PRN IV NAUSEA; Start at 07:00; Stop 09/22/16 at 13:48; Status DC Zolpidem Tartrate (Ambien) 5 mg PRN QHS PRN PO INSOMNIA, MAY REPEAT X1; Start 09/19/16 at 16:45 Magnesium Citrate (Citroma) 296 ml PRN 1X PRN PO CONSTIPATION Last administered on 09/19/16 19:46; Start 09/19/16 at 19:00 Calcium Carbonate/ Glycine (Tums) 500 mg PRN Q4HRS PRN PO INDIGESTION Last administered on 09/23/16 09:54; Start 09/20/16 at 19:00 Enoxaparin Sodium 60 mg 60 mg Q12HR SQ Last administered on 09/23/16 08:29; Start 09/21/16 at 10:00 Heparin Sodium (Porcine)/Sodium Chloride (Iv Sodium Chloride 0.9% 1000ml Bag) 1, 001 ml @ 1,001 mls/hr 1X PERIOP ONCE IRR Last administered on 09/22/16 10:04 ; Start 09/22/16 at 06:00; Stop 09/22/16 at 06:59; Status DC Potassium Chloride 40 meq 40 meq 1X ONCE PO Last administered on 09/21/16 14: 03; Start 09/21/16 at 13:00; Stop 09/21/16 at 13:01; Status DC Cefazolin Sodium/ Dextrose 50 ml @ 100 mls/hr 1X PREOP IV ; Start 09/21/16 at 20:00; Stop 09/21/16 at 23:00; Status DC Cefazolin Sodium/ Dextrose 50 ml @ 100 mls/hr 1X PREOP PRN IV Pre Op; Start at 06:00; Stop 09/22/16 at 06:54; Status DC Propofol 40 ml @ As Directed STK-MED ONCE IV ; Start 09/22/16 at 06:39; Stop 09/22 at 07:28; Status DC Propofol (Diprivan) 40 ml @ As Directed STK-MED ONCE IV ; Start 09/22/16 at 06:44 ; Stop 09/22/16 at 07:28; Status DC Midazolam HCl (Versed) 2 mg STK-MED ONCE .ROUTE ; Start 09/22/16 at 06:44; Stop 09/22/16 at 07:28; Status DC Fentanyl Citrate (Fentanyl 5ml Vial) 250 mcg STK-MED ONCE .ROUTE ; Start at 06:45; Stop 09/22/16 at 07:28; Status DC Succinylcholine Chloride (Anectine) 200 mg STK-MED ONCE .ROUTE ; Start 09/22/16 at 06:46; Stop 09/22/16 at 07:28; Status DC Glycopyrrolate (Robinul) 1 mg STK-MED ONCE .ROUTE ; Start 09/22/16 at 06:46; Stop 09/22/16 at 07:28; Status DC Neostigmine Methylsulfate 5 mg STK-MED ONCE .ROUTE ; Start 09/22/16 at 06:47; Stop 09/22/16 at 07:28; Status DC Rocuronium [place] 50 mg 50 mg STK-MED ONCE .ROUTE ; Start 09/22/16 at 06:48; Stop 09/22/16 at 07:28; Status DC Cefazolin Sodium/ Dextrose 0 ml @ As Directed STK-MED ONCE IV ; Start 09/22/16 at 06:48; Stop 09/22/16 at 07:28; Status DC Cefazolin Sodium/ Dextrose 50 ml @ 100 mls/hr 1X PREOP PRN IV Pre Op; Start at 06:00; Stop 09/23/16 at 06:00; Status DC Heparin Sodium (Porcine)/Sodium Chloride (Iv Sodium Chloride 0.9% 1000ml Bag) 1, 001 ml @ 1,001 mls/hr 1X PERIOP ONCE IRR ; Start 09/22/16 at 09:11; Stop at 10:14; Status DC Enoxaparin Sodium (Lovenox 40mg Syringe) 40 mg Q24H SQ ; Start 09/22/16 at 09:30 ; Status UNV Sodium Chloride 3 ml 3 ml QSHIFT PRN IV AFTER MEDS AND BLOOD DRAWS; Start at 09:30 Lactated Ringer's (Iv Lactated Ringers) 1,000 ml @ 100 mls/hr Q10H IV Last administered on 09/23/16 03:07; Start 09/22/16 at 09:24 Dextrose 12.5 gm PRN Q15MIN PRN IV SEE COMMENTS; Start 09/22/16 at 09:30 Acetaminophen/ Hydrocodone Bitart (Lortab 5/325) 1 tab PRN Q4HRS PRN PO MILD PAIN Last administered on 09/23/16 08:28; Start 09/22/16 at 09:30 Docusate Sodium (Colace) 100 mg BID PO Last administered on 09/23/16 08:28; Start 09/22/16 at 21:00 Ondansetron HCl (Zofran) 4 mg PRN Q6HRS PRN IV NAUESA, 1ST CHOICE; Start at 09:30 Bupivacaine HCl/ Epinephrine Bitart (Sensorcain-Mpf Epi 0.5%-1:017037) 30 ml STK -MED ONCE INJ Last administered on 09/22/16 08:30; Start 09/22/16 at 08:30; Stop 09/22/16 at 10:13; Status DC Iohexol (Omnipaque 300 Mg/ml) 50 ml STK-MED ONCE IV Last administered on 09:00; Start 09/22/16 at 09:00; Stop 09/22/16 at 10:13; Status DC Bisacodyl (Dulcolax Supp) 10 mg STK-MED ONCE SC Last administered on 09/22/16 09:24; Start 09/22/16 at 09:24; Stop 09/22/16 at 10:14; Status DC Metoprolol Tartrate (Lopressor) 5 mg 1X ONCE IVP Last administered on t 10:14; Start 09/22/16 at 10:30; Stop 09/22/16 at 10:31; Status DC Bupivacaine HCl/ Epinephrine Bitart (Sensorcain-Mpf Epi 0.5%-1:[id number]) 30 ml STK -MED ONCE .ROUTE ; Start 09/22/16 at 07:41; Stop 09/23/16 at 08:05; Status DC Iohexol (Omnipaque 300 Mg/ml) 50 ml STK-MED ONCE .ROUTE ; Start 09/22/16 at 07:41 ; Stop 09/23/16 at 08:05; Status DC Cellulose 1 each STK-MED ONCE .ROUTE ; Start 09/22/16 at 07:41; Stop 09/23/16 at 08:05; Status DC Bisacodyl 10 mg 10 mg STK-MED ONCE .ROUTE ; Start 09/22/16 at 07:41; Stop at 08:05; Status DC Cefazolin Sodium/ Dextrose (Ancef 2gm Premix) 0 ml @ As Directed STK-MED ONCE IV ; Start 09/22/16 at 07:54; Stop 09/23/16 at 08:05; Status DC Rocuronium [place] (Zemuron) 50 mg STK-MED ONCE .ROUTE ; Start 09/22/16 at 08:39 ; Stop 09/23/16 at 08:05; Status DC Metoprolol Tartrate (Lopressor) 5 mg STK-MED ONCE .ROUTE ; Start 09/22/16 at 10: 12; Stop 09/23/16 at 08:05; Status DC Fentanyl Citrate (Fentanyl 2ml Vial) 100 mcg STK-MED ONCE .ROUTE ; Start at 10:21; Stop 09/23/16 at 08:05; Status DC Prochlorperazine Edisylate (Compazine) 10 mg STK-MED ONCE .ROUTE ; Start at 10:49; Stop 09/23/16 at 08:05; Status DC Fentanyl Citrate (Fentanyl 2ml Vial) 100 mcg STK-MED ONCE .ROUTE ; Start at 11:11; Stop 09/23/16 at 08:05; Status DC Amoxicillin/ Clavulanate Potassium (Augmentin 875/ 125mg) 1 tab BID PO Last administered on 09/23/16t 13:16; Start 09/23/16 at 09:30 Cefazolin Sodium/ Dextrose (Ancef 2gm Premix) 2 gm STK-MED ONCE IV ; Start at 07:52; Stop 09/23/16 at 09:09; Status DC Active Scripts Active Reported Ibuprofen 100 Mg Tablet 100 Mg PO PRN Q6HRS PRN Tums (Calcium Carbonate) 200 Mg Tab.chew 200 Mg PO PRN Q4HRS PRN Vitals/I & O Vital Sign - Last 24 Hours 09/22/16 09/22/16 09/22/16 09/22/16 16:29 19:30 19:33 19:41 Temp 98.0 98.0 Pulse 116 Resp 20 B/P 127/71 Pulse Ox 93 O2 Delivery Nasal Cannula Nasal Cannula Nasal Cannula Nasal Cannula O2 Flow Rate 2.0 2.0 09/22/16 09/22/16 09/22/16 09/22/16 20:30 21:48 22:50 22:54 Temp 97.5 97.5 Pulse 76 Resp 18 B/P 119/74 Pulse Ox 95 O2 Delivery Room Air Nasal Cannula Room Air Nasal Cannula 09/23/16 09/23/16 09/23/16 09/23/16 00:27 00:49 03:00 07:00 Temp 97.7 98.3 97.7 98.3 Pulse 80 97 Resp 20 18 B/P 135/85 132/72 Pulse Ox 94 95 O2 Delivery Nasal Cannula Nasal Cannula Nasal Cannula Nasal Cannula 09/23/16 09/23/16 09/23/16 09/23/16 08:00 08:28 09:33 11:00 Temp 98.4 98.4 Pulse 97 Resp 18 B/P 138/82 Pulse Ox 95 O2 Delivery Nasal Cannula Nasal Cannula Nasal Cannula Nasal Cannula O2 Flow Rate 1.0 2.0 2.0 09/23/16 09/23/16 13:20 14:14 O2 Delivery Nasal Cannula Nasal Cannula O2 Flow Rate 1.0 1.0 Intake and Output 09/22/16 09/22/16 09/23/16 15:00 23:00 07:00 Intake Total 2050 ml 2216 ml Output Total 275 ml 250 ml Balance 1775 ml 1966 ml JAGDISH CHU MD Sep 23, 2016 15:58
--- NOTE | 2016-09-23 16:49 | PATHOLOGY ---
PATHOLOGY REPORT * * * * * * * * FINAL DIAGNOSIS: Gallbladder, laparoscopic cholecystectomy: - Cholelithiasis. - Chronic cholecystitis with focally increased eosinophils. COMMENT: There is no evidence of malignancy. (JPM:csd; d/t: 09/23/2016) REPORT ELECTRONICALLY SIGNED BY: Pato Fairchild M.D. DATE/TIME: 09/23/2016 16:48 * * * * * * * * GROSS PATHOLOGY: Received in formalin labeled "Jones Ferguson, gallbladder and contents," is an 11.8 x 3.5 x 3.2 cm, previously opened gallbladder with pink-mcelroy to adipose covered serosal surfaces. Opening the gallbladder reveals a trabeculated, pink-mcelroy mucosa and an average wall thickness of 0.1 cm. Calculi are present displaying a black and multifaceted appearance, and no masses are noted grossly. Radiation Protection Engineer sections from the body and fundus are submitted along with the proximal margin in cassette A1. (CAA; 09/22/2016) INITIAL CPT CODE(S): A; 18600 Professional services performed by [facility] [place] [address] Technical services performed by [facility] at [address] [place] [address] [address] [address]. SPECIMEN(S) RECEIVED: A.Gallbladder and contents CLINICAL HISTORY: Acute pancreatitis, abdominal pain, acute cholelithiasis PATIENT: JONES FERGUSON /AGE: 8 1985 (Age: 31) PATIENT #: [id number] ALT CASE #: SPECIMEN COLLECTION DATE: 09/22/2016 SPECIMEN RECEIVED DATE: 09/22/2016 [facility] - [address] [place] [address] - PHONE: [phone] * * * END OF REPORT * * *
[2016-09-24 03:22] VITALS: BP 144/84
[2016-09-24 05:18] LABS: BASO % 0 % (0-3); EOS % 1 % (0-3); HEMATOCRIT 23.8 % (39.0-53.0); HEMOGLOBIN 7.7 g/dL (13.0-17.5); LYMPH # 3.3 x10^3/uL (1.0-4.8); LYMPH % 22 % (24-48); MEAN CORPUSCULAR HEMOGLOBIN 29 pg (25-35); MEAN CORPUSCULAR HGB CONC 33 g/dL (31-37); MEAN CORPUSCULAR VOLUME 89 fL (79-100); MONO % 7 % (0-9); NEUT % 70 % (31-73); PLATELET COUNT 271 x10^3/uL (140-400); RED BLOOD COUNT 2.67 x10^6/uL (4.30-5.70); RED CELL DISTRIBUTION WIDTH 13.4 % (11.5-14.5); WHITE BLOOD COUNT 14.7 x10^3/uL (4.0-11.0)
[2016-09-24 05:40] LABS: CALCIUM 8.4 mg/dL (8.5-10.1); CREATININE 0.9 mg/dL (0.7-1.3); GFR 97.2; POTASSIUM 3.8 mmol/L (3.5-5.1)
[2016-09-24 07:43] VITALS: BP 128/80
[2016-09-24] MEDS: FAMOTIDINE 20 MG/2 ML VIAL IVP SCH ×2 (09:00→09:19)
[2016-09-24] MEDS: TAMSULOSIN 0.4 MG CAP.ER.24H. PO SCH (09:00)
[2016-09-24] MEDS: DOCUSATE SODIUM 100 MG CAPSULE PO SCH ×2 (09:00→21:00)
[2016-09-24] MEDS: AMOXICILLIN/K CLAV 875/125MG TABLET. PO SCH ×2 (09:18→21:00)
[2016-09-24] MEDS: HYDROCODONE/APAP 5/325MG TABLET. PO PRN ×2 (09:19→17:01)
[2016-09-24] MEDS: IBUPROFEN 400 MG TABLET. PO PRN ×2 (09:19→17:01)
[2016-09-24] MEDS: ENOXAPARIN ** NOTE DOSE ** SYRINGE SQ SCH ×2 (09:20→21:00)
--- NOTE | 2016-09-24 10:34 | PDOC ---
Subjective: Subjective: Feels cold. Abd discomfort. Eating some. Had BM. No bleeding. Objective: Objective: Hgb 10.2 to 7.7. Vital Signs: Vital Signs Date Time Temp Pulse Resp B/P Pulse Ox O2 Delivery O2 Flow Rate FiO2 09/24/16 09:19 Room Air 09/24/16 07:43 97.9 80 18 128/80 95 97.9 09/23/16 14:14 1.0 Labs: Laboratory Tests Test 09/24/16 05:05 White Blood Count 14.7x10^3/uL Red Blood Count 2.67x10^6/uL Hemoglobin 7.7g/dL Hematocrit 23.8% Mean Corpuscular Volume 89fL Mean Corpuscular Hemoglobin 29pg Mean Corpuscular Hemoglobin Concent 33g/dL Red Cell Distribution Width 13.4% Platelet Count 271x10^3/uL Neutrophils (%) (Auto) 70% Lymphocytes (%) (Auto) 22% Monocytes (%) (Auto) 7% Eosinophils (%) (Auto) 1% Basophils (%) (Auto) 0% Neutrophils # (Auto) 10.2x10^3uL Lymphocytes # (Auto) 3.3x10^3/uL Monocytes # (Auto) 1.0x10^3/uL Eosinophils # (Auto) 0.1x10^3/uL Basophils # (Auto) 0.0x10^3/uL Sodium Level 145mmol/L Potassium Level 3.8mmol/L Chloride Level 107mmol/L Carbon Dioxide Level 33mmol/L Anion Gap 5 Blood Urea Nitrogen 14mg/dL Creatinine 0.9mg/dL Estimated GFR (Cockcroft-Gault) 97.2 Glucose Level 93mg/dL Calcium Level 8.4mg/dL PE: GEN: NAD, up to chair LUNGS: CTAB HEART: RRR ABD: NABS, S/ND, some RUQ tenderness, obese NEURO/PSYCH: A & O 3 A/P: Gallstones pancreatitis s/p cholecystectomy 09/22/16 Abd discomfort Leukocytosis - improved Anemia -- Tolerating diet w/ some ongoing abd discomfort post-op. ?drop in Hgb - will review w/ Dr. Buckner. FATOU PALACIOS Sep 24, 2016 10:34
[2016-09-24] MEDS: CALCIUM CARBONATE 500 MG TAB.CHEW PO PRN (10:46)
[2016-09-24 11:13] VITALS: BP 138/66
--- NOTE | 2016-09-24 13:25 | PDOC ---
PROGRESS NOTES Chief Complaint Chief Complaint CC: Acute Abdominal Pain 1. Gallstone Pancreatitis 2. Morbid Obesity- BMI 55 3. Fevers, resolved 4 mass of right kidney, poss renal cyst History of Present Illness History of Present Illness anxiety, soreness, does not feel well today LE edema plan to DC soon, repeat needs OOB, some assist Vitals Vitals Vital Signs Date Time Temp Pulse Resp B/P Pulse Ox O2 Delivery O2 Flow Rate FiO2 09/24/16 11:13 98.6 81 18 138/66 97 Room Air 98.6 09/23/16 14:14 1.0 Physical Exam Physical Exam pain 4 or 5/10 General: Alert, Oriented X3, Cooperative, mild distress Heart: Regular rate, No murmurs Lungs: Clear Abdomen: Soft, Other (dressing c/d/i, appropriate TTP) Extremities: No clubbing Skin: No rashes, No breakdown Labs LABS Laboratory Tests Test 09/24/16 05:05 White Blood Count 14.7x10^3/uL (4.0-11.0) Red Blood Count 2.67x10^6/uL (4.30-5.70) Hemoglobin 7.7g/dL (13.0-17.5) Hematocrit 23.8% (39.0-53.0) Mean Corpuscular Volume 89fL (79-100) Mean Corpuscular Hemoglobin 29pg (25-35) Mean Corpuscular Hemoglobin Concent 33g/dL (31-37) Red Cell Distribution Width 13.4% (11.5-14.5) Platelet Count 271x10^3/uL (140-400) Neutrophils (%) (Auto) 70% (31-73) Lymphocytes (%) (Auto) 22% (24-48) Monocytes (%) (Auto) 7% (0-9) Eosinophils (%) (Auto) 1% (0-3) Basophils (%) (Auto) 0% (0-3) Neutrophils # (Auto) 10.2x10^3uL (1.8-7.7) Lymphocytes # (Auto) 3.3x10^3/uL (1.0-4.8) Monocytes # (Auto) 1.0x10^3/uL (0.0-1.1) Eosinophils # (Auto) 0.1x10^3/uL (0.0-0.7) Basophils # (Auto) 0.0x10^3/uL (0.0-0.2) Sodium Level 145mmol/L (136-145) Potassium Level 3.8mmol/L (3.5-5.1) Chloride Level 107mmol/L (98-107) Carbon Dioxide Level 33mmol/L (21-32) Anion Gap 5 (6-14) Blood Urea Nitrogen 14mg/dL (8-26) Creatinine 0.9mg/dL (0.7-1.3) Estimated GFR (Cockcroft-Gault) 97.2 Glucose Level 93mg/dL (70-99) Calcium Level 8.4mg/dL (8.5-10.1) Assessment and Plan Assessmemt and Plan Problems Medical Problems: (1) Acute pancreatitis Status: Acute (2) Gallstone pancreatitis Status: Acute Problems: Comment Review of Relevant I have reviewed the following items arelis (where applicable) has been applied. Labs Laboratory Tests Test 09/23/16 03:40 09/24/16 05:05 White Blood Count 28.5x10^3/uL (4.0-11.0) 14.7x10^3/uL (4.0-11.0) Red Blood Count 3.58x10^6/uL (4.30-5.70) 2.67x10^6/uL (4.30-5.70) Hemoglobin 10.2g/dL (13.0-17.5) 7.7g/dL (13.0-17.5) Hematocrit 31.5% (39.0-53.0) 23.8% (39.0-53.0) Mean Corpuscular Volume 88fL (79-100) 89fL (79-100) Mean Corpuscular Hemoglobin 29pg (25-35) 29pg (25-35) Mean Corpuscular Hemoglobin Concent 32g/dL (31-37) 33g/dL (31-37) Red Cell Distribution Width 13.5% (11.5-14.5) 13.4% (11.5-14.5) Platelet Count 406x10^3/uL (140-400) 271x10^3/uL (140-400) Neutrophils (%) (Auto) 90% (31-73) 70% (31-73) Lymphocytes (%) (Auto) 5% (24-48) 22% (24-48) Monocytes (%) (Auto) 4% (0-9) 7% (0-9) Eosinophils (%) (Auto) 0% (0-3) 1% (0-3) Basophils (%) (Auto) 0% (0-3) 0% (0-3) Neutrophils # (Auto) 25.8x10^3uL (1.8-7.7) 10.2x10^3uL (1.8-7.7) Lymphocytes # (Auto) 1.4x10^3/uL (1.0-4.8) 3.3x10^3/uL (1.0-4.8) Monocytes # (Auto) 1.2x10^3/uL (0.0-1.1) 1.0x10^3/uL (0.0-1.1) Eosinophils # (Auto) 0.0x10^3/uL (0.0-0.7) 0.1x10^3/uL (0.0-0.7) Basophils # (Auto) 0.1x10^3/uL (0.0-0.2) 0.0x10^3/uL (0.0-0.2) Segmented Neutrophils % 84% (35-66) Band Neutrophils % 6% (0-9) Lymphocytes % 7% (24-48) Monocytes % 2% (0-10) Myelocytes % 1% (0-0) Toxic Granulation Mod Platelet Estimate Adequate (ADEQUATE) Sodium Level 144mmol/L (136-145) 145mmol/L (136-145) Potassium Level 4.3mmol/L (3.5-5.1) 3.8mmol/L (3.5-5.1) Chloride Level 106mmol/L (98-107) 107mmol/L (98-107) Carbon Dioxide Level 27mmol/L (21-32) 33mmol/L (21-32) Anion Gap 11 (6-14) 5 (6-14) Blood Urea Nitrogen 12mg/dL (8-26) 14mg/dL (8-26) Creatinine 1.2mg/dL (0.7-1.3) 0.9mg/dL (0.7-1.3) Estimated GFR (Cockcroft-Gault) 69.7 97.2 Glucose Level 129mg/dL (70-99) 93mg/dL (70-99) Calcium Level 9.1mg/dL (8.5-10.1) 8.4mg/dL (8.5-10.1) Laboratory Tests Test 09/24/16 05:05 White Blood Count 14.7x10^3/uL (4.0-11.0) Red Blood Count 2.67x10^6/uL (4.30-5.70) Hemoglobin 7.7g/dL (13.0-17.5) Hematocrit 23.8% (39.0-53.0) Mean Corpuscular Volume 89fL (79-100) Mean Corpuscular Hemoglobin 29pg (25-35) Mean Corpuscular Hemoglobin Concent 33g/dL (31-37) Red Cell Distribution Width 13.4% (11.5-14.5) Platelet Count 271x10^3/uL (140-400) Neutrophils (%) (Auto) 70% (31-73) Lymphocytes (%) (Auto) 22% (24-48) Monocytes (%) (Auto) 7% (0-9) Eosinophils (%) (Auto) 1% (0-3) Basophils (%) (Auto) 0% (0-3) Neutrophils # (Auto) 10.2x10^3uL (1.8-7.7) Lymphocytes # (Auto) 3.3x10^3/uL (1.0-4.8) Monocytes # (Auto) 1.0x10^3/uL (0.0-1.1) Eosinophils # (Auto) 0.1x10^3/uL (0.0-0.7) Basophils # (Auto) 0.0x10^3/uL (0.0-0.2) Sodium Level 145mmol/L (136-145) Potassium Level 3.8mmol/L (3.5-5.1) Chloride Level 107mmol/L (98-107) Carbon Dioxide Level 33mmol/L (21-32) Anion Gap 5 (6-14) Blood Urea Nitrogen 14mg/dL (8-26) Creatinine 0.9mg/dL (0.7-1.3) Estimated GFR (Cockcroft-Gault) 97.2 Glucose Level 93mg/dL (70-99) Calcium Level 8.4mg/dL (8.5-10.1) Medications Current Medications Sodium Chloride (Iv Sodium Chloride 0.9% 1000ml Bag) 1,000 ml @ 1,000 mls/hr Q1H IV Last administered on 09/13/16 14:23; Start 09/13/16 at 14:06; Stop at 17:10; Status DC Fentanyl Citrate (Fentanyl 2ml Vial) 50 mcg 1X ONCE IV Last administered on 14:32; Start 09/13/16 at 14:15; Stop 09/14/16 at 11:17; Status DC Ondansetron HCl (Zofran) 4 mg 1X ONCE IV Last administered on 09/13/16 14:32 ; Start 09/13/16 at 14:15; Stop 09/13/16 at 14:16; Status DC Iohexol (Omnipaque 300 Mg/ml) 75 ml 1X ONCE IV Last administered on 09/13/16 15:27; Start 09/13/16 at 15:00; Stop 09/13/16 at 17:10; Status DC Info 1 each 1 each PRN DAILY PRN MC SEE COMMENTS; Start 09/13/16 at 15:15; Stop 09/15/16 at 15:14; Status DC Sodium Chloride (Iv Sodium Chloride 0.9% 1000ml Bag) 1,000 ml @ 125 mls/hr 1X ONCE IV Last administered on 09/13/16 19:59; Start 09/13/16 at 16:30; Stop at 00:29; Status DC Fentanyl Citrate (Fentanyl 2ml Vial) 50 mcg 1X ONCE IV Last administered on 17:06; Start 09/13/16 at 16:30; Stop 09/14/16 at 11:17; Status DC Fentanyl Citrate (Fentanyl 2ml Vial) 50 mcg PRN Q2HR PRN IV PAIN Last administered on 09/14/16 09:28; Start 09/13/16 at 16:30; Stop 09/14/16 at 11:17 ; Status DC Fentanyl Citrate (Fentanyl 2ml Vial) 75 mcg PRN Q2HR PRN IV PAIN Last administered on 09/14/16 00:01; Start 09/13/16 at 20:00; Stop 09/14/16 at 11:17 ; Status DC Fentanyl Citrate (Fentanyl 2ml Vial) 100 mcg PRN Q2HR PRN IV PAIN Last administered on 09/14/16 06:27; Start 09/13/16 at 20:00; Stop 09/14/16 at 11:17 ; Status DC Famotidine (Pepcid) 20 mg BID IVP Last administered on 09/23/16 20:50; Start at 21:00; Stop 09/24/16 at 12:08; Status DC Diphenhydramine HCl (Benadryl) 50 mg PRN Q6HRS PRN IVP ITCHING Last administered on 09/18/16 23:50; Start 09/13/16 at 20:15 Calcium Carbonate/ Glycine (Tums) 200 mg PRN Q4HRS PRN PO INDIGESTION Last administered on 09/18/16 23:56; Start 09/13/16 at 20:30; Stop 09/20/16 at 18:50; Status DC Ibuprofen 200 mg 200 mg PRN Q6HRS PRN PO PAIN; Start 09/13/16 at 21:00; Stop at 00:17; Status DC Piperacillin Sod/ Tazobactam Sod/ Sodium Chloride (Zosyn/Iv Sodium Chloride 0.9 % 50ml) 50 ml @ 100 mls/hr Q6HRS IV Last administered on 09/19/16 06:10; Start 09/14/16 at 00:30; Stop 09/19/16 at 10:19; Status DC Ibuprofen (Motrin) 400 mg PRN Q6HRS PRN PO MILD PAIN / TEMP Last administered on 09/14/16 15:04; Start 09/14/16 at 00:30; Stop 09/14/16 at 20:33; Status DC Hydromorphone HCl (Dilaudid) 1 mg PRN Q2HR PRN IV PAIN Last administered on 09/23 13:20; Start 09/14/16 at 11:15 Hydromorphone HCl (Dilaudid) 2 mg PRN Q2HR PRN IV PAIN Last administered on 09/22 21:48; Start 09/14/16 at 11:30 Ibuprofen 400 mg 400 mg PRN Q4HRS PRN PO MILD PAIN / TEMP Last administered on 09/24/16 09:19; Start 09/14/16 at 20:30 Sodium Chloride 1,000 ml @ 1,000 mls/hr 1X ONCE IV Last administered on 09:31; Start 09/15/16 at 09:15; Stop 09/15/16 at 10:14; Status DC Sodium Chloride (Iv Sodium Chloride 0.9% 1000ml Bag) 1,000 ml @ 0 mls/hr Q8H IV Last administered on 09/21/16 06:15; Start 09/15/16 at 09:15 Bisacodyl (Dulcolax Supp) 10 mg PRN DAILY PRN WI CONSTIPATION Last administered on 09/15/16 15:09; Start 09/15/16 at 12:15 Ondansetron HCl (Zofran) 4 mg PRN Q6HRS PRN IV NAUSEA/VOMITING; Start 09/15/16 at 23:45; Stop 09/22/16 at 13:47; Status DC Lubiprostone (Amitiza) 8 mcg BIDWMEALS PO Last administered on 09/16/16 15:04 ; Start 09/16/16 at 14:00; Stop 09/18/16 at 09:49; Status DC Iohexol (Omnipaque 300 Mg/ml) 75 ml 1X ONCE IV Last administered on 09/17/16 10:27; Start 09/17/16 at 09:45; Stop 09/17/16 at 09:46; Status DC Info (Do NOT chart on this entry -- for MONITORING) 1 each PRN DAILY PRN MC SEE COMMENTS; Start 09/17/16 at 09:45; Stop 09/19/16 at 09:44; Status DC Tamsulosin HCl (Flomax) 0.4 mg DAILY PO Last administered on 09/23/16 08:28; Start 09/17/16 at 12:00 Polyethylene Glycol (miraLAX PACKET) 17 gm PRN DAILY PRN PO CONSTIPATION Last administered on 09/19/16 08:29; Start 09/18/16 at 10:00 Potassium Chloride 40 meq 40 meq 1X ONCE PO Last administered on 09/18/16 12: 00; Start 09/18/16 at 12:00; Stop 09/18/16 at 12:02; Status DC Meropenem/Sodium Chloride (Merrem/Iv Sodium Chloride 0.9% 100ml) 100 ml @ 200 mls/hr Q8HRS IV Last administered on 09/23/16 05:52; Start 09/19/16 at 14:00; Stop 09/23/16 at 08:54; Status DC Simethicone (Gas-X) 80 mg PRN AFTMEALHC PRN PO GAS / BLOATING Last administered on 09/23/16 08:27; Start 09/19/16 at 12:00 Ondansetron HCl (Zofran) 4 mg PRN Q6HRS PRN IV Nausea; Start 09/22/16 at 07:00; Stop 09/22/16 at 13:47; Status DC Fentanyl Citrate (Fentanyl 2ml Vial) 25 mcg PRN Q5MIN PRN IV MILD PAIN Last administered on 09/22/16 11:48; Start 09/22/16 at 07:00; Stop 09/22/16 at 13:48; Status DC Fentanyl Citrate (Fentanyl 2ml Vial) 50 mcg PRN Q5MIN PRN IV MODERATE PAIN Last administered on 09/22/16 10:36; Start 09/22/16 at 07:00; Stop 09/22/16 at 13: 48; Status DC Morphine Sulfate 1 mg 1 mg PRN Q10MIN PRN IV SEVERE PAIN; Start 09/22/16 at 07: 00; Stop 09/22/16 at 13:48; Status DC Lactated Ringer's (Iv Lactated Ringers) 1,000 ml @ 30 mls/hr Q24H IV Last administered on 09/22/16 07:30; Start 09/22/16 at 07:00; Stop 09/22/16 at 13:48; Status DC Lidocaine HCl 2 ml 1X PRN PRN ID IV START; Start 09/22/16 at 07:00; Stop at 13:48; Status DC Hydromorphone HCl (Dilaudid) 0.5 mg PRN Q10MIN PRN IV SEVERE PAIN, Second choice; Start 09/22/16 at 07:00; Stop 09/22/16 at 13:48; Status DC Prochlorperazine Edisylate (Compazine) 5 mg PACU PRN PRN IV NAUSEA; Start at 07:00; Stop 09/22/16 at 13:48; Status DC Zolpidem Tartrate (Ambien) 5 mg PRN QHS PRN PO INSOMNIA, MAY REPEAT X1; Start 09/19/16 at 16:45 Magnesium Citrate (Citroma) 296 ml PRN 1X PRN PO CONSTIPATION Last administered on 09/19/16 19:46; Start 09/19/16 at 19:00 Calcium Carbonate/ Glycine (Tums) 500 mg PRN Q4HRS PRN PO INDIGESTION Last administered on 09/24/16 10:46; Start 09/20/16 at 19:00 Enoxaparin Sodium 60 mg 60 mg Q12HR SQ Last administered on 09/24/16 09:20; Start 09/21/16 at 10:00 Heparin Sodium (Porcine)/Sodium Chloride (Iv Sodium Chloride 0.9% 1000ml Bag) 1, 001 ml @ 1,001 mls/hr 1X PERIOP ONCE IRR Last administered on 09/22/16 10:04 ; Start 09/22/16 at 06:00; Stop 09/22/16 at 06:59; Status DC Potassium Chloride 40 meq 40 meq 1X ONCE PO Last administered on 09/21/16 14: 03; Start 09/21/16 at 13:00; Stop 09/21/16 at 13:01; Status DC Cefazolin Sodium/ Dextrose 50 ml @ 100 mls/hr 1X PREOP IV ; Start 09/21/16 at 20:00; Stop 09/21/16 at 23:00; Status DC Cefazolin Sodium/ Dextrose 50 ml @ 100 mls/hr 1X PREOP PRN IV Pre Op; Start at 06:00; Stop 09/22/16 at 06:54; Status DC Propofol 40 ml @ As Directed STK-MED ONCE IV ; Start 09/22/16 at 06:39; Stop 09/22 at 07:28; Status DC Propofol (Diprivan) 40 ml @ As Directed STK-MED ONCE IV ; Start 09/22/16 at 06:44 ; Stop 09/22/16 at 07:28; Status DC Midazolam HCl (Versed) 2 mg STK-MED ONCE .ROUTE ; Start 09/22/16 at 06:44; Stop 09/22/16 at 07:28; Status DC Fentanyl Citrate (Fentanyl 5ml Vial) 250 mcg STK-MED ONCE .ROUTE ; Start at 06:45; Stop 09/22/16 at 07:28; Status DC Succinylcholine Chloride (Anectine) 200 mg STK-MED ONCE .ROUTE ; Start 09/22/16 at 06:46; Stop 09/22/16 at 07:28; Status DC Glycopyrrolate (Robinul) 1 mg STK-MED ONCE .ROUTE ; Start 09/22/16 at 06:46; Stop 09/22/16 at 07:28; Status DC Neostigmine Methylsulfate 5 mg STK-MED ONCE .ROUTE ; Start 09/22/16 at 06:47; Stop 09/22/16 at 07:28; Status DC Rocuronium Skandia 50 mg 50 mg STK-MED ONCE .ROUTE ; Start 09/22/16 at 06:48; Stop 09/22/16 at 07:28; Status DC Cefazolin Sodium/ Dextrose 0 ml @ As Directed STK-MED ONCE IV ; Start 09/22/16 at 06:48; Stop 09/22/16 at 07:28; Status DC Cefazolin Sodium/ Dextrose 50 ml @ 100 mls/hr 1X PREOP PRN IV Pre Op; Start at 06:00; Stop 09/23/16 at 06:00; Status DC Heparin Sodium (Porcine)/Sodium Chloride (Iv Sodium Chloride 0.9% 1000ml Bag) 1, 001 ml @ 1,001 mls/hr 1X PERIOP ONCE IRR ; Start 09/22/16 at 09:11; Stop at 10:14; Status DC Enoxaparin Sodium (Lovenox 40mg Syringe) 40 mg Q24H SQ ; Start 09/22/16 at 09:30 ; Status UNV Sodium Chloride 3 ml 3 ml QSHIFT PRN IV AFTER MEDS AND BLOOD DRAWS; Start at 09:30 Lactated Ringer's (Iv Lactated Ringers) 1,000 ml @ 100 mls/hr Q10H IV Last administered on 09/23/16t 16:52; Start 09/22/16 at 09:24; Stop 09/23/16 at 23:03; Status DC Dextrose 12.5 gm PRN Q15MIN PRN IV SEE COMMENTS; Start 09/22/16 at 09:30 Acetaminophen/ Hydrocodone Bitart (Lortab 5/325) 1 tab PRN Q4HRS PRN PO MILD PAIN Last administered on 09/24/16 09:19; Start 09/22/16 at 09:30 Docusate Sodium (Colace) 100 mg BID PO Last administered on 09/23/16 20:50; Start 09/22/16 at 21:00 Ondansetron HCl (Zofran) 4 mg PRN Q6HRS PRN IV NAUESA, 1ST CHOICE; Start at 09:30 Bupivacaine HCl/ Epinephrine Bitart (Sensorcain-Mpf Epi 0.5%-1:545364) 30 ml STK -MED ONCE INJ Last administered on 09/22/16 08:30; Start 09/22/16 at 08:30; Stop 09/22/16 at 10:13; Status DC Iohexol (Omnipaque 300 Mg/ml) 50 ml STK-MED ONCE IV Last administered on 09:00; Start 09/22/16 at 09:00; Stop 09/22/16 at 10:13; Status DC Bisacodyl (Dulcolax Supp) 10 mg STK-MED ONCE WI Last administered on 09/22/16 09:24; Start 09/22/16 at 09:24; Stop 09/22/16 at 10:14; Status DC Metoprolol Tartrate (Lopressor) 5 mg 1X ONCE IVP Last administered on 10:14; Start 09/22/16 at 10:30; Stop 09/22/16 at 10:31; Status DC Bupivacaine HCl/ Epinephrine Bitart (Sensorcain-Mpf Epi 0.5%-1:273962) 30 ml STK -MED ONCE .ROUTE ; Start 09/22/16 at 07:41; Stop 09/23/16 at 08:05; Status DC Iohexol (Omnipaque 300 Mg/ml) 50 ml STK-MED ONCE .ROUTE ; Start 09/22/16 at 07:41 ; Stop 09/23/16 at 08:05; Status DC Cellulose 1 each STK-MED ONCE .ROUTE ; Start 09/22/16 at 07:41; Stop 09/23/16 at 08:05; Status DC Bisacodyl 10 mg 10 mg STK-MED ONCE .ROUTE ; Start 09/22/16 at 07:41; Stop at 08:05; Status DC Cefazolin Sodium/ Dextrose (Ancef 2gm Premix) 0 ml @ As Directed STK-MED ONCE IV ; Start 09/22/16 at 07:54; Stop 09/23/16 at 08:05; Status DC Rocuronium Skandia (Zemuron) 50 mg STK-MED ONCE .ROUTE ; Start 09/22/16 at 08:39 ; Stop 09/23/16 at 08:05; Status DC Metoprolol Tartrate (Lopressor) 5 mg STK-MED ONCE .ROUTE ; Start 09/22/16 at 10: 12; Stop 09/23/16 at 08:05; Status DC Fentanyl Citrate (Fentanyl 2ml Vial) 100 mcg STK-MED ONCE .ROUTE ; Start at 10:21; Stop 09/23/16 at 08:05; Status DC Prochlorperazine Edisylate (Compazine) 10 mg STK-MED ONCE .ROUTE ; Start at 10:49; Stop 09/23/16 at 08:05; Status DC Fentanyl Citrate (Fentanyl 2ml Vial) 100 mcg STK-MED ONCE .ROUTE ; Start at 11:11; Stop 09/23/16 at 08:05; Status DC Amoxicillin/ Clavulanate Potassium (Augmentin 875/ 125mg) 1 tab BID PO Last administered on 09/24/16t 09:18; Start 09/23/16 at 09:30 Cefazolin Sodium/ Dextrose (Ancef 2gm Premix) 2 gm STK-MED ONCE IV ; Start at 07:52; Stop 09/23/16 at 09:09; Status DC Famotidine (Pepcid) 20 mg BID PO ; Start 09/24/16 at 21:00 Active Scripts Active Reported Ibuprofen 100 Mg Tablet 100 Mg PO PRN Q6HRS PRN Tums (Calcium Carbonate) 200 Mg Tab.chew 200 Mg PO PRN Q4HRS PRN Vitals/I & O Vital Sign - Last 24 Hours 09/23/16 09/23/16 09/23/16 09/23/16 14:14 15:00 19:30 19:40 Temp 97.9 98.6 97.9 98.6 Pulse 74 86 Resp 18 18 B/P 133/68 119/72 Pulse Ox 95 92 O2 Delivery Nasal Cannula Nasal Cannula Room Air Room Air O2 Flow Rate 1.0 09/23/16 09/23/16 09/24/16 09/24/16 20:50 23:44 03:22 07:43 Temp 98.1 97.8 97.9 98.1 97.8 97.9 Pulse 91 85 80 Resp 18 18 B/P 113/68 144/84 128/80 Pulse Ox 94 95 95 O2 Delivery Room Air Room Air Room Air Room Air 09/24/16 09/24/16 09/24/16 09/24/16 08:00 09:19 10:50 11:13 Temp 98.6 98.6 Pulse 81 Resp 18 B/P 138/66 Pulse Ox 97 O2 Delivery Room Air Room Air Room Air Room Air Intake and Output 09/23/16 09/23/16 09/24/16 15:00 23:00 07:00 Intake Total 681 ml 1399 ml Balance 681 ml 1399 ml JAGDISH CHU MD Sep 24, 2016 13:25
--- NOTE | 2016-09-24 13:52 | PDOC ---
SURGICAL PROGRESS NOTE Subjective Pt does not feel as well today, somewhat anxious Vital Signs Vital Signs Date Time Temp Pulse Resp B/P Pulse Ox O2 Delivery O2 Flow Rate FiO2 09/24/16 11:13 98.6 81 18 138/66 97 Room Air 98.6 09/23/16 14:14 1.0 I&O Intake and Output 09/24/16 07:00 Intake Total 2080 ml Balance 2080 ml Intake Oral 480 ml IV Total 1600 ml # Voids 6 General: Alert, Oriented X3, Cooperative, No acute distress Abdomen: Soft, No tenderness Labs Laboratory Tests Test 09/23/16 03:40 09/24/16 05:05 White Blood Count 28.5x10^3/uL (4.0-11.0) 14.7x10^3/uL (4.0-11.0) Red Blood Count 3.58x10^6/uL (4.30-5.70) 2.67x10^6/uL (4.30-5.70) Hemoglobin 10.2g/dL (13.0-17.5) 7.7g/dL (13.0-17.5) Hematocrit 31.5% (39.0-53.0) 23.8% (39.0-53.0) Mean Corpuscular Volume 88fL (79-100) 89fL (79-100) Mean Corpuscular Hemoglobin 29pg (25-35) 29pg (25-35) Mean Corpuscular Hemoglobin Concent 32g/dL (31-37) 33g/dL (31-37) Red Cell Distribution Width 13.5% (11.5-14.5) 13.4% (11.5-14.5) Platelet Count 406x10^3/uL (140-400) 271x10^3/uL (140-400) Neutrophils (%) (Auto) 90% (31-73) 70% (31-73) Lymphocytes (%) (Auto) 5% (24-48) 22% (24-48) Monocytes (%) (Auto) 4% (0-9) 7% (0-9) Eosinophils (%) (Auto) 0% (0-3) 1% (0-3) Basophils (%) (Auto) 0% (0-3) 0% (0-3) Neutrophils # (Auto) 25.8x10^3uL (1.8-7.7) 10.2x10^3uL (1.8-7.7) Lymphocytes # (Auto) 1.4x10^3/uL (1.0-4.8) 3.3x10^3/uL (1.0-4.8) Monocytes # (Auto) 1.2x10^3/uL (0.0-1.1) 1.0x10^3/uL (0.0-1.1) Eosinophils # (Auto) 0.0x10^3/uL (0.0-0.7) 0.1x10^3/uL (0.0-0.7) Basophils # (Auto) 0.1x10^3/uL (0.0-0.2) 0.0x10^3/uL (0.0-0.2) Segmented Neutrophils % 84% (35-66) Band Neutrophils % 6% (0-9) Lymphocytes % 7% (24-48) Monocytes % 2% (0-10) Myelocytes % 1% (0-0) Toxic Granulation Mod Platelet Estimate Adequate (ADEQUATE) Sodium Level 144mmol/L (136-145) 145mmol/L (136-145) Potassium Level 4.3mmol/L (3.5-5.1) 3.8mmol/L (3.5-5.1) Chloride Level 106mmol/L (98-107) 107mmol/L (98-107) Carbon Dioxide Level 27mmol/L (21-32) 33mmol/L (21-32) Anion Gap 11 (6-14) 5 (6-14) Blood Urea Nitrogen 12mg/dL (8-26) 14mg/dL (8-26) Creatinine 1.2mg/dL (0.7-1.3) 0.9mg/dL (0.7-1.3) Estimated GFR (Cockcroft-Gault) 69.7 97.2 Glucose Level 129mg/dL (70-99) 93mg/dL (70-99) Calcium Level 9.1mg/dL (8.5-10.1) 8.4mg/dL (8.5-10.1) Laboratory Tests Test 3/8/17 05:05 White Blood Count 14.7x10^3/uL (4.0-11.0) Red Blood Count 2.67x10^6/uL (4.30-5.70) Hemoglobin 7.7g/dL (13.0-17.5) Hematocrit 23.8% (39.0-53.0) Mean Corpuscular Volume 89fL (79-100) Mean Corpuscular Hemoglobin 29pg (25-35) Mean Corpuscular Hemoglobin Concent 33g/dL (31-37) Red Cell Distribution Width 13.4% (11.5-14.5) Platelet Count 271x10^3/uL (140-400) Neutrophils (%) (Auto) 70% (31-73) Lymphocytes (%) (Auto) 22% (24-48) Monocytes (%) (Auto) 7% (0-9) Eosinophils (%) (Auto) 1% (0-3) Basophils (%) (Auto) 0% (0-3) Neutrophils # (Auto) 10.2x10^3uL (1.8-7.7) Lymphocytes # (Auto) 3.3x10^3/uL (1.0-4.8) Monocytes # (Auto) 1.0x10^3/uL (0.0-1.1) Eosinophils # (Auto) 0.1x10^3/uL (0.0-0.7) Basophils # (Auto) 0.0x10^3/uL (0.0-0.2) Sodium Level 145mmol/L (136-145) Potassium Level 3.8mmol/L (3.5-5.1) Chloride Level 107mmol/L (98-107) Carbon Dioxide Level 33mmol/L (21-32) Anion Gap 5 (6-14) Blood Urea Nitrogen 14mg/dL (8-26) Creatinine 0.9mg/dL (0.7-1.3) Estimated GFR (Cockcroft-Gault) 97.2 Glucose Level 93mg/dL (70-99) Calcium Level 8.4mg/dL (8.5-10.1) Problem List Problems Medical Problems: (1) Acute pancreatitis Status: Acute (2) Gallstone pancreatitis Status: Acute Assessment/Plan s/p lap cary cont supportive care monitor CBC Problems: PHYLLIS BRUMFIELD MD Sep 24, 2016 13:52
[2016-09-24 14:17] LABS: HEMATOCRIT 26.5 % (39.0-53.0); HEMOGLOBIN 8.5 g/dL (13.0-17.5); RED BLOOD COUNT 2.97 x10^6/uL (4.30-5.70); RED CELL DISTRIBUTION WIDTH 13.5 % (11.5-14.5); WHITE BLOOD COUNT 12.1 x10^3/uL (4.0-11.0)
[2016-09-24 15:02] VITALS: BP 140/69
[2016-09-24 19:05] VITALS: BP 137/74
[2016-09-24] MEDS: FAMOTIDINE 20 MG TABLET. PO SCH (21:00)
[2016-09-24 22:57] VITALS: BP 138/74
[2016-09-25] MEDS: SIMETHICONE 80 MG TAB.CHEW PO PRN ×2 (01:15→05:59)
[2016-09-25] MEDS: IBUPROFEN 400 MG TABLET. PO PRN ×2 (01:16→06:00)
[2016-09-25] MEDS: HYDROCODONE/APAP 5/325MG TABLET. PO PRN ×2 (01:16→06:00)
[2016-09-25 03:01] VITALS: BP 140/76
[2016-09-25 04:31] LABS: BASO # 0.1 x10^3/uL (0.0-0.2); BASO % 1 % (0-3); EOS % 1 % (0-3); HEMATOCRIT 23.8 % (39.0-53.0); HEMOGLOBIN 7.9 g/dL (13.0-17.5); LYMPH # 3.1 x10^3/uL (1.0-4.8); LYMPH % 27 % (24-48); MEAN CORPUSCULAR HEMOGLOBIN 29 pg (25-35); MEAN CORPUSCULAR HGB CONC 33 g/dL (31-37); MEAN CORPUSCULAR VOLUME 87 fL (79-100); MONO % 7 % (0-9); NEUT % 64 % (31-73); PLATELET COUNT 281 x10^3/uL (140-400); RED BLOOD COUNT 2.74 x10^6/uL (4.30-5.70); RED CELL DISTRIBUTION WIDTH 13.3 % (11.5-14.5); WHITE BLOOD COUNT 11.2 x10^3/uL (4.0-11.0)
[2016-09-25 04:42] LABS: CALCIUM 8.5 mg/dL (8.5-10.1); CREATININE 0.8 mg/dL (0.7-1.3); GFR 111.3; POTASSIUM 3.8 mmol/L (3.5-5.1)
[2016-09-25 07:00] VITALS: BP 140/87
[2016-09-25] MEDS: TAMSULOSIN 0.4 MG CAP.ER.24H. PO SCH (09:00)
[2016-09-25] MEDS: ENOXAPARIN ** NOTE DOSE ** SYRINGE SQ SCH (09:00)
[2016-09-25] MEDS: DOCUSATE SODIUM 100 MG CAPSULE PO SCH (09:00)
[2016-09-25] MEDS: FAMOTIDINE 20 MG TABLET. PO SCH (09:20)
[2016-09-25] MEDS: AMOXICILLIN/K CLAV 875/125MG TABLET. PO SCH (09:20)
[2016-09-25] MEDS ORDERED: FAMO20TA5 PO (09:41)
[2016-09-25] MEDS ORDERED: HYDR-2666 PO (09:41)
[2016-09-25] MEDS ORDERED: DOCU-27 PO (09:41)
[2016-09-25] MEDS ORDERED: TAMS0.4C97 PO (10:00)
--- NOTE | 2016-09-25 10:10 | PDOC3 ---
Discharge Summary Visit Information Date of Admission: Sep 13, 2016 Date of Discharge: Sep 25, 2016 Admitting Diagnosis: abd pain Final Diagnosis acute abd pain 1. Gallstone Pancreatitis 2. Morbid Obesity- BMI 55 3. Fevers, resolved 4 mass of right kidney, poss renal cyst 5. Urinary retention 6. Anemia, not present on admit Problems Medical Problems: (1) Acute pancreatitis Status: Acute (2) Gallstone pancreatitis Status: Acute Brief Hospital Course Allergies Allergies Coded Allergies Type Severity Reaction Last Updated Verified No Known Drug Allergies 09/22/16 No Vital Signs Vital Signs Date Time Temp Pulse Resp B/P Pulse Ox O2 Delivery O2 Flow Rate FiO2 09/25/16 07:00 98.3 70 18 140/87 95 Room Air 98.3 Lab Results Laboratory Tests Test 09/24/16 05:05 09/24/16 13:35 09/25/16 04:00 White Blood Count 14.7x10^3/uL (4.0-11.0) 12.1x10^3/uL (4.0-11.0) 11.2x10^3/uL (4.0-11.0) Red Blood Count 2.67x10^6/uL (4.30-5.70) 2.97x10^6/uL (4.30-5.70) 2.74x10^6/uL (4.30-5.70) Hemoglobin 7.7g/dL (13.0-17.5) 8.5g/dL (13.0-17.5) 7.9g/dL (13.0-17.5) Hematocrit 23.8% (39.0-53.0) 26.5% (39.0-53.0) 23.8% (39.0-53.0) Mean Corpuscular Volume 89fL (79-100) 89fL (79-100) 87fL (79-100) Mean Corpuscular Hemoglobin 29pg (25-35) 29pg (25-35) 29pg (25-35) Mean Corpuscular Hemoglobin Concent 33g/dL (31-37) 32g/dL (31-37) 33g/dL (31-37) Red Cell Distribution Width 13.4% (11.5-14.5) 13.5% (11.5-14.5) 13.3% (11.5-14.5) Platelet Count 271x10^3/uL (140-400) 274x10^3/uL (140-400) 281x10^3/uL (140-400) Neutrophils (%) (Auto) 70% (31-73) 64% (31-73) Lymphocytes (%) (Auto) 22% (24-48) 27% (24-48) Monocytes (%) (Auto) 7% (0-9) 7% (0-9) Eosinophils (%) (Auto) 1% (0-3) 1% (0-3) Basophils (%) (Auto) 0% (0-3) 1% (0-3) Neutrophils # (Auto) 10.2x10^3uL (1.8-7.7) 7.1x10^3uL (1.8-7.7) Lymphocytes # (Auto) 3.3x10^3/uL (1.0-4.8) 3.1x10^3/uL (1.0-4.8) Monocytes # (Auto) 1.0x10^3/uL (0.0-1.1) 0.8x10^3/uL (0.0-1.1) Eosinophils # (Auto) 0.1x10^3/uL (0.0-0.7) 0.1x10^3/uL (0.0-0.7) Basophils # (Auto) 0.0x10^3/uL (0.0-0.2) 0.1x10^3/uL (0.0-0.2) Sodium Level 145mmol/L (136-145) 146mmol/L (136-145) Potassium Level 3.8mmol/L (3.5-5.1) 3.8mmol/L (3.5-5.1) Chloride Level 107mmol/L (98-107) 107mmol/L (98-107) Carbon Dioxide Level 33mmol/L (21-32) 30mmol/L (21-32) Anion Gap 5 (6-14) 9 (6-14) Blood Urea Nitrogen 14mg/dL (8-26) 14mg/dL (8-26) Creatinine 0.9mg/dL (0.7-1.3) 0.8mg/dL (0.7-1.3) Estimated GFR (Cockcroft-Gault) 97.2 111.3 Glucose Level 93mg/dL (70-99) 91mg/dL (70-99) Calcium Level 8.4mg/dL (8.5-10.1) 8.5mg/dL (8.5-10.1) Laboratory Tests Test 09/24/16 13:35 09/25/16 04:00 White Blood Count 12.1x10^3/uL (4.0-11.0) 11.2x10^3/uL (4.0-11.0) Red Blood Count 2.97x10^6/uL (4.30-5.70) 2.74x10^6/uL (4.30-5.70) Hemoglobin 8.5g/dL (13.0-17.5) 7.9g/dL (13.0-17.5) Hematocrit 26.5% (39.0-53.0) 23.8% (39.0-53.0) Mean Corpuscular Volume 89fL (79-100) 87fL (79-100) Mean Corpuscular Hemoglobin 29pg (25-35) 29pg (25-35) Mean Corpuscular Hemoglobin Concent 32g/dL (31-37) 33g/dL (31-37) Red Cell Distribution Width 13.5% (11.5-14.5) 13.3% (11.5-14.5) Platelet Count 274x10^3/uL (140-400) 281x10^3/uL (140-400) Neutrophils (%) (Auto) 64% (31-73) Lymphocytes (%) (Auto) 27% (24-48) Monocytes (%) (Auto) 7% (0-9) Eosinophils (%) (Auto) 1% (0-3) Basophils (%) (Auto) 1% (0-3) Neutrophils # (Auto) 7.1x10^3uL (1.8-7.7) Lymphocytes # (Auto) 3.1x10^3/uL (1.0-4.8) Monocytes # (Auto) 0.8x10^3/uL (0.0-1.1) Eosinophils # (Auto) 0.1x10^3/uL (0.0-0.7) Basophils # (Auto) 0.1x10^3/uL (0.0-0.2) Sodium Level 146mmol/L (136-145) Potassium Level 3.8mmol/L (3.5-5.1) Chloride Level 107mmol/L (98-107) Carbon Dioxide Level 30mmol/L (21-32) Anion Gap 9 (6-14) Blood Urea Nitrogen 14mg/dL (8-26) Creatinine 0.8mg/dL (0.7-1.3) Estimated GFR (Cockcroft-Gault) 111.3 Glucose Level 91mg/dL (70-99) Calcium Level 8.5mg/dL (8.5-10.1) Brief Hospital Course Mr. Gabriel is a 31 old admit for acute abd pain, constipatino acute gallstone pancreattiis, spesi, staretd on zosyn and changed to augmentin Gallbladder lap cary by Dr. Wolff, 09/23. some post-op anemia, expected, w/ post sepsis abx course completed urinary retention, f/u Dr. milner, Dc on flomax Discharge Information Condition at Discharge: Improved Follow Up: Weeks Disposition/Orders: D/C to Home Scheduled Docusate Sodium (Colace) 100 MG PO BID Famotidine (Famotidine) 20 MG PO BID Tamsulosin Hcl (Flomax) 0.4 MG PO DAILY Scheduled PRN Calcium Carbonate (Tums) 200 MG PO PRN Q4HRS PRN PRN INDIGESTION (Reported) Hydrocodone Bit/Acetaminophen (Hydrocodone-Apap 5-325 ) 1 TAB PO PRN Q4HRS PRN PRN MILD PAIN Ibuprofen (Ibuprofen) 100 MG PO PRN Q6HRS PRN PRN PAIN (Reported) Patient Instructions Patient Instructions time > 30 min f/u DR. lefty Milner for renal cyst and retention weight loss and exercise discussed X4, nutrition consult need primary care, lifestyle change JAGDISH CHU MD Sep 25, 2016 10:10
[2016-09-25] MEDS: POLYETHYLENE GLYCOL 3350 17 GM PACKET. PO PRN (11:21)
== END 2016-09-25 12:30 | disposition home or self-care (01) | DRG 417 ==
LOC: ER 12:17 → 4 NORTH 15:31
PROVIDERS: ADMIT Internal Medicine; ATTEND Internal Medicine
PROC: BF101ZZ Fluoroscopy of Bile Ducts using Low Osmolar Contrast (ICD-10-PCS; 2016-09-22)
PROC: 5A1935Z Respiratory Ventilation, Less than 24 Consecutive Hours (ICD-10-PCS; 2016-09-22)
PROC: 0FT44ZZ Resection of Gallbladder, Percutaneous Endoscopic Approach (ICD-10-PCS; principal; 2016-09-22 08:00)
DX: K85.10 Biliary acute pancreatitis without necrosis or infection (principal); R65.11 Systemic inflammatory response syndrome (SIRS) of non-infectious origin with acute organ dysfunction; Z68.43 Body mass index [BMI] 50.0-59.9, adult; K80.10 Calculus of gallbladder with chronic cholecystitis without obstruction; J90 Pleural effusion, not elsewhere classified; N17.9 Acute kidney failure, unspecified; D64.9 Anemia, unspecified; E66.01 Morbid (severe) obesity due to excess calories; F41.9 Anxiety disorder, unspecified; K21.9 Gastro-esophageal reflux disease without esophagitis; K59.00 Constipation, unspecified; K82.8 Other specified diseases of gallbladder; N28.1 Cyst of kidney, acquired; N28.89 Other specified disorders of kidney and ureter; R33.9 Retention of urine, unspecified; Z82.49 Family history of ischemic heart disease and other diseases of the circulatory system; Z83.3 Family history of diabetes mellitus; Z79.899 Other long term (current) drug therapy
CPT/HCPCS: 36415; 74170; 74177; 74300; 76770; 80048; 80053; 80076; 81001; 82947; 83690; 84145; 85007; 85027; 86850; 86900; 86901; 88304; 93005; 94002; 96361; 96374; 96375; 96376; C1782; J0330; J0690; J1170; J1200; J1650; J2185; J2250; J2405; J2543; J2704; J2710; J3010; J3490; J7030; J7120; Q9967; S0028; 99285-25